=== PATIENT | male | born 1970 | race American Indian/Alaskan Native ===

== ENCOUNTER 2022-02-11 01:02 | Emergency (ER) | payer MEDICARE ==
[2022-02-11 01:46] VITALS: BP 165/89
== END 2022-02-12 14:40 | disposition left against medical advice (07) ==
LOC: ED 01:02
DX: M79.641 Pain in right hand (principal); Z53.21 Procedure and treatment not carried out due to patient leaving prior to being seen by health care provider

== ENCOUNTER 2022-05-26 23:32 | Inpatient (IN) | payer MEDICARE ==
--- NOTE | 2022-05-27 01:35 | XRay Report ---
CHEST 1 VIEW 05/26/2022 11:59 PM INDICATION / CLINICAL INFORMATION: Altered Mental Status. COMPARISON: 03/24/2022 FINDINGS: Diffuse bilateral pulmonary opacities of increased since prior examination suggesting diffuse edema/p neumonia. Left upper lung nodular density and opacity is also seen which may be slightly increased. F ollow-up with CT recommended as previously described. Signer Name: Mario Mullins MD Signed: 05/27/2022 1:30 AM Workstation Name: [id number]
--- NOTE | 2022-05-27 01:58 | Cat Scan Report ---
CT HEAD WITHOUT CONTRAST INDICATION / CLINICAL INFORMATION: Altered Mental Status. TECHNIQUE: All CT scans at this location are performed using CT dose reduction for ALARA by means of automated e xposure control. COMPARISON: 03/26/2022 FINDINGS: There is a prominent area of low attenuation within the left frontal white matter consistent with are a of prior ischemic change. Additional areas of low-attenuation scattered throughout the periventricu lar and central white matter. Additional area of low-attenuation with in the left posterior occipital and periventricular white matter surrounding the occipital horn suggests prior ischemic change. Mult iple areas of encephalomalacia are seen. Diffuse cerebral atrophy is identified. No acute hemorrhage is seen.. No midline shift or mass effect. Tiny area of punctate density is seen within the left post erior parieto-occipital lobe on axial image 21 ADDITIONAL FINDINGS: None. IMPRESSION: 1. Multiple areas of encephalomalacia with diffuse areas of prior ischemic change. Diffuse periventri cular central white matter areas of low-attenuation suggesting chronic small vessel disease. 2. Punctate area of increased density in the left prior occipital lobe best seen on axial image 21. T his could represent focal area of calcification however a small punctate images not completely exclud ed. This is not as well-seen on the prior exam. Called to Dr Almanzar [id number] Signer Name: Mario Mullins MD Signed: 05/27/2022 1:53 AM Workstation Name: [id number]
[2022-05-27 02:41] LABS: Albumin 2.6 g/dL (3.9-5); Calcium 10.5 mg/dL (8.4-10.2)
[2022-05-27 02:53] LABS: Basophils % (Auto) 0.3 % (0.0-1.8); Eosinophils % (Auto) 0.1 % (0.0-4.3); Hemoglobin 7.8 gm/dl (11.8-15.2); Lymphocytes # (Auto) 0.3 K/mm3 (1.2-5.4); Lymphocytes % (Auto) 2.1 % (13.4-35.0); Mean Corpuscular HGB Conc 32 % (32-34); Mean Corpuscular Volume 93 fl (84-94); Monocytes # (Auto) 1.1 K/mm3 (0.0-0.8); Monocytes % (Auto) 8.3 % (0.0-7.3); Platelet Count 295 K/mm3 (140-440); Red Blood Count 2.58 M/mm3 (3.65-5.03); Red Cell Distribution Width 15.5 % (13.2-15.2)
[2022-05-27 03:03] LABS: INR 1.23 (0.87-1.13)
[2022-05-27] MEDS ORDERED: DEXTROSE 50% IN WATER (25GM) 50 ML SYRINGE IV ONE (03:57)
[2022-05-27] MEDS ORDERED: INSULIN REGULAR, HUMAN 100 UNITS/1 ML IV ONE (03:57)
[2022-05-27] MEDS ORDERED: SODIUM CHLORIDE 0.9% 1000 ML 1,000 ML IV ONE (03:58)
[2022-05-27] MEDS ORDERED: ALBUTEROL 2.5 MG/3 ML NEBU IH ONE (03:58)
[2022-05-27] MEDS ORDERED: CALCIUM CHLORIDE 1,000 MG in SODIUM CHLORIDE 0.9% 100 ML IV ONE (03:58)
[2022-05-27] MEDS ORDERED: SODIUM POLYSTYRENE 15 GM/60 ML ORAL LIQD PO ONE ×2 (03:59→14:26)
--- NOTE | 2022-05-27 04:12 | Emergency Department Report ---
ED Altered Mental Status HPI - General Chief Complaint: Altered Mental Status Stated Complaint: AMS PUI?: No Time Seen by Provider: 05/27/22 00:42 Source: family, EMS Mode of arrival: Stretcher Limitations: Altered Mental Status - History of Present Illness Initial Comments: Family called to report that pt is not acting right. Oriented to name only. Does not know when last dialysis was. 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 ps is 51 years old with CRF , family noted not acting like himself , they dont know when he was last dilaisedMD Complaint: altered mental status, confusion, decreased responsiveness -: Gradual, days(s) Severity: severe Consistency of Symptoms: getting worse Context: history of similar presen Associated Symptoms: denies: denies other symptoms, chest pain - Related Data Previous Rx's Medication Instructions Recorded Last Taken Type Aspirin EC [Halfprin EC] 81 mg PO QDAY #30 tablet. 03/27/22 Unknown Rx Metoprolol [Lopressor TAB] 100 mg PO BID #60 tablet 03/27/22 Unknown Rx levETIRAcetam [Keppra TAB] 500 mg PO BID #60 tablet 03/27/22 Unknown Rx Allergies Allergy/AdvReac Type Severity Reaction Status Date / Time No Known Allergies Allergy Unverified 03/21/22 18:10 ED Review of Systems ROS: Stated complaint: AMS Other details as noted in HPI Constitutional: denies: chills, fever Eyes: denies: eye pain, eye discharge, vision change ENT: denies: ear pain, throat pain Respiratory: denies: cough, shortness of breath, wheezing Cardiovascular: denies: chest pain, palpitations Endocrine: no symptoms reported Gastrointestinal: denies: abdominal pain, nausea, diarrhea Genitourinary: denies: urgency, dysuria Musculoskeletal: denies: back pain, joint swelling, arthralgia Skin: denies: rash, lesions Neurological: denies: headache, weakness, paresthesias Psychiatric: denies: anxiety, depression Hematological/Lymphatic: denies: easy bleeding, easy bruising ED Past Medical Hx - Past Medical History Previous Medical History?: Yes Hx Hypertension: Yes Hx Diabetes: Yes Hx Renal Disease: Yes (On Dialysis) - Surgical History Past Surgical History?: No - Social History Smoking Status: Never Smoker Substance Use Type: None - Medications Home Medications: Home Medications Medication Instructions Recorded Confirmed Last Taken Type Aspirin EC [Halfprin EC] 81 mg PO QDAY #30 tablet. 03/27/22 Unknown Rx Metoprolol [Lopressor TAB] 100 mg PO BID #60 tablet 03/27/22 Unknown Rx levETIRAcetam [Keppra TAB] 500 mg PO BID #60 tablet 03/27/22 Unknown Rx ED Physical Exam - General Limitations: Altered Mental Status General appearance: lethargic, in distress - Head Head exam: Present: atraumatic, normocephalic - Eye Eye exam: Present: normal appearance - ENT ENT exam: Present: mucous membranes moist - Neck Neck exam: Present: normal inspection - Respiratory Respiratory exam: Present: normal lung sounds bilaterally. Absent: respiratory distress - Cardiovascular Cardiovascular Exam: Present: normal rhythm, tachycardia. Absent: systolic murmur, diastolic murmur, rubs, gallop - GI/Abdominal GI/Abdominal exam: Present: soft, normal bowel sounds - Rectal Rectal exam: Present: deferred - Extremities Exam Extremities exam: Present: normal inspection - Back Exam Back exam: Present: normal inspection - Skin Skin exam: Present: warm, dry, intact, normal color. Absent: rash ED Course Vital Signs 05/26/22 23:33 Temperature 98 F Pulse Rate 99 H Respiratory 18 Rate Blood Pressure 165/89 O2 Sat by Pulse 100 Oximetry - Lab Data Result diagrams: 05/27/22 01:28 05/27/22 01:28 Lab Results 05/27/22 05/27/22 05/27/22 Range/Units 01:28 01:28 01:28 WBC 13.8 H (4.5-11.0) K/mm3 RBC 2.58 L (3.65-5.03) M/mm3 Hgb 7.8 L (11.8-15.2) gm/dl Hct 24.0 L (35.5-45.6) % MCV 93 (84-94) fl MCH 30 (28-32) pg MCHC 32 (32-34) % RDW 15.5 H (13.2-15.2) % Plt Count 295 (140-440) K/mm3 Lymph % (Auto) 2.1 L (13.4-35.0) % Arroyo % (Auto) 8.3 H (0.0-7.3) % Eos % (Auto) 0.1 (0.0-4.3) % Baso % (Auto) 0.3 (0.0-1.8) % Lymph # (Auto) 0.3 L (1.2-5.4) K/mm3 Arroyo # (Auto) 1.1 H (0.0-0.8) K/mm3 Eos # (Auto) 0.0 (0.0-0.4) K/mm3 Baso # (Auto) 0.0 (0.0-0.1) K/mm3 Seg Neutrophils % 89.2 H (40.0-70.0) % Seg Neutrophils # 12.3 H (1.8-7.7) K/mm3 PT 17.0 H (12.2-14.9) Sec. INR 1.23 H (0.87-1.13) Sodium 152 H (137-145) mmol/L Potassium 6.9 H* (3.6-5.0) mmol/L Chloride 97.9 L (98-107) mmol/L Carbon Dioxide 21 L (22-30) mmol/L Anion Gap 40 mmol/L BUN 242 H (9-20) mg/dL Creatinine 32.1 H (0.8-1.3) mg/dL Estimated GFR 2 ml/min BUN/Creatinine Ratio 8 % Glucose 112 H (75-100) mg/dL Calcium 10.5 H (8.4-10.2) mg/dL Total Bilirubin 0.30 (0.1-1.2) mg/dL AST 19 (5-40) units/L ALT 15 (7-56) units/L Alkaline Phosphatase 63 (35-129) units/L Total Creatine Kinase 1147 H (55-170) units/L Troponin T 0.933 H* (0.00-0.029) ng/mL Total Protein 7.1 (6.3-8.2) g/dL Albumin 2.6 L (3.9-5) g/dL Albumin/Globulin Ratio 0.6 % Salicylates (2.8-20.0) mg/dL Acetaminophen (10.0-30.0) ug/mL Plasma/Serum Alcohol (0-0.07) % 05/27/22 05/27/22 05/27/22 Range/Units 01:28 01:28 01:28 WBC (4.5-11.0) K/mm3 RBC (3.65-5.03) M/mm3 Hgb (11.8-15.2) gm/dl Hct (35.5-45.6) % MCV (84-94) fl MCH (28-32) pg MCHC (32-34) % RDW (13.2-15.2) % Plt Count (140-440) K/mm3 Lymph % (Auto) (13.4-35.0) % Arroyo % (Auto) (0.0-7.3) % Eos % (Auto) (0.0-4.3) % Baso % (Auto) (0.0-1.8) % Lymph # (Auto) (1.2-5.4) K/mm3 Arroyo # (Auto) (0.0-0.8) K/mm3 Eos # (Auto) (0.0-0.4) K/mm3 Baso # (Auto) (0.0-0.1) K/mm3 Seg Neutrophils % (40.0-70.0) % Seg Neutrophils # (1.8-7.7) K/mm3 PT (12.2-14.9) Sec. INR (0.87-1.13) Sodium (137-145) mmol/L Potassium (3.6-5.0) mmol/L Chloride (98-107) mmol/L Carbon Dioxide (22-30) mmol/L Anion Gap mmol/L BUN (9-20) mg/dL Creatinine (0.8-1.3) mg/dL Estimated GFR ml/min BUN/Creatinine Ratio % Glucose (75-100) mg/dL Calcium (8.4-10.2) mg/dL Total Bilirubin (0.1-1.2) mg/dL AST (5-40) units/L ALT (7-56) units/L Alkaline Phosphatase (35-129) units/L Total Creatine Kinase (55-170) units/L Troponin T (0.00-0.029) ng/mL Total Protein (6.3-8.2) g/dL Albumin (3.9-5) g/dL Albumin/Globulin Ratio % Salicylates < 0.3 L (2.8-20.0) mg/dL Acetaminophen 5.0 L (10.0-30.0) ug/mL Plasma/Serum Alcohol < 0.01 (0-0.07) % - EKG Data -: EKG Interpreted by Me EKG shows normal: sinus rhythm Rate: tachycardia - Radiology Data Radiology results: report reviewed, image reviewed - Medical Decision Making work up showed hyperkalemia and uremia encephaolthy , protocol for hyperkalemia apliued, spoke with dr durbin , will get him dilaised rigth away, will admit Critical Care Time: Yes Critical care time in (mins) excluding proc time.: 65 Critical care attestation.: If time is entered above; I have spent that time in minutes in the direct care of this critically ill patient, excluding procedure time. ED Disposition Clinical Impression: Uremic encephalopathy, AMS (altered mental status), Hyperkalemia Disposition: ADMITTED INPATIENT Is pt being admited?: Yes Does the pt Need Aspirin: No Condition: Critical Referrals: ALDEN MARTINEZ MD [Primary Care Provider] - 3-5 Days
[2022-05-27] MEDS ORDERED: SODIUM CHLORIDE 0.9% 100 ML IV PRN (04:18)
[2022-05-27 04:33] LABS: Chol/HDL Ratio 2.87 %
--- NOTE | 2022-05-27 13:54 | Consultation ---
History of Present Illness - Reason for Consult Consult date: 05/27/22 end stage renal disease - History of Present Illness 51yr M admitted with AMS, oriented to name only, only nods to answer questions but won't respond to commands. Does not know when he last had dialysis & unable to say his Clinic or [facility] Past History Past Medical History: ESRD, other (No further info available at this time & no family members around) Medications and Allergies Allergies Allergy/AdvReac Type Severity Reaction Status Date / Time No Known Allergies Allergy Unverified 03/21/22 18:10 Home Medications Medication Instructions Recorded Confirmed Last Taken Type Aspirin EC [Halfprin EC] 81 mg PO QDAY #30 tablet. 03/27/22 Unknown Rx Metoprolol [Lopressor TAB] 100 mg PO BID #60 tablet 03/27/22 Unknown Rx levETIRAcetam [Keppra TAB] 500 mg PO BID #60 tablet 03/27/22 Unknown Rx Active Meds: Active Medications Sodium Chloride (Nacl 0.9%) 100 mls @ 999 mls/hr IV HILDA PRN PRN Reason: Hypotension Review of Systems ROS unobtainable: due to mental status Exam - Vital Signs Vital signs: Vital Signs Temp Pulse Resp BP Pulse Ox 98 F 99 H 18 165/89 100 05/26/22 23:33 05/26/22 23:33 05/26/22 23:33 05/26/22 23:33 05/26/22 23:33 - General Appearance General appearance: other (Awake & alert but remains mute & only nods to answer questions) EENT: PERRL, hearing intact Neck: Present: neck supple. Absent: JVD/HJR Respiratory: Other (Good air entry) Heart: regular, S1S2 Gastrointestinal: Present: other (Soft). Absent: tenderness Integumentary: no rash, warm and dry Results - Lab Results 05/27/22 01:28 05/27/22 01:28 Most recent lab results Calcium 10.5 mg/dL (8.4-10.2) H 05/27/22 01:28 Assessment and Plan ESRD - Highly elevated BUN/Cr but pt alert & no evidence of Uremic silverio Electrolyte Imbalance - HyperK, HyperNa Dehydration Altered Mental Status - Possibly related to HyperNa but r/o illicit Drug use Plan: HD today via Lt arm AVG with +Bruit & thrill. Discussed with HD Nurse for slow HD with adjusted electrolytes to avoid Dialysis dysequilibrium Low K, low Na, low Ca baths on HD. Kayexalate po Hypotonic IVF & f/u labs & clinical status in am Thanks, will f/u with you
--- NOTE | 2022-05-27 14:06 | Event Note ---
In reviewing chart, patient seen by Dr. Eastman on last visit- will change consult to him. Did speak with Dr. Eastman to confirm patient is under his care. STAT HD orders placed given severity of symptoms early this AM, is currently on HD. Further management per Dr. Eastman.
[2022-05-27 14:47] LABS: Hepatitis B Surface Antigen Non-Reactive (Negative); Hepatitis C Virus Antibody Non-Reactive (NonReactive)
[2022-05-27] MEDS ORDERED: DEXTROSE 5% IN WATER 1,000 ML IV SCH (15:00)
[2022-05-27] MEDS ORDERED: MORPHINE 2 MG/1 ML INJ IV PRN (19:48)
[2022-05-27] MEDS ORDERED: METOCLOPRAMIDE 10 MG/2 ML INJ IV PRN (19:48)
[2022-05-27] MEDS ORDERED: HYDROmorphone 0.5 MG/0.5 ML INJ IV PRN (19:48)
[2022-05-27] MEDS ORDERED: ACETAMINOPHEN 325 MG TAB PO PRN (19:48)
[2022-05-27] MEDS ORDERED: oxyCODONE /ACETAMINOPHEN 5-325MG TAB PO PRN (19:48)
[2022-05-27 21:12] LABS: Calcium 9.2 mg/dL (8.4-10.2)
[2022-05-27] MEDS: HEPARIN 5,000 UNIT/1 ML VIAL SUB-Q SCH (21:53)
--- NOTE | 2022-05-28 01:52 | History and Physical Report ---
History of Present Illness Date of examination: 05/27/22 Date of admission: 05/27/22 19:48 Chief complaint: Altered sensorium since a.m. History of present illness: 51-year-old seizure disorder hypertension type 2 diabetes and end-stage renal disease on hemodialysis presents with lethargy and confusion. Family brought him to the emergency room stating that he is confused not oriented. His last known dialysis is not known. Improvement on fluids. No fever or chills. No seizures. Noncompliant with his medications. - Past Medical History --Previous Medical History?: Yes --Hypertension: Yes --Diabetes: Yes --Renal Disease: Yes (On Dialysis) - Surgical History --AVF for HD - Social History --Smoking Status: Never Smoker --Substance Use Type: None -Family history -- Htn - Medications --Home Medications: Home Medications Medication Instructions Recorded Confirmed Last Taken Type Aspirin EC [Halfprin EC] 81 mg PO QDAY #30 tablet. 03/27/22 Unknown Rx Metoprolol [Lopressor TAB] 100 mg PO BID #60 tablet 03/27/22 Unknown Rx levETIRAcetam [Keppra TAB] 500 mg PO BID #60 tablet 03/27/22 Unknown Rx Review of Systems ROS: Stated complaint: AMS Other details as noted in HPI Constitutional: denies: chills, fever Eyes: denies: eye pain, eye discharge, vision change ENT: denies: ear pain, throat pain Respiratory: denies: cough, shortness of breath, wheezing Cardiovascular: denies: chest pain, palpitations Endocrine: no symptoms reported Gastrointestinal: denies: abdominal pain, nausea, diarrhea Genitourinary: denies: urgency, dysuria Musculoskeletal: denies: back pain, joint swelling, arthralgia Skin: denies: rash, lesions Neurological: denies: headache, weakness, paresthesias Psychiatric: denies: anxiety, depression Hematological/Lymphatic: denies: easy bleeding, easy bruising Past History Past Medical History: ESRD, other (No further info available at this time & no family members around) Medications and Allergies Allergies Allergy/AdvReac Type Severity Reaction Status Date / Time No Known Allergies Allergy Unverified 03/21/22 18:10 Home Medications Medication Instructions Recorded Confirmed Last Taken Type Aspirin EC [Halfprin EC] 81 mg PO QDAY #30 tablet. 03/27/22 Unknown Rx Metoprolol [Lopressor TAB] 100 mg PO BID #60 tablet 03/27/22 Unknown Rx levETIRAcetam [Keppra TAB] 500 mg PO BID #60 tablet 03/27/22 Unknown Rx Active Meds: Active Medications Acetaminophen (Acetaminophen 325 Mg Tab) 650 mg PO Q4H PRN PRN Reason: Pain MILD(1-3)/Fever >100.5/MUNOZ Heparin Sodium (Porcine) (Heparin 5,000 Unit/1 Ml Vial) 5,000 unit SUB-Q Q12HR [facility] Last Admin: 05/27/22 21:53 Dose: 5,000 unit Hydromorphone HCl (Hydromorphone 0.5 Mg/0.5 Ml Inj) 0.5 mg IV Q3H PRN PRN Reason: Pain , Severe (7-10) Sodium Chloride (Nacl 0.9%) 100 mls @ 999 mls/hr IV HILDA PRN PRN Reason: Hypotension Metoclopramide HCl (Metoclopramide 10 Mg/2 Ml Inj) 10 mg IV Q6H PRN PRN Reason: Nausea And Vomiting Morphine Sulfate (Morphine 2 Mg/1 Ml Inj) 2 mg IV Q4H PRN PRN Reason: Pain, Moderate (4-6) Ondansetron HCl (Ondansetron 4 Mg/2 Ml Inj) 4 mg IV Q8H PRN PRN Reason: Nausea And Vomiting Oxycodone/Acetaminophen (Oxycodone /Acetaminophen 5-325mg Tab) 1 tab PO Q6H PRN PRN Reason: Pain, Moderate (4-6) Sodium Chloride (Sodium Chloride 0.9% 10 Ml Flush Syringe) 10 ml IV BID [facility] Last Admin: 05/27/22 21:54 Dose: 10 ml Sodium Chloride (Sodium Chloride 0.9% 10 Ml Flush Syringe) 10 ml IV PRN PRN PRN Reason: LINE FLUSH Exam - Constitutional Vitals: Temp Pulse Resp BP Pulse Ox 99.8 F H 106 H 26 H 112/71 100 05/28/22 00:00 05/28/22 01:00 05/27/22 18:00 05/27/22 18:00 05/28/22 01:00 General appearance: Present: no acute distress, well-nourished - EENT Eyes: Present: PERRL ENT: hearing intact, clear oral mucosa - Neck Neck: Present: supple, normal ROM - Respiratory Respiratory effort: normal Respiratory: bilateral: CTA - Cardiovascular Heart rate: 78 Rhythm: regular Heart Sounds: Present: S1 & S2. Absent: rub, click - Extremities Extremities: pulses symmetrical, No edema Peripheral Pulses: within normal limits - Abdominal General gastrointestinal: Present: soft, non-tender, non-distended, normal bowel sounds Male genitourinary: Present: normal - Integumentary Integumentary: Present: clear, warm, dry - Musculoskeletal Musculoskeletal: generalized weakness - Psychiatric Psychiatric: other (Alert but not oriented to time place and person) - Neurologic Neurologic: CNII-XII intact, moves all extremities, other (Alert but not o riented to time place and person) - Allied Health Allied health notes reviewed: nursing, case management HEART Score - HEART Score Troponin: Troponin T 0.933 ng/mL (0.00-0.029) H* 05/27/22 01:28 Results - Labs CBC & Chem 7: 05/27/22 01:28 05/27/22 20:21 Labs: Laboratory Last Values WBC 13.8 K/mm3 (4.5-11.0) H 05/27/22 01:28 RBC 2.58 M/mm3 (3.65-5.03) L 05/27/22 01:28 Hgb 7.8 gm/dl (11.8-15.2) L 05/27/22 01:28 Hct 24.0 % (35.5-45.6) L 05/27/22 01:28 MCV 93 fl (84-94) 05/27/22 01:28 MCH 30 pg (28-32) 05/27/22 01:28 MCHC 32 % (32-34) 05/27/22 01:28 RDW 15.5 % (13.2-15.2) H 05/27/22 01:28 Plt Count 295 K/mm3 (140-440) 05/27/22 01:28 Lymph % (Auto) 2.1 % (13.4-35.0) L 05/27/22 01:28 Moore % (Auto) 8.3 % (0.0-7.3) H 05/27/22 01:28 Eos % (Auto) 0.1 % (0.0-4.3) 05/27/22 01:28 Baso % (Auto) 0.3 % (0.0-1.8) 05/27/22 01:28 Lymph # (Auto) 0.3 K/mm3 (1.2-5.4) L 05/27/22 01:28 Moore # (Auto) 1.1 K/mm3 (0.0-0.8) H 05/27/22 01:28 Eos # (Auto) 0.0 K/mm3 (0.0-0.4) 05/27/22 01:28 Baso # (Auto) 0.0 K/mm3 (0.0-0.1) 05/27/22 01: Seg Neutrophils % 89.2 % (40.0-70.0) H 05/27/22: Seg Neutrophils # 12.3 K/mm3 (1.8-7.7) H 05/27/22 01:28 PT 17.0 Sec. (12.2-14.9) H 05/27/22 01:28 INR 1.23 (0.87-1.13) H 05/27/22 01:28 Sodium 146 mmol/L (137-145) H 05/27/22 20:21 Potassium 4.9 mmol/L (3.6-5.0) D 05/27/22 20: Chloride 98.0 mmol/L (98-107) 05/27/22 20:21 Carbon Dioxide 27 mmol/L (22-30) 05/27/22 20:21 Anion Gap 26 mmol/L 05/27/22 20:21 BUN 132 mg/dL (9-20) H 05/27/22 20:21 Creatinine 18.5 mg/dL (0.8-1.3) H 05/27/22 20:21 Estimated GFR 3 ml/min 05/27/22 20:21 BUN/Creatinine Ratio 7 % 05/27/22 20: Glucose 138 mg/dL (75-100) H 05/27/22 20:21 Calcium 9.2 mg/dL (8.4-10.2) 05/27/22 20:21 Total Bilirubin 0.30 mg/dL (0.1-1.2) 05/27/22:28 AST 19 units/L (5-40) 05/27/22 01:28 ALT 15 units/L (7-56) 05/27/22 01:28 Alkaline Phosphatase 63 units/L (35-129) 05/27/22 01:28 Total Creatine Kinase 1147 units/L (55-170) H 05/27/22 01:28 Troponin T 0.933 ng/mL (0.00-0.029) H* 05/27/22 01:28 Total Protein 7.1 g/dL (6.3-8.2) 05/27/22 01:28 Albumin 2.6 g/dL (3.9-5) L 05/27/22 01:28 Albumin/Globulin Ratio 0.6 % 05/27/22 01:28 Triglycerides 178 mg/dL (2-149) H 05/27/22 01:28 Cholesterol 112 mg/dL (50-199) 05/27/22 01:28 LDL Cholesterol Direct 30 mg/dL (50-130) L 05/27/22 01:28 HDL Cholesterol 39 mg/dL (40-59) L 05/27/22 01:28 Cholesterol/HDL Ratio 2.87 % 05/27/22 01:28 Salicylates < 0.3 mg/dL (2.8-20.0) L 05/27/22 01:28 Acetaminophen 5.0 ug/mL (10.0-30.0) L 05/27/22 01:28 Plasma/Serum Alcohol < 0.01 % (0-0.07) 05/27/22 01:28 Hepatitis A IgM Ab Non-reactive (NonReactive) 05/27/22 01:28 Hep Bs Antigen Non-reactive (Negative) 05/27/22 01:28 Hep B Core IgM Ab Non-reactive (NonReactive) 05/27/22 01:28 Hepatitis C Antibody Non-reactive (NonReactive) 05/27/22 01:28 BMP 05/27/22 20:21 Sodium 146 H Potassium 4.9 D Chloride 98.0 Carbon Dioxide 27 BUN 132 H Creatinine 18.5 H Glucose 138 H Calcium 9.2 Saez/IV: Voiding Method Incontinent Assessment and Plan Assessment and plan: Critical care statement The high probability OF a clinically significant sudden or life-threatening deterioration of the cardiorespiratory system and endocrine system required my full and direct attention, intervention and postoperative management. The aggregate critical care time was 62 minutes. The time is in addition to time spent performing reported procedures but includes the followin: Data review and interpretation 2: Patient assessment and monitoring of vital signs 3: Documentation 4:: Medication orders and management Advance Directives: Yes (Full code) VTE prophylaxis?: Chemical Plan of care discussed with patient/family: Yes - Patient Problems (1) Acute metabolic encephalopathy Current Visit: Yes Status: Acute Plan to address problem: Secondary to severe uremia. His creatinine is 32.1 and BUN is 242. Family does not know how many days he has missed his hemodialysis. I tried to get information whether he lives alone. Could not reach anybody. Patient needs multiple hemodialysis treatments to bring the creatinine down to reasonable levels. Nephrology consulted. Patient to get emergent hemodialysis. Today. Patient to be counseled about compliance once he is more alert and oriented. (2) Hyperkalemia Current Visit: Yes Status: Acute Plan to address problem: Treated in the emergency room and patient going for hemodialysis Recheck potassium level (3) Metabolic acidosis Current Visit: Yes Status: Acute Plan to address problem: Secondary to severe uremia. (4) Seizure disorder Current Visit: Yes Status: Chronic Plan to address problem: Continue Keppra. 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 insulin use status Chronic kidney disease stage: on chronic dialysis Plan to address problem: Coverage for now (6) ESRD needing dialysis Current Visit: Yes Status: Acute Plan to address problem: Emergent hemodialysis Nephrology consult Patient to be counseled about compliance (7) Anemia Current Visit: No Status: Chronic Qualifiers: Anemia type: due to chronic kidney disease Plan to address problem: Secondary to chronic kidney disease Epogen as per nephrology (8) Hypertension Current Visit: Yes Status: Chronic Qualifiers: Hypertension type: primary hypertension Qualified Code(s): I10 - Essential (primary) hypertension Plan to address problem: Continue antihypertensives (9) Malnutrition Current Visit: Yes Status: Chronic Qualifiers: Malnutrition type: protein-calorie malnutrition Protein-calorie malnutrition severity: severe Qualified Code(s): E43 - Unspecified severe protein-calorie malnutrition Plan to address problem: Dietary supplements initiated Dietitian consult requested (10) DVT prophylaxis Current Visit: Yes Status: Acute Plan to address problem: On heparin and GI prophylaxis (11) Advance care planning Current Visit: Yes Status: Acute Plan to address problem: Disease education conducted, care plan discussed, diagnosis discussed and prognosis discussed. Patient acknowledged understanding with care plan. +30 minutes.
[2022-05-28 07:43] LABS: Basophils % (Auto) 0.4 % (0.0-1.8); Eosinophils # (Auto) 0.1 K/mm3 (0.0-0.4); Hemoglobin 6.8 gm/dl (11.8-15.2); Lymphocytes # (Auto) 0.3 K/mm3 (1.2-5.4); Lymphocytes % (Auto) 3.5 % (13.4-35.0); Mean Corpuscular HGB Conc 34 % (32-34); Mean Corpuscular Volume 92 fl (84-94); Monocytes # (Auto) 0.8 K/mm3 (0.0-0.8); Monocytes % (Auto) 8.7 % (0.0-7.3); Platelet Count 248 K/mm3 (140-440); Red Blood Count 2.16 M/mm3 (3.65-5.03)
[2022-05-28 08:13] LABS: Hematocrit 19.9 % (35.5-45.6)
[2022-05-28] MEDS ORDERED: SODIUM CHLORIDE 0.9% 500 ML 500 ML IV SCH (09:00)
[2022-05-28 09:37] LABS: Albumin 2.8 g/dL (3.9-5); Calcium 9.5 mg/dL (8.4-10.2)
--- NOTE | 2022-05-28 10:00 | Progress Note ---
Assessment and Plan Assessment and plan: History of present illness: 51-year-old seizure disorder hypertension type 2 diabetes and end-stage renal disease on hemodialysis presents with lethargy and confusion. Family brought him to the emergency room stating that he is confused not oriented. His last known dialysis is not known. Improvement on fluids. No fever or chills. No seizures. Noncompliant with his medications. hospital course: 05/28: AOx4 on bedside encounter. Patient stated he has now missed several dialysis sessions. He goes to [facility] by [place] per patient. will place CM consultation to ensure patient still has chair. Anticipate d/c tomorrow. Assessment and Plan: (1) Acute metabolic encephalopathy Current Visit: Yes Status: Acute Plan to address problem: Secondary to severe uremia. His creatinine is 32.1 and BUN is 242. Family does not know how many days he has missed his hemodialysis. I tried to get information whether he lives alone. Could not reach anybody. Patient needs m ultiple hemodialysis treatments to bring the creatinine down to reasonable levels. Nephrology consulted. Patient to get emergent hemodialysis. Today. Patient to be counseled about compliance once he is more alert and oriented. (2) Hyperkalemia Current Visit: Yes Status: Acute Plan to address problem: Treated in the emergency room and patient going for hemodialysis Recheck potassium level (3) Metabolic acidosis Current Visit: Yes Status: Acute Plan to address problem: Secondary to severe uremia. (4) Seizure disorder Current Visit: Yes Status: Chronic Plan to address problem: Continue Keppra. (5) T2DM (type 2 diabetes mellitus) Current Visit: Yes Status: Chronic Qualifiers: Diabetes mellitus halfway insulin use: unspecified halfway insulin use status Chronic kidney disease stage: on chronic dialysis Plan to address problem: Coverage for now (6) ESRD needing dialysis Current Visit: Yes Status: Acute Plan to address problem: Emergent hemodialysis Nephrology consult Patient to be counseled about compliance (7) Anemia Current Visit: No Status: Chronic Qualifiers: Anemia type: due to chronic kidney disease Plan to address problem: Secondary to chronic kidney disease Epogen as per nephrology (8) Hypertension Current Visit: Yes Status: Chronic Qualifiers: Hypertension type: primary hypertension Qualified Code(s): I10 - Essential (primary) hypertension Plan to address problem: Continue antihypertensives (9) Malnutrition Current Visit: Yes Status: Chronic Qualifiers: Malnutrition type: protein-calorie malnutrition Protein-calorie malnutrition severity: severe Qualified Code(s): E43 - Unspecified severe pr otein-calorie malnutrition Plan to address problem: Dietary supplements initiated Dietitian consult requested (10) DVT prophylaxis Current Visit: Yes Status: Acute Plan to address problem: On heparin and GI prophylaxis (11) Advance care planning Current Visit: Yes Status: Acute Plan to address problem: Disease education conducted, care plan discussed, diagnosis discussed and p rognosis discussed. Patient acknowledged understanding with care plan. +30 minutes. The high probability of a clinically significant, sudden or life threatening deterioration of the [multi] system(s) required my full and direct attention, intervention and personal management. The aggregate critical care time was [60] minutes. This time is in addition to time spent performing reported procedures but includes the following: [x] Data Review and interpretation [x] Patient assessment and monitoring of vital signs [x] Documentation [x] Medication orders and management History Interval history: No acute complaints on bedside encounter. Hospitalist Physical - Physical exam Narrative exam: Physical Exam: VITAL SIGNS: Reviewed. GENERAL: The patient appears normally developed, Vital signs as documented. HEAD: No signs of head trauma. EYES: Pupils are equal. Extraocular motions intact. EARS: Hearing grossly intact. MOUTH: Oropharynx is normal. NECK: No adenopathy, no JVD. CHEST: Chest with clear breath sounds bilaterally. No wheezes, rales, or rhonchi. CARDIAC: Regular rate and rhythm. S1 and S2, without murmurs, gallops, or rubs. VASCULAR: No Edema. Peripheral pulses normal and equal in all extremities. ABDOMEN: Soft, non tender and non distended. No rebound or guarding, and no masses palpated. Bowel Sounds normal. MUSCULOSKELETAL: Good range of motion of all major joints. Extremities without clubbing, cyanosis or edema. NEUROLOGIC EXAM: Alert and oriented x 4. no focal sensory or strength deficits. PSYCHIATRIC: Mood normal. SKIN: detail exam as documented in skin assessment - Constitutional Vitals: Temp Pulse Resp BP Pulse Ox 98.7 F 90 26 H 112/71 100 05/28/22 07:37 05/28/22 04:00 05/27/22 18:00 05/27/22 18:00 05/28/22 04:00 General appearance: Present: no acute distress, well-nourished HEART Score - HEART Score Troponin: Troponin T 0.933 ng/mL (0.00-0.029) H* 05/27/22 01:28 Results - Labs CBC & Chem 7: 05/28/22 07:22 05/28/22 07:22 Labs: Laboratory Last Values WBC 9.1 K/mm3 (4.5-11.0) 05/28/22 07: RBC 2.16 M/mm3 (3.65-5.03) L 05/28/22 07: Hgb 6.8 gm/dl (11.8-15.2) L 05/28/22 07: Hct 19.9 % (35.5-45.6) L* 05/28/22 07: MCV 92 fl (84-94) 05/28/22 07: MCH 31 pg (28-32) 05/28/22 07: MCHC 34 % (32-34) 05/28/22 07: RDW 15.0 % (13.2-15.2) 05/28/22: Plt Count 248 K/mm3 (140-440) 05/28/22 07: Lymph % (Auto) 3.5 % (13.4-35.0) L 05/28/22 07: [place] % (Auto) 8.7 % (0.0-7.3) H 05/28/22 07: Eos % (Auto) 1.0 % (0.0-4.3) 05/28/22 07: Baso % (Auto) 0.4 % (0.0-1.8) 05/28/22: Lymph # (Auto) 0.3 K/mm3 (1.2-5.4) L 05/28/22: [place] # (Auto) 0.8 K/mm3 (0.0-0.8) 05/28/22: Eos # (Auto) 0.1 K/mm3 (0.0-0.4) 05/28/22 07: Baso # (Auto) 0.0 K/mm3 (0.0-0.1) 05/28/22 07: Seg Neutrophils % 86.4 % (40.0-70.0) H 05/28/22 07:22 Seg Neutrophils # 7.9 K/mm3 (1.8-7.7) H 05/28/22 07:22 PT 17.0 Sec. (12.2-14.9) H 05/27/22 01:28 INR 1.23 (0.87-1.13) H 05/27/22 01:28 Sodium 147 mmol/L (137-145) H 05/28/22 07:22 Potassium 4.8 mmol/L (3.6-5.0) 05/28/22 07:22 Chloride 97.6 mmol/L (98-107) L 05/28/22 07:22 Carbon Dioxide 27 mmol/L (22-30) 05/28/22 07:22 Anion Gap 27 mmol/L 05/28/22 07:22 BUN 138 mg/dL (9-20) H 05/28/22 07:22 Creatinine 19.2 mg/dL (0.8-1.3) H 05/28/22 07:22 Estimated GFR 3 ml/min 05/28/22 07:22 BUN/Creatinine Ratio 7 % 05/28/22 07:22 Glucose 118 mg/dL (75-100) H 05/28/22 07:22 POC Glucose 109 mg/dL (70-105) H 05/28/22 07:51 Calcium 9.5 mg/dL (8.4-10.2) 05/28/22 07:22 Phosphorus 10.10 mg/dL (2.5-4.5) H 05/28/22 07:22 Magnesium 2.20 mg/dL (1.7-2.3) 05/28/22 07:22 Total Bilirubin 0.30 mg/dL (0.1-1.2) 05/28/22 07:22 AST 20 units/L (5-40) 05/28/22 07:22 ALT 17 units/L (7-56) 05/28/22 07:22 Alkaline Phosphatase 65 units/L (35-129) 05/28/22 07:22 Total Creatine Kinase 1147 units/L (55-170) H 05/27/22 01:28 Troponin T 0.933 ng/mL (0.00-0.029) H* 05/27/22 01:28 Total Protein 5.8 g/dL (6.3-8.2) L 05/28/22 07: Albumin 2.8 g/dL (3.9-5) L 05/28/22 07: Albumin/Globulin Ratio 0.9 % 05/28/22 07: Triglycerides 178 mg/dL (2-149) H 05/27/22 01:28 Cholesterol 112 mg/dL (50-199) 05/27/22 01:28 LDL Cholesterol Direct 30 mg/dL (50-130) L 05/27/22 01:28 HDL Cholesterol 39 mg/dL (40-59) L 05/27/22 01:28 Cholesterol/HDL Ratio 2.87 % 05/27/22 01:28 Salicylates < 0.3 mg/dL (2.8-20.0) L 05/27/22 01:28 Acetaminophen 5.0 ug/mL (10.0-30.0) L 05/27/22 01:28 Plasma/Serum Alcohol < 0.01 % (0-0.07) 05/27/22 01:28 Hepatitis A IgM Ab Non-reactive (NonReactive) 05/27/22 01:28 Hep Bs Antigen Non-reactive (Negative) 05/27/22 01:28 Hep B Core IgM Ab Non-reactive (NonReactive) 05/27/22 01:28 Hepatitis C Antibody Non-reactive (NonReactive) 05/27/22 01:28 Saez/IV: Voiding Method Incontinent Active Medications - Current Medications Current Medications: Generic Name Dose Route Start Last Admin Trade Name Freq PRN Reason Stop Dose Admin Acetaminophen 650 mg 05/27/22 19:48 Acetaminophen 325 Mg Tab PO Q4H PRN Pain MILD(1-3)/Fever >100.5/MUNOZ Aspirin 81 mg 05/28/22 10:00 Aspirin Ec 81 Mg Tab PO QDAY MYRIAM Heparin Sodium (Porcine) 5,000 unit 05/27/22 22:00 05/27/22 21:53 Heparin 5,000 Unit/1 Ml Vial SUB-Q 5,000 unit Q12HR MYRIAM Administration Hydromorphone HCl 0.5 mg 05/27/22 19:48 Hydromorphone 0.5 Mg/0.5 Ml Inj IV Q3H PRN Pain , Severe (7-10) Sodium Chloride 100 mls @ 999 mls/hr 05/27/22 04:18 Nacl 0.9% IV HILDA PRN Hypotension Sodium Chloride 500 mls @ 0 mls/hr 05/28/22 09:00 Nacl 0.9% 500 Ml IV 05/28/22 19:00 ONCE@0900 [facility] As Directed Insulin Human Lispro 0 unit 05/28/22 07:30 Insulin Lispro 100 Unit/Ml SUB-Q ACHS [facility] Protocol Levetiracetam 500 mg 05/28/22 10:00 Levetiracetam 500 Mg Tab PO BID [facility] Metoclopramide HCl 10 mg 05/27/22 19:48 Metoclopramide 10 Mg/2 Ml Inj IV Q6H PRN Nausea And Vomiting Metoprolol Tartrate 100 mg 05/28/22 10:00 Metoprolol Tartrate 100 Mg Tab PO BID [facility] Morphine Sulfate 2 mg 05/27/22 19:48 Morphine 2 Mg/1 Ml Inj IV Q4H PRN Pain, Moderate (4-6) Ondansetron HCl 4 mg 05/27/22 19:48 Ondansetron 4 Mg/2 Ml Inj IV Q8H PRN Nausea And Vomiting Oxycodone/Acetaminophen 1 tab 05/27/22 19:48 Oxycodone /Acetaminophen 5-325mg Tab PO Q6H PRN Pain, Moderate (4-6) Sodium Chloride 10 ml 05/27/22 22:00 05/27/22 21:54 Sodium Chloride 0.9% 10 Ml Flush Syringe IV 10 ml BID [facility] Administration Sodium Chloride 10 ml 05/27/22 19:48 Sodium Chloride 0.9% 10 Ml Flush Syringe IV PRN PRN LINE FLUSH
[2022-05-28] MEDS: levETIRAcetam 500 MG TAB PO SCH ×2 (10:12→21:17)
[2022-05-28] MEDS: METOPROLOL TARTRATE 100 MG TAB PO SCH ×2 (10:12→21:17)
[2022-05-28] MEDS: ASPIRIN EC 81 MG TAB PO SCH (10:12)
[2022-05-28] MEDS: HEPARIN 5,000 UNIT/1 ML VIAL SUB-Q SCH ×2 (10:13→21:16)
[2022-05-28] MEDS: INSULIN LISPRO 100 UNIT/ML SUB-Q SCH ×4 (10:14→21:21)
--- NOTE | 2022-05-28 11:26 | Progress Note ---
Assessment and Plan ESRD - Tolerated cautious HD yesterday, BUN/Cr improved from 242/32.1 to 138/19.2, will f/u today & plan for next HD in am Electrolyte Imbalance - Improved HyperNa from 152 to 147, resolved HyperK. En courage free water ingestion. Low Na bath on HD Metab - Add Phos binder. Low Ca bath on HD Altered Mental Status - Much improved, continue f/u Subjective Date of service: 05/28/22 Interval history: Pt more alert, lucid & verbally responsive. Knows he gets HD q mwf but has not been for a while Objective - Vital Signs Vital signs: Vital Signs - 12hr 05/28/22 05/28/22 05/28/22 00:00 01:00 04:00 Temperature 99.8 F H Pulse Rate [ 106 H 90 From Monitor] Blood Pressure O2 Sat by Pulse 100 100 Oximetry 05/28/22 05/28/22 05/28/22 04:36 07:37 10:12 Temperature 97.5 F L 98.7 F Pulse Rate [ From Monitor] Blood Pressure 141/70 O2 Sat by Pulse Oximetry - General Appearance General appearance: other (Awake & now verbally responsive) EENT: PERRL, hearing intact Neck: no JVD Respiratory: Present: Other (Good air entry) Cardiology: regular, S1S2 Gastrointestinal: normal Neurologic: alert and oriented x3 - Lab 05/28/22 07:22 05/28/22 07:22 Most recent lab results Calcium 9.5 mg/dL (8.4-10.2) 05/28/22 07: Phosphorus 10.10 mg/dL (2.5-4.5) H 05/28/22 07:22 Magnesium 2.20 mg/dL (1.7-2.3) 05/28/22 07:22 Medications & Allergies - Medications Allergies/Adverse Reactions: Allergies No Known Allergies Allergy (Unverified 03/21/22 18:10) Home Medications: Home Medications Medication Instructions Recorded Confirmed Last Taken Type Aspirin EC [Halfprin EC] 81 mg PO QDAY #30 tablet. 03/27/22 Unknown Rx Metoprolol [Lopressor TAB] 100 mg PO BID #60 tablet 03/27/22 Unknown Rx levETIRAcetam [Keppra TAB] 500 mg PO BID #60 tablet 03/27/22 Unknown Rx Active Medications: Generic Name Dose Route Start Last Admin Trade Name Freq PRN Reason Stop Dose Admin Acetaminophen 650 mg 05/27/22 19:48 Acetaminophen 325 Mg Tab PO Q4H PRN Pain MILD(1-3)/Fever >100.5/MUNOZ Aspirin 81 mg 05/28/22 10:00 05/28/22 10:12 Aspirin Ec 81 Mg Tab PO 81 mg QDAY [facility] Administration Heparin Sodium (Porcine) 5,000 unit 05/27/22 22:00 05/28/22 10:13 Heparin 5,000 Unit/1 Ml Vial SUB-Q 5,000 unit Q12HR MYRIAM Administration Hydromorphone HCl 0.5 mg 05/27/22 19:48 Hydromorphone 0.5 Mg/0.5 Ml Inj IV Q3H PRN Pain , Severe (7-10) Sodium Chloride 100 mls @ 999 mls/hr 05/27/22 04:18 Nacl 0.9% IV HILDA PRN Hypotension Sodium Chloride 500 mls @ 0 mls/hr 05/28/22 09:00 Nacl 0.9% 500 Ml IV 05/28/22 19:00 ONCE@0900 [facility] As Directed Insulin Human Lispro 0 unit 05/28/22 07:30 05/28/22 10:14 Insulin Lispro 100 Unit/Ml SUB-Q Not Given [facility] Protocol Levetiracetam 500 mg 05/28/22 10:00 05/28/22 10:12 Levetiracetam 500 Mg Tab PO 500 mg BID [facility] Administration Metoclopramide HCl 10 mg 05/27/22 19:48 Metoclopramide 10 Mg/2 Ml Inj IV Q6H PRN Nausea And Vomiting Metoprolol Tartrate 100 mg 05/28/22 10:00 05/28/22 10:12 Metoprolol Tartrate 100 Mg Tab PO 100 mg BID [facility] Administration Morphine Sulfate 2 mg 05/27/22 19:48 Morphine 2 Mg/1 Ml Inj IV Q4H PRN Pain, Moderate (4-6) Ondansetron HCl 4 mg 05/27/22 19:48 Ondansetron 4 Mg/2 Ml Inj IV Q8H PRN Nausea And Vomiting Oxycodone/Acetaminophen 1 tab 05/27/22 19:48 Oxycodone /Acetaminophen 5-325mg Tab PO Q6H PRN Pain, Moderate (4-6) Sodium Chloride 10 ml 05/27/22 22:00 05/28/22 10:13 Sodium Chloride 0.9% 10 Ml Flush Syringe IV 10 ml BID MYRIAM Administration Sodium Chloride 10 ml 05/27/22 19:48 Sodium Chloride 0.9% 10 Ml Flush Syringe IV PRN PRN LINE FLUSH
[2022-05-28] MEDS ORDERED: SODIUM CHLORIDE 0.9% 100 ML IV PRN (12:00)
[2022-05-28] MEDS: SEVELAMER CARBONATE 800 MG TAB PO SCH ×3 (13:03→18:10)
--- NOTE | 2022-05-28 14:39 | Electrocardiograph Report ---
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
[2022-05-29 04:53] LABS: Basophils % (Auto) 0.2 % (0.0-1.8); Eosinophils # (Auto) 0.1 K/mm3 (0.0-0.4); Eosinophils % (Auto) 1.2 % (0.0-4.3); Hematocrit 23.6 % (35.5-45.6); Hemoglobin 7.7 gm/dl (11.8-15.2); Lymphocytes # (Auto) 0.3 K/mm3 (1.2-5.4); Lymphocytes % (Auto) 2.8 % (13.4-35.0); Mean Corpuscular HGB Conc 33 % (32-34); Mean Corpuscular Volume 89 fl (84-94); Monocytes # (Auto) 1.2 K/mm3 (0.0-0.8); Monocytes % (Auto) 10.8 % (0.0-7.3); Platelet Count 252 K/mm3 (140-440); Red Blood Count 2.65 M/mm3 (3.65-5.03)
[2022-05-29 05:08] LABS: Albumin 2.4 g/dL (3.9-5); Calcium 9.6 mg/dL (8.4-10.2)
[2022-05-29] MEDS: INSULIN LISPRO 100 UNIT/ML SUB-Q SCH ×4 (08:16→22:25)
[2022-05-29] MEDS: SEVELAMER CARBONATE 800 MG TAB PO SCH ×3 (08:23→18:46)
--- NOTE | 2022-05-29 09:18 | Progress Note ---
Assessment and Plan Assessment and plan: History of present illness: 51-year-old seizure disorder hypertension type 2 diabetes and end-stage renal disease on hemodialysis presents with lethargy and confusion. Family brought him to the emergency room stating that he is confused not oriented. His last known dialysis is not known. Improvement on fluids. No fever or chills. No seizures. Noncompliant with his medications. hospital course: 05/28: AOx4 on bedside encounter. Transfused 1 unit due to hgb 6.8. Patient stated he has now missed several dialysis sessions. He goes to [facility] [place] per patient. will place CM consultation to ensure patient still has chair. Anticipate d/c tomorrow. 05/29: Hgb improved to 7.7. 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 Assessment and Plan: (1) Acute metabolic encephalopathy (resolved) Current Visit: Yes Status: Acute Plan to address problem: Secondary to severe uremia. His creatinine is 32.1 and BUN is 242. Family does not know how many days he has missed his hemodialysis. I tried to get information whether he lives alone. Could not reach anybody. Patient needs multiple hemodialysis treatments to bring the creatinine down to reasonable levels. Nephrology consulted. Patient to get emergent hemodialysis. Today. Patient to be counseled about compliance once he is more alert and oriented. (2) Hyperkalemia (improved) Current Visit: Yes Status: Acute Plan to address problem: Treated in the emergency room and patient going for hemodialysis Recheck potassium level Correct with HD (3) Metabolic acidosis (resolved) Current Visit: Yes Status: Acute Plan to address problem: Secondary to severe uremia. (4) Seizure disorder Current Visit: Yes Status: Chronic Plan to address problem: Continue Keppra. (5) T2DM (type 2 diabetes mellitus) Current Visit: Yes Status: Chronic Qualifiers: Diabetes mellitus halfway insulin use: unspecified qa test lead insulin use status Chronic kidney disease stage: on chronic dialysis Plan to address problem: Coverage for now (6) ESRD needing dialysis Current Visit: Yes Status: Acute Plan to address problem: Emergent hemodialysis Nephrology consult Patient to be counseled about compliance (7) Anemia Current Visit: No Status: Chronic Qualifiers: Anemia type: due to chronic kidney disease Plan to address problem: Secondary to chronic kidney disease Epogen as per nephrology 1 unit prbc given on 05/28. Hgb and VSS currently stable. (8) Hypertension Current Visit: Yes Status: Chronic Qualifiers: Hypertension type: primary hypertension Qualified Code(s): I10 - Essential (primary) hypertension Plan to address problem: Continue antihypertensives (9) Malnutrition Current Visit: Yes Status: Chronic Qualifiers: Malnutrition type: protein-calorie malnutrition Protein-calorie malnutrition severity: severe Qualified Code(s): E43 - Unspecified severe protein-calorie malnutrition Plan to address problem: Dietary supplements initiated Dietitian consult requested (10) DVT prophylaxis Current Visit: Yes Status: Acute Plan to address problem: On heparin and GI prophylaxis (11) Advance care planning Current Visit: Yes Status: Acute Plan to address problem: Disease education conducted, care plan discussed, diagnosis discussed and prognosis discussed. Patient acknowledged understanding with care plan. +30 minutes. The high probability of a clinically significant, sudden or life threatening deterioration of the [multi] system(s) required my full and direct attention, intervention and personal management. The aggregate critical care time was [60] minutes. This time is in addition to time spent performing reported procedures but includes the following: [x] Data Review and interpretation [x] Patient assessment and monitoring of vital signs [x] Documentation [x] Medication orders and management History Interval history: NO acute complaints. Receiving dialysis during bedside encounter. Hospitalist Physical - Physical exam Narrative exam: Physical Exam: VITAL SIGNS: Reviewed. GENERAL: The patient appears normally developed, Vital signs as documented. HEAD: No signs of head trauma. EYES: Pupils are equal. Extraocular motions intact. EARS: Hearing grossly intact. MOUTH: Oropharynx is normal. NECK: No adenopathy, no JVD. CHEST: Chest with clear breath sounds bilaterally. No wheezes, rales, or rhonchi. CARDIAC: Regular rate and rhythm. S1 and S2, without murmurs, gallops, or rubs. VASCULAR: No Edema. Peripheral pulses normal and equal in all extremities. ABDOMEN: Soft, non tender and non distended. No rebound or guarding, and no masses palpated. Bowel Sounds normal. MUSCULOSKELETAL: Good range of motion of all major joints. Extremities without clubbing, cyanosis or edema. NEUROLOGIC EXAM: Alert and oriented x 4. no focal sensory or strength deficits. PSYCHIATRIC: Mood normal. SKIN: detail exam as documented in skin assessment - Constitutional Vitals: Temp Pulse Resp BP Pulse Ox 97.9 F 75 16 127/65 97 05/29/22 07:31 05/29/22 08:00 05/29/22 08:00 05/29/22 08:00 05/29/22 07:16 General appearance: Present: no acute distress, well-nourished HEART Score - HEART Score Troponin: Troponin T 0.933 ng/mL (0.00-0.029) H* 05/27/22 01:28 Results - Labs CBC & Chem 7: 05/29/22 04:23 05/29/22 04:23 Labs: Laboratory Last Values WBC 11.1 K/mm3 (4.5-11.0) H 05/29/22 04:23 RBC 2.65 M/mm3 (3.65-5.03) L 05/29/22 04:23 Hgb 7.7 gm/dl (11.8-15.2) L 05/29/22 04:23 Hct 23.6 % (35.5-45.6) L 05/29/22 04:23 MCV 89 fl (84-94) 05/29/22 04:23 MCH 29 pg (28-32) 05/29/22 04:23 MCHC 33 % (32-34) 05/29/22 04:23 RDW 17.0 % (13.2-15.2) H 05/29/22 04:23 Plt Count 252 K/mm3 (140-440) 05/29/22 04:23 Lymph % (Auto) 2.8 % (13.4-35.0) L 05/29/22 04:23 [place] % (Auto) 10.8 % (0.0-7.3) H 05/29/22 04:23 Eos % (Auto) 1.2 % (0.0-4.3) 05/29/22 04:23 Baso % (Auto) 0.2 % (0.0-1.8) 05/29/22 04:23 Lymph # (Auto) 0.3 K/mm3 (1.2-5.4) L 05/29/22 04:23 [place] # (Auto) 1.2 K/mm3 (0.0-0.8) H 05/29/22 04:23 Eos # (Auto) 0.1 K/mm3 (0.0-0.4) 05/29/22 04:23 Baso # (Auto) 0.0 K/mm3 (0.0-0.1) 05/29/22 04:23 Seg Neutrophils % 85.0 % (40.0-70.0) H 05/29/22 04:23 Seg Neutrophils # 9.4 K/mm3 (1.8-7.7) H 05/29/22 04:23 PT 17.0 Sec. (12.2-14.9) H 05/27/22 01:28 INR 1.23 (0.87-1.13) H 05/27/22 01:28 Sodium 144 mmol/L (137-145) 05/29/22 04:23 Potassium 5.3 mmol/L (3.6-5.0) H 05/29/22 04:23 Chloride 95.8 mmol/L (98-107) L 05/29/22 04:23 Carbon Dioxide 24 mmol/L (22-30) 05/29/22 04:23 Anion Gap 30 mmol/L 05/29/22 04:23 BUN 153 mg/dL (9-20) H 05/29/22 04:23 Creatinine 19.5 mg/dL (0.8-1.3) H 05/29/22 04:23 Estimated GFR 3 ml/min 05/29/22 04:23 BUN/Creatinine Ratio 8 % 05/29/22 04:23 Glucose 85 mg/dL (75-100) 05/29/22 04:23 POC Glucose 93 mg/dL (70-105) 05/29/22 07:35 Calcium 9.6 mg/dL (8.4-10.2) 05/29/22 04:23 Phosphorus 10.10 mg/dL (2.5-4.5) H 05/28/22 07:22 Magnesium 2.20 mg/dL (1.7-2.3) 05/28/22 07:22 Total Bilirubin 0.30 mg/dL (0.1-1.2) 05/29/22 04:23 AST 16 units/L (5-40) 05/29/22 04:23 ALT 16 units/L (7-56) 05/29/22 04:23 Alkaline Phosphatase 60 units/L (35-129) 05/29/22 04:23 Total Creatine Kinase 1147 units/L (55-170) H 05/27/22 01:28 Troponin T 0.933 ng/mL (0.00-0.029) H* 05/27/22 01:28 Total Protein 6.3 g/dL (6.3-8.2) 05/29/22 04:23 Albumin 2.4 g/dL (3.9-5) L 05/29/22 04:23 Albumin/Globulin Ratio 0.6 % 05/29/22 04:23 Triglycerides 178 mg/dL (2-149) H 05/27/22 01:28 Cholesterol 112 mg/dL (50-199) 05/27/22 01:28 LDL Cholesterol Direct 30 mg/dL (50-130) L 05/27/22 01:28 HDL Cholesterol 39 mg/dL (40-59) L 05/27/22 01:28 Cholesterol/HDL Ratio 2.87 % 05/27/22 01:28 Salicylates < 0.3 mg/dL (2.8-20.0) L 05/27/22 01:28 Acetaminophen 5.0 ug/mL (10.0-30.0) L 05/27/22 01:28 Plasma/Serum Alcohol < 0.01 % (0-0.07) 05/27/22 01:28 Coronavirus (PCR) Negative (Negative) 05/28/22 Unknown Hepatitis A IgM Ab Non-reactive (NonReactive) 05/27/22 01:28 Hep Bs Antigen Non-reactive (Negative) 05/27/22 01:28 Hep B Core IgM Ab Non-reactive (NonReactive) 05/27/22 01:28 Hepatitis C Antibody Non-reactive (NonReactive) 05/27/22 01:28 Blood Type A POSITIVE 05/28/22 10:00 Antibody Screen Negative 05/28/22 10:00 Crossmatch See Detail 05/28/22 10:00 Saez/IV: Voiding Method Condom Catheter Active Medications - Current Medications Current Medications: Generic Name Dose Route Start Last Admin Trade Name Freq PRN Reason Stop Dose Admin Acetaminophen 650 mg 05/27/22 19:48 Acetaminophen 325 Mg Tab PO Q4H PRN Pain MILD(1-3)/Fever >100.5/MUNOZ Aspirin 81 mg 05/28/22 10:00 05/28/22 10:12 Aspirin Ec 81 Mg Tab PO 81 mg QDAY MYRIAM Administration Heparin Sodium (Porcine) 5,000 unit 05/27/22 22:00 05/28/22 21:16 Heparin 5,000 Unit/1 Ml Vial SUB-Q 5,000 unit Q12HR MYRIAM Administration Hydromorphone HCl 0.5 mg 05/27/22 19:48 Hydromorphone 0.5 Mg/0.5 Ml Inj IV Q3H PRN Pain , Severe (7-10) Sodium Chloride 100 mls @ 999 mls/hr 05/28/22 12:00 Nacl 0.9% IV HILDA PRN Hypotension Insulin Human Lispro 0 unit 05/28/22 07:30 05/28/22 21:21 Insulin Lispro 100 Unit/Ml SUB-Q 2 unit ACHS MYRIAM Administration Protocol Levetiracetam 500 mg 05/28/22 10:00 05/28/22 21:17 Levetiracetam 500 Mg Tab PO 500 mg BID MYRIAM Administration Metoclopramide HCl 10 mg 05/27/22 19:48 Metoclopramide 10 Mg/2 Ml Inj IV Q6H PRN Nausea And Vomiting Metoprolol Tartrate 100 mg 05/28/22 10:00 05/28/22 21:17 Metoprolol Tartrate 100 Mg Tab PO 100 mg BID MYRIAM Administration Morphine Sulfate 2 mg 05/27/22 19:48 Morphine 2 Mg/1 Ml Inj IV Q4H PRN Pain, Moderate (4-6) Ondansetron HCl 4 mg 05/27/22 19:48 Ondansetron 4 Mg/2 Ml Inj IV Q8H PRN Nausea And Vomiting Oxycodone/Acetaminophen 1 tab 05/27/22 19:48 Oxycodone /Acetaminophen 5-325mg Tab PO Q6H PRN Pain, Moderate (4-6) Sevelamer Carbonate 2,400 mg 05/28/22 12:30 05/29/22 08:23 Sevelamer Carbonate 800 Mg Tab PO 2,400 mg AC MYRIAM Administration Sodium Chloride 10 ml 05/27/22 22:00 05/28/22 21:17 Sodium Chloride 0.9% 10 Ml Flush Syringe IV 10 ml BID MYRIAM Administration Sodium Chloride 10 ml 05/27/22 19:48 Sodium Chloride 0.9% 10 Ml Flush Syringe IV PRN PRN LINE FLUSH
[2022-05-29] MEDS: ASPIRIN EC 81 MG TAB PO SCH (12:30)
[2022-05-29] MEDS: levETIRAcetam 500 MG TAB PO SCH ×2 (12:30→22:25)
--- NOTE | 2022-05-29 12:51 | Progress Note ---
Assessment and Plan 1. ESRD: Patient is on maintenance HD. Last outpatient HD unknown. Meds dosage based on GFR. Hemodialysis: 03/27, 03/29. 2. FEN: Hyperkalemia, on HD. Hypernatremia, improved. Monitor lytes and volume status. 3. Acute Metabolic Encephalopathy, POA: Suspected Uremic encephalopathy. Followed by Neuro. Monitor. 4. Seizure: On Keppra. 5. Normocytic anemia, POA: S/p PRBC. Epogen with HD. Monitor. 6. T2DM (type 2 diabetes mellitus): SSI. Subjective: Patient was seen and examined at the bedside. Examination: General appearance: well-developed, appears emaciated, no distress, on restrains HEENT: ATNC, pupils equal Neck: trachea midline Respiratory: Clear to Auscultation Cardiology: regular, S1S2, no murmur Gastrointestinal: soft, normoactive bowel sounds, not tender, ND Integumentary: diffuse discrete papular rash, fading Neurologic: alert, tracking thru eyes, not following command, confused Ext: no edema noted Hemodialysis access: L arm AVF/AVG Subjective Date of service: 05/29/22 Objective - Vital Signs Vital signs: Vital Signs - 12hr 05/29/22 05/29/22 05/29/22 01:00 01:10 01:20 Temperature Pulse Rate 74 74 74 Respiratory 13 14 11 L Rate Blood Pressure 118/67 118/67 118/67 O2 Sat by Pulse 98 100 100 Oximetry O2 Sat by Pulse Oximetry [ Anterior Bilateral Throughout] 05/29/22 05/29/22 05/29/22 01:30 01:40 01:50 Temperature Pulse Rate 70 75 75 Respiratory 31 H 15 18 Rate Blood Pressure 118/67 118/67 118/67 O2 Sat by Pulse 100 99 99 Oximetry O2 Sat by Pulse Oximetry [ Anterior Bilateral Throughout] 05/29/22 05/29/22 05/29/22 02:00 02:10 02:20 Temperature Pulse Rate 75 75 78 Respiratory 18 18 7 L Rate Blood Pressure 125/73 125/73 125/73 O2 Sat by Pulse 100 99 98 Oximetry O2 Sat by Pulse Oximetry [ Anterior Bilateral Throughout] 05/29/22 05/29/22 05/29/22 02:30 02:40 02:50 Temperature Pulse Rate 76 76 78 Respiratory 31 H 13 22 Rate Blood Pressure 125/73 125/73 125/73 O2 Sat by Pulse 97 100 100 Oximetry O2 Sat by Pulse Oximetry [ Anterior Bilateral Throughout] 05/29/22 05/29/22 05/29/22 03:00 03:10 03:20 Temperature Pulse Rate 75 81 78 Respiratory 21 19 26 H Rate Blood Pressure 132/74 125/73 125/73 O2 Sat by Pulse 98 99 100 Oximetry O2 Sat by Pulse Oximetry [ Anterior Bilateral Throughout] 05/29/22 05/29/22 05/29/22 03:30 03:40 03:49 Temperature 97.8 F Pulse Rate 76 76 Respiratory 30 H 29 H Rate Blood Pressure 125/73 132/74 O2 Sat by Pulse 100 99 Oximetry O2 Sat by Pulse Oximetry [ Anterior Bilateral Throughout] 05/29/22 05/29/22 05/29/22 03:50 04:00 04:10 Temperature Pulse Rate 74 74 76 Respiratory 19 25 H 28 H Rate Blood Pressure 132/74 120/65 120/65 O2 Sat by Pulse 99 100 99 Oximetry O2 Sat by Pulse Oximetry [ Anterior Bilateral Throughout] 05/29/22 05/29/22 05/29/22 04:20 04:30 04:40 Temperature Pulse Rate 73 76 76 Respiratory 22 25 H 30 H Rate Blood Pressure 120/65 120/65 120/65 O2 Sat by Pulse 99 98 95 Oximetry O2 Sat by Pulse Oximetry [ Anterior Bilateral Throughout] 05/29/22 05/29/22 05/29/22 05:00 05:16 05:30 Temperature Pulse Rate 75 73 70 Respiratory 13 23 13 Rate Blood Pressure 124/69 124/69 124/69 O2 Sat by Pulse 100 100 100 Oximetry O2 Sat by Pulse Oximetry [ Anterior Bilateral Throughout] 05/29/22 05/29/22 05/29/22 05:46 06:00 06:16 Temperature Pulse Rate 74 73 71 Respiratory 17 23 22 Rate Blood Pressure 124/69 126/67 124/69 O2 Sat by Pulse 100 100 100 Oximetry O2 Sat by Pulse Oximetry [ Anterior Bilateral Throughout] 05/29/22 05/29/22 05/29/22 06:30 06:46 07:00 Temperature Pulse Rate 72 71 73 Respiratory 17 15 20 Rate Blood Pressure 124/69 124/69 127/65 O2 Sat by Pulse 100 98 96 Oximetry O2 Sat by Pulse Oximetry [ Anterior Bilateral Throughout] 08/05/29/22 05/29/22 07:16 07:30 07:31 Temperature 97.9 F Pulse Rate 74 122 H Respiratory 18 15 Rate Blood Pressure 127/65 127/65 O2 Sat by Pulse 97 Oximetry O2 Sat by Pulse Oximetry [ Anterior Bilateral Throughout] 05/29/22 05/29/22 05/29/22 07:46 08:00 08:16 Temperature Pulse Rate 73 75 73 Respiratory 25 H 16 16 Rate Blood Pressure 127/65 127/65 127/65 O2 Sat by Pulse 100 Oximetry O2 Sat by Pulse Oximetry [ Anterior Bilateral Throughout] 05/29/22 05/29/22 05/29/22 08:30 08:46 09:00 Temperature Pulse Rate 74 75 73 Respiratory 29 H 35 H 30 H Rate Blood Pressure 127/65 127/65 131/66 O2 Sat by Pulse Oximetry O2 Sat by Pulse Oximetry [ Anterior Bilateral Throughout] 05/29/22 05/29/22 05/29/22 09:10 09:15 09:30 Temperature 97.7 F Pulse Rate 75 74 74 Respiratory 21 24 26 H Rate Blood Pressure 129/66 131/64 126/61 O2 Sat by Pulse 100 Oximetry O2 Sat by Pulse 97 Oximetry [ Anterior Bilateral Throughout] 05/29/22 05/29/22 05/29/22 09:45 10:00 10:15 Temperature Pulse Rate 79 76 75 Respiratory 19 26 H 25 H Rate Blood Pressure 120/59 126/61 117/59 O2 Sat by Pulse 98 99 96 Oximetry O2 Sat by Pulse Oximetry [ Anterior Bilateral Throughout] 05/29/22 05/29/22 05/29/22 10:30 10:45 10:46 Temperature Pulse Rate 79 91 H 89 Respiratory 26 H 21 Rate Blood Pressure 140/61 143/65 143/65 O2 Sat by Pulse 99 57 L Oximetry O2 Sat by Pulse Oximetry [ Anterior Bilateral Throughout] 05/29/22 05/29/22 05/29/22 11:00 11:15 11:16 Temperature Pulse Rate 88 90 87 Respiratory 14 16 Rate Blood Pressure 143/65 135/64 135/64 O2 Sat by Pulse 68 L Oximetry O2 Sat by Pulse Oximetry [ Anterior Bilateral Throughout] 05/29/22 05/29/22 05/29/22 11:30 11:45 11:49 Temperature 98.2 F Pulse Rate 89 83 Respiratory 17 16 Rate Blood Pressure 135/64 138/66 O2 Sat by Pulse 100 100 Oximetry O2 Sat by Pulse Oximetry [ Anterior Bilateral Throughout] 05/29/22 05/29/22 05/29/22 11:55 12:00 12:15 Temperature 97.2 F L Pulse Rate 83 86 80 Respiratory 17 27 H Rate Blood Pressure 134/62 134/62 132/58 O2 Sat by Pulse 86 97 Oximetry O2 Sat by Pulse 99 Oximetry [ Anterior Bilateral Throughout] - Lab 05/29/22 04:23 05/29/22 04:23 Most recent lab results Calcium 9.6 mg/dL (8.4-10.2) 05/29/22 04:23 Phosphorus 10.10 mg/dL (2.5-4.5) H 05/28/22 07: Magnesium 2.20 mg/dL (1.7-2.3) 05/28/22 07:22 Medications & Allergies - Medications Allergies/Adverse Reactions: Allergies No Known Allergies Allergy (Unverified 03/21/22 18:10) Home Medications: Home Medications Medication Instructions Recorded Confirmed Last Taken Type Aspirin EC [Halfprin EC] 81 mg PO QDAY #30 tablet. 03/27/22 Unknown Rx Metoprolol [Lopressor TAB] 100 mg PO BID #60 tablet 03/27/22 Unknown Rx levETIRAcetam [Keppra TAB] 500 mg PO BID #60 tablet 03/27/22 Unknown Rx Active Medications: Generic Name Dose Route Start Last Admin Trade Name Freq PRN Reason Stop Dose Admin Acetaminophen 650 mg 05/27/22 19:48 Acetaminophen 325 Mg Tab PO Q4H PRN Pain MILD(1-3)/Fever >100.5/MUNOZ Aspirin 81 mg 05/28/22 10:00 05/28/22 10:12 Aspirin Ec 81 Mg Tab PO 81 mg QDAY MYRIAM Administration Heparin Sodium (Porcine) 5,000 unit 05/27/22 22:00 05/28/22 21:16 Heparin 5,000 Unit/1 Ml Vial SUB-Q 5,000 unit Q12HR MYRIAM Administration Hydromorphone HCl 0.5 mg 05/27/22 19:48 Hydromorphone 0.5 Mg/0.5 Ml Inj IV Q3H PRN Pain , Severe (7-10) Sodium Chloride 100 mls @ 999 mls/hr 05/28/22 12:00 Nacl 0.9% IV HILDA PRN Hypotension Insulin Human Lispro 0 unit 05/28/22 07:30 05/29/22 08:16 Insulin Lispro 100 Unit/Ml SUB-Q Not Given ACHS [facility] Protocol Levetiracetam 500 mg 05/28/22 10:00 05/28/22 21:17 Levetiracetam 500 Mg Tab PO 500 mg BID MYRIAM Administration Metoclopramide HCl 10 mg 05/27/22 19:48 Metoclopramide 10 Mg/2 Ml Inj IV Q6H PRN Nausea And Vomiting Metoprolol Tartrate 100 mg 05/28/22 10:00 05/28/22 21:17 Metoprolol Tartrate 100 Mg Tab PO 100 mg BID MYRIAM Administration Morphine Sulfate 2 mg 05/27/22 19:48 Morphine 2 Mg/1 Ml Inj IV Q4H PRN Pain, Moderate (4-6) Ondansetron HCl 4 mg 05/27/22 19:48 Ondansetron 4 Mg/2 Ml Inj IV Q8H PRN Nausea And Vomiting Oxycodone/Acetaminophen 1 tab 05/27/22 19:48 Oxycodone /Acetaminophen 5-325mg Tab PO Q6H PRN Pain, Moderate (4-6) Sevelamer Carbonate 2,400 mg 05/28/22 12:30 05/29/22 08:23 Sevelamer Carbonate 800 Mg Tab PO 2,400 mg AC MYRIAM Administration Sodium Chloride 10 ml 05/27/22 22:00 05/28/22 21:17 Sodium Chloride 0.9% 10 Ml Flush Syringe IV 10 ml BID MYRIAM Administration Sodium Chloride 10 ml 05/27/22 19:48 Sodium Chloride 0.9% 10 Ml Flush Syringe IV PRN PRN LINE FLUSH
[2022-05-29] MEDS: METOPROLOL TARTRATE 100 MG TAB PO SCH ×2 (13:20→22:25)
[2022-05-29] MEDS: HEPARIN 5,000 UNIT/1 ML VIAL SUB-Q SCH ×2 (13:22→22:25)
[2022-05-30 05:30] LABS: Hematocrit 24.3 % (35.5-45.6); Hemoglobin 8.1 gm/dl (11.8-15.2)
[2022-05-30 05:32] LABS: Calcium 9.6 mg/dL (8.4-10.2)
[2022-05-30] MEDS: SEVELAMER CARBONATE 800 MG TAB PO SCH ×3 (08:21→16:21)
[2022-05-30] MEDS: INSULIN LISPRO 100 UNIT/ML SUB-Q SCH ×4 (08:21→23:15)
[2022-05-30] MEDS ORDERED: METOCLOPRAMIDE 10 MG/2 ML INJ IV PRN (09:00)
[2022-05-30] MEDS: levETIRAcetam 500 MG TAB PO SCH ×2 (09:22→23:18)
[2022-05-30] MEDS: ASPIRIN EC 81 MG TAB PO SCH (09:22)
[2022-05-30] MEDS: METOPROLOL TARTRATE 100 MG TAB PO SCH ×2 (09:22→23:19)
[2022-05-30] MEDS: HEPARIN 5,000 UNIT/1 ML VIAL SUB-Q SCH ×2 (09:22→23:18)
--- NOTE | 2022-05-30 10:16 | Progress Note ---
Assessment and Plan Assessment and plan: 51-year-old seizure disorder hypertension type 2 diabetes and end-stage renal disease on hemodialysis presents with lethargy and confusion. Family brought him to the emergency room stating that he is confused not oriented. His last known dialysis is not known. Improvement on fluids. No fever or chills. No seizures. Noncompliant with his medications. hospital course: 05/28: AOx4 on bedside encounter. Transfused 1 unit due to hgb 6.8. Patient stated he has now missed several dialysis sessions. He goes to [facility] by ashanti irwin per patient. will place CM consultation to ensure patient still has chair. Anticipate d/c tomorrow. 05/29: Hgb improved to 7.7. 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 05/30: Await case management decision regarding outpatient hemodialysis Assessment and Plan: (1) Acute metabolic encephalopathy (resolved) Current Visit: Yes Status: Acute Plan to address problem: Secondary to severe uremia. His creatinine is 32.1 and BUN is 242. Family does not know how many days he has missed his hemodialysis. Patient to be counseled about compliance once he is more alert and oriented. (2) Hyperkalemia (improved) Current Visit: Yes Status: Acute Plan to address problem: Treated in the emergency room and patient going for hemodialysis Correct with HD (3) Metabolic acidosis (resolved) Current Visit: Yes Status: Acute Plan to address problem: Secondary to severe uremia. (4) Seizure disorder Current Visit: Yes Status: Chronic Plan to address problem: Continue Keppra. (5) T2DM (type 2 diabetes mellitus) Current Visit: Yes Status: Chronic Qualifiers: Diabetes mellitus intermediate designer insulin use: unspecified senior care insulin use status Chronic kidney disease stage: on chronic dialysis Plan to address problem: Coverage for now (6) ESRD needing dialysis Current Visit: Yes Status: Acute Plan to address problem: Continue hemodialysis Nephrology following Patient to be counseled about compliance (7) Anemia Current Visit: No Status: Chronic Qualifiers: Anemia type: due to chronic kidney disease Plan to address problem: Secondary to chronic kidney disease Epogen as per nephrology 1 unit prbc given on 05/28. Hgb and VSS currently stable. (8) Hypertension Current Visit: Yes Status: Chronic Qualifiers: Hypertension type: primary hypertension Qualified Code(s): I10 - Essential (primary) hypertension Plan to address problem: Continue antihypertensives (9) Malnutrition Current Visit: Yes Status: Chronic Qualifiers: Malnutrition type: protein-calorie malnutrition Protein-calorie malnutrition severity: severe Qualified Code(s): E43 - Unspecified severe protein-calorie malnutrition Plan to address problem: Dietary supplements initiated Dietitian consult requested History Interval history: No new issues overnight Hospitalist Physical - Constitutional Vitals: Temp Pulse Resp BP Pulse Ox 97.5 F L 74 20 115/70 100 05/30/22 09:37 05/30/22 09:37 05/30/22 09:37 05/30/22 09:37 05/30/22 09:37 General appearance: Present: no acute distress, well-nourished - EENT Eyes: Present: PERRL, EOM intact ENT: hearing intact, clear oral mucosa, dentition normal - Neck Neck: Present: supple, normal ROM - Respiratory Respiratory effort: normal Respiratory: bilateral: CTA - Cardiovascular Rhythm: regular Heart Sounds: Present: S1 & S2. Absent: gallop, rub - Extremities Extremities: no ischemia, No edema, Full ROM - Abdominal General gastrointestinal: soft, non-tender, non-distended, normal bowel sounds - Integumentary Integumentary: Present: clear, warm, dry - Neurologic Neurologic: CNII-XII intact, moves all extremities HEART Score - HEART Score Troponin: Troponin T 0.933 ng/mL (0.00-0.029) H* 05/27/22 01:28 Results - Labs CBC & Chem 7: 05/30/22 04:00 05/30/22 04:00 Labs: Laboratory Last Values WBC 11.1 K/mm3 (4.5-11.0) H 05/29/22 04:23 RBC 2.65 M/mm3 (3.65-5.03) L 05/29/22 04:23 Hgb 8.1 gm/dl (11.8-15.2) L 05/30/22 04:00 Hct 24.3 % (35.5-45.6) L 05/30/22 04:00 MCV 89 fl (84-94) 05/29/22 04:23 MCH 29 pg (28-32) 05/29/22 04:23 MCHC 33 % (32-34) 05/29/22 04:23 RDW 17.0 % (13.2-15.2) H 05/29/22 04:23 Plt Count 252 K/mm3 (140-440) 05/29/22 04:23 Lymph % (Auto) 2.8 % (13.4-35.0) L 05/29/22 04:23 [place]arton % (Auto) 10.8 % (0.0-7.3) H 05/29/22 04:23 Eos % (Auto) 1.2 % (0.0-4.3) 05/29/22 04:23 Baso % (Auto) 0.2 % (0.0-1.8) 05/29/22 04:23 Lymph # (Auto) 0.3 K/mm3 (1.2-5.4) L 05/29/22 04:23 [place]arton # (Auto) 1.2 K/mm3 (0.0-0.8) H 05/29/22 04:23 Eos # (Auto) 0.1 K/mm3 (0.0-0.4) 05/29/22 04: Baso # (Auto) 0.0 K/mm3 (0.0-0.1) 05/29/22 04: Seg Neutrophils % 85.0 % (40.0-70.0) H 05/29/22 04:23 Seg Neutrophils # 9.4 K/mm3 (1.8-7.7) H 05/29/22 04:23 PT 17.0 Sec. (12.2-14.9) H 05/27/22 01:28 INR 1.23 (0.87-1.13) H 05/27/22 01:28 Sodium 135 mmol/L (137-145) L D 05/30/22 04:00 Potassium 4.6 mmol/L (3.6-5.0) 05/30/22 04:00 Chloride 91.3 mmol/L (98-107) L 05/30/22 04:00 Carbon Dioxide 28 mmol/L (22-30) 05/30/22 04:00 Anion Gap 20 mmol/L 05/30/22 04:00 BUN 88 mg/dL (9-20) H 05/30/22 04:00 Creatinine 12.3 mg/dL (0.8-1.3) H 05/30/22 04:00 Estimated GFR 5 ml/min 05/30/22 04:00 BUN/Creatinine Ratio 7 % 05/30/22 04:00 Glucose 113 mg/dL (75-100) H 05/30/22 04:00 POC Glucose 109 mg/dL (70-105) H 05/30/22 07:49 Calcium 9.6 mg/dL (8.4-10.2) 05/30/22 04:00 Phosphorus 10.10 mg/dL (2.5-4.5) H 05/28/22 07:22 Magnesium 2.20 mg/dL (1.7-2.3) 05/28/22 07:22 Total Bilirubin 0.30 mg/dL (0.1-1.2) 05/29/22 04:23 AST 16 units/L (5-40) 05/29/22 04:23 ALT 16 units/L (7-56) 05/29/22 04:23 Alkaline Phosphatase 60 units/L (35-129) 05/29/22 04:23 Total Creatine Kinase 1147 units/L (55-170) H 05/27/22 01:28 Troponin T 0.933 ng/mL (0.00-0.029) H* 05/27/22 01:28 Total Protein 6.3 g/dL (6.3-8.2) 05/29/22 04:23 Albumin 2.4 g/dL (3.9-5) L 05/29/22 04:23 Albumin/Globulin Ratio 0.6 % 05/29/22 04:23 Triglycerides 178 mg/dL (2-149) H 05/27/22 01:28 Cholesterol 112 mg/dL (50-199) 05/27/22 01:28 LDL Cholesterol Direct 30 mg/dL (50-130) L 05/27/22 01:28 HDL Cholesterol 39 mg/dL (40-59) L 05/27/22 01:28 Cholesterol/HDL Ratio 2.87 % 05/27/22 01:28 Salicylates < 0.3 mg/dL (2.8-20.0) L 05/27/22 01:28 Acetaminophen 5.0 ug/mL (10.0-30.0) L 05/27/22 01:28 Plasma/Serum Alcohol < 0.01 % (0-0.07) 05/27/22 01:28 Coronavirus (PCR) Negative (Negative) 05/28/22 Unknown SARS-CoV-2 (PCR) Negative (Negative) 05/29/22 11:05 Hepatitis A IgM Ab Non-reactive (NonReactive) 05/27/22 01:28 Hep Bs Antigen Non-reactive (Negative) 05/27/22 01:28 Hep B Core IgM Ab Non-reactive (NonReactive) 05/27/22 01:28 Hepatitis C Antibody Non-reactive (NonReactive) 05/27/22 01:28 Blood Type A POSITIVE 05/28/22 10:00 Antibody Screen Negative 05/28/22 10:00 Crossmatch See Detail 05/28/22 10:00 Saez/IV: Voiding Method Condom Catheter Active Medications - Current Medications Current Medications: Generic Name Dose Route Start Last Admin Trade Name Freq PRN Reason Stop Dose Admin Acetaminophen 650 mg 05/27/22 19:48 Acetaminophen 325 Mg Tab PO Q4H PRN Pain MILD(1-3)/Fever >100.5/MUNOZ Aspirin 81 mg 05/28/22 10:00 05/29/22 12:30 Aspirin Ec 81 Mg Tab PO 81 mg QDAY MYRIAM Administration Heparin Sodium (Porcine) 5,000 unit 05/27/22 22:00 05/30/22 09:22 Heparin 5,000 Unit/1 Ml Vial SUB-Q 5,000 unit Q12HR MYRIAM Administration Hydromorphone HCl 0.5 mg 05/27/22 19:48 Hydromorphone 0.5 Mg/0.5 Ml Inj IV Q3H PRN Pain , Severe (7-10) Sodium Chloride 100 mls @ 999 mls/hr 05/28/22 12:00 Nacl 0.9% IV HILDA PRN Hypotension Insulin Human Lispro 0 unit 05/28/22 07:30 05/30/22 08:21 Insulin Lispro 100 Unit/Ml SUB-Q Not Given ACHS [facility] Protocol Levetiracetam 500 mg 05/28/22 10:00 05/30/22 09:22 Levetiracetam 500 Mg Tab PO 500 mg BID MYRIAM Administration Metoclopramide HCl 5 mg 05/30/22 09:00 Metoclopramide 10 Mg/2 Ml Inj IV Q8H PRN Nausea And Vomiting Metoprolol Tartrate 100 mg 05/28/22 10:00 05/30/22 09:22 Metoprolol Tartrate 100 Mg Tab PO 100 mg BID MYRIAM Administration Morphine Sulfate 2 mg 05/27/22 19:48 Morphine 2 Mg/1 Ml Inj IV Q4H PRN Pain, Moderate (4-6) Ondansetron HCl 4 mg 05/27/22 19:48 Ondansetron 4 Mg/2 Ml Inj IV Q8H PRN Nausea And Vomiting Oxycodone/Acetaminophen 1 tab 05/27/22 19:48 Oxycodone /Acetaminophen 5-325mg Tab PO Q6H PRN Pain, Moderate (4-6) Sevelamer Carbonate 2,400 mg 05/28/22 12:30 05/30/22 08:21 Sevelamer Carbonate 800 Mg Tab PO 2,400 mg AC MYRIAM Administration Sodium Chloride 10 ml 05/27/22 22:00 05/30/22 09:23 Sodium Chloride 0.9% 10 Ml Flush Syringe IV 10 ml BID MYRIAM Administration Sodium Chloride 10 ml 05/27/22 19:48 Sodium Chloride 0.9% 10 Ml Flush Syringe IV PRN PRN LINE FLUSH
--- NOTE | 2022-05-30 13:45 | Progress Note ---
Assessment and Plan 1. ESRD: Patient is on maintenance HD. Last outpatient HD unknown. Meds dosage based on GFR. Hemodialysis: 03/27, 03/29. 2. FEN: Hyperkalemia, on HD. Hypernatremia, improved. Monitor lytes and volume status. 3. Acute Metabolic Encephalopathy, POA: Suspected Uremic encephalopathy. Monitor. 4. Seizure: On Keppra. 5. Normocytic anemia, POA: S/p PRBC. Epogen with HD. Monitor. 6. T2DM (type 2 diabetes mellitus): SSI. Subjective: Patient was seen and examined at the bedside. Examination: General appearance: well-developed, appears emaciated, no distress, on restrains HEENT: ATNC, pupils equal Neck: trachea midline Respiratory: Clear to Auscultation Cardiology: regular, S1S2, no murmur Gastrointestinal: soft, normoactive bowel sounds, not tender, ND Integumentary: diffuse discrete papular rash, fading Neurologic: alert, tracking thru eyes, not following command Ext: no edema noted Hemodialysis access: L arm AVF/AVG Subjective Date of service: 05/30/22 Objective - Vital Signs Vital signs: Vital Signs - 12hr 05/30/22 05/30/22 04:42 09:37 Temperature 97.9 F 97.5 F L Pulse Rate 76 74 Respiratory 18 20 Rate Blood Pressure 128/64 Blood Pressure 115/70 [Right] O2 Sat by Pulse 100 100 Oximetry - Lab 05/30/22 04:00 05/30/22 04:00 Most recent lab results Calcium 9.6 mg/dL (8.4-10.2) 05/30/22 04:00 Phosphorus 10.10 mg/dL (2.5-4.5) H 05/28/22 07:22 Magnesium 2.20 mg/dL (1.7-2.3) 05/28/22 07:22 Medications & Allergies - Medications Allergies/Adverse Reactions: Allergies No Known Allergies Allergy (Unverified 03/21/22 18:10) Home Medications: Home Medications Medication Instructions Recorded Confirmed Last Taken Type Aspirin EC [Halfprin EC] 81 mg PO QDAY #30 tablet. 03/27/22 Unknown Rx Metoprolol [Lopressor TAB] 100 mg PO BID #60 tablet 03/27/22 Unknown Rx levETIRAcetam [Keppra TAB] 500 mg PO BID #60 tablet 03/27/22 Unknown Rx Active Medications: Generic Name Dose Route Start Last Admin Trade Name Freq PRN Reason Stop Dose Admin Acetaminophen 650 mg 05/27/22 19:48 Acetaminophen 325 Mg Tab PO Q4H PRN Pain MILD(1-3)/Fever >100.5/MUNOZ Aspirin 81 mg 05/28/22 10:00 05/30/22 09:22 Aspirin Ec 81 Mg Tab PO 81 mg QDAY MYRIAM Administration Heparin Sodium (Porcine) 5,000 unit 05/27/22 22:00 05/30/22 09:22 Heparin 5,000 Unit/1 Ml Vial SUB-Q 5,000 unit Q12HR MYRIAM Administration Hydromorphone HCl 0.5 mg 05/27/22 19:48 Hydromorphone 0.5 Mg/0.5 Ml Inj IV Q3H PRN Pain , Severe (7-10) Sodium Chloride 100 mls @ 999 mls/hr 05/28/22 12:00 Nacl 0.9% IV HILDA PRN Hypotension Insulin Human Lispro 0 unit 05/28/22 07:30 05/30/22 11:40 Insulin Lispro 100 Unit/Ml SUB-Q Not Given ACHS [facility] Protocol Levetiracetam 500 mg 05/28/22 10:00 05/30/22 09:22 Levetiracetam 500 Mg Tab PO 500 mg BID MYRIAM Administration Metoclopramide HCl 5 mg 05/30/22 09:00 Metoclopramide 10 Mg/2 Ml Inj IV Q8H PRN Nausea And Vomiting Metoprolol Tartrate 100 mg 05/28/22 10:00 05/30/22 09:22 Metoprolol Tartrate 100 Mg Tab PO 100 mg BID MYRIAM Administration Morphine Sulfate 2 mg 05/27/22 19:48 Morphine 2 Mg/1 Ml Inj IV Q4H PRN Pain, Moderate (4-6) Ondansetron HCl 4 mg 05/27/22 19:48 Ondansetron 4 Mg/2 Ml Inj IV Q8H PRN Nausea And Vomiting Oxycodone/Acetaminophen 1 tab 05/27/22 19:48 Oxycodone /Acetaminophen 5-325mg Tab PO Q6H PRN Pain, Moderate (4-6) Sevelamer Carbonate 2,400 mg 05/28/22 12:30 05/30/22 11:35 Sevelamer Carbonate 800 Mg Tab PO 2,400 mg AC MYRIAM Administration Sodium Chloride 10 ml 05/27/22 22:00 05/30/22 09:23 Sodium Chloride 0.9% 10 Ml Flush Syringe IV 10 ml BID MYRIAM Administration Sodium Chloride 10 ml 05/27/22 19:48 Sodium Chloride 0.9% 10 Ml Flush Syringe IV PRN PRN LINE FLUSH
[2022-05-31 05:35] LABS: Basophils % (Auto) 0.3 % (0.0-1.8); Eosinophils # (Auto) 0.3 K/mm3 (0.0-0.4); Hemoglobin 8.3 gm/dl (11.8-15.2); Lymphocytes # (Auto) 0.5 K/mm3 (1.2-5.4); Lymphocytes % (Auto) 6.2 % (13.4-35.0); Mean Corpuscular HGB Conc 33 % (32-34); Mean Corpuscular Volume 88 fl (84-94); Monocytes # (Auto) 0.8 K/mm3 (0.0-0.8); Monocytes % (Auto) 10.1 % (0.0-7.3); Platelet Count 258 K/mm3 (140-440); Red Blood Count 2.82 M/mm3 (3.65-5.03); Red Cell Distribution Width 16.3 % (13.2-15.2)
[2022-05-31] MEDS: SEVELAMER CARBONATE 800 MG TAB PO SCH ×3 (08:07→16:34)
[2022-05-31] MEDS: INSULIN LISPRO 100 UNIT/ML SUB-Q SCH ×4 (08:57→22:24)
[2022-05-31] MEDS: METOPROLOL TARTRATE 100 MG TAB PO SCH ×2 (09:10→23:40)
[2022-05-31] MEDS: levETIRAcetam 500 MG TAB PO SCH ×2 (09:10→21:29)
[2022-05-31] MEDS: HEPARIN 5,000 UNIT/1 ML VIAL SUB-Q SCH ×2 (09:10→22:25)
[2022-05-31] MEDS: ASPIRIN EC 81 MG TAB PO SCH (09:10)
--- NOTE | 2022-05-31 09:52 | Progress Note ---
Assessment and Plan Assessment and plan: 51-year-old seizure disorder hypertension type 2 diabetes and end-stage renal disease on hemodialysis presents with lethargy and confusion. Family brought him to the emergency room stating that he is confused not oriented. His last known dialysis is not known. Improvement on fluids. No fever or chills. No seizures. Noncompliant with his medications. hospital course: 05/28: AOx4 on bedside encounter. Transfused 1 unit due to hgb 6.8. Patient stated he has now missed several dialysis sessions. He goes to [facility] by ashanti parkman per patient. will place CM consultation to ensure patient still has chair. Anticipate d/c tomorrow. 05/29: Hgb improved to 7.7. 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 05/30: Await case management decision regarding outpatient hemodialysis 05/31: Physical therapy recommends SNF placement. We will discuss with case management disposition. Continue hemodialysis per nephrology recommendations. Assessment and Plan: (1) Acute metabolic encephalopathy (resolved) Current Visit: Yes Status: Acute Plan to address problem: Secondary to severe uremia. His creatinine is 32.1 and BUN is 242. Family does not know how many days he has missed his hemodialysis. Patient to be counseled about compliance once he is more alert and oriented. (2) Hyperkalemia (improved) Current Visit: Yes Status: Acute Plan to address problem: Treated in the emergency room and patient going for hemodialysis Correct with HD (3) Metabolic acidosis (resolved) Current Visit: Yes Status: Acute Plan to address problem: Secondary to severe uremia. (4) Seizure disorder Current Visit: Yes Status: Chronic Plan to address problem: Continue Keppra. 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 Hgb and VSS currently stable. (8) Hypertension Current Visit: Yes Status: Chronic Qualifiers: Hypertension type: primary hypertension Qualified Code(s): I10 - Essential (primary) hypertension Plan to address problem: Continue antihypertensives (9) Malnutrition Current Visit: Yes Status: Chronic Qualifiers: Malnutrition type: protein-calorie malnutrition Protein-calorie malnutrition severity: severe Qualified Code(s): E43 - Unspecified severe protein-calorie malnutrition Plan to address problem: Dietary supplements initiated Dietitian consult requested History Interval history: No new issues overnight Hospitalist Physical - Constitutional Vitals: Temp Pulse Resp BP Pulse Ox 97.9 F 70 20 113/71 100 05/31/22 05:25 05/31/22 05:25 05/31/22 09:48 05/31/22 05:25 05/31/22 09:48 General appearance: Present: no acute distress, well-nourished - EENT Eyes: Present: PERRL, EOM intact ENT: hearing intact, clear oral mucosa, dentition normal - Neck Neck: Present: supple, normal ROM - Respiratory Respiratory effort: normal Respiratory: bilateral: CTA - Cardiovascular Rhythm: regular Heart Sounds: Present: S1 & S2. Absent: gallop, rub - Extremities Extremities: no ischemia, No edema, Full ROM - Abdominal General gastrointestinal: soft, non-tender, non-distended, normal bowel sounds - Integumentary Integumentary: Present: clear, warm, dry - Neurologic Neurologic: CNII-XII intact, moves all extremities HEART Score - HEART Score Troponin: Troponin T 0.933 ng/mL (0.00-0.029) H* 05/27/22 01:28 Results - Labs CBC & Chem 7: 05/31/22 05:05 05/31/22 05:05 Labs: Laboratory Last Values WBC 8.4 K/mm3 (4.5-11.0) 05/31/22 05:05 RBC 2.82 M/mm3 (3.65-5.03) L 05/31/22 05:05 Hgb 8.3 gm/dl (11.8-15.2) L 05/31/22 05:05 Hct 25.0 % (35.5-45.6) L 05/31/22 05:05 MCV 88 fl (84-94) 05/31/22 05:05 MCH 30 pg (28-32) 05/31/22 05:05 MCHC 33 % (32-34) 05/31/22 05:05 RDW 16.3 % (13.2-15.2) H 05/31/22 05:05 Plt Count 258 K/mm3 (140-440) 05/31/22 05:05 Lymph % (Auto) 6.2 % (13.4-35.0) L 05/31/22 05:05 Coles % (Auto) 10.1 % (0.0-7.3) H 05/31/22 05:05 Eos % (Auto) 3.0 % (0.0-4.3) 05/31/22 05:05 Baso % (Auto) 0.3 % (0.0-1.8) 05/31/22 05:05 Lymph # (Auto) 0.5 K/mm3 (1.2-5.4) L 05/31/22 05:05 Coles # (Auto) 0.8 K/mm3 (0.0-0.8) 05/31/22 05:05 Eos # (Auto) 0.3 K/mm3 (0.0-0.4) 05/31/22 05:05 Baso # (Auto) 0.0 K/mm3 (0.0-0.1) 05/31/22 05:05 Seg Neutrophils % 80.4 % (40.0-70.0) H 05/31/22 05:05 Seg Neutrophils # 6.8 K/mm3 (1.8-7.7) 05/31/22 05:05 PT 17.0 Sec. (12.2-14.9) H 05/27/22 01:28 INR 1.23 (0.87-1.13) H 05/27/22 01:28 Sodium 137 mmol/L (137-145) 05/31/22 05:05 Potassium 4.6 mmol/L (3.6-5.0) 05/31/22 05:05 Chloride 92.2 mmol/L (98-107) L 05/31/22 05:05 Carbon Dioxide 27 mmol/L (22-30) 05/31/22 05:05 Anion Gap 22 mmol/L 05/31/22 05:05 BUN 107 mg/dL (9-20) H 05/31/22 05:05 Creatinine 13.7 mg/dL (0.8-1.3) H 05/31/22 05:05 Estimated GFR 5 ml/min 05/31/22 05:05 BUN/Creatinine Ratio 8 % 05/31/22 05:05 Glucose 181 mg/dL (75-100) H 05/31/22 05:05 POC Glucose 105 mg/dL (70-105) 05/30/22 23:09 Calcium 9.0 mg/dL (8.4-10.2) 05/31/22 05:05 Phosphorus 10.10 mg/dL (2.5-4.5) H 05/28/22 07:22 Magnesium 2.20 mg/dL (1.7-2.3) 05/28/22 07:22 Total Bilirubin 0.30 mg/dL (0.1-1.2) 05/29/22 04:23 AST 16 units/L (5-40) 05/29/22 04:23 ALT 16 units/L (7-56) 05/29/22 04:23 Alkaline Phosphatase 60 units/L (35-129) 05/29/22 04:23 Total Creatine Kinase 1147 units/L (55-170) H 05/27/22 01:28 Troponin T 0.933 ng/mL (0.00-0.029) H* 05/27/22 01:28 Total Protein 6.3 g/dL (6.3-8.2) 05/29/22 04:23 Albumin 2.4 g/dL (3.9-5) L 05/29/22 04:23 Albumin/Globulin Ratio 0.6 % 05/29/22 04:23 Triglycerides 178 mg/dL (2-149) H 05/27/22 01:28 Cholesterol 112 mg/dL (50-199) 05/27/22 01:28 LDL Cholesterol Direct 30 mg/dL (50-130) L 05/27/22 01:28 HDL Cholesterol 39 mg/dL (40-59) L 05/27/22 01:28 Cholesterol/HDL Ratio 2.87 % 05/27/22 01:28 Salicylates < 0.3 mg/dL (2.8-20.0) L 05/27/22 01:28 Acetaminophen 5.0 ug/mL (10.0-30.0) L 05/27/22 01:28 Plasma/Serum Alcohol < 0.01 % (0-0.07) 05/27/22 01:28 Coronavirus (PCR) Negative (Negative) 05/28/22 Unknown SARS-CoV-2 (PCR) Negative (Negative) 05/29/22 11:05 Hepatitis A IgM Ab Non-reactive (NonReactive) 05/27/22 01:28 Hep Bs Antigen Non-reactive (Negative) 05/27/22 01:28 Hep B Core IgM Ab Non-reactive (NonReactive) 05/27/22 01:28 Hepatitis C Antibody Non-reactive (NonReactive) 05/27/22 01:28 Blood Type A POSITIVE 05/28/22 10:00 Antibody Screen Negative 05/28/22 10:00 Crossmatch See Detail 05/28/22 10:00 Saez/IV: Voiding Method Condom Catheter Active Medications - Current Medications Current Medications: Generic Name Dose Route Start Last Admin Trade Name Freq PRN Reason Stop Dose Admin Acetaminophen 650 mg 05/27/22 19:48 Acetaminophen 325 Mg Tab PO Q4H PRN Pain MILD(1-3)/Fever >100.5/MUNOZ Aspirin 81 mg 05/28/22 10:00 05/31/22 09:10 Aspirin Ec 81 Mg Tab PO 81 mg QDAY MYRIAM Administration Epoetin Chris-epbx 20,000 unit 05/30/22 21:57 Epoetin Chris-Epbx 10,000 Unit/1 Ml Vial SUB-Q HILDA PRN hemodialysis Heparin Sodium (Porcine) 5,000 unit 05/27/22 22:00 05/31/22 09:10 Heparin 5,000 Unit/1 Ml Vial SUB-Q 5,000 unit Q12HR MYRIAM Administration Hydromorphone HCl 0.5 mg 05/27/22 19:48 Hydromorphone 0.5 Mg/0.5 Ml Inj IV Q3H PRN Pain , Severe (7-10) Sodium Chloride 100 mls @ 999 mls/hr 05/28/22 12:00 Nacl 0.9% IV HILDA PRN Hypotension Insulin Human Lispro 0 unit 05/28/22 07:30 05/31/22 08:57 Insulin Lispro 100 Unit/Ml SUB-Q Not Given ACHS [facility] Protocol Levetiracetam 500 mg 05/28/22 10:00 05/31/22 09:10 Levetiracetam 500 Mg Tab PO 500 mg BID MYRIAM Administration Metoclopramide HCl 5 mg 05/30/22 09:00 Metoclopramide 10 Mg/2 Ml Inj IV Q8H PRN Nausea And Vomiting Metoprolol Tartrate 100 mg 05/28/22 10:00 05/31/22 09:10 Metoprolol Tartrate 100 Mg Tab PO 100 mg BID MYRIAM Administration Morphine Sulfate 2 mg 05/27/22 19:48 Morphine 2 Mg/1 Ml Inj IV Q4H PRN Pain, Moderate (4-6) Ondansetron HCl 4 mg 05/27/22 19:48 Ondansetron 4 Mg/2 Ml Inj IV Q8H PRN Nausea And Vomiting Oxycodone/Acetaminophen 1 tab 05/27/22 19:48 Oxycodone /Acetaminophen 5-325mg Tab PO Q6H PRN Pain, Moderate (4-6) Sevelamer Carbonate 2,400 mg 05/28/22 12:30 05/31/22 08:07 Sevelamer Carbonate 800 Mg Tab PO 2,400 mg AC MYRIAM Administration Sodium Chloride 10 ml 05/27/22 22:00 05/31/22 09:10 Sodium Chloride 0.9% 10 Ml Flush Syringe IV 10 ml BID MYRIAM Administration Sodium Chloride 10 ml 05/27/22 19:48 Sodium Chloride 0.9% 10 Ml Flush Syringe IV PRN PRN LINE FLUSH Nutrition/Malnutrition Assess - Dietary Evaluation Nutrition/Malnutrition Findings: Nutrition Notes Start: 05/30/22 15:24 Freq: Status: Active Protocol: Document 05/30/22 15:24 [place] (Rec: 05/30/22 15:47 [place] [id number]) Nutrition Notes Need for Assessment generated from: Low BMI Initial or Follow up Assessment Current Diagnosis CKD (stage V CKD),Diabetes, Hypertension,Malnutrition Other Pertinent Diagnosis ESRD+HD, Seizure Disorder, Anemia, s/p Metabolic Encephalopathy. Current Diet Renal Diet (since D 05/27), D Suppl (from D 05/30). Labs/Tests 05/30: Na 135, Cl 91.3, BUN 88 , Crea 12.3, Glu 113. Pertinent Medications 05/30: Renvela, others nutritionally unremarkable. Height 5 ft 9 in Weight 54.43 kg [place] Body Weight (kg) 72.72 BMI 17.7 Weight change and time frame None provided at admission. Weight Status Underweight Subjective/Other Information RD consult for Low BMI assessment. Pt's PO intake of meals has been Fair (>50%) and fairly tolerated, according to ADL notes. I will keep the dietary supplemnets prescription to compensate for poor or insufficient PO intake of meals during LOS. Pt is on Room Air, O2 saturation @ 100%, according to Physical Assessment History notes. Pt has missing teeth, according to Physical Assessment History notes. Pt remains with diarrhea and incontinent, according to Physical Assessment History notes. Pt presents unspecified dryness and flaking as signs of concern for skin risk at the time, according to Physical Assessment History notes. Pt's Low BMI seems to correspond to a natural body composition, and not related to a sudden loss of body weight nor chronic malnutrition, since no signs of concern were mentioned in the Physical Assessment History or the Progress notes. Percent of energy/protein needs met: Prescribed Renal Diet provides for energy/protein needs (2, 072 Kcal/77 g) during LOS; additionally, Dietary Supplements will compensate for possible poor or insufficient PO intake of meals with 1,275 Kcal and 57 g of protein. Burn Absent Trauma Absent GI Symptoms Diarrhea,Other Food Allergy No Skin Integrity/Comment Unspecified dryness and flaking. 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 As Evidenced by Signs and Symptoms Pt's PO intake of meals has been Fair (>50%) and fairly tolerated, according to ADL notes. Is patient on ventilator? No Is Patient Ambulatory and/or Out of Bed No REE-([facility]-confined to bed) 1677.756 Kcal/Kg value to use for calculation 36 Approximate Energy Requirements Using 1959 kcal/Kg Calculation Used for Recommendations Kcal/kg Additional Notes Protein: >1.2 g/Kg ABW; >65 g/ day. Fluids: 1 ml/Kcal, or as per MD. Nutrition Intervention Change Diet Order: Continue Renal Diet as tolerated. Add Supplement/Snack (indicate name/kcal Start Nepro w/CARBSTEADY; TID. /protein ) Provides kCal: 1,275 Provides Protein (gm) 57 Goal #1 Compensate, through dietary supplementation, for possible poor or insufficient PO intake of meals during LOS. Goal #2 Adjust the dietary intervention to better serve Pt's needs and clinical conditions during LOS. Follow-Up By: 06/06/22 Additional Comments Continue monitoring food tolerance, %PO intake of meals , dietary supplements, and BM.
--- NOTE | 2022-05-31 11:01 | Progress Note ---
Assessment and Plan 1. ESRD: Patient is on maintenance HD. Last outpatient HD unknown. Meds dosage based on GFR. Hemodialysis: 03/27, 03/29. HD today. 2. FEN: Hyperkalemia, on HD. Hypernatremia, improved. Monitor lytes and volume status. 3. Acute Metabolic Encephalopathy, POA: Suspected Uremic encephalopathy. Monitor. 4. Seizure: On Keppra. 5. Normocytic anemia, POA: S/p PRBC. Epogen with HD. Monitor. 6. T2DM (type 2 diabetes mellitus): SSI. Subjective: Patient was seen and examined at the bedside. Examination: General appearance: well-developed, appears emaciated, no distress HEENT: ATNC, pupils equal Neck: trachea midline Respiratory: Clear to Auscultation Cardiology: regular, S1S2, no murmur Gastrointestinal: soft, normoactive bowel sounds, not tender, ND Integumentary: diffuse discrete papular rash, fading Neurologic: alert, tracking thru eyes, not following command Ext: no edema noted Hemodialysis access: L arm AVF/AVG Subjective Date of service: 05/31/22 Objective - Vital Signs Vital signs: Vital Signs - 12hr 05/30/22 05/30/22 05/31/22 23:10 23:19 05:25 Temperature 98.3 F 97.9 F Pulse Rate 71 71 70 Respiratory 18 18 Rate Blood Pressure 116/65 116/65 113/71 O2 Sat by Pulse 98 99 Oximetry O2 Sat by Pulse Oximetry [ Anterior Bilateral Throughout] 05/31/22 05/31/22 05/31/22 09:48 09:50 10:00 Temperature 97.6 F Pulse Rate 73 71 Respiratory 20 20 Rate Blood Pressure 117/63 116/63 O2 Sat by Pulse 100 Oximetry O2 Sat by Pulse 99 Oximetry [ Anterior Bilateral Throughout] 05/31/22 05/31/22 10:15 10:30 Temperature Pulse Rate 69 72 Respiratory Rate Blood Pressure 116/60 117/63 O2 Sat by Pulse Oximetry O2 Sat by Pulse Oximetry [ Anterior Bilateral Throughout] - Lab 05/31/22 05:05 05/31/22 05:05 Most recent lab results Calcium 9.0 mg/dL (8.4-10.2) 05/31/22 05:05 Phosphorus 10.10 mg/dL (2.5-4.5) H 05/28/22 07:22 Magnesium 2.20 mg/dL (1.7-2.3) 05/28/22 07:22 Medications & Allergies - Medications Allergies/Adverse Reactions: Allergies No Known Allergies Allergy (Unverified 03/21/22 18:10) Home Medications: Home Medications Medication Instructions Recorded Confirmed Last Taken Type Aspirin EC [Halfprin EC] 81 mg PO QDAY #30 tablet. 03/27/22 Unknown Rx Metoprolol [Lopressor TAB] 100 mg PO BID #60 tablet 03/27/22 Unknown Rx levETIRAcetam [Keppra TAB] 500 mg PO BID #60 tablet 03/27/22 Unknown Rx Active Medications: Generic Name Dose Route Start Last Admin Trade Name Freq PRN Reason Stop Dose Admin Acetaminophen 650 mg 05/27/22 19:48 Acetaminophen 325 Mg Tab PO Q4H PRN Pain MILD(1-3)/Fever >100.5/MUNOZ Aspirin 81 mg 05/28/22 10:00 05/31/22 09:10 Aspirin Ec 81 Mg Tab PO 81 mg QDAY MYRIAM Administration Epoetin Chris-epbx 20,000 unit 05/30/22 21:57 Epoetin Chris-Epbx 10,000 Unit/1 Ml Vial SUB-Q HILDA PRN hemodialysis Heparin Sodium (Porcine) 5,000 unit 05/27/22 22:00 05/31/22 09:10 Heparin 5,000 Unit/1 Ml Vial SUB-Q 5,000 unit Q12HR MYRIAM Administration Hydromorphone HCl 0.5 mg 05/27/22 19:48 Hydromorphone 0.5 Mg/0.5 Ml Inj IV Q3H PRN Pain , Severe (7-10) Sodium Chloride 100 mls @ 999 mls/hr 05/28/22 12:00 Nacl 0.9% IV HILDA PRN Hypotension Insulin Human Lispro 0 unit 05/28/22 07:30 05/31/22 08:57 Insulin Lispro 100 Unit/Ml SUB-Q Not Given ACHS [facility] Protocol Levetiracetam 500 mg 05/28/22 10:00 05/31/22 09:10 Levetiracetam 500 Mg Tab PO 500 mg BID MYRIAM Administration Metoclopramide HCl 5 mg 05/30/22 09:00 Metoclopramide 10 Mg/2 Ml Inj IV Q8H PRN Nausea And Vomiting Metoprolol Tartrate 100 mg 05/28/22 10:00 05/31/22 09:10 Metoprolol Tartrate 100 Mg Tab PO 100 mg BID MYRIAM Administration Morphine Sulfate 2 mg 05/27/22 19:48 Morphine 2 Mg/1 Ml Inj IV Q4H PRN Pain, Moderate (4-6) Ondansetron HCl 4 mg 05/27/22 19:48 Ondansetron 4 Mg/2 Ml Inj IV Q8H PRN Nausea And Vomiting Oxycodone/Acetaminophen 1 tab 05/27/22 19:48 Oxycodone /Acetaminophen 5-325mg Tab PO Q6H PRN Pain, Moderate (4-6) Sevelamer Carbonate 2,400 mg 05/28/22 12:30 05/31/22 08:07 Sevelamer Carbonate 800 Mg Tab PO 2,400 mg AC MYRIAM Administration Sodium Chloride 10 ml 05/27/22 22:00 05/31/22 09:10 Sodium Chloride 0.9% 10 Ml Flush Syringe IV 10 ml BID MYRIAM Administration Sodium Chloride 10 ml 05/27/22 19:48 Sodium Chloride 0.9% 10 Ml Flush Syringe IV PRN PRN LINE FLUSH
[2022-06-01] MEDS: guaiFENesin 100 MG/5 ML ORAL LIQD PO PRN ×3 (02:18→17:26)
[2022-06-01] MEDS: ZOLPIDEM 5 MG TAB PO PRN (02:18)
[2022-06-01] MEDS: SEVELAMER CARBONATE 800 MG TAB PO SCH ×3 (07:30→16:30)
[2022-06-01] MEDS: INSULIN LISPRO 100 UNIT/ML SUB-Q SCH ×3 (07:30→16:36)
--- NOTE | 2022-06-01 08:09 | Progress Note ---
Assessment and Plan 1. ESRD: Patient is on maintenance HD. Last outpatient HD unknown. Meds dosage based on GFR. Hemodialysis: 03/27, 03/29, 03/31. 2. FEN: Hyperkalemia, improved, on HD. Hypernatremia, improved. Binders. Monitor lytes and volume status. 3. Acute Metabolic Encephalopathy, POA: Suspected Uremic encephalopathy. Monitor. 4. Seizure: On Keppra. 5. Normocytic anemia, POA: S/p PRBC. Epogen with HD. Monitor. 6. T2DM (type 2 diabetes mellitus): SSI. Subjective: Patient was seen and examined at the bedside. Nurse at the bedside. Examination: General appearance: well-developed, emaciated, no distress HEENT: ATNC, pupils equal Neck: trachea midline Respiratory: Clear to Auscultation Cardiology: regular, S1S2, no murmur Gastrointestinal: soft, normoactive bowel sounds, not tender, ND Integumentary: diffuse discrete papular rash, fading Neurologic: alert, tracking thru eyes, not following command Ext: no edema noted Hemodialysis access: L arm AVF/AVG Subjective Date of service: 06/01/22 Objective - Vital Signs Vital signs: Vital Signs - 12hr 05/31/22 05/31/22 05/31/22 22:00 23:22 23:40 Temperature 98.2 F Pulse Rate 78 78 Respiratory 19 Rate Blood Pressure 113/64 113/64 O2 Sat by Pulse 100 100 Oximetry - Lab 05/31/22 05:05 05/31/22 05:05 Most recent lab results Calcium 9.0 mg/dL (8.4-10.2) 05/31/22 05:05 Phosphorus 10.10 mg/dL (2.5-4.5) H 05/28/22 07:22 Magnesium 2.20 mg/dL (1.7-2.3) 05/28/22 07:22 Medications & Allergies - Medications Allergies/Adverse Reactions: Allergies No Known Allergies Allergy (Unverified 03/21/22 18:10) Home Medications: Home Medications Medication Instructions Recorded Confirmed Last Taken Type Aspirin EC [Halfprin EC] 81 mg PO QDAY #30 tablet. 03/27/22 06/01/22 Unknown Rx Metoprolol [Lopressor TAB] 100 mg PO BID #60 tablet 03/27/22 06/01/22 Unknown Rx levETIRAcetam [Keppra TAB] 500 mg PO BID #60 tablet 03/27/22 06/01/22 Unknown Rx Active Medications: Generic Name Dose Route Start Last Admin Trade Name Freq PRN Reason Stop Dose Admin Acetaminophen 650 mg 05/27/22 19:48 Acetaminophen 325 Mg Tab PO Q4H PRN Pain MILD(1-3)/Fever >100.5/MUNOZ Aspirin 81 mg 05/28/22 10:00 05/31/22 09:10 Aspirin Ec 81 Mg Tab PO 81 mg QDAY MYRIAM Administration Epoetin Chris-epbx 20,000 unit 05/30/22 21:57 Epoetin Chris-Epbx 10,000 Unit/1 Ml Vial SUB-Q HILDA PRN hemodialysis Guaifenesin 200 mg 06/01/22 01:57 06/01/22 02:18 Guaifenesin 100 Mg/5 Ml Oral Liqd PO 200 mg Q4H PRN Administration Cough Heparin Sodium (Porcine) 5,000 unit 05/27/22 22:00 05/31/22 22:25 Heparin 5,000 Unit/1 Ml Vial SUB-Q 5,000 unit Q12HR MYRIAM Administration Hydromorphone HCl 0.5 mg 05/27/22 19:48 Hydromorphone 0.5 Mg/0.5 Ml Inj IV Q3H PRN Pain , Severe (7-10) Sodium Chloride 100 mls @ 999 mls/hr 05/28/22 12:00 Nacl 0.9% IV HILDA PRN Hypotension Insulin Human Lispro 0 unit 05/28/22 07:30 05/31/22 22:24 Insulin Lispro 100 Unit/Ml SUB-Q Not Given ACHS [facility] Protocol Levetiracetam 500 mg 05/28/22 10:00 05/31/22 21:29 Levetiracetam 500 Mg Tab PO 500 mg BID MYRIAM Administration Metoclopramide HCl 5 mg 05/30/22 09:00 Metoclopramide 10 Mg/2 Ml Inj IV Q8H PRN Nausea And Vomiting Metoprolol Tartrate 100 mg 05/28/22 10:00 05/31/22 23:40 Metoprolol Tartrate 100 Mg Tab PO 100 mg BID YMRIAM Administration Morphine Sulfate 2 mg 05/27/22 19:48 Morphine 2 Mg/1 Ml Inj IV Q4H PRN Pain, Moderate (4-6) Ondansetron HCl 4 mg 05/27/22 19:48 Ondansetron 4 Mg/2 Ml Inj IV Q8H PRN Nausea And Vomiting Oxycodone/Acetaminophen 1 tab 05/27/22 19:48 Oxycodone /Acetaminophen 5-325mg Tab PO Q6H PRN Pain, Moderate (4-6) Sevelamer Carbonate 2,400 mg 05/28/22 12:30 05/31/22 16:34 Sevelamer Carbonate 800 Mg Tab PO 2,400 mg AC MYRIAM Administration Sodium Chloride 10 ml 05/27/22 22:00 05/31/22 21:30 Sodium Chloride 0.9% 10 Ml Flush Syringe IV 10 ml BID MYRIAM Administration Sodium Chloride 10 ml 05/27/22 19:48 Sodium Chloride 0.9% 10 Ml Flush Syringe IV PRN PRN LINE FLUSH Zolpidem Tartrate 5 mg 06/01/22 01:56 06/01/22 02:18 Zolpidem 5 Mg Tab PO 5 mg QHS PRN Administration Sleep
[2022-06-01] MEDS: levETIRAcetam 500 MG TAB PO SCH ×2 (10:20→21:39)
[2022-06-01] MEDS: METOPROLOL TARTRATE 100 MG TAB PO SCH ×2 (10:20→21:40)
[2022-06-01] MEDS: ASPIRIN EC 81 MG TAB PO SCH (10:20)
[2022-06-01] MEDS: HEPARIN 5,000 UNIT/1 ML VIAL SUB-Q SCH ×2 (10:22→21:39)
--- NOTE | 2022-06-01 13:15 | Progress Note ---
Assessment and Plan Assessment and plan: 51-year-old seizure disorder hypertension type 2 diabetes and end-stage renal disease on hemodialysis presents with lethargy and confusion. Family brought him to the emergency room stating that he is confused not oriented. His last known dialysis is not known. Improvement on fluids. No fever or chills. No seizures. Noncompliant with his medications. hospital course: 05/28: AOx4 on bedside encounter. Transfused 1 unit due to hgb 6.8. Patient stated he has now missed several dialysis sessions. He goes to [facility] by ashanti irwin per patient. will place CM consultation to ensure patient still has chair. Anticipate d/c tomorrow. 05/29: Hgb improved to 7.7. 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 05/30: Await case management decision regarding outpatient hemodialysis 05/31: Physical therapy recommends SNF placement. We will discuss with case management disposition. Continue hemodialysis per nephrology recommendations. 06/01: Awaiting for arrangements for hemodialysis associated with intermediate facility or outpatient hemodialysis chair. I discussed the case with case management Assessment and Plan: (1) Acute metabolic encephalopathy (resolved) Current Visit: Yes Status: Acute Plan to address problem: Secondary to severe uremia. His creatinine is 32.1 and BUN is 242. Family does not know how many days he has missed his hemodialysis. Patient to be counseled about compliance once he is more alert and oriented. (2) Hyperkalemia (improved) Current Visit: Yes Status: Acute Plan to address problem: Treated in the emergency room and patient going for hemodialysis Correct with HD (3) Metabolic acidosis (resolved) Current Visit: Yes Status: Acute Plan to address problem: Secondary to severe uremia. (4) Seizure disorder Current Visit: Yes Status: Chronic Plan to address problem: Continue Keppra. 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 Hgb and VSS currently stable. (8) Hypertension Current Visit: Yes Status: Chronic Qualifiers: Hypertension type: primary hypertension Qualified Code(s): I10 - Essential (primary) hypertension Plan to address problem: Continue antihypertensives (9) Malnutrition Current Visit: Yes Status: Chronic Qualifiers: Malnutrition type: protein-calorie malnutrition Protein-calorie malnutrition severity: severe Qualified Code(s): E43 - Unspecified severe protein-calorie malnutrition Plan to address problem: Dietary supplements initiated Dietitian consult requested History Interval history: No new issues overnight Hospitalist Physical - Constitutional Vitals: Temp Pulse Resp BP Pulse Ox 98.2 F 78 19 113/64 100 05/31/22 23:22 05/31/22 23:40 05/31/22 23:22 05/31/22 23:40 05/31/22 23:22 General appearance: Present: no acute distress, well-nourished - EENT Eyes: Present: PERRL, EOM intact ENT: hearing intact, clear oral mucosa, dentition normal - Neck Neck: Present: supple, normal ROM - Respiratory Respiratory effort: normal Respiratory: bilateral: CTA - Cardiovascular Rhythm: regular Heart Sounds: Present: S1 & S2. Absent: gallop, rub - Extremities Extremities: no ischemia, No edema, Full ROM - Abdominal General gastrointestinal: soft, non-tender, non-distended, normal bowel sounds - Integumentary Integumentary: Present: clear, warm, dry - Neurologic Neurologic: CNII-XII intact, moves all extremities HEART Score - HEART Score Troponin: Troponin T 0.933 ng/mL (0.00-0.029) H* 05/27/22 01:28 Results - Labs CBC & Chem 7: 05/31/22 05:05 05/31/22 05:05 Labs: Laboratory Last Values WBC 8.4 K/mm3 (4.5-11.0) 05/31/22 05:05 RBC 2.82 M/mm3 (3.65-5.03) L 05/31/22 05:05 Hgb 8.3 gm/dl (11.8-15.2) L 05/31/22 05:05 Hct 25.0 % (35.5-45.6) L 05/31/22 05:05 MCV 88 fl (84-94) 05/31/22 05:05 MCH 30 pg (28-32) 05/31/22 05:05 MCHC 33 % (32-34) 05/31/22 05:05 RDW 16.3 % (13.2-15.2) H 05/31/22 05:05 Plt Count 258 K/mm3 (140-440) 05/31/22 05:05 Lymph % (Auto) 6.2 % (13.4-35.0) L 05/31/22 05:05 [place] % (Auto) 10.1 % (0.0-7.3) H 05/31/22 05:05 Eos % (Auto) 3.0 % (0.0-4.3) 05/31/22 05:05 Baso % (Auto) 0.3 % (0.0-1.8) 05/31/22 05:05 Lymph # (Auto) 0.5 K/mm3 (1.2-5.4) L 05/31/22 05:05 [place] # (Auto) 0.8 K/mm3 (0.0-0.8) 05/31/22 05:05 Eos # (Auto) 0.3 K/mm3 (0.0-0.4) 05/31/22 05:05 Baso # (Auto) 0.0 K/mm3 (0.0-0.1) 05/31/22 05:05 Seg Neutrophils % 80.4 % (40.0-70.0) H 05/31/22 05:05 Seg Neutrophils # 6.8 K/mm3 (1.8-7.7) 05/31/22 05:05 PT 17.0 Sec. (12.2-14.9) H 05/27/22 01:28 INR 1.23 (0.87-1.13) H 05/27/22 01:28 Sodium 137 mmol/L (137-145) 05/31/22 05:05 Potassium 4.6 mmol/L (3.6-5.0) 05/31/22 05:05 Chloride 92.2 mmol/L (98-107) L 05/31/22 05:05 Carbon Dioxide 27 mmol/L (22-30) 05/31/22 05:05 Anion Gap 22 mmol/L 05/31/22 05:05 BUN 107 mg/dL (9-20) H 05/31/22 05:05 Creatinine 13.7 mg/dL (0.8-1.3) H 05/31/22 05:05 Estimated GFR 5 ml/min 05/31/22 05:05 BUN/Creatinine Ratio 8 % 05/31/22 05:05 Glucose 181 mg/dL (75-100) H 05/31/22 05:05 POC Glucose 130 mg/dL (70-105) H 06/01/22 11:09 Calcium 9.0 mg/dL (8.4-10.2) 05/31/22 05:05 Phosphorus 10.10 mg/dL (2.5-4.5) H 05/28/22 07:22 Magnesium 2.20 mg/dL (1.7-2.3) 05/28/22 07:22 Total Bilirubin 0.30 mg/dL (0.1-1.2) 05/29/22 04:23 AST 16 units/L (5-40) 05/29/22 04:23 ALT 16 units/L (7-56) 05/29/22 04:23 Alkaline Phosphatase 60 units/L (35-129) 05/29/22 04:23 Total Creatine Kinase 1147 units/L (55-170) H 05/27/22 01:28 Troponin T 0.933 ng/mL (0.00-0.029) H* 05/27/22 01:28 Total Protein 6.3 g/dL (6.3-8.2) 05/29/22 04:23 Albumin 2.4 g/dL (3.9-5) L 05/29/22 04:23 Albumin/Globulin Ratio 0.6 % 05/29/22 04:23 Triglycerides 178 mg/dL (2-149) H 05/27/22 01:28 Cholesterol 112 mg/dL (50-199) 05/27/22 01:28 LDL Cholesterol Direct 30 mg/dL (50-130) L 05/27/22 01:28 HDL Cholesterol 39 mg/dL (40-59) L 05/27/22 01:28 Cholesterol/HDL Ratio 2.87 % 05/27/22 01:28 Salicylates < 0.3 mg/dL (2.8-20.0) L 05/27/22 01:28 Acetaminophen 5.0 ug/mL (10.0-30.0) L 05/27/22 01:28 Plasma/Serum Alcohol < 0.01 % (0-0.07) 05/27/22 01:28 Coronavirus (PCR) Negative (Negative) 05/28/22 Unknown SARS-CoV-2 (PCR) Negative (Negative) 05/29/22 11:05 Hepatitis A IgM Ab Non-reactive (NonReactive) 05/27/22 01:28 Hep Bs Antigen Non-reactive (Negative) 05/27/22 01:28 Hep B Core IgM Ab Non-reactive (NonReactive) 05/27/22 01:28 Hepatitis C Antibody Non-reactive (NonReactive) 05/27/22 01:28 Blood Type A POSITIVE 05/28/22 10:00 Antibody Screen Negative 05/28/22 10:00 Crossmatch See Detail 05/28/22 10:00 Saez/IV: Voiding Method Condom Catheter Active Medications - Current Medications Current Medications: Generic Name Dose Route Start Last Admin Trade Name Freq PRN Reason Stop Dose Admin Acetaminophen 650 mg 05/27/22 19:48 Acetaminophen 325 Mg Tab PO Q4H PRN Pain MILD(1-3)/Fever >100.5/MUNOZ Aspirin 81 mg 05/28/22 10:00 06/01/22 10:20 Aspirin Ec 81 Mg Tab PO 81 mg QDAY MYRIAM Administration Epoetin Chris-epbx 20,000 unit 05/30/22 21:57 Epoetin Chris-Epbx 10,000 Unit/1 Ml Vial SUB-Q HILDA PRN hemodialysis Guaifenesin 200 mg 06/01/22 01:57 06/01/22 10:19 Guaifenesin 100 Mg/5 Ml Oral Liqd PO 200 mg Q4H PRN Administration Cough Heparin Sodium (Porcine) 5,000 unit 05/27/22 22:00 06/01/22 10:22 Heparin 5,000 Unit/1 Ml Vial SUB-Q 5,000 unit Q12HR MYRIAM Administration Hydromorphone HCl 0.5 mg 05/27/22 19:48 Hydromorphone 0.5 Mg/0.5 Ml Inj IV Q3H PRN Pain , Severe (7-10) Sodium Chloride 100 mls @ 999 mls/hr 05/28/22 12:00 Nacl 0.9% IV HILDA PRN Hypotension Insulin Human Lispro 0 unit 05/28/22 07:30 06/01/22 11:30 Insulin Lispro 100 Unit/Ml SUB-Q Not Given ACHS [facility] Protocol Levetiracetam 500 mg 05/28/22 10:00 06/01/22 10:20 Levetiracetam 500 Mg Tab PO 500 mg BID MYRIAM Administration Metoclopramide HCl 5 mg 05/30/22 09:00 Metoclopramide 10 Mg/2 Ml Inj IV Q8H PRN Nausea And Vomiting Metoprolol Tartrate 100 mg 05/28/22 10:00 06/01/22 10:20 Metoprolol Tartrate 100 Mg Tab PO 100 mg BID MYRIAM Administration Morphine Sulfate 2 mg 05/27/22 19:48 Morphine 2 Mg/1 Ml Inj IV Q4H PRN Pain, Moderate (4-6) Ondansetron HCl 4 mg 05/27/22 19:48 Ondansetron 4 Mg/2 Ml Inj IV Q8H PRN Nausea And Vomiting Oxycodone/Acetaminophen 1 tab 05/27/22 19:48 Oxycodone /Acetaminophen 5-325mg Tab PO Q6H PRN Pain, Moderate (4-6) Sevelamer Carbonate 2,400 mg 05/28/22 12:30 06/01/22 07:30 Sevelamer Carbonate 800 Mg Tab PO 2,400 mg AC MYRIAM Administration Sodium Chloride 10 ml 05/27/22 22:00 06/01/22 10:20 Sodium Chloride 0.9% 10 Ml Flush Syringe IV 10 ml BID MYRIAM Administration Sodium Chloride 10 ml 05/27/22 19:48 Sodium Chloride 0.9% 10 Ml Flush Syringe IV PRN PRN LINE FLUSH Zolpidem Tartrate 5 mg 06/01/22 01:56 06/01/22 02:18 Zolpidem 5 Mg Tab PO 5 mg QHS PRN Administration Sleep Nutrition/Malnutrition Assess - Dietary Evaluation Nutrition/Malnutrition Findings: Nutrition Notes Start: 05/30/22 15 :24 Freq: Status: Active Protocol: Document 05/30/22 15:24 [place] (Rec: 05/30/22 15:47 [email or web address] [id number]) Nutrition Notes Need for Assessment generated from: Low BMI Initial or Follow up Assessment Current Diagnosis CKD (stage V CKD),Diabetes, Hypertension,Malnutrition Other Pertinent Diagnosis ESRD+HD, Seizure Disorder, Anemia, s/p Metabolic Encephalopathy. Current Diet Renal Diet (since D 05/27), D Suppl (from D 05/30). Labs/Tests 05/30: Na 135, Cl 91.3, BUN 88 , Crea 12.3, Glu 113. Pertinent Medications 05/30: Renvela, others nutritionally unremarkable. Height 5 ft 9 in Weight 54.43 kg [place] Body Weight (kg) 72.72 BMI 17.7 Weight change and time frame None provided at admission. Weight Status Underweight Subjective/Other Information RD consult for Low BMI assessment. Pt's PO intake of meals has been Fair (>50%) and fairly tolerated, according to ADL notes. I will keep the dietary supplemnets prescription to compensate for poor or insufficient PO intake of meals during LOS. Pt is on Room Air, O2 saturation @ 100%, according to Physical Assessment History notes. Pt has missing teeth, according to Physical Assessment History notes. Pt remains with diarrhea and incontinent, according to Physical Assessment History notes. Pt presents unspecified dryness and flaking as signs of concern for skin risk at the time, according to Physical Assessment History notes. Pt's Low BMI seems to correspond to a natural body composition, and not related to a sudden loss of body weight nor chronic malnutrition, since no signs of concern were mentioned in the Physical Assessment History or the Progress notes. Percent of energy/protein needs met: Prescribed Renal Diet provides for energy/protein needs (2, 072 Kcal/77 g) during LOS; additionally, Dietary Supplements will compensate for possible poor or insufficient PO intake of meals with 1,275 Kcal and 57 g of protein. Burn Absent Trauma Absent GI Symptoms Diarrhea,Other Food Allergy No Skin Integrity/Comment Unspecified dryness and flaking. 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 As Evidenced by Signs and Symptoms Pt's PO intake of meals has been Fair (>50%) and fairly tolerated, according to ADL notes. Is patient on ventilator? No Is Patient Ambulatory and/or Out of Bed No REE-([facility]-confined to bed) 1677.756 Kcal/Kg value to use for calculation 36 Approximate Energy Requirements Using 1959 kcal/Kg Calculation Used for Recommendations Kcal/kg Additional Notes Protein: >1.2 g/Kg ABW; >65 g/ day. Fluids: 1 ml/Kcal, or as per MD. Nutrition Intervention Change Diet Order: Continue Renal Diet as tolerated. Add Supplement/Snack (indicate name/kcal Start Nepro w/CARBSTEADY; TID. /protein ) Provides kCal: 1,275 Provides Protein (gm) 57 Goal #1 Compensate, through dietary supplementation, for possible poor or insufficient PO intake of meals during LOS. Goal #2 Adjust the dietary intervention to better serve Pt's needs and clinical conditions during LOS. Follow-Up By: 06/06/22 Additional Comments Continue monitoring food tolerance, %PO intake of meals , dietary supplements, and BM.
[2022-06-01] MEDS: ONDANSETRON 4 MG/2 ML INJ IV PRN (21:39)
[2022-06-02] MEDS: INSULIN LISPRO 100 UNIT/ML SUB-Q SCH ×5 (05:37→22:00)
[2022-06-02] MEDS: SEVELAMER CARBONATE 800 MG TAB PO SCH ×3 (07:30→16:30)
[2022-06-02] MEDS ORDERED: SODIUM CHLORIDE 0.9% 100 ML IV PRN (08:23)
[2022-06-02 09:03] LABS: Calcium 8.3 mg/dL (8.4-10.2)
--- NOTE | 2022-06-02 09:20 | Progress Note ---
Assessment and Plan 1. ESRD: Patient is on maintenance HD. Last outpatient HD unknown. Meds dosage based on GFR. Hemodialysis: 03/27, 03/29, 03/31, 04/02. 2. FEN: Hyperkalemia, improved, on HD. Hypernatremia, improved. Binders. Monitor lytes and volume status. 3. Acute Metabolic Encephalopathy, POA: Suspected Uremic encephalopathy. Baseline cognitive decline. Improving, monitor. 4. Seizure: On Keppra. 5. Normocytic anemia, POA: S/p PRBC. Epogen with HD. Monitor. 6. T2DM (type 2 diabetes mellitus): SSI. Subjective: Patient was seen and examined at the bedside. HD Nurse at the bedside. Examination: General appearance: well-developed, emaciated, no distress HEENT: ATNC, pupils equal Neck: trachea midline Respiratory: Clear to Auscultation Cardiology: regular, S1S2, no murmur Gastrointestinal: soft, normoactive bowel sounds, not tender, ND Integumentary: diffuse discrete papular rash, fading Neurologic: alert, oriented to self, able to move extremities Ext: no edema noted Hemodialysis access: L arm AVF/AVG Subjective Date of service: 06/02/22 Objective - Vital Signs Vital signs: Vital Signs - 12hr 06/01/22 06/01/22 06/02/22 21:40 22:00 04:29 Temperature 97.7 F Pulse Rate 77 71 Respiratory 18 Rate Respiratory 17 Rate [Penis] Blood Pressure 125/67 122/64 O2 Sat by Pulse 97 99 Oximetry - Lab 05/31/22 05:05 06/02/22 07:45 Most recent lab results Calcium 8.3 mg/dL (8.4-10.2) L 06/02/22 07:45 Phosphorus 8.30 mg/dL (2.5-4.5) H 06/02/22 07:45 Magnesium 2.20 mg/dL (1.7-2.3) 05/28/22 07:22 Medications & Allergies - Medications Allergies/Adverse Reactions: Allergies No Known Allergies Allergy (Unverified 03/21/22 18:10) Home Medications: Home Medications Medication Instructions Recorded Confirmed Last Taken Type Aspirin EC [Halfprin EC] 81 mg PO QDAY #30 tablet. 03/27/22 06/01/22 Unknown Rx Metoprolol [Lopressor TAB] 100 mg PO BID #60 tablet 03/27/22 06/01/22 Unknown Rx levETIRAcetam [Keppra TAB] 500 mg PO BID #60 tablet 03/27/22 06/01/22 Unknown Rx Active Medications: Generic Name Dose Route Start Last Admin Trade Name Freq PRN Reason Stop Dose Admin Acetaminophen 650 mg 05/27/22 19:48 Acetaminophen 325 Mg Tab PO Q4H PRN Pain MILD(1-3)/Fever >100.5/MUNOZ Aspirin 81 mg 05/28/22 10:00 06/01/22 10:20 Aspirin Ec 81 Mg Tab PO 81 mg QDAY MYRIAM Administration Epoetin Chris-epbx 20,000 unit 05/30/22 21:57 Epoetin Chris-Epbx 10,000 Unit/1 Ml Vial SUB-Q HILDA PRN hemodialysis Guaifenesin 200 mg 06/01/22 01:57 06/01/22 17:26 Guaifenesin 100 Mg/5 Ml Oral Liqd PO 200 mg Q4H PRN Administration Cough Heparin Sodium (Porcine) 5,000 unit 05/27/22 22:00 06/01/22 21:39 Heparin 5,000 Unit/1 Ml Vial SUB-Q 5,000 unit Q12HR MYRIAM Administration Hydromorphone HCl 0.5 mg 05/27/22 19:48 Hydromorphone 0.5 Mg/0.5 Ml Inj IV Q3H PRN Pain , Severe (7-10) Sodium Chloride 100 mls @ 999 mls/hr 06/02/22 08:23 Nacl 0.9% IV HILDA PRN Hypotension Insulin Human Lispro 0 unit 05/28/22 07:30 06/02/22 05:37 Insulin Lispro 100 Unit/Ml SUB-Q Not Given ACHS [facility] Protocol Levetiracetam 500 mg 05/28/22 10:00 06/01/22 21:39 Levetiracetam 500 Mg Tab PO 500 mg BID MYRIAM Administration Metoclopramide HCl 5 mg 05/30/22 09:00 Metoclopramide 10 Mg/2 Ml Inj IV Q8H PRN Nausea And Vomiting Metoprolol Tartrate 100 mg 05/28/22 10:00 06/01/22 21:40 Metoprolol Tartrate 100 Mg Tab PO 100 mg BID MYRIAM Administration Morphine Sulfate 2 mg 05/27/22 19:48 Morphine 2 Mg/1 Ml Inj IV Q4H PRN Pain, Moderate (4-6) Ondansetron HCl 4 mg 05/27/22 19:48 06/01/22 21:39 Ondansetron 4 Mg/2 Ml Inj IV 4 mg Q8H PRN Administration Nausea And Vomiting Oxycodone/Acetaminophen 1 tab 05/27/22 19:48 Oxycodone /Acetaminophen 5-325mg Tab PO Q6H PRN Pain, Moderate (4-6) Sevelamer Carbonate 2,400 mg 05/28/22 12:30 06/01/22 16:30 Sevelamer Carbonate 800 Mg Tab PO 2,400 mg AC MYRIAM Administration Sodium Chloride 10 ml 05/27/22 22:00 06/01/22 21:40 Sodium Chloride 0.9% 10 Ml Flush Syringe IV 10 ml BID MYRIAM Administration Sodium Chloride 10 ml 05/27/22 19:48 Sodium Chloride 0.9% 10 Ml Flush Syringe IV PRN PRN LINE FLUSH Zolpidem Tartrate 5 mg 06/01/22 01:56 06/01/22 02:18 Zolpidem 5 Mg Tab PO 5 mg QHS PRN Administration Sleep
--- NOTE | 2022-06-02 09:58 | Progress Note ---
Assessment and Plan Assessment and plan: 51-year-old seizure disorder hypertension type 2 diabetes and end-stage renal disease on hemodialysis presents with lethargy and confusion. Family brought him to the emergency room stating that he is confused not oriented. His last known dialysis is not known. Improvement on fluids. No fever or chills. No seizures. Noncompliant with his medications. Assessment and Plan: (1) Acute metabolic encephalopathy (resolved) Current Visit: Yes Status: Acute Plan to address problem: Secondary to severe uremia. His creatinine is 32.1 and BUN is 242. Family does not know how many days he has missed his hemodialysis. Patient to be counseled about compliance once he is more alert and oriented. (2) Hyperkalemia (improved) Current Visit: Yes Status: Acute Plan to address problem: Treated in the emergency room and patient going for hemodialysis Correct with HD (3) Metabolic acidosis (resolved) Current Visit: Yes Status: Acute Plan to address problem: Secondary to severe uremia. (4) Seizure disorder Current Visit: Yes Status: Chronic Plan to address problem: Continue Keppra. (5) T2DM (type 2 diabetes mellitus) Current Visit: Yes Status: Chronic Qualifiers: Diabetes mellitus penitentiary insulin use: unspecified penitentiary insulin use status Chronic kidney disease stage: on chronic dialysis Plan to address problem: Coverage for now (6) ESRD needing dialysis Current Visit: Yes Status: Acute Plan to address problem: Continue hemodialysis Nephrology following Patient to be counseled about compliance (7) Anemia Current Visit: No Status: Chronic Qualifiers: Anemia type: due to chronic kidney disease Plan to address problem: Secondary to chronic kidney disease Epogen as per nephrology 1 unit prbc given on 05/28. Hgb and VSS currently stable. (8) Hypertension Current Visit: Yes Status: Chronic Qualifiers: Hypertension type: primary hypertension Qualified Code(s): I10 - Essential (primary) hypertension Plan to address problem: Continue antihypertensives (9) Malnutrition Current Visit: Yes Status: Chronic Qualifiers: Malnutrition type: protein-calorie malnutrition Protein-calorie malnutrition severity: severe Qualified Code(s): E43 - Unspecified severe protein-calorie malnutrition Plan to address problem: Dietary supplements initiated Dietitian consult requested hospital course: 05/28: AOx4 on bedside encounter. Transfused 1 unit due to hgb 6.8. Patient st ated he has now missed several dialysis sessions. He goes to [facility] [place] per patient. will place CM consultation to ensure patient still has chair. Anticipate d/c tomorrow. 05/29: Hgb improved to 7.7. 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 05/30: Await case management decision regarding outpatient hemodialysis 05/31: Physical therapy recommends SNF placement. We will discuss with case management disposition. Continue hemodialysis per nephrology recommendations. 06/01: Awaiting for arrangements for hemodialysis associated with [facility] or outpatient hemodialysis chair. I discussed the case with case management 06/02: Awaiting for arrangements for hemodialysis associated with [facility] or outpatient hemodialysis chair. Patient is less confused and appears to be back to baseline. History Interval history: No new issues overnight Hospitalist Physical - Constitutional Vitals: Temp Pulse Resp BP Pulse Ox 97.7 F 71 18 122/64 99 06/02/22 04:29 06/02/22 04:29 06/02/22 04:29 06/02/22 04:29 06/02/22 04:29 General appearance: Present: no acute distress, well-nourished - EENT Eyes: Present: PERRL, EOM intact ENT: hearing intact, clear oral mucosa, dentition normal - Neck Neck: Present: supple, normal ROM - Respiratory Respiratory effort: normal Respiratory: bilateral: CTA - Cardiovascular Rhythm: regular Heart Sounds: Present: S1 & S2. Absent: gallop, rub - Extremities Extremities: no ischemia, No edema, Full ROM - Abdominal General gastrointestinal: soft, non-tender, non-distended, normal bowel sounds - Integumentary Integumentary: Present: clear, warm, dry - Neurologic Neurologic: CNII-XII intact, moves all extremities HEART Score - HEART Score Troponin: Troponin T 0.933 ng/mL (0.00-0.029) H* 05/27/22 01:28 Results - Labs CBC & Chem 7: 05/31/22 05:05 06/02/22 07:45 Labs: Laboratory Last Values WBC 8.4 K/mm3 (4.5-11.0) 05/31/22 05:05 RBC 2.82 M/mm3 (3.65-5.03) L 05/31/22 05:05 Hgb 8.3 gm/dl (11.8-15.2) L 05/31/22 05:05 Hct 25.0 % (35.5-45.6) L 05/31/22 05:05 MCV 88 fl (84-94) 05/31/22 05:05 MCH 30 pg (28-32) 05/31/22 05:05 MCHC 33 % (32-34) 05/31/22 05:05 RDW 16.3 % (13.2-15.2) H 05/31/22 05:05 Plt Count 258 K/mm3 (140-440) 05/31/22 05:05 Lymph % (Auto) 6.2 % (13.4-35.0) L 05/31/22 05:05 [place] % (Auto) 10.1 % (0.0-7.3) H 05/31/22 05:05 Eos % (Auto) 3.0 % (0.0-4.3) 05/31/22 05:05 Baso % (Auto) 0.3 % (0.0-1.8) 05/31/22 05:05 Lymph # (Auto) 0.5 K/mm3 (1.2-5.4) L 05/31/22 05:05 [place] # (Auto) 0.8 K/mm3 (0.0-0.8) 05/31/22 05:05 Eos # (Auto) 0.3 K/mm3 (0.0-0.4) 05/31/22 05:05 Baso # (Auto) 0.0 K/mm3 (0.0-0.1) 05/31/22 05:05 Seg Neutrophils % 80.4 % (40.0-70.0) H 05/31/22 05:05 Seg Neutrophils # 6.8 K/mm3 (1.8-7.7) 05/31/22 05:05 PT 17.0 Sec. (12.2-14.9) H 05/27/22 01:28 INR 1.23 (0.87-1.13) H 05/27/22 01:28 Sodium 139 mmol/L (137-145) 06/02/22 07:45 Potassium 4.2 mmol/L (3.6-5.0) 06/02/22 07:45 Chloride 91.0 mmol/L (98-107) L 06/02/22 07:45 Carbon Dioxide 28 mmol/L (22-30) 06/02/22 07:45 Anion Gap 24 mmol/L 06/02/22 07:45 BUN 71 mg/dL (9-20) H 06/02/22 07:45 Creatinine 9.9 mg/dL (0.8-1.3) H 06/02/22 07:45 Estimated GFR 7 ml/min 06/02/22 07:45 BUN/Creatinine Ratio 7 % 06/02/22 07:45 Glucose 87 mg/dL (75-100) 06/02/22 07:45 POC Glucose 141 mg/dL (70-105) H 06/01/22 21:46 Calcium 8.3 mg/dL (8.4-10.2) L 06/02/22 07:45 Phosphorus 8.30 mg/dL (2.5-4.5) H 06/02/22 07:45 Magnesium 2.20 mg/dL (1.7-2.3) 05/28/22 07:22 Total Bilirubin 0.30 mg/dL (0.1-1.2) 05/29/22 04:23 AST 16 units/L (5-40) 05/29/22 04:23 ALT 16 units/L (7-56) 05/29/22 04:23 Alkaline Phosphatase 60 units/L (35-129) 05/29/22 04:23 Total Creatine Kinase 1147 units/L (55-170) H 05/27/22 01:28 Troponin T 0.933 ng/mL (0.00-0.029) H* 05/27/22 01:28 Total Protein 6.3 g/dL (6.3-8.2) 05/29/22 04:23 Albumin 2.4 g/dL (3.9-5) L 05/29/22 04:23 Albumin/Globulin Ratio 0.6 % 05/29/22 04:23 Triglycerides 178 mg/dL (2-149) H 05/27/22 01:28 Cholesterol 112 mg/dL (50-199) 05/27/22 01:28 LDL Cholesterol Direct 30 mg/dL (50-130) L 05/27/22 01:28 HDL Cholesterol 39 mg/dL (40-59) L 05/27/22 01:28 Cholesterol/HDL Ratio 2.87 % 05/27/22 01:28 Salicylates < 0.3 mg/dL (2.8-20.0) L 05/27/22 01:28 Acetaminophen 5.0 ug/mL (10.0-30.0) L 05/27/22 01:28 Plasma/Serum Alcohol < 0.01 % (0-0.07) 05/27/22 01:28 Coronavirus (PCR) Negative (Negative) 05/28/22 Unknown SARS-CoV-2 (PCR) Negative (Negative) 05/29/22 11:05 Hepatitis A IgM Ab Non-reactive (NonReactive) 05/27/22 01:28 Hep Bs Antigen Non-reactive (Negative) 05/27/22 01:28 Hep B Core IgM Ab Non-reactive (NonReactive) 05/27/22 01:28 Hepatitis C Antibody Non-reactive (NonReactive) 05/27/22 01:28 Blood Type A POSITIVE 05/28/22 10:00 Antibody Screen Negative 05/28/22 10:00 Crossmatch See Detail 05/28/22 10:00 Saez/IV: Voiding Method Condom Catheter Active Medications - Current Medications Current Medications: Generic Name Dose Route Start Last Admin Trade Name Freq PRN Reason Stop Dose Admin Acetaminophen 650 mg 05/27/22 19:48 Acetaminophen 325 Mg Tab PO Q4H PRN Pain MILD(1-3)/Fever >100.5/MUNOZ Aspirin 81 mg 05/28/22 10:00 06/01/22 10:20 Aspirin Ec 81 Mg Tab PO 81 mg QDAY MYRIAM Administration Epoetin Chris-epbx 20,000 unit 05/30/22 21:57 Epoetin Chris-Epbx 10,000 Unit/1 Ml Vial SUB-Q HILDA PRN hemodialysis Guaifenesin 200 mg 06/01/22 01:57 06/01/22 17:26 Guaifenesin 100 Mg/5 Ml Oral Liqd PO 200 mg Q4H PRN Administration Cough Heparin Sodium (Porcine) 5,000 unit 05/27/22 22:00 06/01/22 21:39 Heparin 5,000 Unit/1 Ml Vial SUB-Q 5,000 unit Q12HR MYRIAM Administration Hydromorphone HCl 0.5 mg 05/27/22 19:48 Hydromorphone 0.5 Mg/0.5 Ml Inj IV Q3H PRN Pain , Severe (7-10) Sodium Chloride 100 mls @ 999 mls/hr 06/02/22 08:23 Nacl 0.9% IV HILDA PRN Hypotension Insulin Human Lispro 0 unit 05/28/22 07:30 06/02/22 05:37 Insulin Lispro 100 Unit/Ml SUB-Q Not Given ACHS [facility] Protocol Levetiracetam 500 mg 05/28/22 10:00 06/01/22 21:39 Levetiracetam 500 Mg Tab PO 500 mg BID MYRIAM Administration Metoclopramide HCl 5 mg 05/30/22 09:00 Metoclopramide 10 Mg/2 Ml Inj IV Q8H PRN Nausea And Vomiting Metoprolol Tartrate 100 mg 05/28/22 10:00 06/01/22 21:40 Metoprolol Tartrate 100 Mg Tab PO 100 mg BID MYRIAM Administration Morphine Sulfate 2 mg 05/27/22 19:48 Morphine 2 Mg/1 Ml Inj IV Q4H PRN Pain, Moderate (4-6) Ondansetron HCl 4 mg 05/27/22 19:48 06/01/22 21:39 Ondansetron 4 Mg/2 Ml Inj IV 4 mg Q8H PRN Administration Nausea And Vomiting Oxycodone/Acetaminophen 1 tab 05/27/22 19:48 Oxycodone /Acetaminophen 5-325mg Tab PO Q6H PRN Pain, Moderate (4-6) Sevelamer Carbonate 2,400 mg 05/28/22 12:30 06/01/22 16:30 Sevelamer Carbonate 800 Mg Tab PO 2,400 mg AC MYRIAM Administration Sodium Chloride 10 ml 05/27/22 22:00 06/01/22 21:40 Sodium Chloride 0.9% 10 Ml Flush Syringe IV 10 ml BID MYRIAM Administration Sodium Chloride 10 ml 05/27/22 19:48 Sodium Chloride 0.9% 10 Ml Flush Syringe IV PRN PRN LINE FLUSH Zolpidem Tartrate 5 mg 06/01/22 01:56 06/01/22 02:18 Zolpidem 5 Mg Tab PO 5 mg QHS PRN Administration Sleep Nutrition/Malnutrition Assess - Dietary Evaluation Nutrition/Malnutrition Findings: Nutrition Notes Start: 05/30/22 15:24 Freq: Status: Active Protocol: Document 05/30/22 15:24 [place] (Rec: 05/30/22 15:47 [place] [id number]) Nutrition Notes Need for Assessment generated from: Low BMI Initial or Follow up Assessment Current Diagnosis CKD (stage V CKD),Diabetes, Hypertension,Malnutrition Other Pertinent Diagnosis ESRD+HD, Seizure Disorder, Anemia, s/p Metabolic Encephalopathy. Current Diet Renal Diet (since D 05/27), D Suppl (from D 05/30). Labs/Tests 05/30: Na 135, Cl 91.3, BUN 88 , Crea 12.3, Glu 113. Pertinent Medications 05/30: Renvela, others nutritionally unremarkable. Height 5 ft 9 in Weight 54.43 kg [place] Body Weight (kg) 72.72 BMI 17.7 Weight change and time frame None provided at admission. Weight Status Underweight Subjective/Other Information RD consult for Low BMI assessment. Pt's PO intake of meals has been Fair (>50%) and fairly tolerated, according to ADL notes. I will keep the dietary supplemnets prescription to compensate for poor or insufficient PO intake of meals during LOS. Pt is on Room Air, O2 saturation @ 100%, according to Physical Assessment History notes. Pt has missing teeth, according to Physical Assessment History notes. Pt remains with diarrhea and incontinent, according to Physical Assessment History notes. Pt presents unspecified dryness and flaking as signs of concern for skin risk at the time, according to Physical Assessment History notes. Pt's Low BMI seems to correspond to a natural body composition, and not related to a sudden loss of body weight nor chronic malnutrition, since no signs of concern were mentioned in the Physical Assessment History or the Progress notes. Percent of energy/protein needs met: Prescribed Renal Diet provides for energy/protein needs (2, 072 Kcal/77 g) during LOS; additionally, Dietary Supplements will compensate for possible poor or insufficient PO intake of meals with 1,275 Kcal and 57 g of protein. Burn Absent Trauma Absent GI Symptoms Diarrhea,Other Food Allergy No Skin Integrity/Comment Unspecified dryness and flaking. 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 As Evidenced by Signs and Symptoms Pt's PO intake of meals has been Fair (>50%) and fairly tolerated, according to ADL notes. Is patient on ventilator? No Is Patient Ambulatory and/or Out of Bed No REE-([place]-St. Jeor-confined to bed) 1677.756 Kcal/Kg value to use for calculation 36 Approximate Energy Requirements Using 1959 kcal/Kg Calculation Used for Recommendations Kcal/kg Additional Notes Protein: >1.2 g/Kg ABW; >65 g/ day. Fluids: 1 ml/Kcal, or as per MD. Nutrition Intervention Change Diet Order: Continue Renal Diet as tolerated. Add Supplement/Snack (indicate name/kcal Start Nepro w/CARBSTEADY; TID. /protein ) Provides kCal: 1,275 Provides Protein (gm) 57 Goal #1 Compensate, through dietary supplementation, for possible poor or insufficient PO intake of meals during LOS. Goal #2 Adjust the dietary intervention to better serve Pt's needs and clinical conditions during LOS. Follow-Up By: 06/06/22 Additional Comments Continue monitoring food tolerance, %PO intake of meals , dietary supplements, and BM.
[2022-06-02] MEDS: ASPIRIN EC 81 MG TAB PO SCH (10:00)
[2022-06-02] MEDS: METOPROLOL TARTRATE 100 MG TAB PO SCH ×2 (10:00→21:56)
[2022-06-02] MEDS: levETIRAcetam 500 MG TAB PO SCH ×2 (10:00→21:56)
[2022-06-02] MEDS: HEPARIN 5,000 UNIT/1 ML VIAL SUB-Q SCH ×2 (10:00→21:56)
[2022-06-02] MEDS: ONDANSETRON 4 MG/2 ML INJ IV PRN (21:56)
[2022-06-03] MEDS: SEVELAMER CARBONATE 800 MG TAB PO SCH ×3 (07:59→15:41)
[2022-06-03] MEDS: INSULIN LISPRO 100 UNIT/ML SUB-Q SCH ×4 (08:00→22:19)
--- NOTE | 2022-06-03 09:53 | Progress Note ---
Assessment and Plan Assessment and plan: 51-year-old seizure disorder hypertension type 2 diabetes and end-stage renal disease on hemodialysis presents with lethargy and confusion. Family brought him to the emergency room stating that he is confused not oriented. His last known dialysis is not known. Improvement on fluids. No fever or chills. No seizures. Noncompliant with his medications. Assessment and Plan: (1) Acute metabolic encephalopathy (resolved) Current Visit: Yes Status: Acute Plan to address problem: Secondary to severe uremia. His creatinine is 32.1 and BUN is 242. Family does not know how many days he has missed his hemodialysis. Patient to be counseled about compliance once he is more alert and oriented. (2) Hyperkalemia (improved) Current Visit: Yes Status: Acute Plan to address problem: Treated in the emergency room and patient going for hemodialysis Correct with HD (3) Metabolic acidosis (resolved) Current Visit: Yes Status: Acute Plan to address problem: Secondary to severe uremia. (4) Seizure disorder Current Visit: Yes Status: Chronic Plan to address problem: Continue Keppra. (5) T2DM (type 2 diabetes mellitus) Current Visit: Yes Status: Chronic Qualifiers: Diabetes mellitus shelter insulin use: unspecified shelter insulin use status Chronic kidney disease stage: on chronic dialysis Plan to address problem: Coverage for now (6) ESRD needing dialysis Current Visit: Yes Status: Acute Plan to address problem: Continue hemodialysis Nephrology following Patient to be counseled about compliance (7) Anemia Current Visit: No Status: Chronic Qualifiers: Anemia type: due to chronic kidney disease Plan to address problem: Secondary to chronic kidney disease Epogen as per nephrology 1 unit prbc given on 05/28. Hgb and VSS currently stable. (8) Hypertension Current Visit: Yes Status: Chronic Qualifiers: Hypertension type: primary hypertension Qualified Code(s): I10 - Essential (primary) hypertension Plan to address problem: Continue antihypertensives (9) Malnutrition Current Visit: Yes Status: Chronic Qualifiers: Malnutrition type: protein-calorie malnutrition Protein-calorie malnutrition severity: severe Qualified Code(s): E43 - Unspecified severe protein-calorie malnutrition Plan to address problem: Dietary supplements initiated Dietitian consult requested hospital course: 05/28: AOx4 on bedside encounter. Transfused 1 unit due to hgb 6.8. Patient st ated he has now missed several dialysis sessions. He goes to [facility] [place] per patient. will place CM consultation to ensure patient still has chair. Anticipate d/c tomorrow. 05/29: Hgb improved to 7.7. Will work with CM regarding dialysis chair as patient prior chair due to noncompliance [employer]. 05/30: Await case management decision regarding outpatient hemodialysis 05/31: Physical therapy recommends SNF placement. We will discuss with case management disposition. Continue hemodialysis per nephrology recommendations. 06/01: Awaiting for arrangements for hemodialysis associated with halfway facility or outpatient hemodialysis chair. I discussed the case with case management 06/02: Awaiting for arrangements for hemodialysis associated with halfway facility or outpatient hemodialysis chair. Patient is less confused and appears to be back to baseline. 06/03: Awaiting for arrangements for hemodialysis associated with halfway facility or outpatient hemodialysis chair. Patient appears to be confused this morning. Continue restraints for safety History Interval history: No new issues overnight Hospitalist Physical - Constitutional Vitals: Temp Pulse Resp BP Pulse Ox 97.8 F 75 17 129/71 96 06/03/22 05:19 06/03/22 05:19 06/03/22 05:19 06/03/22 05:19 06/03/22 05:19 General appearance: Present: no acute distress, well-nourished - EENT Eyes: Present: PERRL, EOM intact ENT: hearing intact, clear oral mucosa, dentition normal - Neck Neck: Present: supple, normal ROM - Respiratory Respiratory effort: normal Respiratory: bilateral: CTA - Cardiovascular Rhythm: regular Heart Sounds: Present: S1 & S2. Absent: gallop, rub - Extremities Extremities: no ischemia, No edema, Full ROM - Abdominal General gastrointestinal: soft, non-tender, non-distended, normal bowel sounds - Integumentary Integumentary: Present: clear, warm, dry - Neurologic Neurologic: CNII-XII intact, moves all extremities HEART Score - HEART Score Troponin: Troponin T 0.933 ng/mL (0.00-0.029) H* 05/27/22 01:28 Results - Labs CBC & Chem 7: 05/31/22 05:05 06/02/22 07:45 Labs: Laboratory Last Values WBC 8.4 K/mm3 (4.5-11.0) 05/31/22 05:05 RBC 2.82 M/mm3 (3.65-5.03) L 05/31/22 05:05 Hgb 8.3 gm/dl (11.8-15.2) L 05/31/22 05:05 Hct 25.0 % (35.5-45.6) L 05/31/22 05:05 MCV 88 fl (84-94) 05/31/22 05:05 MCH 30 pg (28-32) 05/31/22 05:05 MCHC 33 % (32-34) 05/31/22 05:05 RDW 16.3 % (13.2-15.2) H 05/31/22 05:05 Plt Count 258 K/mm3 (140-440) 05/31/22 05:05 Lymph % (Auto) 6.2 % (13.4-35.0) L 05/31/22 05:05 [place] % (Auto) 10.1 % (0.0-7.3) H 05/31/22 05:05 Eos % (Auto) 3.0 % (0.0-4.3) 05/31/22 05:05 Baso % (Auto) 0.3 % (0.0-1.8) 05/31/22 05:05 Lymph # (Auto) 0.5 K/mm3 (1.2-5.4) L 05/31/22 05:05 [place] # (Auto) 0.8 K/mm3 (0.0-0.8) 05/31/22 05:05 Eos # (Auto) 0.3 K/mm3 (0.0-0.4) 05/31/22 05:05 Baso # (Auto) 0.0 K/mm3 (0.0-0.1) 05/31/22 05:05 Seg Neutrophils % 80.4 % (40.0-70.0) H 05/31/22 05:05 Seg Neutrophils # 6.8 K/mm3 (1.8-7.7) 05/31/22 05:05 PT 17.0 Sec. (12.2-14.9) H 05/27/22 01:28 INR 1.23 (0.87-1.13) H 05/27/22 01:28 Sodium 139 mmol/L (137-145) 06/02/22 07:45 Potassium 4.2 mmol/L (3.6-5.0) 06/02/22 07:45 Chloride 91.0 mmol/L (98-107) L 06/02/22 07:45 Carbon Dioxide 28 mmol/L (22-30) 06/02/22 07:45 Anion Gap 24 mmol/L 06/02/22 07:45 BUN 71 mg/dL (9-20) H 06/02/22 07:45 Creatinine 9.9 mg/dL (0.8-1.3) H 06/02/22 07:45 Estimated GFR 7 ml/min 06/02/22 07:45 BUN/Creatinine Ratio 7 % 06/02/22 07:45 Glucose 87 mg/dL (75-100) 06/02/22 07:45 POC Glucose 82 mg/dL (70-105) 06/03/22 07:39 Calcium 8.3 mg/dL (8.4-10.2) L 06/02/22 07:45 Phosphorus 8.30 mg/dL (2.5-4.5) H 06/02/22 07:45 Magnesium 2.20 mg/dL (1.7-2.3) 05/28/22 07:22 Total Bilirubin 0.30 mg/dL (0.1-1.2) 05/29/22 04:23 AST 16 units/L (5-40) 05/29/22 04:23 ALT 16 units/L (7-56) 05/29/22 04:23 Alkaline Phosphatase 60 units/L (35-129) 05/29/22 04:23 Total Creatine Kinase 1147 units/L (55-170) H 05/27/22 01:28 Troponin T 0.933 ng/mL (0.00-0.029) H* 05/27/22 01:28 Total Protein 6.3 g/dL (6.3-8.2) 05/29/22 04:23 Albumin 2.4 g/dL (3.9-5) L 05/29/22 04:23 Albumin/Globulin Ratio 0.6 % 05/29/22 04:23 Triglycerides 178 mg/dL (2-149) H 05/27/22 01:28 Cholesterol 112 mg/dL (50-199) 05/27/22 01:28 LDL Cholesterol Direct 30 mg/dL (50-130) L 05/27/22 01:28 HDL Cholesterol 39 mg/dL (40-59) L 05/27/22 01:28 Cholesterol/HDL Ratio 2.87 % 05/27/22 01:28 Salicylates < 0.3 mg/dL (2.8-20.0) L 05/27/22 01:28 Acetaminophen 5.0 ug/mL (10.0-30.0) L 05/27/22 01:28 Plasma/Serum Alcohol < 0.01 % (0-0.07) 05/27/22 01:28 Coronavirus (PCR) Negative (Negative) 05/28/22 Unknown SARS-CoV-2 (PCR) Negative (Negative) 05/29/22 11:05 Hepatitis A IgM Ab Non-reactive (NonReactive) 05/27/22 01:28 Hep Bs Antigen Non-reactive (Negative) 05/27/22 01:28 Hep B Core IgM Ab Non-reactive (NonReactive) 05/27/22 01:28 Hepatitis C Antibody Non-reactive (NonReactive) 05/27/22 01:28 Blood Type A POSITIVE 05/28/22 10:00 Antibody Screen Negative 05/28/22 10:00 Crossmatch See Detail 05/28/22 10:00 Saez/IV: Voiding Method Condom Catheter Active Medications - Current Medications Current Medications: Generic Name Dose Route Start Last Admin Trade Name Freq PRN Reason Stop Dose Admin Acetaminophen 650 mg 05/27/22 19:48 Acetaminophen 325 Mg Tab PO Q4H PRN Pain MILD(1-3)/Fever >100.5/MUNOZ Aspirin 81 mg 05/28/22 10:00 06/02/22 10:00 Aspirin Ec 81 Mg Tab PO Not Given QDAY MYRIAM Epoetin Chris-epbx 20,000 unit 05/30/22 21:57 Epoetin Chris-Epbx 10,000 Unit/1 Ml Vial SUB-Q HILDA PRN hemodialysis Guaifenesin 200 mg 06/01/22 01:57 06/01/22 17:26 Guaifenesin 100 Mg/5 Ml Oral Liqd PO 200 mg Q4H PRN Administration Cough Heparin Sodium (Porcine) 5,000 unit 05/27/22 22:00 06/02/22 21:56 Heparin 5,000 Unit/1 Ml Vial SUB-Q 5,000 unit Q12HR MYRIAM Administration Hydromorphone HCl 0.5 mg 05/27/22 19:48 Hydromorphone 0.5 Mg/0.5 Ml Inj IV Q3H PRN Pain , Severe (7-10) Sodium Chloride 100 mls @ 999 mls/hr 06/02/22 08:23 Nacl 0.9% IV HILDA PRN Hypotension Insulin Human Lispro 0 unit 05/28/22 07:30 06/03/22 08:00 Insulin Lispro 100 Unit/Ml SUB-Q Not Given ACHS [facility] Protocol Levetiracetam 500 mg 05/28/22 10:00 06/02/22 21:56 Levetiracetam 500 Mg Tab PO 500 mg BID MYRIAM Administration Metoclopramide HCl 5 mg 05/30/22 09:00 Metoclopramide 10 Mg/2 Ml Inj IV Q8H PRN Nausea And Vomiting Metoprolol Tartrate 100 mg 05/28/22 10:00 06/02/22 21:56 Metoprolol Tartrate 100 Mg Tab PO 100 mg BID MYRIAM Administration Morphine Sulfate 2 mg 05/27/22 19:48 Morphine 2 Mg/1 Ml Inj IV Q4H PRN Pain, Moderate (4-6) Ondansetron HCl 4 mg 05/27/22 19:48 06/02/22 21:56 Ondansetron 4 Mg/2 Ml Inj IV 4 mg Q8H PRN Administration Nausea And Vomiting Oxycodone/Acetaminophen 1 tab 05/27/22 19:48 Oxycodone /Acetaminophen 5-325mg Tab PO Q6H PRN Pain, Moderate (4-6) Sevelamer Carbonate 2,400 mg 05/28/22 12:30 06/03/22 07:59 Sevelamer Carbonate 800 Mg Tab PO 2,400 mg AC MYRIAM Administration Sodium Chloride 10 ml 05/27/22 22:00 06/02/22 22:00 Sodium Chloride 0.9% 10 Ml Flush Syringe IV 10 ml BID MYRIAM Administration Sodium Chloride 10 ml 05/27/22 19:48 Sodium Chloride 0.9% 10 Ml Flush Syringe IV PRN PRN LINE FLUSH Zolpidem Tartrate 5 mg 06/01/22 01:56 06/01/22 02:18 Zolpidem 5 Mg Tab PO 5 mg QHS PRN Administration Sleep Nutrition/Malnutrition Assess - Dietary Evaluation Nutrition/Malnutrition Findings: Nutrition Notes Start: 05/30/22 15:24 Freq: Status: Active Protocol: Document 05/30/22 15:24 [place] (Rec: 05/30/22 15:47 [place] [id number]) Nutrition Notes Need for Assessment generated from: Low BMI Initial or Follow up Assessment Current Diagnosis CKD (stage V CKD),Diabetes, Hypertension,Malnutrition Other Pertinent Diagnosis ESRD+HD, Seizure Disorder, Anemia, s/p Metabolic Encephalopathy. Current Diet Renal Diet (since 05/27), D Suppl (from D 05/30). Labs/Tests 05/30: Na 135, Cl 91.3, BUN 88 , Crea 12.3, Glu 113. Pertinent Medications 05/30: Renvela, others nutritionally unremarkable. Height 5 ft 9 in Weight 54.43 kg [place] Body Weight (kg) 72.72 BMI 17.7 Weight change and time frame None provided at admission. Weight Status Underweight Subjective/Other Information RD consult for Low BMI assessment. Pt's PO intake of meals has been Fair (>50%) and fairly tolerated, according to ADL notes. I will keep the dietary supplemnets prescription to compensate for poor or insufficient PO intake of meals during LOS. Pt is on Room Air, O2 saturation @ 100%, according to Physical Assessment History notes. Pt has missing teeth, according to Physical Assessment History notes. Pt remains with diarrhea and incontinent, according to Physical Assessment History notes. Pt presents unspecified dryness and flaking as signs of concern for skin risk at the time, according to Physical Assessment History notes. Pt's Low BMI seems to correspond to a natural body composition, and not related to a sudden loss of body weight nor chronic malnutrition, since no signs of concern were mentioned in the Physical Assessment History or the Progress notes. Percent of energy/protein needs met: Prescribed Renal Diet provides for energy/protein needs (2, 072 Kcal/77 g) during LOS; additionally, Dietary Supplements will compensate for possible poor or insufficient PO intake of meals with 1,275 Kcal and 57 g of protein. Burn Absent Trauma Absent GI Symptoms Diarrhea,Other Food Allergy No Skin Integrity/Comment Unspecified dryness and flaking. 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 As Evidenced by Signs and Symptoms Pt's PO intake of meals has been Fair (>50%) and fairly tolerated, according to ADL notes. Is patient on ventilator? No Is Patient Ambulatory and/or Out of Bed No REE-(Ferry-St Will-confined to bed) 1677.756 Kcal/Kg value to use for calculation 36 Approximate Energy Requirements Using 1959 kcal/Kg Calculation Used for Recommendations Kcal/kg Additional Notes Protein: >1.2 g/Kg ABW; >65 g/ day. Fluids: 1 ml/Kcal, or as per MD. Nutrition Intervention Change Diet Order: Continue Renal Diet as tolerated. Add Supplement/Snack (indicate name/kcal Start Nepro w/CARBSTEADY; TID. /protein ) Provides kCal: 1,275 Provides Protein (gm) 57 Goal #1 Compensate, through dietary supplementation, for possible poor or insufficient PO intake of meals during LOS. Goal #2 Adjust the dietary intervention to better serve Pt's needs and clinical conditions during LOS. Follow-Up By: 06/06/22 Additional Comments Continue monitoring food tolerance, %PO intake of meals , dietary supplements, and BM.
[2022-06-03] MEDS: HEPARIN 5,000 UNIT/1 ML VIAL SUB-Q SCH ×2 (09:58→22:17)
[2022-06-03] MEDS: METOPROLOL TARTRATE 100 MG TAB PO SCH ×2 (09:59→22:17)
[2022-06-03] MEDS: ASPIRIN EC 81 MG TAB PO SCH (09:59)
[2022-06-03] MEDS: levETIRAcetam 500 MG TAB PO SCH ×2 (09:59→22:17)
--- NOTE | 2022-06-03 12:52 | Progress Note ---
Assessment and Plan 1. ESRD: Patient is on maintenance HD. Last outpatient HD unknown. Meds dosage based on GFR. Hemodialysis: 03/27, 03/29, 03/31, 04/02. 2. FEN: Hyperkalemia, improved, on HD. Hypernatremia, improved. Pn Phos binders. Monitor lytes and volume status. 3. Acute Metabolic Encephalopathy, POA: Suspected Uremic encephalopathy. Baseline cognitive decline. Improving, monitor. 4. Seizure: On Keppra. 5. Normocytic anemia, POA: S/p PRBC. Epogen with HD. Monitor. 6. T2DM (type 2 diabetes mellitus): SSI. Subjective: Patient was seen and examined at the bedside. Examination: General appearance: well-developed, emaciated, no distress HEENT: ATNC, pupils equal Neck: trachea midline Respiratory: Clear to Auscultation Cardiology: regular, S1S2, no murmur Gastrointestinal: soft, normoactive bowel sounds, not tender, ND Integumentary: diffuse discrete papular rash, fading Neurologic: alert, oriented to self, able to move extremities Ext: no edema noted Hemodialysis access: L arm AVF/AVG Subjective Date of service: 06/03/22 Objective - Vital Signs Vital signs: Vital Signs - 12hr 06/03/22 06/03/22 06/03/22 05:19 10:00 10:08 Temperature 97.8 F Pulse Rate 75 Respiratory 17 20 Rate Blood Pressure 121/60 Blood Pressure 129/71 [Right] O2 Sat by Pulse 96 96 Oximetry - Lab 05/31/22 05:05 06/02/22 07:45 Most recent lab results Calcium 8.3 mg/dL (8.4-10.2) L 06/02/22 07:45 Phosphorus 8.30 mg/dL (2.5-4.5) H 06/02/22 07:45 Magnesium 2.20 mg/dL (1.7-2.3) 05/28/22 07:22 Medications & Allergies - Medications Allergies/Adverse Reactions: Allergies No Known Allergies Allergy (Unverified 03/21/22 18:10) Home Medications: Home Medications Medication Instructions Recorded Confirmed Last Taken Type Aspirin EC [Halfprin EC] 81 mg PO QDAY #30 tablet. 03/27/22 06/01/22 Unknown Rx Metoprolol [Lopressor TAB] 100 mg PO BID #60 tablet 03/27/22 06/01/22 Unknown Rx levETIRAcetam [Keppra TAB] 500 mg PO BID #60 tablet 03/27/22 06/01/22 Unknown Rx Active Medications: Generic Name Dose Route Start Last Admin Trade Name Freq PRN Reason Stop Dose Admin Acetaminophen 650 mg 05/27/22 19:48 Acetaminophen 325 Mg Tab PO Q4H PRN Pain MILD(1-3)/Fever >100.5/MUNOZ Aspirin 81 mg 05/28/22 10:00 06/03/22 09:59 Aspirin Ec 81 Mg Tab PO 81 mg QDAY MYRIAM Administration Epoetin Chris-epbx 20,000 unit 05/30/22 21:57 Epoetin Chris-Epbx 10,000 Unit/1 Ml Vial SUB-Q HILDA PRN hemodialysis Guaifenesin 200 mg 06/01/22 01:57 06/01/22 17:26 Guaifenesin 100 Mg/5 Ml Oral Liqd PO 200 mg Q4H PRN Administration Cough Heparin Sodium (Porcine) 5,000 unit 05/27/22 22:00 06/03/22 09:58 Heparin 5,000 Unit/1 Ml Vial SUB-Q 5,000 unit Q12HR MYRIAM Administration Hydromorphone HCl 0.5 mg 05/27/22 19:48 Hydromorphone 0.5 Mg/0.5 Ml Inj IV Q3H PRN Pain , Severe (7-10) Sodium Chloride 100 mls @ 999 mls/hr 06/02/22 08:23 Nacl 0.9% IV HILDA PRN Hypotension Insulin Human Lispro 0 unit 05/28/22 07:30 06/03/22 08:00 Insulin Lispro 100 Unit/Ml SUB-Q Not Given ACHS [facility] Protocol Levetiracetam 500 mg 05/28/22 10:00 06/03/22 09:59 Levetiracetam 500 Mg Tab PO 500 mg BID MYRIAM Administration Metoclopramide HCl 5 mg 05/30/22 09:00 Metoclopramide 10 Mg/2 Ml Inj IV Q8H PRN Nausea And Vomiting Metoprolol Tartrate 100 mg 05/28/22 10:00 06/03/22 09:59 Metoprolol Tartrate 100 Mg Tab PO 100 mg BID MYRIAM Administration Morphine Sulfate 2 mg 05/27/22 19:48 Morphine 2 Mg/1 Ml Inj IV Q4H PRN Pain, Moderate (4-6) Ondansetron HCl 4 mg 05/27/22 19:48 06/02/22 21:56 Ondansetron 4 Mg/2 Ml Inj IV 4 mg Q8H PRN Administration Nausea And Vomiting Oxycodone/Acetaminophen 1 tab 05/27/22 19:48 Oxycodone /Acetaminophen 5-325mg Tab PO Q6H PRN Pain, Moderate (4-6) Sevelamer Carbonate 2,400 mg 05/28/22 12:30 06/03/22 07:59 Sevelamer Carbonate 800 Mg Tab PO 2,400 mg AC MYRIAM Administration Sodium Chloride 10 ml 05/27/22 22:00 06/03/22 09:59 Sodium Chloride 0.9% 10 Ml Flush Syringe IV 10 ml BID MYRIAM Administration Sodium Chloride 10 ml 05/27/22 19:48 Sodium Chloride 0.9% 10 Ml Flush Syringe IV PRN PRN LINE FLUSH Zolpidem Tartrate 5 mg 06/01/22 01:56 06/01/22 02:18 Zolpidem 5 Mg Tab PO 5 mg QHS PRN Administration Sleep
[2022-06-03] MEDS ORDERED: DEXTROSE 50% IN WATER (25GM) 50 ML SYRINGE IV PRN (22:03)
--- NOTE | 2022-06-04 08:16 | Progress Note ---
Assessment and Plan Assessment and plan: 51-year-old seizure disorder hypertension type 2 diabetes and end-stage renal disease on hemodialysis presents with lethargy and confusion. Family brought him to the emergency room stating that he is confused not oriented. His last known dialysis is not known. Improvement on fluids. No fever or chills. No seizures. Noncompliant with his medications. Assessment and Plan: (1) Acute metabolic encephalopathy (resolved) Current Visit: Yes Status: Acute Plan to address problem: Secondary to severe uremia. His creatinine is 32.1 and BUN is 242. Family does not know how many days he has missed his hemodialysis. Patient to be counseled about compliance once he is more alert and oriented. (2) Hyperkalemia (improved) Current Visit: Yes Status: Acute Plan to address problem: Treated in the emergency room and patient going for hemodialysis Correct with HD (3) Metabolic acidosis (resolved) Current Visit: Yes Status: Acute Plan to address problem: Secondary to severe uremia. (4) Seizure disorder Current Visit: Yes Status: Chronic Plan to address problem: Continue Keppra. (5) T2DM (type 2 diabetes mellitus) Current Visit: Yes Status: Chronic Qualifiers: Diabetes mellitus mcc insulin use: unspecified mcc insulin use status Chronic kidney disease stage: on chronic dialysis Plan to address problem: Coverage for now (6) ESRD needing dialysis Current Visit: Yes Status: Acute Plan to address problem: Continue hemodialysis Nephrology following Patient to be counseled about compliance (7) Anemia Current Visit: No Status: Chronic Qualifiers: Anemia type: due to chronic kidney disease Plan to address problem: Secondary to chronic kidney disease Epogen as per nephrology 1 unit prbc given on 05/28. Hgb and VSS currently stable. (8) Hypertension Current Visit: Yes Status: Chronic Qualifiers: Hypertension type: primary hypertension Qualified Code(s): I10 - Essential (primary) hypertension Plan to address problem: Continue antihypertensives (9) Malnutrition Current Visit: Yes Status: Chronic Qualifiers: Malnutrition type: protein-calorie malnutrition Protein-calorie malnutrition severity: severe Qualified Code(s): E43 - Unspecified severe protein-calorie malnutrition Plan to address problem: Dietary supplements initiated Dietitian consult requested hospital course: 05/28: AOx4 on bedside encounter. Transfused 1 unit due to hgb 6.8. Patient st ated he has now missed several dialysis sessions. He goes to [facility] [place] per patient. will place CM consultation to ensure patient still has chair. Anticipate d/c tomorrow. 05/29: Hgb improved to 7.7. Will work with CM regarding dialysis chair as patient prior chair due to noncompliance [employer]. 05/30: Await case management decision regarding outpatient hemodialysis 05/31: Physical therapy recommends SNF placement. We will discuss with case management disposition. Continue hemodialysis per nephrology recommendations. 06/01: Awaiting for arrangements for hemodialysis associated with shelter facility or outpatient hemodialysis chair. I discussed the case with case management 06/02: Awaiting for arrangements for hemodialysis associated with shelter facility or outpatient hemodialysis chair. Patient is less confused and appears to be back to baseline. 06/03: Awaiting for arrangements for hemodialysis associated with shelter facility or outpatient hemodialysis chair. Patient appears to be confused this morning. Continue restraints for safety 06/04: Awaiting for arrangements for hemodialysis associated with shelter facility or outpatient hemodialysis chair. Patient still with metabolic/uremic encephalopathy. Patient has had baseline cognitive decline. Continue restraints for safety History Interval history: No new issues overnight Hospitalist Physical - Constitutional Vitals: Temp Pulse Resp BP Pulse Ox 98.4 F 78 17 118/67 96 06/04/22 06:37 06/04/22 06:37 06/04/22 06:37 06/04/22 06:37 06/04/22 06:37 General appearance: Present: no acute distress, well-nourished - EENT Eyes: Present: PERRL, EOM intact ENT: hearing intact, clear oral mucosa, dentition normal - Neck Neck: Present: supple, normal ROM - Respiratory Respiratory effort: normal Respiratory: bilateral: CTA - Cardiovascular Rhythm: regular Heart Sounds: Present: S1 & S2. Absent: gallop, rub - Extremities Extremities: no ischemia, No edema, Full ROM - Abdominal General gastrointestinal: soft, non-tender, non-distended, normal bowel sounds - Integumentary Integumentary: Present: clear, warm, dry - Neurologic Neurologic: CNII-XII intact, moves all extremities HEART Score - HEART Score Troponin: Troponin T 0.933 ng/mL (0.00-0.029) H* 05/27/22 01:28 Results - Labs CBC & Chem 7: 05/31/22 05:05 06/02/22 07:45 Labs: Laboratory Last Values WBC 8.4 K/mm3 (4.5-11.0) 05/31/22 05:05 RBC 2.82 M/mm3 (3.65-5.03) L 05/31/22 05:05 Hgb 8.3 gm/dl (11.8-15.2) L 05/31/22 05:05 Hct 25.0 % (35.5-45.6) L 05/31/22 05:05 MCV 88 fl (84-94) 05/31/22 05:05 MCH 30 pg (28-32) 05/31/22 05:05 MCHC 33 % (32-34) 05/31/22 05:05 RDW 16.3 % (13.2-15.2) H 05/31/22 05:05 Plt Count 258 K/mm3 (140-440) 05/31/22 05:05 Lymph % (Auto) 6.2 % (13.4-35.0) L 05/31/22 05:05 [place] % (Auto) 10.1 % (0.0-7.3) H 05/31/22 05:05 Eos % (Auto) 3.0 % (0.0-4.3) 05/31/22 05:05 Baso % (Auto) 0.3 % (0.0-1.8) 05/31/22 05:05 Lymph # (Auto) 0.5 K/mm3 (1.2-5.4) L 05/31/22 05:05 [place] # (Auto) 0.8 K/mm3 (0.0-0.8) 05/31/22 05:05 Eos # (Auto) 0.3 K/mm3 (0.0-0.4) 05/31/22 05:05 Baso # (Auto) 0.0 K/mm3 (0.0-0.1) 05/31/22 05:05 Seg Neutrophils % 80.4 % (40.0-70.0) H 05/31/22 05:05 Seg Neutrophils # 6.8 K/mm3 (1.8-7.7) 05/31/22 05:05 PT 17.0 Sec. (12.2-14.9) H 05/27/22 01:28 INR 1.23 (0.87-1.13) H 05/27/22 01:28 Sodium 139 mmol/L (137-145) 06/02/22 07:45 Potassium 4.2 mmol/L (3.6-5.0) 06/02/22 07:45 Chloride 91.0 mmol/L (98-107) L 06/02/22 07:45 Carbon Dioxide 28 mmol/L (22-30) 06/02/22 07:45 Anion Gap 24 mmol/L 06/02/22 07:45 BUN 71 mg/dL (9-20) H 06/02/22 07:45 Creatinine 9.9 mg/dL (0.8-1.3) H 06/02/22 07:45 Estimated GFR 7 ml/min 06/02/22 07:45 BUN/Creatinine Ratio 7 % 06/02/22 07:45 Glucose 87 mg/dL (75-100) 06/02/22 07:45 POC Glucose 89 mg/dL (70-105) 06/04/22 00:29 Calcium 8.3 mg/dL (8.4-10.2) L 06/02/22 07:45 Phosphorus 8.30 mg/dL (2.5-4.5) H 06/02/22 07:45 Magnesium 2.20 mg/dL (1.7-2.3) 05/28/22 07:22 Total Bilirubin 0.30 mg/dL (0.1-1.2) 05/29/22 04:23 AST 16 units/L (5-40) 05/29/22 04:23 ALT 16 units/L (7-56) 05/29/22 04:23 Alkaline Phosphatase 60 units/L (35-129) 05/29/22 04:23 Total Creatine Kinase 1147 units/L (55-170) H 05/27/22 01:28 Troponin T 0.933 ng/mL (0.00-0.029) H* 05/27/22 01:28 Total Protein 6.3 g/dL (6.3-8.2) 05/29/22 04:23 Albumin 2.4 g/dL (3.9-5) L 05/29/22 04:23 Albumin/Globulin Ratio 0.6 % 05/29/22 04:23 Triglycerides 178 mg/dL (2-149) H 05/27/22 01:28 Cholesterol 112 mg/dL (50-199) 05/27/22 01:28 LDL Cholesterol Direct 30 mg/dL (50-130) L 05/27/22 01:28 HDL Cholesterol 39 mg/dL (40-59) L 05/27/22 01:28 Cholesterol/HDL Ratio 2.87 % 05/27/22 01:28 Salicylates < 0.3 mg/dL (2.8-20.0) L 05/27/22 01:28 Acetaminophen 5.0 ug/mL (10.0-30.0) L 05/27/22 01:28 Plasma/Serum Alcohol < 0.01 % (0-0.07) 05/27/22 01:28 Coronavirus (PCR) Negative (Negative) 05/28/22 Unknown SARS-CoV-2 (PCR) Negative (Negative) 05/29/22 11:05 Hepatitis A IgM Ab Non-reactive (NonReactive) 05/27/22 01:28 Hep Bs Antigen Non-reactive (Negative) 05/27/22 01:28 Hep B Core IgM Ab Non-reactive (NonReactive) 05/27/22 01:28 Hepatitis C Antibody Non-reactive (NonReactive) 05/27/22 01:28 Blood Type A POSITIVE 05/28/22 10:00 Antibody Screen Negative 05/28/22 10:00 Crossmatch See Detail 05/28/22 10:00 Saez/IV: Voiding Method Condom Catheter Active Medications - Current Medications Current Medications: Generic Name Dose Route Start Last Admin Trade Name Freq PRN Reason Stop Dose Admin Acetaminophen 650 mg 05/27/22 19:48 Acetaminophen 325 Mg Tab PO Q4H PRN Pain MILD(1-3)/Fever >100.5/MUNOZ Aspirin 81 mg 05/28/22 10:00 06/03/22 09:59 Aspirin Ec 81 Mg Tab PO 81 mg QDAY MYRIAM Administration Dextrose 25 ml 06/03/22 22:03 06/03/22 23:21 Dextrose 50% In Water (25gm) 50 Ml Syringe IV 25 ml Q30MIN PRN Administration Hypoglycemia Protocol Epoetin Chris-epbx 20,000 unit 05/30/22 21:57 Epoetin Chris-Epbx 10,000 Unit/1 Ml Vial SUB-Q HILDA PRN hemodialysis Guaifenesin 200 mg 06/01/22 01:57 06/01/22 17:26 Guaifenesin 100 Mg/5 Ml Oral Liqd PO 200 mg Q4H PRN Administration Cough Heparin Sodium (Porcine) 5,000 unit 05/27/22 22:00 06/03/22 22:17 Heparin 5,000 Unit/1 Ml Vial SUB-Q 5,000 unit Q12HR MYRIAM Administration Hydromorphone HCl 0.5 mg 05/27/22 19:48 Hydromorphone 0.5 Mg/0.5 Ml Inj IV Q3H PRN Pain , Severe (7-10) Sodium Chloride 100 mls @ 999 mls/hr 06/02/22 08:23 Nacl 0.9% IV HILDA PRN Hypotension Insulin Human Lispro 0 unit 05/28/22 07:30 06/03/22 22:19 Insulin Lispro 100 Unit/Ml SUB-Q Not Given ACHS [facility] Protocol Levetiracetam 500 mg 05/28/22 10:00 06/03/22 22:17 Levetiracetam 500 Mg Tab PO 500 mg BID MYRIAM Administration Metoclopramide HCl 5 mg 05/30/22 09:00 Metoclopramide 10 Mg/2 Ml Inj IV Q8H PRN Nausea And Vomiting Metoprolol Tartrate 100 mg 05/28/22 10:00 06/03/22 22:17 Metoprolol Tartrate 100 Mg Tab PO 100 mg BID YMRIAM Administration Morphine Sulfate 2 mg 05/27/22 19:48 Morphine 2 Mg/1 Ml Inj IV Q4H PRN Pain, Moderate (4-6) Ondansetron HCl 4 mg 05/27/22 19:48 06/02/22 21:56 Ondansetron 4 Mg/2 Ml Inj IV 4 mg Q8H PRN Administration Nausea And Vomiting Oxycodone/Acetaminophen 1 tab 05/27/22 19:48 Oxycodone /Acetaminophen 5-325mg Tab PO Q6H PRN Pain, Moderate (4-6) Sevelamer Carbonate 2,400 mg 05/28/22 12:30 06/03/22 15:41 Sevelamer Carbonate 800 Mg Tab PO 2,400 mg AC MYRIAM Administration Sodium Chloride 10 ml 05/27/22 22:00 06/03/22 22:17 Sodium Chloride 0.9% 10 Ml Flush Syringe IV 10 ml BID MYRIAM Administration Sodium Chloride 10 ml 05/27/22 19:48 Sodium Chloride 0.9% 10 Ml Flush Syringe IV PRN PRN LINE FLUSH Zolpidem Tartrate 5 mg 06/01/22 01:56 06/01/22 02:18 Zolpidem 5 Mg Tab PO 5 mg QHS PRN Administration Sleep Nutrition/Malnutrition Assess - Dietary Evaluation Nutrition/Malnutrition Findings: Nutrition Notes Start: 05/30/22 15:24 Freq: Status: Active Protocol: Document 05/30/22 15:24 [place] (Rec: 05/30/22 15:47 [place] [id number]) Nutrition Notes Need for Assessment generated from: Low BMI Initial or Follow up Assessment Current Diagnosis CKD (stage V CKD),Diabetes, Hypertension,Malnutrition Other Pertinent Diagnosis ESRD+HD, Seizure Disorder, Anemia, s/p Metabolic Encephalopathy. Current Diet Renal Diet (since D 05/27), D Suppl (from D 05/30). Labs/Tests 05/30: Na 135, Cl 91.3, BUN 88 , Crea 12.3, Glu 113. Pertinent Medications 05/30: Renvela, others nutritionally unremarkable. Height 5 ft 9 in Weight 54.43 kg [place] Body Weight (kg) 72.72 BMI 17.7 Weight change and time frame None provided at admission. Weight Status Underweight Subjective/Other Information RD consult for Low BMI assessment. Pt's PO intake of meals has been Fair (>50%) and fairly tolerated, according to ADL notes. I will keep the dietary supplemnets prescription to compensate for poor or insufficient PO intake of meals during LOS. Pt is on Room Air, O2 saturation @ 100%, according to Physical Assessment History notes. Pt has missing teeth, according to Physical Assessment History notes. Pt remains with diarrhea and incontinent, according to Physical Assessment History notes. Pt presents unspecified dryness and flaking as signs of concern for skin risk at the time, according to Physical Assessment History notes. Pt's Low BMI seems to correspond to a natural body composition, and not related to a sudden loss of body weight nor chronic malnutrition, since no signs of concern were mentioned in the Physical Assessment History or the Progress notes. Percent of energy/protein needs met: Prescribed Renal Diet provides for energy/protein needs (2, 072 Kcal/77 g) during LOS; additionally, Dietary Supplements will compensate for possible poor or insufficient PO intake of meals with 1,275 Kcal and 57 g of protein. Burn Absent Trauma Absent GI Symptoms Diarrhea,Other Food Allergy No Skin Integrity/Comment Unspecified dryness and flaking. Current % PO Fair (50-74%) Minimum of two criteria No Fluid Accumulation N/A Reduced Bottle Sorter Strength N/A (non-severe) Protein-Calorie Malnutrition N\A #1 Nutrition Diagnosis Inadequate protein-energy intake Etiology Possibly associated with Metabolic Encephalopathy. As Evidenced by Signs and Symptoms Pt's PO intake of meals has been Fair (>50%) and fairly tolerated, according to ADL notes. Is patient on ventilator? No Is Patient Ambulatory and/or Out of Bed No REE-([facility]-confined to bed) 1677.756 Kcal/Kg value to use for calculation 36 Approximate Energy Requirements Using 1959 kcal/Kg Calculation Used for Recommendations Kcal/kg Additional Notes Protein: >1.2 g/Kg ABW; >65 g/ day. Fluids: 1 ml/Kcal, or as per MD. Nutrition Intervention Change Diet Order: Continue Renal Diet as tolerated. Add Supplement/Snack (indicate name/kcal Start Nepro w/CARBSTEADY; TID. /protein ) Provides kCal: 1,275 Provides Protein (gm) 57 Goal #1 Compensate, through dietary supplementation, for possible poor or insufficient PO intake of meals during LOS. Goal #2 Adjust the dietary intervention to better serve Pt's needs and clinical conditions during LOS. Follow-Up By: 06/06/22 Additional Comments Continue monitoring food tolerance, %PO intake of meals , dietary supplements, and BM.
[2022-06-04] MEDS: SEVELAMER CARBONATE 800 MG TAB PO SCH ×3 (08:38→17:07)
[2022-06-04] MEDS: INSULIN LISPRO 100 UNIT/ML SUB-Q SCH ×4 (08:39→23:00)
[2022-06-04] MEDS: ASPIRIN EC 81 MG TAB PO SCH (09:10)
[2022-06-04] MEDS: HEPARIN 5,000 UNIT/1 ML VIAL SUB-Q SCH ×2 (09:10→22:04)
[2022-06-04] MEDS: METOPROLOL TARTRATE 100 MG TAB PO SCH ×2 (09:10→22:05)
[2022-06-04] MEDS: levETIRAcetam 500 MG TAB PO SCH ×2 (09:10→22:04)
[2022-06-04] MEDS: guaiFENesin 100 MG/5 ML ORAL LIQD PO PRN (09:10)
--- NOTE | 2022-06-04 09:36 | Progress Note ---
Assessment and Plan 1. ESRD: Patient is on maintenance HD. Last outpatient HD unknown. Meds dosage based on GFR. Hemodialysis: 03/27, 03/29, 03/31, 04/02. 2. FEN: Hyperkalemia, improved, on HD. Hypernatremia, improved. On Phos binders. Monitor lytes and volume status. 3. Acute Metabolic Encephalopathy, POA: Suspected Uremic encephalopathy. Baseline cognitive decline. Improving, monitor. 4. Seizure: On Keppra. 5. Normocytic anemia, POA: S/p PRBC. Epogen with HD. Monitor. 6. T2DM (type 2 diabetes mellitus): SSI. Subjective: Patient was seen and examined at the bedside. Examination: General appearance: well-developed, emaciated, no distress HEENT: ATNC, pupils equal Neck: trachea midline Respiratory: Clear to Auscultation Cardiology: regular, S1S2, no murmur Gastrointestinal: soft, normoactive bowel sounds, not tender, ND Integumentary: diffuse discrete dark papular rash Neurologic: alert, oriented to self, able to move extremities Ext: no edema noted Hemodialysis access: L arm AVF/AVG Subjective Date of service: 06/04/22 Objective - Vital Signs Vital signs: Vital Signs - 12hr 06/03/22 06/03/22 06/04/22 22:11 22:17 06:37 Temperature 97.9 F 98.4 F Pulse Rate 78 79 78 Respiratory 17 17 Rate Blood Pressure 129/72 Blood Pressure 129/72 118/67 [Right] O2 Sat by Pulse 96 Oximetry 06/04/22 09:27 Temperature Pulse Rate Respiratory 20 Rate Blood Pressure Blood Pressure [Right] O2 Sat by Pulse 96 Oximetry - Lab 06/05/22 05:26 06/05/22 05:26 Most recent lab results Calcium 8.3 mg/dL (8.4-10.2) L 06/02/22 07:45 Phosphorus 8.30 mg/dL (2.5-4.5) H 06/02/22 07:45 Magnesium 2.20 mg/dL (1.7-2.3) 05/28/22 07:22 Medications & Allergies - Medications Allergies/Adverse Reactions: Allergies No Known Allergies Allergy (Unverified 03/21/22 18:10) Home Medications: Home Medications Medication Instructions Recorded Confirmed Last Taken Type Aspirin EC [Halfprin EC] 81 mg PO QDAY #30 tablet. 03/27/22 06/01/22 Unknown Rx Metoprolol [Lopressor TAB] 100 mg PO BID #60 tablet 03/27/22 06/01/22 Unknown Rx levETIRAcetam [Keppra TAB] 500 mg PO BID #60 tablet 03/27/22 06/01/22 Unknown Rx Active Medications: Generic Name Dose Route Start Last Admin Trade Name Freq PRN Reason Stop Dose Admin Acetaminophen 650 mg 05/27/22 19:48 Acetaminophen 325 Mg Tab PO Q4H PRN Pain MILD(1-3)/Fever >100.5/MUNOZ Aspirin 81 mg 05/28/22 10:00 06/04/22 09:10 Aspirin Ec 81 Mg Tab PO 81 mg QDAY MYRIAM Administration Dextrose 25 ml 06/03/22 22:03 06/03/22 23:21 Dextrose 50% In Water (25gm) 50 Ml Syringe IV 25 ml Q30MIN PRN Administration Hypoglycemia Protocol Epoetin Chris-epbx 20,000 unit 05/30/22 21:57 Epoetin Chris-Epbx 10,000 Unit/1 Ml Vial SUB-Q HILDA PRN hemodialysis Guaifenesin 200 mg 06/01/22 01:57 06/04/22 09:10 Guaifenesin 100 Mg/5 Ml Oral Liqd PO 200 mg Q4H PRN Administration Cough Heparin Sodium (Porcine) 5,000 unit 05/27/22 22:00 06/04/22 09:10 Heparin 5,000 Unit/1 Ml Vial SUB-Q 5,000 unit Q12HR MYRIAM Administration Hydromorphone HCl 0.5 mg 05/27/22 19:48 Hydromorphone 0.5 Mg/0.5 Ml Inj IV Q3H PRN Pain , Severe (7-10) Sodium Chloride 100 mls @ 999 mls/hr 06/02/22 08:23 Nacl 0.9% IV HILDA PRN Hypotension Insulin Human Lispro 0 unit 05/28/22 07:30 06/04/22 08:39 Insulin Lispro 100 Unit/Ml SUB-Q Not Given ACHS MYRIAM Protocol Levetiracetam 500 mg 05/28/22 10:00 06/04/22 09:10 Levetiracetam 500 Mg Tab PO 500 mg BID MYRIAM Administration Metoclopramide HCl 5 mg 08/16/22 09:00 Metoclopramide 10 Mg/2 Ml Inj IV Q8H PRN Nausea And Vomiting Metoprolol Tartrate 100 mg 05/28/22 10:00 06/04/22 09:10 Metoprolol Tartrate 100 Mg Tab PO 100 mg BID MYRIAM Administration Morphine Sulfate 2 mg 05/27/22 19:48 Morphine 2 Mg/1 Ml Inj IV Q4H PRN Pain, Moderate (4-6) Ondansetron HCl 4 mg 05/27/22 19:48 06/02/22 21:56 Ondansetron 4 Mg/2 Ml Inj IV 4 mg Q8H PRN Administration Nausea And Vomiting Oxycodone/Acetaminophen 1 tab 05/27/22 19:48 Oxycodone /Acetaminophen 5-325mg Tab PO Q6H PRN Pain, Moderate (4-6) Sevelamer Carbonate 2,400 mg 05/28/22 12:30 06/04/22 08:38 Sevelamer Carbonate 800 Mg Tab PO 2,400 mg AC MYRIAM Administration Sodium Chloride 10 ml 05/27/22 22:00 06/04/22 09:10 Sodium Chloride 0.9% 10 Ml Flush Syringe IV 10 ml BID MYRIAM Administration Sodium Chloride 10 ml 05/27/22 19:48 Sodium Chloride 0.9% 10 Ml Flush Syringe IV PRN PRN LINE FLUSH Zolpidem Tartrate 5 mg 06/01/22 01:56 06/01/22 02:18 Zolpidem 5 Mg Tab PO 5 mg QHS PRN Administration Sleep
[2022-06-05] MEDS: ZOLPIDEM 5 MG TAB PO PRN (01:00)
[2022-06-05] MEDS: guaiFENesin 100 MG/5 ML ORAL LIQD PO PRN ×2 (05:58→21:42)
[2022-06-05 06:04] LABS: Basophils % (Auto) 0.5 % (0.0-1.8); Eosinophils # (Auto) 0.1 K/mm3 (0.0-0.4); Eosinophils % (Auto) 0.6 % (0.0-4.3); Hemoglobin 8.9 gm/dl (11.8-15.2); Lymphocytes # (Auto) 0.9 K/mm3 (1.2-5.4); Lymphocytes % (Auto) 9.7 % (13.4-35.0); Mean Corpuscular HGB Conc 33 % (32-34); Mean Corpuscular Volume 89 fl (84-94); Monocytes # (Auto) 1.2 K/mm3 (0.0-0.8); Monocytes % (Auto) 12.3 % (0.0-7.3); Platelet Count 289 K/mm3 (140-440); Red Blood Count 3.03 M/mm3 (3.65-5.03); Red Cell Distribution Width 15.3 % (13.2-15.2)
[2022-06-05 06:12] LABS: Calcium 8.1 mg/dL (8.4-10.2)
[2022-06-05] MEDS: INSULIN LISPRO 100 UNIT/ML SUB-Q SCH ×4 (07:30→21:56)
[2022-06-05] MEDS: SEVELAMER CARBONATE 800 MG TAB PO SCH ×3 (07:30→16:30)
--- NOTE | 2022-06-05 09:00 | Progress Note ---
Assessment and Plan Assessment and plan: 51-year-old seizure disorder hypertension type 2 diabetes and end-stage renal disease on hemodialysis presents with lethargy and confusion. Family brought him to the emergency room stating that he is confused not oriented. His last known dialysis is not known. Improvement on fluids. No fever or chills. No seizures. Noncompliant with his medications. Assessment and Plan: (1) Acute metabolic encephalopathy (resolved) Current Visit: Yes Status: Acute Plan to address problem: Secondary to severe uremia. His creatinine is 32.1 and BUN is 242. Family does not know how many days he has missed his hemodialysis. Patient to be counseled about compliance once he is more alert and oriented. (2) Hyperkalemia (improved) Current Visit: Yes Status: Acute Plan to address problem: Treated in the emergency room and patient going for hemodialysis Correct with HD (3) Metabolic acidosis (resolved) Current Visit: Yes Status: Acute Plan to address problem: Secondary to severe uremia. (4) Seizure disorder Current Visit: Yes Status: Chronic Plan to address problem: Continue Keppra. (5) T2DM (type 2 diabetes mellitus) Current Visit: Yes Status: Chronic Qualifiers: Diabetes mellitus retirement insulin use: unspecified retirement insulin use status Chronic kidney disease stage: on chronic dialysis Plan to address problem: Coverage for now (6) ESRD needing dialysis Current Visit: Yes Status: Acute Plan to address problem: Continue hemodialysis Nephrology following Patient to be counseled about compliance (7) Anemia Current Visit: No Status: Chronic Qualifiers: Anemia type: due to chronic kidney disease Plan to address problem: Secondary to chronic kidney disease Epogen as per nephrology 1 unit prbc given on 05/28. Hgb and VSS currently stable. (8) Hypertension Current Visit: Yes Status: Chronic Qualifiers: Hypertension type: primary hypertension Qualified Code(s): I10 - Essential (primary) hypertension Plan to address problem: Continue antihypertensives (9) Malnutrition Current Visit: Yes Status: Chronic Qualifiers: Malnutrition type: protein-calorie malnutrition Protein-calorie malnutrition severity: severe Qualified Code(s): E43 - Unspecified severe protein-calorie malnutrition Plan to address problem: Dietary supplements initiated Dietitian consult requested hospital course: 05/28: AOx4 on bedside encounter. Transfused 1 unit due to hgb 6.8. Patient st ated he has now missed several dialysis sessions. He goes to [facility] [place] per patient. will place CM consultation to ensure patient still has chair. Anticipate d/c tomorrow. 05/29: Hgb improved to 7.7. Will work with CM regarding dialysis chair as patient prior chair due to noncompliance [employer]. 05/30: Await case management decision regarding outpatient hemodialysis 05/31: Physical therapy recommends SNF placement. We will discuss with case management disposition. Continue hemodialysis per nephrology recommendations. 06/01: Awaiting for arrangements for hemodialysis associated with shelter facility or outpatient hemodialysis chair. I discussed the case with case management 06/02: Awaiting for arrangements for hemodialysis associated with shelter facility or outpatient hemodialysis chair. Patient is less confused and appears to be back to baseline. 06/03: Awaiting for arrangements for hemodialysis associated with shelter facility or outpatient hemodialysis chair. Patient appears to be confused this morning. Continue restraints for safety 06/04: Awaiting for arrangements for hemodialysis associated with shelter facility or outpatient hemodialysis chair. Patient still with metabolic/uremic encephalopathy. Patient has had baseline cognitive decline. Continue restraints for safety 06/05: Patient remains confused and likely has had baseline cognitive decline. Awaiting for arrangements for hemodialysis associated with shelter facility or outpatient hemodialysis chair. Continue restraints for safety. History Interval history: No new issues overnight Hospitalist Physical - Constitutional Vitals: Temp Pulse Resp BP Pulse Ox 98.1 F 76 17 125/66 95 06/05/22 05:54 06/05/22 05:54 06/05/22 05:54 06/05/22 05:54 06/05/22 05:54 General appearance: Present: no acute distress, well-nourished - EENT Eyes: Present: PERRL, EOM intact ENT: hearing intact, clear oral mucosa, dentition normal - Neck Neck: Present: supple, normal ROM - Respiratory Respiratory effort: normal Respiratory: bilateral: CTA - Cardiovascular Rhythm: regular Heart Sounds: Present: S1 & S2. Absent: gallop, rub - Extremities Extremities: no ischemia, No edema, Full ROM - Abdominal General gastrointestinal: soft, non-tender, non-distended, normal bowel sounds - Integumentary Integumentary: Present: clear, warm, dry - Neurologic Neurologic: CNII-XII intact, moves all extremities HEART Score - HEART Score Troponin: Troponin T 0.933 ng/mL (0.00-0.029) H* 05/27/22 01:28 Results - Labs CBC & Chem 7: 06/05/22 05:26 06/05/22 05:26 Labs: Laboratory Last Values WBC 9.3 K/mm3 (4.5-11.0) 06/05/22 05:26 RBC 3.03 M/mm3 (3.65-5.03) L 06/05/22 05:26 Hgb 8.9 gm/dl (11.8-15.2) L 06/05/22 05:26 Hct 27.0 % (35.5-45.6) L 06/05/22 05:26 MCV 89 fl (84-94) 06/05/22 05:26 MCH 29 pg (28-32) 06/05/22 05:26 MCHC 33 % (32-34) 06/05/22 05:26 RDW 15.3 % (13.2-15.2) H 06/05/22 05:26 Plt Count 289 K/mm3 (140-440) 06/05/22 05:26 Lymph % (Auto) 9.7 % (13.4-35.0) L 06/05/22 05:26 [place] % (Auto) 12.3 % (0.0-7.3) H 06/05/22 05:26 Eos % (Auto) 0.6 % (0.0-4.3) 06/05/22 05:26 Baso % (Auto) 0.5 % (0.0-1.8) 06/05/22 05:26 Lymph # (Auto) 0.9 K/mm3 (1.2-5.4) L 06/05/22 05:26 [place] # (Auto) 1.2 K/mm3 (0.0-0.8) H 06/05/22 05:26 Eos # (Auto) 0.1 K/mm3 (0.0-0.4) 06/05/22 05:26 Baso # (Auto) 0.0 K/mm3 (0.0-0.1) 06/05/22 05:26 Seg Neutrophils % 76.9 % (40.0-70.0) H 06/05/22 05:26 Seg Neutrophils # 7.2 K/mm3 (1.8-7.7) 06/05/22 05:26 PT 17.0 Sec. (12.2-14.9) H 05/27/22 01:28 INR 1.23 (0.87-1.13) H 05/27/22 01:28 Sodium 139 mmol/L (137-145) 06/05/22 05:26 Potassium 3.8 mmol/L (3.6-5.0) 06/05/22 05:26 Chloride 90.9 mmol/L (98-107) L 06/05/22 05:26 Carbon Dioxide 36 mmol/L (22-30) H D 06/05/22 05:26 Anion Gap 16 mmol/L 06/05/22 05:26 BUN 63 mg/dL (9-20) H 06/05/22 05:26 Creatinine 8.5 mg/dL (0.8-1.3) H 06/05/22 05:26 Estimated GFR 8 ml/min 06/05/22 05:26 BUN/Creatinine Ratio 7 % 06/05/22 05:26 Glucose 86 mg/dL (75-100) 06/05/22 05:26 POC Glucose 80 mg/dL (70-105) 06/05/22 07:38 Calcium 8.1 mg/dL (8.4-10.2) L 06/05/22 05:26 Phosphorus 8.30 mg/dL (2.5-4.5) H 06/02/22 07:45 Magnesium 2.20 mg/dL (1.7-2.3) 05/28/22 07:22 Total Bilirubin 0.30 mg/dL (0.1-1.2) 05/29/22 04:23 AST 16 units/L (5-40) 05/29/22 04:23 ALT 16 units/L (7-56) 05/29/22 04:23 Alkaline Phosphatase 60 units/L (35-129) 05/29/22 04:23 Ammonia 39.0 umol/L (25-60) 06/05/22 05:26 Total Creatine Kinase 1147 units/L (55-170) H 05/27/22 01:28 Troponin T 0.933 ng/mL (0.00-0.029) H* 05/27/22 01:28 Total Protein 6.3 g/dL (6.3-8.2) 05/29/22 04:23 Albumin 2.4 g/dL (3.9-5) L 05/29/22 04:23 Albumin/Globulin Ratio 0.6 % 05/29/22 04:23 Triglycerides 178 mg/dL (2-149) H 05/27/22 01:28 Cholesterol 112 mg/dL (50-199) 05/27/22 01:28 LDL Cholesterol Direct 30 mg/dL (50-130) L 05/27/22 01:28 HDL Cholesterol 39 mg/dL (40-59) L 05/27/22 01:28 Cholesterol/HDL Ratio 2.87 % 05/27/22 01:28 Salicylates < 0.3 mg/dL (2.8-20.0) L 05/27/22 01:28 Acetaminophen 5.0 ug/mL (10.0-30.0) L 05/27/22 01:28 Plasma/Serum Alcohol < 0.01 % (0-0.07) 05/27/22 01:28 Coronavirus (PCR) Negative (Negative) 05/28/22 Unknown SARS-CoV-2 (PCR) Negative (Negative) 05/29/22 11:05 Hepatitis A IgM Ab Non-reactive (NonReactive) 05/27/22 01:28 Hep Bs Antigen Non-reactive (Negative) 05/27/22 01:28 Hep B Core IgM Ab Non-reactive (NonReactive) 05/27/22 01:28 Hepatitis C Antibody Non-reactive (NonReactive) 05/27/22 01:28 Blood Type A POSITIVE 05/28/22 10:00 Antibody Screen Negative 05/28/22 10:00 Crossmatch See Detail 05/28/22 10:00 Saez/IV: Voiding Method Condom Catheter Active Medications - Current Medications Current Medications: Generic Name Dose Route Start Last Admin Trade Name Freq PRN Reason Stop Dose Admin Acetaminophen 650 mg 05/27/22 19:48 Acetaminophen 325 Mg Tab PO Q4H PRN Pain MILD(1-3)/Fever >100.5/MUNOZ Aspirin 81 mg 05/28/22 10:00 06/04/22 09:10 Aspirin Ec 81 Mg Tab PO 81 mg QDAY MYRIAM Administration Dextrose 25 ml 06/03/22 22:03 06/03/22 23:21 Dextrose 50% In Water (25gm) 50 Ml Syringe IV 25 ml Q30MIN PRN Administration Hypoglycemia Protocol Epoetin Chris-epbx 20,000 unit 05/30/22 21:57 Epoetin Chris-Epbx 10,000 Unit/1 Ml Vial SUB-Q HILDA PRN hemodialysis Guaifenesin 200 mg 06/01/22 01:57 06/05/22 05:58 Guaifenesin 100 Mg/5 Ml Oral Liqd PO 200 mg Q4H PRN Administration Cough Heparin Sodium (Porcine) 5,000 unit 05/27/22 22:00 06/04/22 22:04 Heparin 5,000 Unit/1 Ml Vial SUB-Q 5,000 unit Q12HR MYRIAM Administration Hydromorphone HCl 0.5 mg 05/27/22 19:48 Hydromorphone 0.5 Mg/0.5 Ml Inj IV Q3H PRN Pain , Severe (7-10) Sodium Chloride 100 mls @ 999 mls/hr 06/02/22 08:23 Nacl 0.9% IV HILDA PRN Hypotension Insulin Human Lispro 0 unit 05/28/22 07:30 06/04/22 23:00 Insulin Lispro 100 Unit/Ml SUB-Q 1 unit ACHS MYRIAM Administration Protocol Levetiracetam 500 mg 05/28/22 10:00 06/04/22 22:04 Levetiracetam 500 Mg Tab PO 500 mg BID MYRIAM Administration Metoclopramide HCl 5 mg 05/30/22 09:00 06/05/22 01:51 Metoclopramide 10 Mg/2 Ml Inj IV 5 mg Q8H PRN Administration Nausea And Vomiting Metoprolol Tartrate 100 mg 05/28/22 10:00 06/04/22 22:05 Metoprolol Tartrate 100 Mg Tab PO 100 mg BID MYRIAM Administration Morphine Sulfate 2 mg 05/27/22 19:48 Morphine 2 Mg/1 Ml Inj IV Q4H PRN Pain, Moderate (4-6) Ondansetron HCl 4 mg 05/27/22 19:48 06/02/22 21:56 Ondansetron 4 Mg/2 Ml Inj IV 4 mg Q8H PRN Administration Nausea And Vomiting Oxycodone/Acetaminophen 1 tab 05/27/22 19:48 Oxycodone /Acetaminophen 5-325mg Tab PO Q6H PRN Pain, Moderate (4-6) Sevelamer Carbonate 2,400 mg 05/28/22 12:30 06/04/22 17:07 Sevelamer Carbonate 800 Mg Tab PO 2,400 mg AC MYRIAM Administration Sodium Chloride 10 ml 05/27/22 22:00 06/04/22 22:05 Sodium Chloride 0.9% 10 Ml Flush Syringe IV 10 ml BID MYRIAM Administration Sodium Chloride 10 ml 05/27/22 19:48 Sodium Chloride 0.9% 10 Ml Flush Syringe IV PRN PRN LINE FLUSH Zolpidem Tartrate 5 mg 06/01/22 01:56 06/05/22 01:00 Zolpidem 5 Mg Tab PO 5 mg QHS PRN Administration Sleep Nutrition/Malnutrition Assess - Dietary Evaluation Nutrition/Malnutrition Findings: Nutrition Notes Start: 05/30/22 15:24 Freq: Status: Active Protocol: Document 05/30/22 15:24 [place] (Rec: 05/30/22 15:47 [place] [id number]) Nutrition Notes Need for Assessment generated from: Low BMI Initial or Follow up Assessment Current Diagnosis CKD (stage V CKD),Diabetes, Hypertension,Malnutrition Other Pertinent Diagnosis ESRD+HD, Seizure Disorder, Anemia, s/p Metabolic Encephalopathy. Current Diet Renal Diet (since D 05/27), D Suppl (from D 05/30). Labs/Tests 05/30: Na 135, Cl 91.3, BUN 88 , Crea 12.3, Glu 113. Pertinent Medications 05/30: Renvela, others nutritionally unremarkable. Height 5 ft 9 in Weight 54.43 kg Trion Body Weight (kg) 72.72 BMI 17.7 Weight change and time frame None provided at admission. Weight Status Underweight Subjective/Other Information RD consult for Low BMI assessment. Pt's PO intake of meals has been Fair (>50%) and fairly tolerated, according to ADL notes. I will keep the dietary supplemnets prescription to compensate for poor or insufficient PO intake of meals during LOS. Pt is on Room Air, O2 saturation @ 100%, according to Physical Assessment History notes. Pt has missing teeth, according to Physical Assessment History notes. Pt remains with diarrhea and incontinent, according to Physical Assessment History notes. Pt presents unspecified dryness and flaking as signs of concern for skin risk at the time, according to Physical Assessment History notes. Pt's Low BMI seems to correspond to a natural body composition, and not related to a sudden loss of body weight nor chronic malnutrition, since no signs of concern were mentioned in the Physical Assessment History or the Progress notes. Percent of energy/protein needs met: Prescribed Renal Diet provides for energy/protein needs (2, 072 Kcal/77 g) during LOS; additionally, Dietary Supplements will compensate for possible poor or insufficient PO intake of meals with 1,275 Kcal and 57 g of protein. Burn Absent Trauma Absent GI Symptoms Diarrhea,Other Food Allergy No Skin Integrity/Comment Unspecified dryness and flaking. 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 As Evidenced by Signs and Symptoms Pt's PO intake of meals has been Fair (>50%) and fairly tolerated, according to ADL notes. Is patient on ventilator? No Is Patient Ambulatory and/or Out of Bed No REE-([facility]-confined to bed) 1677.756 Kcal/Kg value to use for calculation 36 Approximate Energy Requirements Using 1959 kcal/Kg Calculation Used for Recommendations Kcal/kg Additional Notes Protein: >1.2 g/Kg ABW; >65 g/ day. Fluids: 1 ml/Kcal, or as per MD. Nutrition Intervention Change Diet Order: Continue Renal Diet as tolerated. Add Supplement/Snack (indicate name/kcal Start Nepro w/CARBSTEADY; TID. /protein ) Provides kCal: 1,275 Provides Protein (gm) 57 Goal #1 Compensate, through dietary supplementation, for possible poor or insufficient PO intake of meals during LOS. Goal #2 Adjust the dietary intervention to better serve Pt's needs and clinical conditions during LOS. Follow-Up By: 06/06/22 Additional Comments Continue monitoring food tolerance, %PO intake of meals , dietary supplements, and BM.
[2022-06-05] MEDS: HEPARIN 5,000 UNIT/1 ML VIAL SUB-Q SCH ×2 (09:28→21:41)
[2022-06-05] MEDS: levETIRAcetam 500 MG TAB PO SCH ×2 (09:29→21:41)
[2022-06-05] MEDS: METOPROLOL TARTRATE 100 MG TAB PO SCH ×2 (09:29→21:41)
[2022-06-05] MEDS: ASPIRIN EC 81 MG TAB PO SCH (09:29)
[2022-06-05] MEDS: EPOETIN ALFA-EPBX 10,000 UNIT/1 ML VIAL SUB-Q PRN (12:28)
--- NOTE | 2022-06-05 15:31 | Progress Note ---
Assessment and Plan 1. ESRD: Patient is on maintenance HD. Last outpatient HD unknown. Meds dosage based on GFR. Hemodialysis: 05/27, 05/29, 05/31, 06/02, 06/05. 2. FEN: Hyperkalemia, improved, on HD. Hypernatremia, improved. Pn Phos binders. Monitor lytes and volume status. 3. Acute Metabolic Encephalopathy, POA: Suspected Uremic encephalopathy. Baseline cognitive decline. Improving, monitor. 4. Seizure: On Keppra. 5. Normocytic anemia, POA: S/p PRBC. Epogen with HD. Monitor. 6. T2DM (type 2 diabetes mellitus): SSI. Subjective: Patient was seen and examined at the bedside. Examination: General appearance: well-developed, emaciated, no distress HEENT: ATNC, pupils equal Neck: trachea midline Respiratory: Clear to Auscultation Cardiology: regular, S1S2, no murmur Gastrointestinal: soft, normoactive bowel sounds, not tender, ND Integumentary: diffuse discrete papular rash, fading Neurologic: alert, oriented to self, able to move extremities Ext: no edema noted Hemodialysis access: L arm AVF/AVG Subjective Date of service: 06/05/22 Objective - Vital Signs Vital signs: Vital Signs - 12hr 06/05/22 06/05/22 06/05/22 05:54 10:00 11:00 Temperature 98.1 F 97.6 F Pulse Rate 76 75 Respiratory 17 18 Rate Blood Pressure 131/67 Blood Pressure 125/66 [Right] O2 Sat by Pulse 95 99 Oximetry O2 Sat by Pulse 100 Oximetry [ Anterior Bilateral Throughout] 06/05/22 06/05/22 06/05/22 11:15 11:30 11:45 Temperature Pulse Rate 74 65 76 Respiratory Rate Blood Pressure 116/62 125/67 117/58 Blood Pressure [Right] O2 Sat by Pulse Oximetry O2 Sat by Pulse Oximetry [ Anterior Bilateral Throughout] 06/05/22 06/05/22 06/05/22 12:00 12:15 12:30 Temperature Pulse Rate 80 79 81 Respiratory Rate Blood Pressure 122/61 122/65 116/59 Blood Pressure [Right] O2 Sat by Pulse Oximetry O2 Sat by Pulse Oximetry [ Anterior Bilateral Throughout] 06/05/22 06/05/22 06/05/22 12:45 13:00 13:15 Temperature Pulse Rate 79 79 81 Respiratory Rate Blood Pressure 114/58 111/57 115/61 Blood Pressure [Right] O2 Sat by Pulse Oximetry O2 Sat by Pulse Oximetry [ Anterior Bilateral Throughout] 06/05/22 06/05/22 06/05/22 13:30 13:45 14:00 Temperature Pulse Rate 78 80 83 Respiratory Rate Blood Pressure 120/60 113/52 119/60 Blood Pressure [Right] O2 Sat by Pulse Oximetry O2 Sat by Pulse Oximetry [ Anterior Bilateral Throughout] 06/05/22 06/05/22 14:15 14:40 Temperature 98.7 F Pulse Rate 81 78 Respiratory 18 Rate Blood Pressure 127/65 124/63 Blood Pressure [Right] O2 Sat by Pulse Oximetry O2 Sat by Pulse 100 Oximetry [ Anterior Bilateral Throughout] - Lab 06/05/22 05:26 06/05/22 05:26 Most recent lab results Calcium 8.1 mg/dL (8.4-10.2) L 06/05/22 05:26 Phosphorus 8.30 mg/dL (2.5-4.5) H 06/02/22 07:45 Magnesium 2.20 mg/dL (1.7-2.3) 05/28/22 07:22 Medications & Allergies - Medications Allergies/Adverse Reactions: Allergies No Known Allergies Allergy (Unverified 03/21/22 18:10) Home Medications: Home Medications Medication Instructions Recorded Confirmed Last Taken Type Aspirin EC [Halfprin EC] 81 mg PO QDAY #30 tablet. 03/27/22 06/01/22 Unknown Rx Metoprolol [Lopressor TAB] 100 mg PO BID #60 tablet 03/27/22 06/01/22 Unknown Rx levETIRAcetam [Keppra TAB] 500 mg PO BID #60 tablet 03/27/22 06/01/22 Unknown Rx Active Medications: Generic Name Dose Route Start Last Admin Trade Name Freq PRN Reason Stop Dose Admin Acetaminophen 650 mg 05/27/22 19:48 Acetaminophen 325 Mg Tab PO Q4H PRN Pain MILD(1-3)/Fever >100.5/MUNOZ Aspirin 81 mg 05/28/22 10:00 06/05/22 09:29 Aspirin Ec 81 Mg Tab PO 81 mg QDAY MYRIAM Administration Dextrose 25 ml 06/03/22 22:03 06/03/22 23:21 Dextrose 50% In Water (25gm) 50 Ml Syringe IV 25 ml Q30MIN PRN Administration Hypoglycemia Protocol Epoetin Chris-epbx 20,000 unit 05/30/22 21:57 06/05/22 12:28 Epoetin Chris-Epbx 10,000 Unit/1 Ml Vial SUB-Q 20,000 unit HILDA PRN Administration hemodialysis Guaifenesin 200 mg 06/01/22 01:57 06/05/22 05:58 Guaifenesin 100 Mg/5 Ml Oral Liqd PO 200 mg Q4H PRN Administration Cough Heparin Sodium (Porcine) 5,000 unit 05/27/22 22:00 06/05/22 09:28 Heparin 5,000 Unit/1 Ml Vial SUB-Q 5,000 unit Q12HR MYRIAM Administration Hydromorphone HCl 0.5 mg 05/27/22 19:48 Hydromorphone 0.5 Mg/0.5 Ml Inj IV Q3H PRN Pain , Severe (7-10) Sodium Chloride 100 mls @ 999 mls/hr 06/02/22 08:23 Nacl 0.9% IV HILDA PRN Hypotension Insulin Human Lispro 0 unit 05/28/22 07:30 06/05/22 11:24 Insulin Lispro 100 Unit/Ml SUB-Q Not Given ACHS [facility] Protocol Levetiracetam 500 mg 05/28/22 10:00 06/05/22 09:29 Levetiracetam 500 Mg Tab PO 500 mg BID MYRIAM Administration Metoclopramide HCl 5 mg 05/30/22 09:00 06/05/22 01:51 Metoclopramide 10 Mg/2 Ml Inj IV 5 mg Q8H PRN Administration Nausea And Vomiting Metoprolol Tartrate 100 mg 05/28/22 10:00 06/05/22 09:29 Metoprolol Tartrate 100 Mg Tab PO 100 mg BID MYRIAM Administration Morphine Sulfate 2 mg 05/27/22 19:48 Morphine 2 Mg/1 Ml Inj IV Q4H PRN Pain, Moderate (4-6) Ondansetron HCl 4 mg 05/27/22 19:48 06/02/22 21:56 Ondansetron 4 Mg/2 Ml Inj IV 4 mg Q8H PRN Administration Nausea And Vomiting Oxycodone/Acetaminophen 1 tab 05/27/22 19:48 Oxycodone /Acetaminophen 5-325mg Tab PO Q6H PRN Pain, Moderate (4-6) Sevelamer Carbonate 2,400 mg 05/28/22 12:30 06/05/22 11:25 Sevelamer Carbonate 800 Mg Tab PO Not Given AC MYRIAM Sodium Chloride 10 ml 05/27/22 22:00 06/05/22 09:28 Sodium Chloride 0.9% 10 Ml Flush Syringe IV 10 ml BID MYRIAM Administration Sodium Chloride 10 ml 05/27/22 19:48 Sodium Chloride 0.9% 10 Ml Flush Syringe IV PRN PRN LINE FLUSH Zolpidem Tartrate 5 mg 06/01/22 01:56 06/05/22 01:00 Zolpidem 5 Mg Tab PO 5 mg QHS PRN Administration Sleep
[2022-06-06 06:19] LABS: Basophils # (Auto) 0.1 K/mm3 (0.0-0.1); Basophils % (Auto) 0.7 % (0.0-1.8); Eosinophils % (Auto) 0.4 % (0.0-4.3); Hematocrit 21.8 % (35.5-45.6); Hemoglobin 7.5 gm/dl (11.8-15.2); Lymphocytes % (Auto) 11.1 % (13.4-35.0); Mean Corpuscular HGB Conc 35 % (32-34); Mean Corpuscular Volume 89 fl (84-94); Monocytes # (Auto) 1.4 K/mm3 (0.0-0.8); Monocytes % (Auto) 15.5 % (0.0-7.3); Platelet Count 228 K/mm3 (140-440); Red Blood Count 2.44 M/mm3 (3.65-5.03)
[2022-06-06 06:45] LABS: Calcium 8.2 mg/dL (8.4-10.2)
--- NOTE | 2022-06-06 07:29 | Progress Note ---
Assessment and Plan Assessment and plan: 51-year-old seizure disorder hypertension type 2 diabetes and end-stage renal disease on hemodialysis presents with lethargy and confusion. Family brought him to the emergency room stating that he is confused not oriented. His last known dialysis is not known. Improvement on fluids. No fever or chills. No seizures. Noncompliant with his medications. Assessment and Plan: (1) Acute metabolic encephalopathy (resolved) Secondary to severe uremia. His creatinine is 32.1 and BUN is 242. Family does not know how many days he has missed his hemodialysis. Patient to be counseled about compliance once he is more alert and oriented. (2) Hyperkalemia (improved) Treated in the emergency room and patient going for hemodialysis Correct with HD, (3) Metabolic acidosis (resolved) Secondary to severe uremia. ESRD Improved after dialysis (4) Seizure disorder Continue Keppra., Seizure precautions Supportive care (5) T2DM (type 2 diabetes mellitus) Coverage for now, Accu-Cheks sliding scale coverage ADA diet (6) ESRD needing dialysis Continue hemodialysis Nephrology following Patient to be counseled about compliance (7) Anemia of chronic kidney disease Secondary to chronic kidney disease Epogen as per nephrology 1 unit prbc given on 05/28. Hgb and VSS currently stable. Closely monitor H&H transfuse additional PRBC as needed (8) Hypertension Continue antihypertensives (9) severe protein calorie malnutrition Dietary supplements initiated Dietitian consult requested hospital course: 05/28: AOx4 on bedside encounter. Transfused 1 unit due to hgb 6.8. Patient stated he has now missed several dialysis sessions. He goes to [facility] [place] per patient. will place CM consultation to ensure patient still has chair. Anticipate d/c tomorrow. 05/29: Hgb improved to 7.7. Will work with CM regarding dialysis chair as patient prior chair due to noncompliance [employer]. 16: Await case management decision regarding outpatient hemodialysis 05/31: Physical therapy recommends SNF placement. We will discuss with case management disposition. Continue hemodialysis per nephrology recommendations. 06/01: Awaiting for arrangements for hemodialysis associated with long-term facility or outpatient hemodialysis chair. I discussed the case with case management 06/02: Awaiting for arrangements for hemodialysis associated with long-term facility or outpatient hemodialysis chair. Patient is less confused and appears to be back to baseline. 06/03: Awaiting for arrangements for hemodialysis associated with long-term facility or outpatient hemodialysis chair. Patient appears to be confused this morning. Continue restraints for safety 06/04: Awaiting for arrangements for hemodialysis associated with long-term facility or outpatient hemodialysis chair. Patient still with metabolic/uremic encephalopathy. Patient has had baseline cognitive decline. Continue restraints for safety 06/05: Patient remains confused and likely has had baseline cognitive decline. Awaiting for arrangements for hemodialysis associated with long-term facility or outpatient hemodialysis chair. Continue restraints for safety. 06/06; awaiting SNF/HD facility placement, DC planning per case management History Interval history: I have seen and examined the patient at the bedside Patient's chart and medications reviewed Vital signs noted patient is confused, agitated Restraint for safety Patient is chronically ill cachectic emaciated Mild distress ,vital signs noted Hospitalist Physical - Constitutional Vitals: Temp Pulse Resp BP Pulse Ox 98.0 F 53 L 16 121/58 95 06/05/22 21:10 06/05/22 21:41 06/05/22 21:10 06/05/22 21:41 06/05/22 22:00 General appearance: Present: no acute distress, well-nourished - EENT Eyes: Present: PERRL, EOM intact - Neck Neck: Present: supple, normal ROM - Respiratory Respiratory effort: normal Respiratory: bilateral: diminished, negative: rales, rhonchi, wheezing - Cardiovascular Rhythm: regular Heart Sounds: Present: S1 & S2 - Extremities Extremities: no ischemia, No edema - Abdominal General gastrointestinal: soft, non-tender, non-distended, normal bowel sounds - Integumentary Integumentary: Present: clear, warm - Psychiatric Psychiatric: appropriate mood/affect, cooperative - Neurologic Neurologic: moves all extremities HEART Score - HEART Score Troponin: Troponin T 0.933 ng/mL (0.00-0.029) H* 05/27/22 01:28 Results - Labs CBC & Chem 7: 06/06/22 05:42 06/06/22 05:42 Labs: Laboratory Last Values WBC 9.1 K/mm3 (4.5-11.0) 06/06/22 05:42 RBC 2.44 M/mm3 (3.65-5.03) L 06/06/22 05:42 Hgb 7.5 gm/dl (11.8-15.2) L 06/06/22 05:42 Hct 21.8 % (35.5-45.6) L 06/06/22 05:42 MCV 89 fl (84-94) 06/06/22 05:42 MCH 31 pg (28-32) 06/06/22 05:42 MCHC 35 % (32-34) H 06/06/22 05:42 RDW 16.0 % (13.2-15.2) H 06/06/22 05:42 Plt Count 228 K/mm3 (140-440) 06/06/22 05:42 Lymph % (Auto) 11.1 % (13.4-35.0) L 06/06/22 05:42 [place] % (Auto) 15.5 % (0.0-7.3) H 06/06/22 05:42 Eos % (Auto) 0.4 % (0.0-4.3) 06/06/22 05:42 Baso % (Auto) 0.7 % (0.0-1.8) 06/06/22 05:42 Lymph # (Auto) 1.0 K/mm3 (1.2-5.4) L 06/06/22 05:42 [place] # (Auto) 1.4 K/mm3 (0.0-0.8) H 06/06/22 05:42 Eos # (Auto) 0.0 K/mm3 (0.0-0.4) 06/06/22 05:42 Baso # (Auto) 0.1 K/mm3 (0.0-0.1) 06/06/22 05:42 Seg Neutrophils % 72.3 % (40.0-70.0) H 06/06/22 05:42 Seg Neutrophils # 6.6 K/mm3 (1.8-7.7) 06/06/22 05:42 PT 17.0 Sec. (12.2-14.9) H 05/27/22 01:28 INR 1.23 (0.87-1.13) H 05/27/22 01:28 Sodium 140 mmol/L (137-145) 06/06/22 05:42 Potassium 4.1 mmol/L (3.6-5.0) 06/06/22 05:42 Chloride 97.0 mmol/L (98-107) L 06/06/22 05:42 Carbon Dioxide 31 mmol/L (22-30) H 06/06/22 05:42 Anion Gap 16 mmol/L 06/06/22 05:42 BUN 39 mg/dL (9-20) H 06/06/22 05:42 Creatinine 5.9 mg/dL (0.8-1.3) H 06/06/22 05:42 Estimated GFR 12 ml/min 06/06/22 05:42 BUN/Creatinine Ratio 7 % 06/06/22 05:42 Glucose 80 mg/dL (75-100) 06/06/22 05:42 POC Glucose 180 mg/dL (70-105) H 06/05/22 21:51 Calcium 8.2 mg/dL (8.4-10.2) L 06/06/22 05:42 Phosphorus 8.30 mg/dL (2.5-4.5) H 06/02/22 07:45 Magnesium 2.20 mg/dL (1.7-2.3) 05/28/22 07:22 Total Bilirubin 0.30 mg/dL (0.1-1.2) 05/29/22 04:23 AST 16 units/L (5-40) 05/29/22 04:23 ALT 16 units/L (7-56) 05/29/22 04:23 Alkaline Phosphatase 60 units/L (35-129) 05/29/22 04:23 Ammonia 39.0 umol/L (25-60) 06/05/22 05:26 Total Creatine Kinase 1147 units/L (55-170) H 05/27/22 01:28 Troponin T 0.933 ng/mL (0.00-0.029) H* 05/27/22 01:28 Total Protein 6.3 g/dL (6.3-8.2) 05/29/22 04:23 Albumin 2.4 g/dL (3.9-5) L 05/29/22 04:23 Albumin/Globulin Ratio 0.6 % 05/29/22 04:23 Triglycerides 178 mg/dL (2-149) H 05/27/22 01:28 Cholesterol 112 mg/dL (50-199) 05/27/22 01:28 LDL Cholesterol Direct 30 mg/dL (50-130) L 05/27/22 01:28 HDL Cholesterol 39 mg/dL (40-59) L 05/27/22 01:28 Cholesterol/HDL Ratio 2.87 % 05/27/22 01:28 Salicylates < 0.3 mg/dL (2.8-20.0) L 05/27/22 01:28 Acetaminophen 5.0 ug/mL (10.0-30.0) L 05/27/22 01:28 Plasma/Serum Alcohol < 0.01 % (0-0.07) 05/27/22 01:28 Coronavirus (PCR) Negative (Negative) 05/28/22 Unknown SARS-CoV-2 (PCR) Negative (Negative) 05/29/22 11:05 Hepatitis A IgM Ab Non-reactive (NonReactive) 05/27/22 01:28 Hep Bs Antigen Non-reactive (Negative) 05/27/22 01:28 Hep B Core IgM Ab Non-reactive (NonReactive) 05/27/22 01:28 Hepatitis C Antibody Non-reactive (NonReactive) 05/27/22 01:28 Blood Type A POSITIVE 05/28/22 10:00 Antibody Screen Negative 05/28/22 10:00 Crossmatch See Detail 05/28/22 10:00 Saez/IV: Voiding Method Condom Catheter Active Medications - Current Medications Current Medications: Generic Name Dose Route Start Last Admin Trade Name Freq PRN Reason Stop Dose Admin Acetaminophen 650 mg 05/27/22 19:48 Acetaminophen 325 Mg Tab PO Q4H PRN Pain MILD(1-3)/Fever >100.5/MUNOZ Aspirin 81 mg 05/28/22 10:00 06/05/22 09:29 Aspirin Ec 81 Mg Tab PO 81 mg QDAY MYRIAM Administration Dextrose 25 ml 06/03/22 22:03 06/03/22 23:21 Dextrose 50% In Water (25gm) 50 Ml Syringe IV 25 ml Q30MIN PRN Administration Hypoglycemia Protocol Epoetin Chris-epbx 20,000 unit 05/30/22 21:57 06/05/22 12:28 Epoetin Chris-Epbx 10,000 Unit/1 Ml Vial SUB-Q 20,000 unit HILDA PRN Administration hemodialysis Guaifenesin 200 mg 06/01/22 01:57 06/05/22 21:42 Guaifenesin 100 Mg/5 Ml Oral Liqd PO 200 mg Q4H PRN Administration Cough Heparin Sodium (Porcine) 5,000 unit 05/27/22 22:00 06/05/22 21:41 Heparin 5,000 Unit/1 Ml Vial SUB-Q 5,000 unit Q12HR MYRIAM Administration Hydromorphone HCl 0.5 mg 05/27/22 19:48 Hydromorphone 0.5 Mg/0.5 Ml Inj IV Q3H PRN Pain , Severe (7-10) Sodium Chloride 100 mls @ 999 mls/hr 06/02/22 08:23 Nacl 0.9% IV HILDA PRN Hypotension Insulin Human Lispro 0 unit 05/28/22 07:30 06/05/22 21:56 Insulin Lispro 100 Unit/Ml SUB-Q 2 unit ACHS MYRIAM Administration Protocol Levetiracetam 500 mg 05/28/22 10:00 06/05/22 21:41 Levetiracetam 500 Mg Tab PO 500 mg BID MYRIAM Administration Metoclopramide HCl 5 mg 05/30/22 09:00 06/05/22 01:51 Metoclopramide 10 Mg/2 Ml Inj IV 5 mg Q8H PRN Administration Nausea And Vomiting Metoprolol Tartrate 100 mg 05/28/22 10:00 06/05/22 21:41 Metoprolol Tartrate 100 Mg Tab PO 100 mg BID MYRIAM Administration Morphine Sulfate 2 mg 05/27/22 19:48 Morphine 2 Mg/1 Ml Inj IV Q4H PRN Pain, Moderate (4-6) Ondansetron HCl 4 mg 05/27/22 19:48 06/02/22 21:56 Ondansetron 4 Mg/2 Ml Inj IV 4 mg Q8H PRN Administration Nausea And Vomiting Oxycodone/Acetaminophen 1 tab 05/27/22 19:48 Oxycodone /Acetaminophen 5-325mg Tab PO Q6H PRN Pain, Moderate (4-6) Sevelamer Carbonate 2,400 mg 05/28/22 12:30 06/05/22 16:30 Sevelamer Carbonate 800 Mg Tab PO 2,400 mg AC MYRIAM Administration Sodium Chloride 10 ml 05/27/22 22:00 06/05/22 21:42 Sodium Chloride 0.9% 10 Ml Flush Syringe IV 10 ml BID MYRIAM Administration Sodium Chloride 10 ml 05/27/22 19:48 Sodium Chloride 0.9% 10 Ml Flush Syringe IV PRN PRN LINE FLUSH Zolpidem Tartrate 5 mg 06/01/22 01:56 06/05/22 01:00 Zolpidem 5 Mg Tab PO 5 mg QHS PRN Administration Sleep Nutrition/Malnutrition Assess - Dietary Evaluation Nutrition/Malnutrition Findings: Nutrition Notes Start: 05/30/22 15:24 Freq: Status: Active Protocol: Document 05/30/22 15:24 [place] (Rec: 05/30/22 15:47 [email or web address] [id number]) Nutrition Notes Need for Assessment generated from: Low BMI Initial or Follow up Assessment Current Diagnosis CKD (stage V CKD),Diabetes, Hypertension,Malnutrition Other Pertinent Diagnosis ESRD+HD, Seizure Disorder, Anemia, s/p Metabolic Encephalopathy. Current Diet Renal Diet (since D 05/27), D Suppl (from D 05/30). Labs/Tests 05/30: Na 135, Cl 91.3, BUN 88 , Crea 12.3, Glu 113. Pertinent Medications 05/30: Renvela, others nutritionally unremarkable. Height 5 ft 9 in Weight 54.43 kg [place] Body Weight (kg) 72.72 BMI 17.7 Weight change and time frame None provided at admission. Weight Status Underweight Subjective/Other Information RD consult for Low BMI assessment. Pt's PO intake of meals has been Fair (>50%) and fairly tolerated, according to ADL notes. I will keep the dietary supplemnets prescription to compensate for poor or insufficient PO intake of meals during LOS. Pt is on Room Air, O2 saturation @ 100%, according to Physical Assessment History notes. Pt has missing teeth, according to Physical Assessment History notes. Pt remains with diarrhea and incontinent, according to Physical Assessment History notes. Pt presents unspecified dryness and flaking as signs of concern for skin risk at the time, according to Physical Assessment History notes. Pt's Low BMI seems to correspond to a natural body composition, and not related to a sudden loss of body weight nor chronic malnutrition, since no signs of concern were mentioned in the Physical Assessment History or the Progress notes. Percent of energy/protein needs met: Prescribed Renal Diet provides for energy/protein needs (2, 072 Kcal/77 g) during LOS; additionally, Dietary Supplements will compensate for possible poor or insufficient PO intake of meals with 1,275 Kcal and 57 g of protein. Burn Absent Trauma Absent GI Symptoms Diarrhea,Other Food Allergy No Skin Integrity/Comment Unspecified dryness and flaking. 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 As Evidenced by Signs and Symptoms Pt's PO intake of meals has been Fair (>50%) and fairly tolerated, according to ADL notes. Is patient on ventilator? No Is Patient Ambulatory and/or Out of Bed No REE-([facility]-confined to bed) 1677.756 Kcal/Kg value to use for calculation 36 Approximate Energy Requirements Using 1959 kcal/Kg Calculation Used for Recommendations Kcal/kg Additional Notes Protein: >1.2 g/Kg ABW; >65 g/ day. Fluids: 1 ml/Kcal, or as per MD. Nutrition Intervention Change Diet Order: Continue Renal Diet as tolerated. Add Supplement/Snack (indicate name/kcal Start Nepro w/CARBSTEADY; TID. /protein ) Provides kCal: 1,275 Provides Protein (gm) 57 Goal #1 Compensate, through dietary supplementation, for possible poor or insufficient PO intake of meals during LOS. Goal #2 Adjust the dietary intervention to better serve Pt's needs and clinical conditions during LOS. Follow-Up By: 06/06/22 Additional Comments Continue monitoring food tolerance, %PO intake of meals , dietary supplements, and BM.
[2022-06-06] MEDS: INSULIN LISPRO 100 UNIT/ML SUB-Q SCH ×4 (07:30→22:24)
[2022-06-06] MEDS: SEVELAMER CARBONATE 800 MG TAB PO SCH ×3 (07:30→16:30)
[2022-06-06] MEDS: HEPARIN 5,000 UNIT/1 ML VIAL SUB-Q SCH ×2 (09:38→21:28)
[2022-06-06] MEDS: levETIRAcetam 500 MG TAB PO SCH ×2 (09:39→21:26)
[2022-06-06] MEDS: METOPROLOL TARTRATE 100 MG TAB PO SCH ×2 (09:39→21:26)
[2022-06-06] MEDS: ASPIRIN EC 81 MG TAB PO SCH (09:40)
--- NOTE | 2022-06-06 10:10 | Progress Note ---
Assessment and Plan 1. ESRD: Patient is on maintenance HD. Last outpatient HD unknown. Meds dosage based on GFR. Hemodialysis: 05/27, 05/29, 05/31, 06/02, 06/05. 2. FEN: Hyperkalemia, improved, on HD. Hypernatremia, improved. On Phos binders. Monitor lytes and volume status. 3. Acute Metabolic Encephalopathy, POA: Suspected Uremic encephalopathy. Baseline cognitive decline. Improving, monitor. 4. Seizure: On Keppra. 5. Normocytic anemia, POA: S/p PRBC. Epogen with HD. Monitor. 6. T2DM (type 2 diabetes mellitus): SSI. Subjective: Patient was seen and examined at the bedside. Examination: General appearance: well-developed, emaciated, no distress, in restrains HEENT: ATNC, pupils equal Neck: trachea midline Respiratory: Clear to Auscultation Cardiology: regular, S1S2, no murmur Gastrointestinal: soft, normoactive bowel sounds, not tender, ND Integumentary: diffuse discrete papular rash, fading Neurologic: alert, oriented to self, able to move extremities Ext: no edema noted Hemodialysis access: L arm AVF/AVG Subjective Date of service: 06/06/22 Objective - Lab 06/06/22 05:42 06/06/22 05:42 Most recent lab results Calcium 8.2 mg/dL (8.4-10.2) L 06/06/22 05:42 Phosphorus 8.30 mg/dL (2.5-4.5) H 06/02/22 07:45 Magnesium 2.20 mg/dL (1.7-2.3) 05/28/22 07:22 Medications & Allergies - Medications Allergies/Adverse Reactions: Allergies No Known Allergies Allergy (Unverified 03/21/22 18:10) Home Medications: Home Medications Medication Instructions Recorded Confirmed Last Taken Type Aspirin EC [Halfprin EC] 81 mg PO QDAY #30 tablet. 03/27/22 06/01/22 Unknown Rx Metoprolol [Lopressor TAB] 100 mg PO BID #60 tablet 03/27/22 06/01/22 Unknown Rx levETIRAcetam [Keppra TAB] 500 mg PO BID #60 tablet 03/27/22 06/01/22 Unknown Rx Active Medications: Generic Name Dose Route Start Last Admin Trade Name Freq PRN Reason Stop Dose Admin Acetaminophen 650 mg 05/27/22 19:48 Acetaminophen 325 Mg Tab PO Q4H PRN Pain MILD(1-3)/Fever >100.5/MUNOZ Aspirin 81 mg 05/28/22 10:00 06/06/22 09:40 Aspirin Ec 81 Mg Tab PO 81 mg QDAY MYRIAM Administration Dextrose 25 ml 06/03/22 22:03 06/03/22 23:21 Dextrose 50% In Water (25gm) 50 Ml Syringe IV 25 ml Q30MIN PRN Administration Hypoglycemia Protocol Epoetin Chris-epbx 20,000 unit 05/30/22 21:57 06/05/22 12:28 Epoetin Chris-Epbx 10,000 Unit/1 Ml Vial SUB-Q 20,000 unit HILDA PRN Administration hemodialysis Guaifenesin 200 mg 06/01/22 01:57 06/05/22 21:42 Guaifenesin 100 Mg/5 Ml Oral Liqd PO 200 mg Q4H PRN Administration Cough Heparin Sodium (Porcine) 5,000 unit 05/27/22 22:00 06/06/22 09:38 Heparin 5,000 Unit/1 Ml Vial SUB-Q 5,000 unit Q12HR MYRIAM Administration Hydromorphone HCl 0.5 mg 05/27/22 19:48 Hydromorphone 0.5 Mg/0.5 Ml Inj IV Q3H PRN Pain , Severe (7-10) Sodium Chloride 100 mls @ 999 mls/hr 06/02/22 08:23 Nacl 0.9% IV HILDA PRN Hypotension Insulin Human Lispro 0 unit 05/28/22 07:30 06/06/22 07:30 Insulin Lispro 100 Unit/Ml SUB-Q Not Given ACHS [facility] Protocol Levetiracetam 500 mg 05/28/22 10:00 06/06/22 09:39 Levetiracetam 500 Mg Tab PO 500 mg BID MYRIAM Administration Metoclopramide HCl 5 mg 05/30/22 09:00 06/05/22 01:51 Metoclopramide 10 Mg/2 Ml Inj IV 5 mg Q8H PRN Administration Nausea And Vomiting Metoprolol Tartrate 100 mg 05/28/22 10:00 06/06/22 09:39 Metoprolol Tartrate 100 Mg Tab PO 100 mg BID MYRIAM Administration Morphine Sulfate 2 mg 05/27/22 19:48 Morphine 2 Mg/1 Ml Inj IV Q4H PRN Pain, Moderate (4-6) Ondansetron HCl 4 mg 05/27/22 19:48 06/02/22 21:56 Ondansetron 4 Mg/2 Ml Inj IV 4 mg Q8H PRN Administration Nausea And Vomiting Oxycodone/Acetaminophen 1 tab 05/27/22 19:48 Oxycodone /Acetaminophen 5-325mg Tab PO Q6H PRN Pain, Moderate (4-6) Sevelamer Carbonate 2,400 mg 05/28/22 12:30 06/06/22 07:30 Sevelamer Carbonate 800 Mg Tab PO 2,400 mg AC MYRIAM Administration Sodium Chloride 10 ml 05/27/22 22:00 06/06/22 09:40 Sodium Chloride 0.9% 10 Ml Flush Syringe IV 10 ml BID MYRIAM Administration Sodium Chloride 10 ml 05/27/22 19:48 Sodium Chloride 0.9% 10 Ml Flush Syringe IV PRN PRN LINE FLUSH Zolpidem Tartrate 5 mg 06/01/22 01:56 06/05/22 01:00 Zolpidem 5 Mg Tab PO 5 mg QHS PRN Administration Sleep
[2022-06-07] MEDS: SEVELAMER CARBONATE 800 MG TAB PO SCH ×3 (07:30→16:44)
[2022-06-07] MEDS: INSULIN LISPRO 100 UNIT/ML SUB-Q SCH ×4 (08:31→22:36)
[2022-06-07] MEDS: HEPARIN 5,000 UNIT/1 ML VIAL SUB-Q SCH ×3 (08:42→22:23)
[2022-06-07] MEDS: ASPIRIN EC 81 MG TAB PO SCH ×2 (08:43→10:40)
[2022-06-07] MEDS: METOPROLOL TARTRATE 100 MG TAB PO SCH ×3 (08:43→22:37)
[2022-06-07] MEDS: levETIRAcetam 500 MG TAB PO SCH ×3 (08:43→22:23)
--- NOTE | 2022-06-07 11:11 | Progress Note ---
Assessment and Plan 1. ESRD: Patient is on maintenance HD. Last outpatient HD unknown. Meds dosage based on GFR. Hemodialysis: 05/27, 05/29, 05/31, 06/02, 06/05. Patient refused HD today. 2. FEN: Hyperkalemia, improved, on HD. Hypernatremia, improved. On Phos binders. Monitor lytes and volume status. 3. Acute Metabolic Encephalopathy, POA: Suspected Uremic encephalopathy. Baseline cognitive decline. Improving, monitor. 4. Seizure: On Keppra. 5. Normocytic anemia, POA: S/p PRBC. Epogen with HD. Monitor. 6. T2DM (type 2 diabetes mellitus): SSI. Subjective: Patient was seen and examined at the bedside. Examination: General appearance: well-developed, emaciated, no distress, on restrains HEENT: ATNC, pupils equal Neck: trachea midline Respiratory: Clear to Auscultation Cardiology: regular, S1S2, no murmur Gastrointestinal: soft, normoactive bowel sounds, not tender, ND Integumentary: diffuse discrete papular rash, fading Neurologic: alert, oriented to self, able to move extremities Ext: no edema noted Hemodialysis access: L arm AVF/AVG Subjective Date of service: 06/07/22 Objective - Vital Signs Vital signs: Vital Signs - 12hr 06/07/22 06/07/22 04:05 08:43 Temperature 98.0 F Pulse Rate 90 95 H Respiratory 16 Rate Blood Pressure 113/68 113/68 O2 Sat by Pulse 98 Oximetry - Lab 06/06/22 05:42 06/06/22 05:42 Most recent lab results Calcium 8.2 mg/dL (8.4-10.2) L 06/06/22 05:42 Phosphorus 8.30 mg/dL (2.5-4.5) H 06/02/22 07:45 Magnesium 2.20 mg/dL (1.7-2.3) 05/28/22 07:22 Medications & Allergies - Medications Allergies/Adverse Reactions: Allergies No Known Allergies Allergy (Unverified 03/21/22 18:10) Home Medications: Home Medications Medication Instructions Recorded Confirmed Last Taken Type Aspirin EC [Halfprin EC] 81 mg PO QDAY #30 tablet. 03/27/22 06/01/22 Unknown Rx Metoprolol [Lopressor TAB] 100 mg PO BID #60 tablet 03/27/22 06/01/22 Unknown Rx levETIRAcetam [Keppra TAB] 500 mg PO BID #60 tablet 03/27/22 06/01/22 Unknown Rx Active Medications: Generic Name Dose Route Start Last Admin Trade Name Freq PRN Reason Stop Dose Admin Acetaminophen 650 mg 05/27/22 19:48 Acetaminophen 325 Mg Tab PO Q4H PRN Pain MILD(1-3)/Fever >100.5/MUNOZ Aspirin 81 mg 05/28/22 10:00 06/07/22 08:43 Aspirin Ec 81 Mg Tab PO 81 mg QDAY MYRIAM Administration Dextrose 25 ml 06/03/22 22:03 06/03/22 23:21 Dextrose 50% In Water (25gm) 50 Ml Syringe IV 25 ml Q30MIN PRN Administration Hypoglycemia Protocol Epoetin Chris-epbx 20,000 unit 05/30/22 21:57 06/05/22 12:28 Epoetin Chris-Epbx 10,000 Unit/1 Ml Vial SUB-Q 20,000 unit HILDA PRN Administration hemodialysis Guaifenesin 200 mg 06/01/22 01:57 06/05/22 21:42 Guaifenesin 100 Mg/5 Ml Oral Liqd PO 200 mg Q4H PRN Administration Cough Heparin Sodium (Porcine) 5,000 unit 05/27/22 22:00 06/07/22 08:42 Heparin 5,000 Unit/1 Ml Vial SUB-Q 5,000 unit Q12HR MYRIAM Administration Hydromorphone HCl 0.5 mg 05/27/22 19:48 Hydromorphone 0.5 Mg/0.5 Ml Inj IV Q3H PRN Pain , Severe (7-10) Sodium Chloride 100 mls @ 999 mls/hr 06/02/22 08:23 Nacl 0.9% IV HILDA PRN Hypotension Insulin Human Lispro 0 unit 05/28/22 07:30 06/07/22 08:31 Insulin Lispro 100 Unit/Ml SUB-Q Not Given ACHS [facility] Protocol Levetiracetam 500 mg 05/28/22 10:00 06/07/22 08:43 Levetiracetam 500 Mg Tab PO 500 mg BID MYRIAM Administration Metoclopramide HCl 5 mg 05/30/22 09:00 06/05/22 01:51 Metoclopramide 10 Mg/2 Ml Inj IV 5 mg Q8H PRN Administration Nausea And Vomiting Metoprolol Tartrate 100 mg 05/28/22 10:00 06/07/22 08:43 Metoprolol Tartrate 100 Mg Tab PO 100 mg BID MYRIAM Administration Morphine Sulfate 2 mg 05/27/22 19:48 Morphine 2 Mg/1 Ml Inj IV Q4H PRN Pain, Moderate (4-6) Ondansetron HCl 4 mg 05/27/22 19:48 06/02/22 21:56 Ondansetron 4 Mg/2 Ml Inj IV 4 mg Q8H PRN Administration Nausea And Vomiting Oxycodone/Acetaminophen 1 tab 05/27/22 19:48 Oxycodone /Acetaminophen 5-325mg Tab PO Q6H PRN Pain, Moderate (4-6) Sevelamer Carbonate 2,400 mg 05/28/22 12:30 06/07/22 07:30 Sevelamer Carbonate 800 Mg Tab PO Not Given AC MYRIAM Sodium Chloride 10 ml 05/27/22 22:00 06/06/22 21:27 Sodium Chloride 0.9% 10 Ml Flush Syringe IV 10 ml BID MYRIAM Administration Sodium Chloride 10 ml 05/27/22 19:48 Sodium Chloride 0.9% 10 Ml Flush Syringe IV PRN PRN LINE FLUSH Zolpidem Tartrate 5 mg 06/01/22 01:56 06/05/22 01:00 Zolpidem 5 Mg Tab PO 5 mg QHS PRN Administration Sleep
--- NOTE | 2022-06-07 21:21 | Progress Note ---
Assessment and Plan Assessment and plan: 51-year-old seizure disorder hypertension type 2 diabetes and end-stage renal disease on hemodialysis presents with lethargy and confusion. Family brought him to the emergency room stating that he is confused not oriented. His last known dialysis is not known. Improvement on fluids. No fever or chills. No seizures. Noncompliant with his medications. Assessment and Plan: (1) Acute metabolic encephalopathy (resolved) Secondary to severe uremia. His creatinine is 32.1 and BUN is 242. Family does not know how many days he has missed his hemodialysis. Patient to be counseled about compliance once he is more alert and oriented. (2) Hyperkalemia (improved) Treated in the emergency room and patient going for hemodialysis Correct with HD, (3) Metabolic acidosis (resolved) Secondary to severe uremia. ESRD Improved after dialysis (4) Seizure disorder Continue Keppra., Seizure precautions Supportive care (5) T2DM (type 2 diabetes mellitus) Coverage for now, Accu-Cheks sliding scale coverage ADA diet (6) ESRD needing dialysis Continue hemodialysis Nephrology following Patient to be counseled about compliance (7) Anemia of chronic kidney disease Secondary to chronic kidney disease Epogen as per nephrology 1 unit prbc given on 05/28. Hgb and VSS currently stable. Closely monitor H&H transfuse additional PRBC as needed (8) Hypertension Continue antihypertensives (9) severe protein calorie malnutrition Dietary supplements initiated Dietitian consult requested hospital course: 05/28: AOx4 on bedside encounter. Transfused 1 unit due to hgb 6.8. Patient stated he has now missed several dialysis sessions. He goes to [facility] [place] per patient. will place CM consultation to ensure patient still has chair. Anticipate d/c tomorrow. 05/29: Hgb improved to 7.7. Will work with CM regarding dialysis chair as patient prior chair due to noncompliance [employer]. 16: Await case management decision regarding outpatient hemodialysis 05/31: Physical therapy recommends SNF placement. We will discuss with case management disposition. Continue hemodialysis per nephrology recommendations. 06/01: Awaiting for arrangements for hemodialysis associated with fdc facility or outpatient hemodialysis chair. I discussed the case with case management 06/02: Awaiting for arrangements for hemodialysis associated with fdc facility or outpatient hemodialysis chair. Patient is less confused and appears to be back to baseline. 06/03: Awaiting for arrangements for hemodialysis associated with fdc facility or outpatient hemodialysis chair. Patient appears to be confused this morning. Continue restraints for safety 06/04: Awaiting for arrangements for hemodialysis associated with fdc facility or outpatient hemodialysis chair. Patient still with metabolic/uremic encephalopathy. Patient has had baseline cognitive decline. Continue restraints for safety 06/05: Patient remains confused and likely has had baseline cognitive decline. Awaiting for arrangements for hemodialysis associated with fdc facility or outpatient hemodialysis chair. Continue restraints for safety. 06/06; awaiting SNF/HD facility placement, DC planning per case management 06/07/2022; pending placement Spoke with patient's daughter Ms. Dorado extensively when she visited her father, patient's condition, tests and reports, consultants recommendations Need for hemodialysis, she had numerous questions I answered all of them, she wanted to talk to chainstitch sewing machine operator, directed her to the nurse to connect her to the chainstitch sewing machine operator. She verbalized understanding and was appreciative History Interval history: I have seen and examined the patient at the bedside Patient's chart and medications reviewed No new events reported by the nursing Patient is confused at times requiring restraints Vital signs noted Hospitalist Physical - Constitutional Vitals: Temp Pulse Resp BP Pulse Ox 97.8 F 88 14 128/67 100 06/07/22 17:16 06/07/22 17:16 06/07/22 17:16 06/07/22 17:16 06/07/22 17:16 General appearance: Present: no acute distress, well-nourished, other (Confused) - EENT Eyes: Present: PERRL, EOM intact - Neck Neck: Present: supple, normal ROM - Respiratory Respiratory effort: normal Respiratory: bilateral: diminished, negative: rales, rhonchi, wheezing - Cardiovascular Rhythm: regular Heart Sounds: Present: S1 & S2 - Extremities Extremities: no ischemia, No edema - Abdominal General gastrointestinal: soft, non-tender, non-distended - Integumentary Integumentary: Present: clear, warm - Psychiatric Psychiatric: agitated, other (Confused) - Neurologic Neurologic: moves all extremities (Confused) HEART Score - HEART Score Troponin: Troponin T 0.933 ng/mL (0.00-0.029) H* 05/27/22 01:28 Results - Labs CBC & Chem 7: 06/06/22 05:42 06/06/22 05:42 Labs: Laboratory Last Values WBC 9.1 K/mm3 (4.5-11.0) 06/06/22 05:42 RBC 2.44 M/mm3 (3.65-5.03) L 06/06/22 05:42 Hgb 7.5 gm/dl (11.8-15.2) L 06/06/22 05:42 Hct 21.8 % (35.5-45.6) L 06/06/22 05:42 MCV 89 fl (84-94) 06/06/22 05:42 MCH 31 pg (28-32) 06/06/22 05:42 MCHC 35 % (32-34) H 06/06/22 05:42 RDW 16.0 % (13.2-15.2) H 06/06/22 05:42 Plt Count 228 K/mm3 (140-440) 06/06/22 05:42 Lymph % (Auto) 11.1 % (13.4-35.0) L 06/06/22 05:42 [place] % (Auto) 15.5 % (0.0-7.3) H 06/06/22 05:42 Eos % (Auto) 0.4 % (0.0-4.3) 06/06/22 05:42 Baso % (Auto) 0.7 % (0.0-1.8) 06/06/22 05:42 Lymph # (Auto) 1.0 K/mm3 (1.2-5.4) L 06/06/22 05:42 [place] # (Auto) 1.4 K/mm3 (0.0-0.8) H 06/06/22 05:42 Eos # (Auto) 0.0 K/mm3 (0.0-0.4) 06/06/22 05:42 Baso # (Auto) 0.1 K/mm3 (0.0-0.1) 06/06/22 05:42 Seg Neutrophils % 72.3 % (40.0-70.0) H 06/06/22 05:42 Seg Neutrophils # 6.6 K/mm3 (1.8-7.7) 06/06/22 05:42 PT 17.0 Sec. (12.2-14.9) H 05/27/22 01:28 INR 1.23 (0.87-1.13) H 05/27/22 01:28 Sodium 140 mmol/L (137-145) 06/06/22 05:42 Potassium 4.1 mmol/L (3.6-5.0) 06/06/22 05:42 Chloride 97.0 mmol/L (98-107) L 06/06/22 05:42 Carbon Dioxide 31 mmol/L (22-30) H 06/06/22 05:42 Anion Gap 16 mmol/L 06/06/22 05:42 BUN 39 mg/dL (9-20) H 06/06/22 05:42 Creatinine 5.9 mg/dL (0.8-1.3) H 06/06/22 05:42 Estimated GFR 12 ml/min 06/06/22 05:42 BUN/Creatinine Ratio 7 % 06/06/22 05:42 Glucose 80 mg/dL (75-100) 06/06/22 05:42 POC Glucose 106 mg/dL (70-105) H 06/07/22 12:21 Calcium 8.2 mg/dL (8.4-10.2) L 06/06/22 05:42 Phosphorus 8.30 mg/dL (2.5-4.5) H 06/02/22 07:45 Magnesium 2.20 mg/dL (1.7-2.3) 05/28/22 07:22 Total Bilirubin 0.30 mg/dL (0.1-1.2) 05/29/22 04:23 AST 16 units/L (5-40) 05/29/22 04:23 ALT 16 units/L (7-56) 05/29/22 04:23 Alkaline Phosphatase 60 units/L (35-129) 05/29/22 04:23 Ammonia 39.0 umol/L (25-60) 06/05/22 05:26 Total Creatine Kinase 1147 units/L (55-170) H 05/27/22 01:28 Troponin T 0.933 ng/mL (0.00-0.029) H* 05/27/22 01:28 Total Protein 6.3 g/dL (6.3-8.2) 05/29/22 04:23 Albumin 2.4 g/dL (3.9-5) L 05/29/22 04:23 Albumin/Globulin Ratio 0.6 % 05/29/22 04:23 Triglycerides 178 mg/dL (2-149) H 05/27/22 01:28 Cholesterol 112 mg/dL (50-199) 05/27/22 01:28 LDL Cholesterol Direct 30 mg/dL (50-130) L 05/27/22 01:28 HDL Cholesterol 39 mg/dL (40-59) L 05/27/22 01:28 Cholesterol/HDL Ratio 2.87 % 05/27/22 01:28 Salicylates < 0.3 mg/dL (2.8-20.0) L 05/27/22 01:28 Acetaminophen 5.0 ug/mL (10.0-30.0) L 05/27/22 01:28 Plasma/Serum Alcohol < 0.01 % (0-0.07) 05/27/22 01:28 Coronavirus (PCR) Negative (Negative) 05/28/22 Unknown SARS-CoV-2 (PCR) Negative (Negative) 05/29/22 11:05 Hepatitis A IgM Ab Non-reactive (NonReactive) 05/27/22 01:28 Hep Bs Antigen Non-reactive (Negative) 05/27/22 01:28 Hep B Core IgM Ab Non-reactive (NonReactive) 05/27/22 01:28 Hepatitis C Antibody Non-reactive (NonReactive) 05/27/22 01:28 Blood Type A POSITIVE 05/28/22 10:00 Antibody Screen Negative 05/28/22 10:00 Crossmatch See Detail 05/28/22 10:00 Saez/IV: Voiding Method Condom Catheter Active Medications - Current Medications Current Medications: Generic Name Dose Route Start Last Admin Trade Name Freq PRN Reason Stop Dose Admin Acetaminophen 650 mg 05/27/22 19:48 Acetaminophen 325 Mg Tab PO Q4H PRN Pain MILD(1-3)/Fever >100.5/MUNOZ Aspirin 81 mg 05/28/22 10:00 06/07/22 10:40 Aspirin Ec 81 Mg Tab PO Not Given QDAY MYRIAM Dextrose 25 ml 06/03/22 22:03 06/03/22 23:21 Dextrose 50% In Water (25gm) 50 Ml Syringe IV 25 ml Q30MIN PRN Administration Hypoglycemia Protocol Epoetin Chris-epbx 20,000 unit 05/30/22 21:57 06/05/22 12:28 Epoetin Chris-Epbx 10,000 Unit/1 Ml Vial SUB-Q 20,000 unit HILDA PRN Administration hemodialysis Guaifenesin 200 mg 06/01/22 01:57 06/05/22 21:42 Guaifenesin 100 Mg/5 Ml Oral Liqd PO 200 mg Q4H PRN Administration Cough Heparin Sodium (Porcine) 5,000 unit 05/27/22 22:00 06/07/22 10:41 Heparin 5,000 Unit/1 Ml Vial SUB-Q Not Given Q12HR MYRIAM Hydromorphone HCl 0.5 mg 05/27/22 19:48 Hydromorphone 0.5 Mg/0.5 Ml Inj IV Q3H PRN Pain , Severe (7-10) Sodium Chloride 100 mls @ 999 mls/hr 06/02/22 08:23 Nacl 0.9% IV HILDA PRN Hypotension Insulin Human Lispro 0 unit 05/28/22 07:30 06/07/22 18:29 Insulin Lispro 100 Unit/Ml SUB-Q 2 unit ACHS [facility] Administration Protocol Levetiracetam 500 mg 05/28/22 10:00 06/07/22 10:42 Levetiracetam 500 Mg Tab PO Not Given BID [facility] Metoclopramide HCl 5 mg 05/30/22 09:00 06/05/22 01:51 Metoclopramide 10 Mg/2 Ml Inj IV 5 mg Q8H PRN Administration Nausea And Vomiting Metoprolol Tartrate 100 mg 05/28/22 10:00 06/07/22 10:42 Metoprolol Tartrate 100 Mg Tab PO Not Given BID [facility] Morphine Sulfate 2 mg 05/27/22 19:48 Morphine 2 Mg/1 Ml Inj IV Q4H PRN Pain, Moderate (4-6) Ondansetron HCl 4 mg 05/27/22 19:48 06/02/22 21:56 Ondansetron 4 Mg/2 Ml Inj IV 4 mg Q8H PRN Administration Nausea And Vomiting Oxycodone/Acetaminophen 1 tab 05/27/22 19:48 Oxycodone /Acetaminophen 5-325mg Tab PO Q6H PRN Pain, Moderate (4-6) Sevelamer Carbonate 2,400 mg 05/28/22 12:30 06/07/22 16:44 Sevelamer Carbonate 800 Mg Tab PO Not Given AC MYRIAM Sodium Chloride 10 ml 05/27/22 22:00 06/07/22 10:30 Sodium Chloride 0.9% 10 Ml Flush Syringe IV 10 ml BID MYRIAM Administration Sodium Chloride 10 ml 05/27/22 19:48 Sodium Chloride 0.9% 10 Ml Flush Syringe IV PRN PRN LINE FLUSH Zolpidem Tartrate 5 mg 06/01/22 01:56 06/05/22 01:00 Zolpidem 5 Mg Tab PO 5 mg QHS PRN Administration Sleep Nutrition/Malnutrition Assess - Dietary Evaluation Nutrition/Malnutrition Findings: Nutrition Notes Start: 05/30/22 15:24 Freq: Status: Active Protocol: Document 06/06/22 12:00 [place] (Rec: 06/06/22 12:18 [place] [id number]) Nutrition Notes Initial or Follow up Reassessment Current Diagnosis CKD (stage V CKD),Diabetes, Hypertension,Malnutrition Other Pertinent Diagnosis ESRD+HD, Seizure Disorder, Anemia, s/p Metabolic Encephalopathy. Current Diet Renal Diet (since D 05/27), D Suppl (from D 05/30). Labs/Tests 06/06: Cl 97.0, CO2 31, BUN 39 , Crea 5.9, Ca 8.2. Pertinent Medications 06/06: Renvela, others nutritionally unremarkable. Height 5 ft 9 in Weight 54.43 kg [place] Body Weight (kg) 72.72 BMI 17.7 Weight change and time frame No body weight change reported in 1 week. Weight Status Underweight Subjective/Other Information RD consult for routine F/U on Dietary Advancement. Diet continues as prescribed, Pt's PO intake of meals has been Good (100%) and well tolerated, according to ADL notes. Pt is on Room Air, O2 saturation @ 98%, according to Physical Assessment History notes. Pt presents incontinence, according to Physical Assessment History notes. Pt is awaiting SNF placement and HD chair; Pt is on restrains for safety, according to Progress notes. Percent of energy/protein needs met: Prescribed Renal Diet provides for energy/protein needs (2, 072 Kcal/77 g) during LOS; additionally, Dietary Supplements will compensate for possible poor or insufficient PO intake of meals with 1,275 Kcal and 57 g of protein. Burn Absent Trauma Absent GI Symptoms Other Food Allergy No Skin Integrity/Comment Assessment WNL. Current % PO Good (75-100%) Minimum of two criteria No Fluid Accumulation N/A Reduced [employer] Strength N/A (non-severe) Protein-Calorie Malnutrition N\A #1 Nutrition Diagnosis Inadequate protein-energy intake Comments: Diet continues as prescribed, Pt's PO intake of meals has been Good (100%) and well tolerated, according to ADL notes. No body weight change reported in 1 week. Diagnosis Progress(for reassessment Improved documentation) Is patient on ventilator? No Is Patient Ambulatory and/or Out of Bed No REE-([facility]-confined to bed) 1677.756 Kcal/Kg value to use for calculation 36 Approximate Energy Requirements Using 1959 kcal/Kg Calculation Used for Recommendations Kcal/kg Additional Notes Protein: >1.2 g/Kg ABW; >65 g/ day. Fluids: 1 ml/Kcal, or as per MD. Nutrition Intervention Change Diet Order: Continue Renal Diet as tolerated. Add Supplement/Snack (indicate name/kcal Continue Nepro w/CARBSTEADY; /protein ) TID. Provides kCal: 1,275 Provides Protein (gm) 57 Goal #1 Compensate, through dietary supplementation, for possible poor or insufficient PO intake of meals during LOS. Goal #2 Adjust the dietary intervention to better serve Pt's needs and clinical conditions during LOS. Follow-Up By: 06/13/22 Additional Comments Continue monitoring food tolerance, %PO intake of meals , dietary supplements, and BM.
[2022-06-07] MEDS: ONDANSETRON 4 MG/2 ML INJ IV PRN (22:15)
[2022-06-07] MEDS: guaiFENesin 100 MG/5 ML ORAL LIQD PO PRN (22:19)
--- NOTE | 2022-06-08 09:20 | Event Note ---
Date: 06/08/22 I discussed with patient's daughter Ms. Dorado in detail [when she visited her father] the patient's condition, tests and reports, consultants recommendations Need for hemodialysis, she had numerous questions I answered all of them, she wanted to talk to dialysis registered nurse, directed her to the nurse to connect her to the dialysis registered nurse. She verbalized understanding and was appreciative.
--- NOTE | 2022-06-08 09:25 | Progress Note ---
Assessment and Plan Assessment and plan: 51-year-old seizure disorder hypertension type 2 diabetes and end-stage renal disease on hemodialysis presents with lethargy and confusion. Family brought him to the emergency room stating that he is confused not oriented. His last known dialysis is not known. Improvement on fluids. No fever or chills. No seizures. Noncompliant with his medications. Assessment and Plan: (1) Acute metabolic encephalopathy (resolved) Secondary to severe uremia. His creatinine is 32.1 and BUN is 242. Family does not know how many days he has missed his hemodialysis. Patient to be counseled about compliance once he is more alert and oriented. (2) Hyperkalemia (improved) Treated in the emergency room and patient going for hemodialysis Correct with HD, (3) Metabolic acidosis (resolved) Secondary to severe uremia. ESRD Improved after dialysis (4) Seizure disorder Continue Keppra., Seizure precautions Supportive care (5) T2DM (type 2 diabetes mellitus) Coverage for now, Accu-Cheks sliding scale coverage ADA diet (6) ESRD needing dialysis Continue hemodialysis Nephrology following Patient to be counseled about compliance (7) Anemia of chronic kidney disease Secondary to chronic kidney disease Epogen as per nephrology 1 unit prbc given on 05/28. Hgb and VSS currently stable. Closely monitor H&H transfuse additional PRBC as needed (8) Hypertension Continue antihypertensives (9) severe protein calorie malnutrition Dietary supplements initiated Dietitian consult requested hospital course: 05/28: AOx4 on bedside encounter. Transfused 1 unit due to hgb 6.8. Patient stated he has now missed several dialysis sessions. He goes to [facility] [place] per patient. will place CM consultation to ensure patient still has chair. Anticipate d/c tomorrow. 05/29: Hgb improved to 7.7. 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 16: Await case management decision regarding outpatient hemodialysis 05/31: Physical therapy recommends SNF placement. We will discuss with case management disposition. Continue hemodialysis per nephrology recommendations. 06/01: Awaiting for arrangements for hemodialysis associated with half-way facility or outpatient hemodialysis chair. I discussed the case with case management 06/02: Awaiting for arrangements for hemodialysis associated with half-way facility or outpatient hemodialysis chair. Patient is less confused and appears to be back to baseline. 06/03: Awaiting for arrangements for hemodialysis associated with half-way facility or outpatient hemodialysis chair. Patient appears to be confused this morning. Continue restraints for safety 06/04: Awaiting for arrangements for hemodialysis associated with half-way facility or outpatient hemodialysis chair. Patient still with metabolic/uremic encephalopathy. Patient has had baseline cognitive decline. Continue restraints for safety 06/05: Patient remains confused and likely has had baseline cognitive decline. Awaiting for arrangements for hemodialysis associated with half-way facility or outpatient hemodialysis chair. Continue restraints for safety. 06/06; awaiting SNF/HD facility placement, DC planning per case management 06/07/2022; pending placement Spoke with patient's daughter Ms. Dorado extensively when she visited her father, patient's condition, tests and reports, consultants recommendations Need for hemodialysis, she had numerous questions I answered all of them, she wanted to talk to paper hanger, directed her to the nurse to connect her to the paper hanger. She verbalized understanding and was appreciative History Interval history: Have seen and examined the patient at the bedside, patient's chart and medications reviewed Patient is refusing dialysis, patient's family is aware No new events reported per nursing staff Vital signs noted Hospitalist Physical - Constitutional Vitals: Temp Pulse Resp BP Pulse Ox 97.3 F L 79 18 124/63 96 06/08/22 06:40 06/08/22 06:40 06/08/22 06:40 06/08/22 06:40 06/08/22 08:38 General appearance: Present: no acute distress, well-nourished, other (Confused) - EENT Eyes: Present: PERRL, EOM intact - Neck Neck: Present: supple, normal ROM - Respiratory Respiratory effort: normal Respiratory: bilateral: diminished, negative: rales, rhonchi, wheezing - Cardiovascular Rhythm: regular Heart Sounds: Present: S1 & S2 - Extremities Extremities: no ischemia, No edema - Abdominal General gastrointestinal: soft, non-tender, non-distended, normal bowel sounds - Integumentary Integumentary: Present: clear, warm - Psychiatric Psychiatric: appropriate mood/affect, cooperative - Neurologic Neurologic: moves all extremities HEART Score - HEART Score Troponin: Troponin T 0.933 ng/mL (0.00-0.029) H* 05/27/22 01:28 Results - Labs CBC & Chem 7: 06/06/22 05:42 06/09/22 04:00 Labs: Laboratory Last Values WBC 9.1 K/mm3 (4.5-11.0) 06/06/22 05:42 RBC 2.44 M/mm3 (3.65-5.03) L 06/06/22 05:42 Hgb 7.5 gm/dl (11.8-15.2) L 06/06/22 05:42 Hct 21.8 % (35.5-45.6) L 06/06/22 05:42 MCV 89 fl (84-94) 06/06/22 05:42 MCH 31 pg (28-32) 06/06/22 05:42 MCHC 35 % (32-34) H 06/06/22 05:42 RDW 16.0 % (13.2-15.2) H 06/06/22 05:42 Plt Count 228 K/mm3 (140-440) 06/06/22 05:42 Lymph % (Auto) 11.1 % (13.4-35.0) L 06/06/22 05:42 [place] % (Auto) 15.5 % (0.0-7.3) H 06/06/22 05:42 Eos % (Auto) 0.4 % (0.0-4.3) 06/06/22 05:42 Baso % (Auto) 0.7 % (0.0-1.8) 06/06/22 05:42 Lymph # (Auto) 1.0 K/mm3 (1.2-5.4) L 06/06/22 05:42 [place] # (Auto) 1.4 K/mm3 (0.0-0.8) H 06/06/22 05:42 Eos # (Auto) 0.0 K/mm3 (0.0-0.4) 06/06/22 05:42 Baso # (Auto) 0.1 K/mm3 (0.0-0.1) 06/06/22 05:42 Seg Neutrophils % 72.3 % (40.0-70.0) H 06/06/22 05:42 Seg Neutrophils # 6.6 K/mm3 (1.8-7.7) 06/06/22 05:42 PT 17.0 Sec. (12.2-14.9) H 05/27/22 01:28 INR 1.23 (0.87-1.13) H 05/27/22 01:28 Sodium 140 mmol/L (137-145) 06/06/22 05:42 Potassium 4.1 mmol/L (3.6-5.0) 06/06/22 05:42 Chloride 97.0 mmol/L (98-107) L 06/06/22 05:42 Carbon Dioxide 31 mmol/L (22-30) H 06/06/22 05:42 Anion Gap 16 mmol/L 06/06/22 05:42 BUN 39 mg/dL (9-20) H 06/06/22 05:42 Creatinine 5.9 mg/dL (0.8-1.3) H 06/06/22 05:42 Estimated GFR 12 ml/min 06/06/22 05:42 BUN/Creatinine Ratio 7 % 06/06/22 05:42 Glucose 80 mg/dL (75-100) 06/06/22 05:42 POC Glucose 63 mg/dL (70-105) L 06/07/22 22:18 Calcium 8.2 mg/dL (8.4-10.2) L 06/06/22 05:42 Phosphorus 8.30 mg/dL (2.5-4.5) H 06/02/22 07:45 Magnesium 2.20 mg/dL (1.7-2.3) 05/28/22 07:22 Total Bilirubin 0.30 mg/dL (0.1-1.2) 05/29/22 04:23 AST 16 units/L (5-40) 05/29/22 04:23 ALT 16 units/L (7-56) 05/29/22 04:23 Alkaline Phosphatase 60 units/L (35-129) 05/29/22 04:23 Ammonia 39.0 umol/L (25-60) 06/05/22 05:26 Total Creatine Kinase 1147 units/L (55-170) H 05/27/22 01:28 Troponin T 0.933 ng/mL (0.00-0.029) H* 05/27/22 01:28 Total Protein 6.3 g/dL (6.3-8.2) 05/29/22 04:23 Albumin 2.4 g/dL (3.9-5) L 05/29/22 04:23 Albumin/Globulin Ratio 0.6 % 05/29/22 04:23 Triglycerides 178 mg/dL (2-149) H 05/27/22 01:28 Cholesterol 112 mg/dL (50-199) 05/27/22 01:28 LDL Cholesterol Direct 30 mg/dL (50-130) L 05/27/22 01:28 HDL Cholesterol 39 mg/dL (40-59) L 05/27/22 01:28 Cholesterol/HDL Ratio 2.87 % 05/27/22 01:28 Salicylates < 0.3 mg/dL (2.8-20.0) L 05/27/22 01:28 Acetaminophen 5.0 ug/mL (10.0-30.0) L 05/27/22 01:28 Plasma/Serum Alcohol < 0.01 % (0-0.07) 05/27/22 01:28 Coronavirus (PCR) Negative (Negative) 05/28/22 Unknown SARS-CoV-2 (PCR) Negative (Negative) 05/29/22 11:05 Hepatitis A IgM Ab Non-reactive (NonReactive) 05/27/22 01:28 Hep Bs Antigen Non-reactive (Negative) 05/27/22 01:28 Hep B Core IgM Ab Non-reactive (NonReactive) 05/27/22 01:28 Hepatitis C Antibody Non-reactive (NonReactive) 05/27/22 01:28 Blood Type A POSITIVE 05/28/22 10:00 Antibody Screen Negative 05/28/22 10:00 Crossmatch See Detail 05/28/22 10:00 Saez/IV: Voiding Method Condom Catheter Active Medications - Current Medications Current Medications: Generic Name Dose Route Start Last Admin Trade Name Freq PRN Reason Stop Dose Admin Acetaminophen 650 mg 05/27/22 19:48 Acetaminophen 325 Mg Tab PO Q4H PRN Pain MILD(1-3)/Fever >100.5/MUNOZ Aspirin 81 mg 05/28/22 10:00 06/07/22 10:40 Aspirin Ec 81 Mg Tab PO Not Given QDAY MYRIAM Dextrose 25 ml 06/03/22 22:03 06/03/22 23:21 Dextrose 50% In Water (25gm) 50 Ml Syringe IV 25 ml Q30MIN PRN Administration Hypoglycemia Protocol Epoetin Chris-epbx 20,000 unit 05/30/22 21:57 06/05/22 12:28 Epoetin Chris-Epbx 10,000 Unit/1 Ml Vial SUB-Q 20,000 unit HILDA PRN Administration hemodialysis Guaifenesin 200 mg 06/01/22 01:57 06/07/22 22:19 Guaifenesin 100 Mg/5 Ml Oral Liqd PO 200 mg Q4H PRN Administration Cough Heparin Sodium (Porcine) 5,000 unit 05/27/22 22:00 06/07/22 22:23 Heparin 5,000 Unit/1 Ml Vial SUB-Q 5,000 unit Q12HR MYRIAM Administration Hydromorphone HCl 0.5 mg 05/27/22 19:48 Hydromorphone 0.5 Mg/0.5 Ml Inj IV Q3H PRN Pain , Severe (7-10) Sodium Chloride 100 mls @ 999 mls/hr 06/02/22 08:23 Nacl 0.9% IV HILDA PRN Hypotension Insulin Human Lispro 0 unit 05/28/22 07:30 06/07/22 22:36 Insulin Lispro 100 Unit/Ml SUB-Q Not Given ACHS [facility] Protocol Levetiracetam 500 mg 05/28/22 10:00 06/07/22 22:23 Levetiracetam 500 Mg Tab PO 500 mg BID MYRIAM Administration Metoclopramide HCl 5 mg 05/30/22 09:00 06/05/22 01:51 Metoclopramide 10 Mg/2 Ml Inj IV 5 mg Q8H PRN Administration Nausea And Vomiting Metoprolol Tartrate 100 mg 05/28/22 10:00 06/07/22 22:37 Metoprolol Tartrate 100 Mg Tab PO 100 mg BID MYRIAM Administration Morphine Sulfate 2 mg 05/27/22 19:48 Morphine 2 Mg/1 Ml Inj IV Q4H PRN Pain, Moderate (4-6) Ondansetron HCl 4 mg 05/27/22 19:48 06/07/22 22:15 Ondansetron 4 Mg/2 Ml Inj IV 4 mg Q8H PRN Administration Nausea And Vomiting Oxycodone/Acetaminophen 1 tab 05/27/22 19:48 Oxycodone /Acetaminophen 5-325mg Tab PO Q6H PRN Pain, Moderate (4-6) Sevelamer Carbonate 2,400 mg 05/28/22 12:30 06/07/22 16:44 Sevelamer Carbonate 800 Mg Tab PO Not Given AC MYRIAM Sodium Chloride 10 ml 05/27/22 22:00 06/07/22 22:22 Sodium Chloride 0.9% 10 Ml Flush Syringe IV 10 ml BID MYRIAM Administration Sodium Chloride 10 ml 05/27/22 19:48 Sodium Chloride 0.9% 10 Ml Flush Syringe IV PRN PRN LINE FLUSH Zolpidem Tartrate 5 mg 06/01/22 01:56 06/05/22 01:00 Zolpidem 5 Mg Tab PO 5 mg QHS PRN Administration Sleep Nutrition/Malnutrition Assess - Dietary Evaluation Nutrition/Malnutrition Findings: Nutrition Notes Start: 05/30/22 15:24 Freq: Status: Active Protocol: Document 06/06/22 12:00 [place] (Rec: 06/06/22 12:18 [place] [id number]) Nutrition Notes Initial or Follow up Reassessment Current Diagnosis CKD (stage V CKD),Diabetes, Hypertension,Malnutrition Other Pertinent Diagnosis ESRD+HD, Seizure Disorder, Anemia, s/p Metabolic Encephalopathy. Current Diet Renal Diet (since D 05/27), D Suppl (from D 05/30). Labs/Tests 06/06: Cl 97.0, CO2 31, BUN 39 , Crea 5.9, Ca 8.2. Pertinent Medications 06/06: Renvela, others nutritionally unremarkable. Height 5 ft 9 in Weight 54.43 kg [place] Body Weight (kg) 72.72 BMI 17.7 Weight change and time frame No body weight change reported in 1 week. Weight Status Underweight Subjective/Other Information RD consult for routine F/U on Dietary Advancement. Diet continues as prescribed, Pt's PO intake of meals has been Good (100%) and well tolerated, according to ADL notes. Pt is on Room Air, O2 saturation @ 98%, according to Physical Assessment History notes. Pt presents incontinence, according to Physical Assessment History notes. Pt is awaiting SNF placement and HD chair; Pt is on restrains for safety, according to Progress notes. Percent of energy/protein needs met: Prescribed Renal Diet provides for energy/protein needs (2, 072 Kcal/77 g) during LOS; additionally, Dietary Supplements will compensate for possible poor or insufficient PO intake of meals with 1,275 Kcal and 57 g of protein. Burn Absent Trauma Absent GI Symptoms Other Food Allergy No Skin Integrity/Comment Assessment WNL. Current % PO Good (75-100%) Minimum of two criteria No Fluid Accumulation N/A Reduced Hostess Strength N/A (non-severe) Protein-Calorie Malnutrition N\A #1 Nutrition Diagnosis Inadequate protein-energy intake Comments: Diet continues as prescribed, Pt's PO intake of meals has been Good (100%) and well tolerated, according to ADL notes. No body weight change reported in 1 week. Diagnosis Progress(for reassessment Improved documentation) Is patient on ventilator? No Is Patient Ambulatory and/or Out of Bed No REE-([facility]-confined to bed) 1677.756 Kcal/Kg value to use for calculation 36 Approximate Energy Requirements Using 1959 kcal/Kg Calculation Used for Recommendations Kcal/kg Additional Notes Protein: >1.2 g/Kg ABW; >65 g/ day. Fluids: 1 ml/Kcal, or as per MD. Nutrition Intervention Change Diet Order: Continue Renal Diet as tolerated. Add Supplement/Snack (indicate name/kcal Continue Nepro w/CARBSTEADY; /protein ) TID. Provides kCal: 1,275 Provides Protein (gm) 57 Goal #1 Compensate, through dietary supplementation, for possible poor or insufficient PO intake of meals during LOS. Goal #2 Adjust the dietary intervention to better serve Pt's needs and clinical conditions during LOS. Follow-Up By: 06/13/22 Additional Comments Continue monitoring food tolerance, %PO intake of meals , dietary supplements, and BM.
[2022-06-08] MEDS: ASPIRIN EC 81 MG TAB PO SCH (09:43)
[2022-06-08] MEDS: levETIRAcetam 500 MG TAB PO SCH ×2 (09:43→22:09)
[2022-06-08] MEDS: SEVELAMER CARBONATE 800 MG TAB PO SCH ×3 (09:43→18:13)
[2022-06-08] MEDS: HEPARIN 5,000 UNIT/1 ML VIAL SUB-Q SCH ×2 (09:43→22:10)
[2022-06-08] MEDS: METOPROLOL TARTRATE 100 MG TAB PO SCH ×2 (09:53→22:09)
[2022-06-08] MEDS: INSULIN LISPRO 100 UNIT/ML SUB-Q SCH ×4 (09:53→22:23)
[2022-06-08] MEDS ORDERED: HEPARIN 10,000 UNITS/10 ML VIAL IV PRN (10:39)
--- NOTE | 2022-06-08 12:43 | Progress Note ---
Assessment and Plan 1. ESRD: Patient is on maintenance HD. Last outpatient HD unknown. Meds dosage based on GFR. Hemodialysis: 05/27, 05/29, 05/31, 06/02, 06/05. Again patient refused HD today. 2. FEN: Hyperkalemia, improved, on HD. Hypernatremia, improved. On Phos binders. Monitor lytes and volume status. 3. Acute Metabolic Encephalopathy, POA: Suspected Uremic encephalopathy. Baseline cognitive decline. Monitor. 4. Seizure: On Keppra. 5. Normocytic anemia, POA: S/p PRBC. Epogen with HD. Monitor. 6. T2DM (type 2 diabetes mellitus): SSI. 7. Medical non-compliance: Counseled. Subjective: Patient was seen and examined at the bedside. Examination: General appearance: well-developed, emaciated, no distress HEENT: ATNC, pupils equal Neck: trachea midline Respiratory: Clear to Auscultation Cardiology: regular, S1S2, no murmur Gastrointestinal: soft, normoactive bowel sounds, not tender, ND Integumentary: diffuse discrete papular rash, fading Neurologic: alert, oriented to self, able to move extremities Ext: no edema noted Hemodialysis access: L arm AVF/AVG Subjective Date of service: 06/08/22 Objective - Vital Signs Vital signs: Vital Signs - 12hr 06/08/22 06/08/22 06/08/22 06:40 08:38 09:44 Temperature 97.3 F L Pulse Rate 79 Respiratory 18 Rate Blood Pressure 124/63 109/54 O2 Sat by Pulse 99 96 Oximetry 06/08/22 06/08/22 09:52 09:53 Temperature Pulse Rate 78 78 Respiratory Rate Blood Pressure 109/54 O2 Sat by Pulse Oximetry - Lab 06/06/22 05:42 06/06/22 05:42 Most recent lab results Calcium 8.2 mg/dL (8.4-10.2) L 06/06/22 05:42 Phosphorus 8.30 mg/dL (2.5-4.5) H 06/02/22 07:45 Magnesium 2.20 mg/dL (1.7-2.3) 05/28/22 07:22 Medications & Allergies - Medications Allergies/Adverse Reactions: Allergies No Known Allergies Allergy (Unverified 03/21/22 18:10) Home Medications: Home Medications Medication Instructions Recorded Confirmed Last Taken Type Aspirin EC [Halfprin EC] 81 mg PO QDAY #30 tablet. 06/08/22 Unknown Rx Metoprolol [Lopressor TAB] 100 mg PO BID #60 tablet 06/08/22 Unknown Rx Sevelamer Carbonate [Renvela] 2,400 mg PO AC #60 tablet 06/08/22 Unknown Rx Zolpidem [Ambien] 5 mg PO QHS PRN #7 tablet 06/08/22 Unknown Rx levETIRAcetam [Keppra TAB] 500 mg PO BID #60 tablet 06/08/22 Unknown Rx Active Medications: Generic Name Dose Route Start Last Admin Trade Name Freq PRN Reason Stop Dose Admin Acetaminophen 650 mg 05/27/22 19:48 Acetaminophen 325 Mg Tab PO Q4H PRN Pain MILD(1-3)/Fever >100.5/MUNOZ Aspirin 81 mg 05/28/22 10:00 06/08/22 09:43 Aspirin Ec 81 Mg Tab PO 81 mg QDAY MYRIAM Administration Dextrose 25 ml 06/03/22 22:03 06/03/22 23:21 Dextrose 50% In Water (25gm) 50 Ml Syringe IV 25 ml Q30MIN PRN Administration Hypoglycemia Protocol Epoetin Chris-epbx 20,000 unit 05/30/22 21:57 06/05/22 12:28 Epoetin Chris-Epbx 10,000 Unit/1 Ml Vial SUB-Q 20,000 unit HILDA PRN Administration hemodialysis Guaifenesin 200 mg 06/01/22 01:57 06/07/22 22:19 Guaifenesin 100 Mg/5 Ml Oral Liqd PO 200 mg Q4H PRN Administration Cough Heparin Sodium (Porcine) 5,000 unit 05/27/22 22:00 06/08/22 09:43 Heparin 5,000 Unit/1 Ml Vial SUB-Q 5,000 unit Q12HR MYRIAM Administration Heparin Sodium (Porcine) 3,000 unit 06/08/22 10:39 Heparin 10,000 Units/10 Ml Vial IV HILDA PRN hemodialysis Hydromorphone HCl 0.5 mg 05/27/22 19:48 Hydromorphone 0.5 Mg/0.5 Ml Inj IV Q3H PRN Pain , Severe (7-10) Sodium Chloride 100 mls @ 999 mls/hr 06/02/22 08:23 Nacl 0.9% IV HILDA PRN Hypotension Insulin Human Lispro 0 unit 05/28/22 07:30 06/08/22 12:01 Insulin Lispro 100 Unit/Ml SUB-Q Not Given ACHS [facility] Protocol Levetiracetam 500 mg 05/28/22 10:00 06/08/22 09:43 Levetiracetam 500 Mg Tab PO 500 mg BID MYRIAM Administration Metoclopramide HCl 5 mg 05/30/22 09:00 06/05/22 01:51 Metoclopramide 10 Mg/2 Ml Inj IV 5 mg Q8H PRN Administration Nausea And Vomiting Metoprolol Tartrate 100 mg 05/28/22 10:00 06/08/22 09:53 Metoprolol Tartrate 100 Mg Tab PO Not Given BID [facility] Morphine Sulfate 2 mg 05/27/22 19:48 Morphine 2 Mg/1 Ml Inj IV Q4H PRN Pain, Moderate (4-6) Ondansetron HCl 4 mg 05/27/22 19:48 06/07/22 22:15 Ondansetron 4 Mg/2 Ml Inj IV 4 mg Q8H PRN Administration Nausea And Vomiting Oxycodone/Acetaminophen 1 tab 05/27/22 19:48 Oxycodone /Acetaminophen 5-325mg Tab PO Q6H PRN Pain, Moderate (4-6) Sevelamer Carbonate 2,400 mg 05/28/22 12:30 06/08/22 09:43 Sevelamer Carbonate 800 Mg Tab PO 2,400 mg AC MYRIAM Administration Sodium Chloride 10 ml 05/27/22 22:00 06/08/22 09:43 Sodium Chloride 0.9% 10 Ml Flush Syringe IV Not Given BID MYRIAM Sodium Chloride 10 ml 05/27/22 19:48 Sodium Chloride 0.9% 10 Ml Flush Syringe IV PRN PRN LINE FLUSH Zolpidem Tartrate 5 mg 06/01/22 01:56 06/05/22 01:00 Zolpidem 5 Mg Tab PO 5 mg QHS PRN Administration Sleep
--- NOTE | 2022-06-08 13:19 | Discharge Summary ---
Providers - Providers Date of Admission: 05/27/22 19:48 Date of discharge: 06/08/22 Attending physician: ZAC CALVO 05/27/22 04:12 Consult to Physician [CONS] Stat Comment: Consulting Provider: JENNIFER DAVEY Physician Instructions: Reason For Exam: uremia 05/27/22 13:38 Consult to Physician [CONS] Stat Comment: Consulting Provider: SARIKA MARQUEZ Physician Instructions: Reason For Exam: uremia 05/28/22 13:17 Consult to Case Management [CONS] Routine Services Needed at Discharge: Other Notified:: CM Comment:: verify patient still has OP dialysis chair. 05/29/22 15:59 Occupational Therapy Evaluate and Treat [CONS] Routine Comment: Reason For Exam: Debility Physical Therapy Evaluation and Treat [CONS] Routine Comment: Reason For Exam: Debility Primary care physician: ALDEN MARTINEZ Hospitalization Condition: Critical Hospital course: 51-year-old seizure disorder hypertension type 2 diabetes and end-stage renal disease on hemodialysis presents with lethargy and confusion. Family brought him to the emergency room stating that he is confused not oriented. His last known dialysis is not known. Improvement on fluids. No fever or chills. No seizures. Noncompliant with his medications. Assessment and Plan: (1) Acute metabolic encephalopathy (resolved) Secondary to severe uremia. His creatinine is 32.1 and BUN is 242. Family does not know how many days he has missed his hemodialysis. Patient to be counseled about compliance once he is more alert and oriented. (2) Hyperkalemia (improved) Treated in the emergency room and patient going for hemodialysis Correct with HD, (3) Metabolic acidosis (resolved) Secondary to severe uremia. ESRD Improved after dialysis (4) Seizure disorder Continue Keppra., Seizure precautions Supportive care (5) T2DM (type 2 diabetes mellitus) Coverage for now, Accu-Cheks sliding scale coverage ADA diet (6) ESRD needing dialysis Continue hemodialysis Nephrology following Patient to be counseled about compliance (7) Anemia of chronic kidney disease Secondary to chronic kidney disease Epogen as per nephrology 1 unit prbc given on 05/28. Hgb and VSS currently stable. Closely monitor H&H transfuse additional PRBC as needed (8) Hypertension Continue antihypertensives (9) severe protein calorie malnutrition Dietary supplements initiated Dietitian consult requested hospital course: 05/28: AOx4 on bedside encounter. Transfused 1 unit due to hgb 6.8. Patient stated he has now missed several dialysis sessions. He goes to [facility] [place] per patient. will place CM consultation to ensure patient still has chair. Anticipate d/c tomorrow. 05/29: Hgb improved to 7.7. 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 05/30: Await case management decision regarding outpatient hemodialysis 05/31: Physical therapy recommends SNF placement. We will discuss with case management disposition. Continue hemodialysis per nephrology recommendations. 06/01: Awaiting for arrangements for hemodialysis associated with long-term facility or outpatient hemodialysis chair. I discussed the case with case management 06/02: Awaiting for arrangements for hemodialysis associated with long-term facility or outpatient hemodialysis chair. Patient is less confused and appears to be back to baseline. 06/03: Awaiting for arrangements for hemodialysis associated with long-term facility or outpatient hemodialysis chair. Patient appears to be confused this morning. Continue restraints for safety 06/04: Awaiting for arrangements for hemodialysis associated with long-term facility or outpatient hemodialysis chair. Patient still with metabolic/uremic encephalopathy. Patient has had baseline cognitive decline. Continue restraints for safety 06/05: Patient remains confused and likely has had baseline cognitive decline. Awaiting for arrangements for hemodialysis associated with long-term facility or outpatient hemodialysis chair. Continue restraints for safety. 06/06; awaiting SNF/HD facility placement, DC planning per case management 06/07/2022; pending placement Spoke with patient's daughter Ms. Dorado extensively when she visited her father, patient's condition, tests and reports, consultants recommendations Need for hemodialysis, she had numerous questions I answered all of them, she wanted to talk to city dispatcher, directed her to the nurse to connect her to the city dispatcher. She verbalized understanding and was appreciative Disposition: HOME HEALTH CARE SERVICE Final Discharge Diagnosis (Prints w/discharge instructions): Acute metabolic encephalopathy slightly improved. Hyperkalemia improved. Metabolic acidosis improved. Seizure disorder. Type 2 diabetes mellitus. End-stage renal disease on dialysis. Anemia of chronic disease. Hypertension. Severe protein calorie malnutrition. Medical noncompliance Exam - Constitutional Vitals: Temp Pulse Resp BP Pulse Ox 97.3 F L 78 18 109/54 96 06/08/22 06:40 06/08/22 09:53 06/08/22 06:40 06/08/22 09:53 06/08/22 08:38 Plan Additional Instructions: Advised to follow renal, hemodialysis per schedule. Strongly advised to comply with medications, diet, follow-up visits and dialysis. If you have worsening symptoms contact MD or go to the nearest emergency room as needed Follow up with: ALDEN MARTINEZ MD [Primary Care Provider] - 3-5 Days SARIKA MARQUEZ MD [Staff Physician] - 7 Days Prescriptions: Zolpidem [Ambien] 5 mg PO QHS PRN #7 tablet PRN Reason: Sleep Aspirin EC [Halfprin EC] 81 mg PO QDAY #30 tablet. levETIRAcetam [Keppra TAB] 500 mg PO BID #60 tablet Metoprolol [Lopressor TAB] 100 mg PO BID #60 tablet Sevelamer Carbonate [Renvela] 2,400 mg PO AC #60 tablet
[2022-06-09 06:51] LABS: Calcium 8.3 mg/dL (8.4-10.2)
[2022-06-09] MEDS: INSULIN LISPRO 100 UNIT/ML SUB-Q SCH ×4 (07:29→22:52)
--- NOTE | 2022-06-09 08:25 | Progress Note ---
Assessment and Plan 1. ESRD: Patient is on maintenance HD. Last outpatient HD unknown. Meds dosage based on GFR. Hemodialysis: 05/27, 05/29, 05/31, 06/02, 06/05. Patient refused HD today. 2. FEN: Hyperkalemia, improved, on HD. Hypernatremia, improved. On Phos binders. Monitor lytes and volume status. 3. Acute Metabolic Encephalopathy, POA: Suspected Uremic encephalopathy. Baseline cognitive decline. Monitor. 4. Seizure: On Keppra. 5. Normocytic anemia, POA: S/p PRBC. Epogen with HD. Monitor. 6. T2DM (type 2 diabetes mellitus): SSI. 7. Medical non-compliance: Counseled. Subjective: Patient was seen and examined at the bedside. Examination: General appearance: well-developed, emaciated, no distress HEENT: ATNC, pupils equal Neck: trachea midline Respiratory: Clear to Auscultation Cardiology: regular, S1S2, no murmur Gastrointestinal: soft, normoactive bowel sounds, not tender, ND Integumentary: diffuse discrete papular rash, fading Neurologic: alert, oriented to self, able to move extremities Ext: no edema noted Hemodialysis access: L arm AVF/AVG Subjective Date of service: 06/09/22 Objective - Vital Signs Vital signs: Vital Signs - 12hr 06/08/22 06/08/22 06/08/22 22:00 22:05 22:09 Temperature 98.4 F Pulse Rate 86 86 Respiratory 18 Rate Blood Pressure 131/74 131/74 O2 Sat by Pulse 94 94 Oximetry 06/09/22 02:30 Temperature 98.0 F Pulse Rate 78 Respiratory 18 Rate Blood Pressure 109/61 O2 Sat by Pulse 99 Oximetry - Lab 06/06/22 05:42 06/09/22 04:00 Most recent lab results Calcium 8.3 mg/dL (8.4-10.2) L 06/09/22 04:00 Phosphorus 8.30 mg/dL (2.5-4.5) H 06/02/22 07:45 Magnesium 2.20 mg/dL (1.7-2.3) 05/28/22 07:22 Medications & Allergies - Medications Allergies/Adverse Reactions: Allergies No Known Allergies Allergy (Unverified 03/21/22 18:10) Home Medications: Home Medications Medication Instructions Recorded Confirmed Last Taken Type Aspirin EC [Halfprin EC] 81 mg PO QDAY #30 tablet. 06/08/22 Unknown Rx Metoprolol [Lopressor TAB] 100 mg PO BID #60 tablet 06/08/22 Unknown Rx Sevelamer Carbonate [Renvela] 2,400 mg PO AC #60 tablet 06/08/22 Unknown Rx Zolpidem [Ambien] 5 mg PO QHS PRN #7 tablet 06/08/22 Unknown Rx levETIRAcetam [Keppra TAB] 500 mg PO BID #60 tablet 06/08/22 Unknown Rx Active Medications: Generic Name Dose Route Start Last Admin Trade Name Freq PRN Reason Stop Dose Admin Acetaminophen 650 mg 05/27/22 19:48 Acetaminophen 325 Mg Tab PO Q4H PRN Pain MILD(1-3)/Fever >100.5/MUNOZ Aspirin 81 mg 05/28/22 10:00 06/08/22 09:43 Aspirin Ec 81 Mg Tab PO 81 mg QDAY MYRIAM Administration Dextrose 25 ml 06/03/22 22:03 06/03/22 23:21 Dextrose 50% In Water (25gm) 50 Ml Syringe IV 25 ml Q30MIN PRN Administration Hypoglycemia Protocol Epoetin Chris-epbx 20,000 unit 05/30/22 21:57 06/05/22 12:28 Epoetin Chris-Epbx 10,000 Unit/1 Ml Vial SUB-Q 20,000 unit HILDA PRN Administration hemodialysis Guaifenesin 200 mg 06/01/22 01:57 06/07/22 22:19 Guaifenesin 100 Mg/5 Ml Oral Liqd PO 200 mg Q4H PRN Administration Cough Heparin Sodium (Porcine) 5,000 unit 05/27/22 22:00 06/08/22 22:10 Heparin 5,000 Unit/1 Ml Vial SUB-Q 5,000 unit Q12HR MYRIAM Administration Heparin Sodium (Porcine) 3,000 unit 06/08/22 10:39 Heparin 10,000 Units/10 Ml Vial IV HILDA PRN hemodialysis Hydromorphone HCl 0.5 mg 05/27/22 19:48 Hydromorphone 0.5 Mg/0.5 Ml Inj IV Q3H PRN Pain , Severe (7-10) Sodium Chloride 100 mls @ 999 mls/hr 06/02/22 08:23 Nacl 0.9% IV HILDA PRN Hypotension Insulin Human Lispro 0 unit 05/28/22 07:30 06/08/22 22:23 Insulin Lispro 100 Unit/Ml SUB-Q Not Given A[facility]S [facility] Protocol Levetiracetam 500 mg 05/28/22 10:00 06/08/22 22:09 Levetiracetam 500 Mg Tab PO 500 mg BID MYRIAM Administration Metoclopramide HCl 5 mg 05/30/22 09:00 06/05/22 01:51 Metoclopramide 10 Mg/2 Ml Inj IV 5 mg Q8H PRN Administration Nausea And Vomiting Metoprolol Tartrate 100 mg 05/28/22 10:00 06/08/22 22:09 Metoprolol Tartrate 100 Mg Tab PO 100 mg BID MYRIAM Administration Morphine Sulfate 2 mg 05/27/22 19:48 Morphine 2 Mg/1 Ml Inj IV Q4H PRN Pain, Moderate (4-6) Ondansetron HCl 4 mg 05/27/22 19:48 06/07/22 22:15 Ondansetron 4 Mg/2 Ml Inj IV 4 mg Q8H PRN Administration Nausea And Vomiting Oxycodone/Acetaminophen 1 tab 05/27/22 19:48 Oxycodone /Acetaminophen 5-325mg Tab PO Q6H PRN Pain, Moderate (4-6) Sevelamer Carbonate 2,400 mg 05/28/22 12:30 06/08/22 18:13 Sevelamer Carbonate 800 Mg Tab PO Not Given AC MYRIAM Sodium Chloride 10 ml 05/27/22 22:00 06/08/22 22:11 Sodium Chloride 0.9% 10 Ml Flush Syringe IV 10 ml BID MYRIAM Administration Sodium Chloride 10 ml 05/27/22 19:48 Sodium Chloride 0.9% 10 Ml Flush Syringe IV PRN PRN LINE FLUSH Zolpidem Tartrate 5 mg 06/01/22 01:56 06/05/22 01:00 Zolpidem 5 Mg Tab PO 5 mg QHS PRN Administration Sleep
[2022-06-09] MEDS: SEVELAMER CARBONATE 800 MG TAB PO SCH ×3 (08:32→18:32)
[2022-06-09] MEDS: HEPARIN 5,000 UNIT/1 ML VIAL SUB-Q SCH ×2 (10:48→22:52)
[2022-06-09] MEDS: ASPIRIN EC 81 MG TAB PO SCH (10:48)
[2022-06-09] MEDS: levETIRAcetam 500 MG TAB PO SCH ×2 (10:49→22:52)
[2022-06-09] MEDS: METOPROLOL TARTRATE 100 MG TAB PO SCH ×2 (10:50→22:52)
[2022-06-09] MEDS: EPOETIN ALFA-EPBX 10,000 UNIT/1 ML VIAL SUB-Q PRN (11:25)
[2022-06-09 17:14] VITALS: BP 119/67
--- NOTE | 2022-06-09 19:06 | Progress Note ---
Assessment and Plan Assessment and plan: 51-year-old seizure disorder hypertension type 2 diabetes and end-stage renal disease on hemodialysis presents with lethargy and confusion. Family brought him to the emergency room stating that he is confused not oriented. His last known dialysis is not known. Improvement on fluids. No fever or chills. No seizures. Noncompliant with his medications. Patient has been refusing dialysis for few days, however today he agreed for dialysis and received HD today Assessment and Plan: (1) Acute metabolic encephalopathy (resolved) Secondary to severe uremia. His creatinine is 32.1 and BUN is 242. Family does not know how many days he has missed his hemodialysis. Patient to be counseled about compliance once he is more alert and oriented. (2) Hyperkalemia (improved) Treated in the emergency room and patient going for hemodialysis Correct with HD, (3) Metabolic acidosis (resolved) Secondary to severe uremia. ESRD Improved after dialysis (4) Seizure disorder Continue Keppra., Seizure precautions Supportive care (5) T2DM (type 2 diabetes mellitus) Coverage for now, Accu-Cheks sliding scale coverage ADA diet (6) ESRD needing dialysis Continue hemodialysis Nephrology following Patient to be counseled about compliance (7) Anemia of chronic kidney disease Secondary to chronic kidney disease Epogen as per nephrology 1 unit prbc given on 05/28. Hgb and VSS currently stable. Closely monitor H&H transfuse additional PRBC as needed (8) Hypertension Continue antihypertensives (9) severe protein calorie malnutrition Dietary supplements initiated Dietitian consult requested Advance care planning; +30 minutes Patient's condition, tests and reports discussed with the patient and the daughter, consultants recommendations discussed with the patient and the daughter Need for hemodialysis, outpatient HD chair placement discussed with the daughter and the patient Noncompliance with hemodialysis and its risks and consequences explained to the patient and the daughter. Agreed with the treatment plan hospital course: 05/28: AOx4 on bedside encounter. Transfused 1 unit due to hgb 6.8. Patient stated he has now missed several dialysis sessions. He goes to [facility] by ashanti irwin per patient. will place CM consultation to ensure patient still has chair. Anticipate d/c tomorrow. 05/29: Hgb improved to 7.7. 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 05/30: Await case management decision regarding outpatient hemodialysis 05/31: Physical therapy recommends SNF placement. We will discuss with case management disposition. Continue hemodialysis per nephrology recommendations. 06/01: Awaiting for arrangements for hemodialysis associated with [facility] facility or outpatient hemodialysis chair. I discussed the case with case manag spencer 06/02: Awaiting for arrangements for hemodialysis associated with [facility] facility or outpatient hemodialysis chair. Patient is less confused and appears to be back to baseline. 06/03: Awaiting for arrangements for hemodialysis associated with [facility] facility or outpatient hemodialysis chair. Patient appears to be confused this morning. Continue restraints for safety 06/04: Awaiting for arrangements for hemodialysis associated with [facility] facility or outpatient hemodialysis chair. Patient still with metabolic/uremic encephalopathy. Patient has had baseline cognitive decline. Continue restraints for safety 06/05: Patient remains confused and likely has had baseline cognitive decline. Awaiting for arrangements for hemodialysis associated with [facility] facility or outpatient hemodialysis chair. Continue restraints for safety. 06/06; awaiting SNF/HD facility placement, DC planning per case management 06/07/2022; pending placement Spoke with patient's daughter Ms. Dorado extensively when she visited her father, patient's condition, tests and reports, consultants recommendations Need for hemodialysis, she had numerous questions I answered all of them, she wanted to talk to screen door maker, directed her to the nurse to connect her to the screen door maker. She verbalized understanding and was appreciative 06/09/22; after refusing few treatments of hemodialysis, the patient agreed for dialysis and received 1 DC planning per case management, home with home health versus placement Patient is medically stable for discharge History Interval history: After refusing few treatments of hemodialysis ,patient agreed and received hemodialysis today 06/09/2022 No new complaints, vital signs reviewed Awaiting placement Hospitalist Physical - Constitutional Vitals: Temp Pulse Resp BP Pulse Ox 97.5 F L 81 18 119/67 95 06/09/22 16:45 06/09/22 16:45 06/09/22 16:45 06/09/22 16:45 06/09/22 16:45 General appearance: Present: no acute distress, well-nourished, other (Confused) - EENT Eyes: Present: PERRL, EOM intact - Neck Neck: Present: supple, normal ROM - Respiratory Respiratory effort: normal Respiratory: bilateral: diminished, negative: rales, rhonchi, wheezing - Cardiovascular Rhythm: regular Heart Sounds: Present: S1 & S2 - Extremities Extremities: no ischemia, No edema - Abdominal General gastrointestinal: soft, non-tender, non-distended, normal bowel sounds - Integumentary Integumentary: Present: clear - Psychiatric Psychiatric: appropriate mood/affect, cooperative - Neurologic Neurologic: moves all extremities HEART Score - HEART Score Troponin: Troponin T 0.933 ng/mL (0.00-0.029) H* 05/27/22 01:28 Results - Labs CBC & Chem 7: 06/06/22 05:42 06/09/22 04:00 Labs: Laboratory Last Values WBC 9.1 K/mm3 (4.5-11.0) 06/06/22 05:42 RBC 2.44 M/mm3 (3.65-5.03) L 06/06/22 05:42 Hgb 7.5 gm/dl (11.8-15.2) L 06/06/22 05:42 Hct 21.8 % (35.5-45.6) L 06/06/22 05:42 MCV 89 fl (84-94) 06/06/22 05:42 MCH 31 pg (28-32) 06/06/22 05:42 MCHC 35 % (32-34) H 06/06/22 05:42 RDW 16.0 % (13.2-15.2) H 06/06/22 05:42 Plt Count 228 K/mm3 (140-440) 06/06/22 05:42 Lymph % (Auto) 11.1 % (13.4-35.0) L 06/06/22 05:42 Morgan % (Auto) 15.5 % (0.0-7.3) H 06/06/22 05:42 Eos % (Auto) 0.4 % (0.0-4.3) 06/06/22 05:42 Baso % (Auto) 0.7 % (0.0-1.8) 06/06/22 05:42 Lymph # (Auto) 1.0 K/mm3 (1.2-5.4) L 06/06/22 05:42 Morgan # (Auto) 1.4 K/mm3 (0.0-0.8) H 06/06/22 05:42 Eos # (Auto) 0.0 K/mm3 (0.0-0.4) 06/06/22 05:42 Baso # (Auto) 0.1 K/mm3 (0.0-0.1) 06/06/22 05:42 Seg Neutrophils % 72.3 % (40.0-70.0) H 06/06/22 05:42 Seg Neutrophils # 6.6 K/mm3 (1.8-7.7) 06/06/22 05:42 PT 17.0 Sec. (12.2-14.9) H 05/27/22 01:28 INR 1.23 (0.87-1.13) H 05/27/22 01:28 Sodium 148 mmol/L (137-145) H D 06/09/22 04:00 Potassium 4.3 mmol/L (3.6-5.0) 06/09/22 04:00 Chloride 94.2 mmol/L (98-107) L 06/09/22 04:00 Carbon Dioxide 38 mmol/L (22-30) H D 06/09/22 04:00 Anion Gap 20 mmol/L 06/09/22 04:00 BUN 78 mg/dL (9-20) H 06/09/22 04:00 Creatinine 10.8 mg/dL (0.8-1.3) H D 06/09/22 04:00 Estimated GFR 6 ml/min 06/09/22 04:00 BUN/Creatinine Ratio 7 % 06/09/22 04:00 Glucose 80 mg/dL (75-100) 06/09/22 04:00 POC Glucose 82 mg/dL (70-105) 06/08/22 22:03 Calcium 8.3 mg/dL (8.4-10.2) L 06/09/22 04:00 Phosphorus 8.30 mg/dL (2.5-4.5) H 06/02/22 07:45 Magnesium 2.20 mg/dL (1.7-2.3) 05/28/22 07:22 Total Bilirubin 0.30 mg/dL (0.1-1.2) 05/29/22 04:23 AST 16 units/L (5-40) 05/29/22 04:23 ALT 16 units/L (7-56) 05/29/22 04:23 Alkaline Phosphatase 60 units/L (35-129) 05/29/22 04:23 Ammonia 39.0 umol/L (25-60) 06/05/22 05:26 Total Creatine Kinase 1147 units/L (55-170) H 05/27/22 01:28 Troponin T 0.933 ng/mL (0.00-0.029) H* 05/27/22 01:28 Total Protein 6.3 g/dL (6.3-8.2) 05/29/22 04:23 Albumin 2.4 g/dL (3.9-5) L 05/29/22 04:23 Albumin/Globulin Ratio 0.6 % 05/29/22 04:23 Triglycerides 178 mg/dL (2-149) H 05/27/22 01:28 Cholesterol 112 mg/dL (50-199) 05/27/22 01:28 LDL Cholesterol Direct 30 mg/dL (50-130) L 05/27/22 01:28 HDL Cholesterol 39 mg/dL (40-59) L 05/27/22 01:28 Cholesterol/HDL Ratio 2.87 % 05/27/22 01:28 Salicylates < 0.3 mg/dL (2.8-20.0) L 05/27/22 01:28 Acetaminophen 5.0 ug/mL (10.0-30.0) L 05/27/22 01:28 Plasma/Serum Alcohol < 0.01 % (0-0.07) 05/27/22 01:28 Coronavirus (PCR) Negative (Negative) 05/28/22 Unknown SARS-CoV-2 (PCR) Negative (Negative) 05/29/22 11:05 Hepatitis A IgM Ab Non-reactive (NonReactive) 05/27/22 01:28 Hep Bs Antigen Non-reactive (Negative) 05/27/22 01:28 Hep B Core IgM Ab Non-reactive (NonReactive) 05/27/22 01:28 Hepatitis C Antibody Non-reactive (NonReactive) 05/27/22 01:28 Blood Type A POSITIVE 05/28/22 10:00 Antibody Screen Negative 05/28/22 10:00 Crossmatch See Detail 05/28/22 10:00 Saez/IV: Voiding Method Condom Catheter Active Medications - Current Medications Current Medications: Generic Name Dose Route Start Last Admin Trade Name Freq PRN Reason Stop Dose Admin Acetaminophen 650 mg 05/27/22 19:48 Acetaminophen 325 Mg Tab PO Q4H PRN Pain MILD(1-3)/Fever >100.5/MUNOZ Aspirin 81 mg 05/28/22 10:00 06/08/22 09:43 Aspirin Ec 81 Mg Tab PO 81 mg QDAY MYRIAM Administration Dextrose 25 ml 06/03/22 22:03 06/03/22 23:21 Dextrose 50% In Water (25gm) 50 Ml Syringe IV 25 ml Q30MIN PRN Administration Hypoglycemia Protocol Epoetin Chris-epbx 20,000 unit 05/30/22 21:57 06/09/22 11:25 Epoetin Chris-Epbx 10,000 Unit/1 Ml Vial SUB-Q 20,000 unit HILDA PRN Administration hemodialysis Guaifenesin 200 mg 06/01/22 01:57 06/07/22 22:19 Guaifenesin 100 Mg/5 Ml Oral Liqd PO 200 mg Q4H PRN Administration Cough Heparin Sodium (Porcine) 5,000 unit 05/27/22 22:00 06/08/22 22:10 Heparin 5,000 Unit/1 Ml Vial SUB-Q 5,000 unit Q12HR MYRIAM Administration Heparin Sodium (Porcine) 3,000 unit 06/08/22 10:39 Heparin 10,000 Units/10 Ml Vial IV HILDA PRN hemodialysis Hydromorphone HCl 0.5 mg 05/27/22 19:48 Hydromorphone 0.5 Mg/0.5 Ml Inj IV Q3H PRN Pain , Severe (7-10) Sodium Chloride 100 mls @ 999 mls/hr 06/02/22 08:23 Nacl 0.9% IV HILDA PRN Hypotension Insulin Human Lispro 0 unit 05/28/22 07:30 06/08/22 22:23 Insulin Lispro 100 Unit/Ml SUB-Q Not Given ACHS MYRIAM Protocol Levetiracetam 500 mg 05/28/22 10:00 06/08/22 22:09 Levetiracetam 500 Mg Tab PO 500 mg BID MYRIAM Administration Metoclopramide HCl 5 mg 05/30/22 09:00 06/05/22 01:51 Metoclopramide 10 Mg/2 Ml Inj IV 5 mg Q8H PRN Administration Nausea And Vomiting Metoprolol Tartrate 100 mg 05/28/22 10:00 06/08/22 22:09 Metoprolol Tartrate 100 Mg Tab PO 100 mg BID MYRIAM Administration Morphine Sulfate 2 mg 05/27/22 19:48 Morphine 2 Mg/1 Ml Inj IV Q4H PRN Pain, Moderate (4-6) Ondansetron HCl 4 mg 05/27/22 19:48 06/07/22 22:15 Ondansetron 4 Mg/2 Ml Inj IV 4 mg Q8H PRN Administration Nausea And Vomiting Oxycodone/Acetaminophen 1 tab 05/27/22 19:48 Oxycodone /Acetaminophen 5-325mg Tab PO Q6H PRN Pain, Moderate (4-6) Sevelamer Carbonate 2,400 mg 05/28/22 12:30 06/08/22 18:13 Sevelamer Carbonate 800 Mg Tab PO Not Given AC MYRIAM Sodium Chloride 10 ml 05/27/22 22:00 06/08/22 22:11 Sodium Chloride 0.9% 10 Ml Flush Syringe IV 10 ml BID MYRIAM Administration Sodium Chloride 10 ml 05/27/22 19:48 Sodium Chloride 0.9% 10 Ml Flush Syringe IV PRN PRN LINE FLUSH Zolpidem Tartrate 5 mg 06/01/22 01:56 06/05/22 01:00 Zolpidem 5 Mg Tab PO 5 mg QHS PRN Administration Sleep Nutrition/Malnutrition Assess - Dietary Evaluation Nutrition/Malnutrition Findings: Nutrition Notes Start: 05/30/22 15 :24 Freq: Status: Active Protocol: Document 06/06/22 12:00 [place] (Rec: 06/06/22 12:18 [place] [id number]) Nutrition Notes Initial or Follow up Reassessment Current Diagnosis CKD (stage V CKD),Diabetes, Hypertension,Malnutrition Other Pertinent Diagnosis ESRD+HD, Seizure Disorder, Anemia, s/p Metabolic Encephalopathy. Current Diet Renal Diet (since D 05/27), D Suppl (from D 05/30). Labs/Tests 06/06: Cl 97.0, CO2 31, BUN 39 , Crea 5.9, Ca 8.2. Pertinent Medications 06/06: Renvela, others nutritionally unremarkable. Height 5 ft 9 in Weight 54.43 kg [place] Body Weight (kg) 72.72 BMI 17.7 Weight change and time frame No body weight change reported in 1 week. Weight Status Underweight Subjective/Other Information RD consult for routine F/U on Dietary Advancement. Diet continues as prescribed, Pt's PO intake of meals has been Good (100%) and well tolerated, according to ADL notes. Pt is on Room Air, O2 saturation @ 98%, according to Physical Assessment History notes. Pt presents incontinence, according to Physical Assessment History notes. Pt is awaiting SNF placement and HD chair; Pt is on restrains for safety, according to Progress notes. Percent of energy/protein needs met: Prescribed Renal Diet provides for energy/protein needs (2, 072 Kcal/77 g) during LOS; additionally, Dietary Supplements will compensate for possible poor or insufficient PO intake of meals with 1,275 Kcal and 57 g of protein. Burn Absent Trauma Absent GI Symptoms Other Food Allergy No Skin Integrity/Comment Assessment WNL. 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 No body weight change reported in 1 week. Diagnosis Progress(for reassessment Improved documentation) Is patient on ventilator? No Is Patient Ambulatory and/or Out of Bed No REE-([facility]-confined to bed) 1677.756 Kcal/Kg value to use for calculation 36 Approximate Energy Requirements Using 1959 kcal/Kg Calculation Used for Recommendations Kcal/kg Additional Notes Protein: >1.2 g/Kg ABW; >65 g/ day. Fluids: 1 ml/Kcal, or as per MD. Nutrition Intervention Change Diet Order: Continue Renal Diet as tolerated. Add Supplement/Snack (indicate name/kcal Continue Nepro w/CARBSTEADY; /protein ) TID. Provides kCal: 1,275 Provides Protein (gm) 57 Goal #1 Compensate, through dietary supplementation, for possible poor or insufficient PO intake of meals during LOS. Goal #2 Adjust the dietary intervention to better serve Pt's needs and clinical conditions during LOS. Follow-Up By: 06/13/22 Additional Comments Continue monitoring food tolerance, %PO intake of meals , dietary supplements, and BM.
== END 2022-06-09 23:15 | disposition home health service (06) | DRG 70 ==
LOC: ED 23:32 → UNDOADMIN 05-27 10:03 → CC1 05-27 10:03 → IMCU 05-27 17:43 → 3A 05-29 18:35
PROVIDERS: ADMIT Hospitalist; ATTEND Internal Medicine
PROC: 5A1D70Z Performance of Urinary Filtration, Intermittent, Less than 6 Hours Per Day (ICD-10-PCS; 2022-05-27)
PROC: 30243N1 Transfusion of Nonautologous Red Blood Cells into Central Vein, Percutaneous Approach (ICD-10-PCS; principal; 2022-05-28)
PROC: 5A1D70Z Performance of Urinary Filtration, Intermittent, Less than 6 Hours Per Day (ICD-10-PCS; 2022-05-29)
PROC: 5A1D70Z Performance of Urinary Filtration, Intermittent, Less than 6 Hours Per Day (ICD-10-PCS; 2022-05-31)
PROC: 5A1D70Z Performance of Urinary Filtration, Intermittent, Less than 6 Hours Per Day (ICD-10-PCS; 2022-06-02)
PROC: 5A1D70Z Performance of Urinary Filtration, Intermittent, Less than 6 Hours Per Day (ICD-10-PCS; 2022-06-05)
PROC: 5A1D70Z Performance of Urinary Filtration, Intermittent, Less than 6 Hours Per Day (ICD-10-PCS; 2022-06-09)
DX: G93.41 Metabolic encephalopathy (principal); E43 Unspecified severe protein-calorie malnutrition; N18.6 End stage renal disease; E87.2 Acidosis; Z68.1 Body mass index [BMI] 19.9 or less, adult; I12.0 Hypertensive chronic kidney disease with stage 5 chronic kidney disease or end stage renal disease; E87.0 Hyperosmolality and hypernatremia; Z20.822 Contact with and (suspected) exposure to COVID-19; E87.5 Hyperkalemia; G40.909 Epilepsy, unspecified, not intractable, without status epilepticus; E11.22 Type 2 diabetes mellitus with diabetic chronic kidney disease; D63.1 Anemia in chronic kidney disease; E86.0 Dehydration; Z91.19 Patient's noncompliance with other medical treatment and regimen; Z99.2 Dependence on renal dialysis; Z79.82 Long term (current) use of aspirin; Z82.49 Family history of ischemic heart disease and other diseases of the circulatory system
CPT/HCPCS: 36415; 70450; 71045; 80048; 80053; 80061; 80074; 80320; 82140; 82550; 82962; 83735; 84100; 84484; 85014; 85018; 85025; 85610; 86850; 86900; 86901; 86920; 93005; G0378; J3490; Q9967; G0480; J0885; J1644; J1815; J2405; J2765; J7030; P9016; U0003

== ENCOUNTER 2022-06-27 13:24 | Inpatient (IN) | payer MEDICARE ==
[2022-06-27 23:10] LABS: Basophils # (Auto) 0.1 K/mm3 (0.0-0.1); Eosinophils # (Auto) 0.2 K/mm3 (0.0-0.4); Eosinophils % (Auto) 2.9 % (0.0-4.3); Hematocrit 25.5 % (35.5-45.6); Hemoglobin 8.4 gm/dl (11.8-15.2); Lymphocytes # (Auto) 1.2 K/mm3 (1.2-5.4); Lymphocytes % (Auto) 17.2 % (13.4-35.0); Mean Corpuscular HGB Conc 33 % (32-34); Mean Corpuscular Volume 94 fl (84-94); Monocytes # (Auto) 0.7 K/mm3 (0.0-0.8); Monocytes % (Auto) 9.5 % (0.0-7.3); Platelet Count 237 K/mm3 (140-440); Red Blood Count 2.71 M/mm3 (3.65-5.03); Red Cell Distribution Width 16.1 % (13.2-15.2)
[2022-06-27 23:29] LABS: Albumin 3.8 g/dL (3.9-5); Calcium 8.6 mg/dL (8.4-10.2)
[2022-06-28] MEDS ORDERED: SODIUM BICARB 8.4% 50 MEQ/50 ML SYRINGE IV ONE (01:49)
[2022-06-28] MEDS ORDERED: DEXTROSE 50% IN WATER (25GM) 50 ML SYRINGE IV ONE ×2 (01:49→04:30)
[2022-06-28] MEDS ORDERED: SODIUM POLYSTYRENE 15 GM/60 ML ORAL LIQD PO ONE (01:49)
[2022-06-28] MEDS ORDERED: DEXTROSE 50% IN WATER (25GM) 50 ML SYRINGE IV PRN ×2 (01:49→02:56)
[2022-06-28] MEDS ORDERED: ALBUTEROL 2.5 MG/3 ML NEBU IH ONE (01:49)
[2022-06-28] MEDS ORDERED: INSULIN REGULAR, HUMAN 100 UNITS/1 ML IV ONE (01:49)
[2022-06-28] MEDS ORDERED: ONDANSETRON 4 MG/2 ML INJ IV ONE (01:50)
--- NOTE | 2022-06-28 01:50 | Emergency Department Report ---
ED General Adult HPI - General Chief complaint: Medical Clearance Stated complaint: My wanted me to come here Time Seen by Provider: 06/28/22 01:44 Source: patient, family, RN notes reviewed, old records reviewed Mode of arrival: Wheelchair Limitations: Physical Limitation - History of Present Illness Initial comments: The patient was evaluated in the emergency department for symptoms described in the history of present illness. He/she was evaluated in the context of the global COVID-19 pandemic, which necessitated consideration that the patient might be at risk for infection with the virus that causes COVID-19. Institutional protocols and algorithms that pertain to the evaluation of patients at risk for COVID-19 are in a state of rapid change based on information released by regulatory bodies including the CDC and federal and state organizations. These policies and algorithms were followed during the patient's care in the emergency department. Please note that these policies, procedures and recommendations changed on a rapid basis. This patient is a 51-year-old gentleman, with a history of end-stage renal disease on hemodialysis. He is not known to be noncompliant with outpatient hemodialysis. He does not know the name of his convolute tube winder. He was last dialyzed on May 27. He reports nausea and weakness. He denies physical pain. He reports he came here today because a family member wanted him to get dialysis Severity scale (0 -10): 0 - Related Data Previous Rx's Medication Instructions Recorded Last Taken Type Aspirin EC [Halfprin EC] 81 mg PO QDAY #30 tablet. 06/08/22 Unknown Rx Metoprolol [Lopressor TAB] 100 mg PO BID #60 tablet 06/08/22 Unknown Rx Sevelamer Carbonate [Renvela] 2,400 mg PO AC #60 tablet 06/08/22 Unknown Rx Zolpidem [Ambien] 5 mg PO QHS PRN #7 tablet 06/08/22 Unknown Rx levETIRAcetam [Keppra TAB] 500 mg PO BID #60 tablet 06/08/22 Unknown Rx Allergies Allergy/AdvReac Type Severity Reaction Status Date / Time No Known Allergies Allergy Verified 06/28/22 02:00 ED Review of Systems ROS: Stated complaint: SOB/VOMITING Other details as noted in HPI Gastrointestinal: nausea ED Past Medical Hx - Past Medical History Hx Hypertension: Yes Hx Diabetes: Yes Hx Renal Disease: Yes (On Dialysis) - Surgical History Past Surgical History?: Yes Additional Surgical History: DIALYSIS ACCESS - Social History Smoking Status: Never Smoker - Medications Home Medications: Home Medications Medication Instructions Recorded Confirmed Last Taken Type Aspirin EC [Halfprin EC] 81 mg PO QDAY #30 tablet. 06/08/22 Unknown Rx Metoprolol [Lopressor TAB] 100 mg PO BID #60 tablet 06/08/22 Unknown Rx Sevelamer Carbonate [Renvela] 2,400 mg PO AC #60 tablet 06/08/22 Unknown Rx Zolpidem [Ambien] 5 mg PO QHS PRN #7 tablet 06/08/22 Unknown Rx levETIRAcetam [Keppra TAB] 500 mg PO BID #60 tablet 06/08/22 Unknown Rx ED Physical Exam - General General appearance: alert, anxious - Head Head exam: Present: atraumatic, normocephalic - Eye Eye exam: Present: normal appearance, EOMI. Absent: nystagmus - ENT ENT exam: Present: normal exam, normal orophraynx, mucous membranes moist, normal external ear exam - Neck Neck exam: Present: normal inspection, full ROM. Absent: tenderness, meningismus - Respiratory Respiratory exam: Present: normal lung sounds bilaterally. Absent: respiratory distress, wheezes, rales, rhonchi, stridor - Cardiovascular Cardiovascular Exam: Present: regular rate, normal rhythm, normal heart sounds. Absent: bradycardia, tachycardia, irregular rhythm, systolic murmur, diastolic murmur, rubs, gallop - GI/Abdominal GI/Abdominal exam: Present: soft. Absent: distended, tenderness, guarding, rebound, rigid, pulsatile mass - Rectal Rectal exam: Present: deferred - Extremities Exam Extremities exam: Present: normal inspection (There is a left upper extremity fistula appreciated, with an appropriate thrill.), full ROM, other (2+ pulses noted in the bilateral upper and lower extremities. There is no palpable cord. negative Homans sign. Muscular compartments are soft. The pelvis is stable.). Absent: calf tenderness - Back Exam Back exam: Present: normal inspection, full ROM. Absent: tenderness, CVA tenderness (R), CVA tenderness (L), paraspinal tenderness, vertebral tenderness - Neurological Exam Neurological exam: Present: alert, normal gait, other (There is no facial droop. The tongue is midline. EOMI. 5 and 5 strength in 4 extremities.) - Psychiatric Psychiatric exam: Present: anxious - Skin Skin exam: Present: warm, dry, intact, normal color. Absent: rash ED Course Vital Signs 06/27/22 06/27/22 14:01 22:47 Temperature 98.1 F 97.4 F L Pulse Rate 90 80 Respiratory 16 18 Rate Blood Pressure 154/62 Blood Pressure 159/86 [Right] O2 Sat by Pulse 100 100 Oximetry ED Medical Decision Making - Lab Data Result diagrams: 06/27/22 22:48 06/27/22 22:48 Vital Signs 06/27/22 06/27/22 14:01 22:47 Temperature 98.1 F 97.4 F L Pulse Rate 90 80 Respiratory 16 18 Rate Blood Pressure 154/62 Blood Pressure 159/86 [Right] O2 Sat by Pulse 100 100 Oximetry Lab Results 06/27/22 06/27/22 06/27/22 Range/Units 14:14 22:48 22:48 WBC 7.1 (4.5-11.0) K/mm3 RBC 2.71 L (3.65-5.03) M/mm3 Hgb 8.4 L (11.8-15.2) gm/dl Hct 25.5 L (35.5-45.6) % MCV 94 (84-94) fl MCH 31 (28-32) pg MCHC 33 (32-34) % RDW 16.1 H (13.2-15.2) % Plt Count 237 (140-440) K/mm3 Lymph % (Auto) 17.2 (13.4-35.0) % [place] % (Auto) 9.5 H (0.0-7.3) % Eos % (Auto) 2.9 (0.0-4.3) % Baso % (Auto) 1.0 (0.0-1.8) % Lymph # (Auto) 1.2 (1.2-5.4) K/mm3 [place] # (Auto) 0.7 (0.0-0.8) K/mm3 Eos # (Auto) 0.2 (0.0-0.4) K/mm3 Baso # (Auto) 0.1 (0.0-0.1) K/mm3 Seg Neutrophils % 69.4 (40.0-70.0) % Seg Neutrophils # 4.9 (1.8-7.7) K/mm3 Sodium 146 H (137-145) mmol/L Potassium 6.8 H* (3.6-5.0) mmol/L Chloride 94.7 L (98-107) mmol/L Carbon Dioxide 28 (22-30) mmol/L Anion Gap 30 mmol/L BUN 142 H (9-20) mg/dL Creatinine 20.2 H (0.8-1.3) mg/dL Estimated GFR 3 ml/min BUN/Creatinine Ratio 7 % Glucose 187 H (75-100) mg/dL POC Glucose 93 (70-105) mg/dL Calcium 8.6 (8.4-10.2) mg/dL Total Bilirubin 0.30 (0.1-1.2) mg/dL AST 12 (5-40) units/L ALT 26 (7-56) units/L Alkaline Phosphatase 122 (35-129) units/L Total Protein 6.9 (6.3-8.2) g/dL Albumin 3.8 L (3.9-5) g/dL Albumin/Globulin Ratio 1.2 % - EKG Data -: EKG Interpreted by Ma EKG shows normal: sinus rhythm Rate: normal - EKG Data 06/28/22 02:30 The EKG is interpreted at 1: 15 Sinus rhythm, with a rate of 87 bpm. Normal axis, normal P wave axis, UT interval 1 7 5 ms. QTc 5 2 8 ms. Left ventricular hypertrophy. Abnormal EKG. Not a STEMI. - Medical Decision Making Differential diagnosis, including but not limited to: Hyperkalemia, azotemia, uremia, metabolic acidosis, noncompliance Assessment and plan: 51-year-old gentleman, presenting today with a request for hemodialysis. He does not recall the name of his convolute tube winder. He is awake and alert to name, protecting airway, and moving 4 extremities. He is hyperkalemic, azotemic, uremic, with a metabolic acidosis. He meets criteria for admission hospitalization secondary to the aforementioned. Patient does not recall the name of his primary convolute tube winder. Contacted nephrology on-call, Dr. Marciano Castillo discussed the patient's history, physical, and pertinent laboratory studies, especially the potassium of 6.8. Patient will receive the hyperkalemia cocktail. Nephrology will arrange for dialysis expediently, first thing in the morning. Patient is agreeable to admission hospitalization. Hospital physician , Dr. Osiris Carlos to admit to [facility] Critical care attestation.: If time is entered above; I have spent that time in minutes in the direct care of this critically ill patient, excluding procedure time. ED Disposition Clinical Impression: ESRD needing dialysis, Hyperkalemia, Metabolic acidosis, Uremia, Noncompliance Disposition: 09 ADMITTED INPATIENT Is pt being admited?: Yes Does the pt Need Aspirin: No Condition: Good
[2022-06-28] MEDS ORDERED: CALC GLUCONATE 1GM/NS 100 ML 1 GM/100 ML BAG IV ONE (02:00)
[2022-06-28] MEDS ORDERED: ONDANSETRON 4 MG/2 ML INJ IV PRN (02:56)
[2022-06-28] MEDS ORDERED: ACETAMINOPHEN 325 MG TAB PO PRN (02:56)
[2022-06-28] MEDS ORDERED: MORPHINE 4 MG/1 ML INJ IV PRN (02:56)
[2022-06-28] MEDS ORDERED: MORPHINE 2 MG/1 ML INJ IV PRN (02:56)
[2022-06-28] MEDS ORDERED: MAGNESIUM HYDROXIDE (MOM) ORAL LIQD UDC PO PRN (02:56)
--- NOTE | 2022-06-28 03:15 | History and Physical Report ---
History of Present Illness Date of examination: 06/28/22 Date of admission: 06/28/2022 Chief complaint: ESRD- on dialysis History of present illness: 51-year-old male with known history of end-stage renal disease on dialysis who was has not been quite compliant with his dialysis presents to the emergency room today with complaints of nausea and generalized weakness. Last dialysis was on May 27, 2022. He was encouraged by family members to report to the emergency room today for evaluation of possible dialysis. Patient denies any fever or chills, no chest pain or shortness of breath, no headache or dizziness and no diaphoresis. Work-up in the emergency room today, labs significant for potassium level of 6.8, BUN of 1.2 and creatinine of 20.2. EKG was unremarkable. Patient has received insulin, glucose, Kayexalate, Toradol nebulizing treatments and calcium gluconate in the emergency room. Consult has been placed to the dryer and washer mechanic for evaluation. Past History Past Medical History: diabetes, hypertension Past Surgical History: Other (Dialysis access) Social history: no significant social history Family history: no significant family history Medications and Allergies Allergies Allergy/AdvReac Type Severity Reaction Status Date / Time No Known Allergies Allergy Verified 06/28/22 02:00 Home Medications Medication Instructions Recorded Confirmed Last Taken Type Aspirin EC [Halfprin EC] 81 mg PO QDAY #30 tablet. 06/08/22 Unknown Rx Metoprolol [Lopressor TAB] 100 mg PO BID #60 tablet 06/08/22 Unknown Rx Sevelamer Carbonate [Renvela] 2,400 mg PO AC #60 tablet 06/08/22 Unknown Rx Zolpidem [Ambien] 5 mg PO QHS PRN #7 tablet 06/08/22 Unknown Rx levETIRAcetam [Keppra TAB] 500 mg PO BID #60 tablet 06/08/22 Unknown Rx Active Meds: Active Medications Acetaminophen (Acetaminophen 325 Mg Tab) 650 mg PO Q4H PRN PRN Reason: Pain MILD(1-3)/Fever >100.5/MUNOZ Dextrose (Dextrose 50% In Water (25gm) 50 Ml Syringe) 50 ml IV Q30MIN PRN; Protocol PRN Reason: Hypoglycemia Dextrose (Dextrose 50% In Water (25gm) 50 Ml Syringe) 50 ml IV Q30MIN PRN; Protocol PRN Reason: Hypoglycemia Insulin Human Lispro (Insulin Lispro 100 Unit/Ml) 0 unit SUB-Q ACHS MYRIAM; Protocol Magnesium Hydroxide (Magnesium Hydroxide (Mom) Oral Liqd Udc) 30 ml PO Q4H PRN PRN Reason: Constipation Morphine Sulfate (Morphine 2 Mg/1 Ml Inj) 2 mg IV Q4H PRN PRN Reason: Pain, Moderate (4-6) Morphine Sulfate (Morphine 4 Mg/1 Ml Inj) 4 mg IV Q4H PRN PRN Reason: Pain , Severe (7-10) Ondansetron HCl (Ondansetron 4 Mg/2 Ml Inj) 4 mg IV Q8H PRN PRN Reason: Nausea And Vomiting Sodium Chloride (Sodium Chloride 0.9% 10 Ml Flush Syringe) 10 ml IV BID MYRIAM Sodium Chloride (Sodium Chloride 0.9% 10 Ml Flush Syringe) 10 ml IV PRN PRN PRN Reason: LINE FLUSH Review of Systems All systems: negative (As stated in HPI) Exam - Constitutional Vitals: Temp Pulse Resp BP Pulse Ox 97.4 F L 80 18 154/62 100 06/27/22 22:47 06/27/22 22:47 06/27/22 22:47 06/27/22 22:47 06/27/22 22:47 General appearance: Present: no acute distress, mild distress, well-nourished - EENT Eyes: Present: PERRL, EOM intact. Absent: scleral icterus ENT: hearing intact, clear oral mucosa, dentition normal - Neck Neck: Present: supple, normal ROM - Respiratory Respiratory effort: normal Respiratory: bilateral: CTA - Cardiovascular Rhythm: regular Heart Sounds: Present: S1 & S2. Absent: gallop, systolic murmur, diastolic murmur, rub, click - Extremities Extremities: no ischemia, pulses intact, pulses symmetrical, No edema, normal temperature, normal color, Full ROM Peripheral Pulses: within normal limits - Abdominal General gastrointestinal: Present: soft, non-tender, non-distended, normal bowel sounds. Absent: mass - Integumentary Integumentary: Present: clear, warm, dry, normal turgor. Absent: rash - Musculoskeletal Musculoskeletal: strength equal bilaterally - Psychiatric Psychiatric: appropriate mood/affect, intact judgment & insight, memory intact, cooperative - Neurologic Neurologic: CNII-XII intact, no focal deficits, moves all extremities Results - Labs CBC & Chem 7: 06/27/22 22:48 06/27/22 22:48 Labs: Abnormal lab results 06/27/22 06/27/22 Range/Units 22:48 22:48 RBC 2.71 L (3.65-5.03) M/mm3 Hgb 8.4 L (11.8-15.2) gm/dl Hct 25.5 L (35.5-45.6) % RDW 16.1 H (13.2-15.2) % [place] % (Auto) 9.5 H (0.0-7.3) % Sodium 146 H (137-145) mmol/L Potassium 6.8 H* (3.6-5.0) mmol/L Chloride 94.7 L (98-107) mmol/L BUN 142 H (9-20) mg/dL Creatinine 20.2 H (0.8-1.3) mg/dL Glucose 187 H (75-100) mg/dL Albumin 3.8 L (3.9-5) g/dL Assessment and Plan Assessment: 1. End-stage renal disease on dialysis 2. Noncompliance with dialysis 3. Hyperkalemia 4. Hypertension Plan: 1. Patient admitted and placed on telemetry. 2. We will monitor chemistry 3. Consult placed to nephrology for evaluation. 4. We will resume routine medications. DVT Prophylaxis: Subcutaneous heparin CODE Status: Full code
[2022-06-28] MEDS ORDERED: SODIUM CHLORIDE 0.9% 100 ML IV PRN (08:00)
[2022-06-28 09:19] LABS: Hepatitis B Surface Antigen Non-Reactive (Negative); Hepatitis C Virus Antibody Non-Reactive (NonReactive)
[2022-06-28] MEDS: SEVELAMER CARBONATE 800 MG TAB PO SCH ×3 (09:19→17:10)
[2022-06-28] MEDS: INSULIN LISPRO 100 UNIT/ML SUB-Q SCH ×4 (09:19→23:56)
--- NOTE | 2022-06-28 10:48 | Event Note ---
Date: 06/28/[address] Pappas. Patient is uremic/altered and refusing HD. Patient may need to be restrained and then dialyzed, pending discussion with family.
[2022-06-28] MEDS ORDERED: SODIUM POLYSTYRENE 15 GM/60 ML ORAL LIQD PO SCH (11:00)
[2022-06-28] MEDS: ASPIRIN EC 81 MG TAB PO SCH (11:22)
[2022-06-28] MEDS: METOPROLOL TARTRATE 100 MG TAB PO SCH ×2 (11:23→21:46)
[2022-06-28] MEDS: levETIRAcetam 500 MG TAB PO SCH ×2 (11:23→21:46)
--- NOTE | 2022-06-28 14:42 | Event Note ---
Date: 06/28/22 Patient seen and examined at the bedside with RN He remains confused and continued to refuse hemodialysis Try to reach out his daughter but mailbox is full I tried to call his son but that number is not excepting any phone calls Discussed with overnight associate Dr. Dee and will plan to do hemodialysis with mild sedation with IV morphine and restrain as patient seems confused and does not have medical decision-making capacity at this point due to confusion. Blood sugar dropped at 30 by fingerstick, ordered for D50 Continue to follow clinically --It took me about 28 minutes to reevaluate and reasses this patient, discussed with RN/CM, review medical documents, lab results, imaging, medication list and placing order.
[2022-06-28 16:35] LABS: Calcium 8.8 mg/dL (8.4-10.2)
--- NOTE | 2022-06-28 17:15 | Consultation ---
History of Present Illness - Reason for Consult Consult date: 06/28/22 end stage renal disease - History of Present Illness This is a 51-year-old man with end-stage renal disease on hemodialysis with history of noncompliance who presented to the emergency department with generalized weakness and nausea. Nephrology was consulted for ESRD management. Patient is confused and is not able to provide history which has been obtained from chart. Past History Past Medical History: diabetes, hypertension Past Surgical History: Other (Dialysis access) Social history: no significant social history Family history: no significant family history Medications and Allergies Allergies Allergy/AdvReac Type Severity Reaction Status Date / Time No Known Allergies Allergy Verified 06/28/22 02:00 Home Medications Medication Instructions Recorded Confirmed Last Taken Type Aspirin EC [Halfprin EC] 81 mg PO QDAY #30 tablet. 06/08/22 Unknown Rx Metoprolol [Lopressor TAB] 100 mg PO BID #60 tablet 06/08/22 Unknown Rx Sevelamer Carbonate [Renvela] 2,400 mg PO AC #60 tablet 06/08/22 Unknown Rx Zolpidem [Ambien] 5 mg PO QHS PRN #7 tablet 06/08/22 Unknown Rx levETIRAcetam [Keppra TAB] 500 mg PO BID #60 tablet 06/08/22 Unknown Rx Active Meds: Active Medications Acetaminophen (Acetaminophen 325 Mg Tab) 650 mg PO Q4H PRN PRN Reason: Pain MILD(1-3)/Fever >100.5/MUNOZ Aspirin (Aspirin Ec 81 Mg Tab) 81 mg PO QDAY [facility] Last Admin: 06/28/22 11:22 Dose: 81 mg Dextrose (Dextrose 50% In Water (25gm) 50 Ml Syringe) 50 ml IV Q30MIN PRN; Protocol PRN Reason: Hypoglycemia Last Admin: 06/28/22 11:34 Dose: 50 ml Sodium Chloride (Nacl 0.9%) 100 mls @ 999 mls/hr IV HILDA PRN PRN Reason: Hypotension Insulin Human Lispro (Insulin Lispro 100 Unit/Ml) 0 unit SUB-Q ACHS [facility]; Protocol Last Admin: 06/28/22 17:10 Dose: Not Given Levetiracetam (Levetiracetam 500 Mg Tab) 500 mg PO BID [facility] Last Admin: 06/28/22 11:23 Dose: 500 mg Magnesium Hydroxide (Magnesium Hydroxide (Mom) Oral Liqd Udc) 30 ml PO Q4H PRN PRN Reason: Constipation Metoclopramide HCl (Metoclopramide 10 Mg/2 Ml Inj) 10 mg IV Q6H PRN PRN Reason: Nausea And Vomiting Metoprolol Tartrate (Metoprolol Tartrate 100 Mg Tab) 100 mg PO BID [facility] Last Admin: 06/28/22 11:23 Dose: 100 mg Morphine Sulfate (Morphine 2 Mg/1 Ml Inj) 2 mg IV Q4H PRN PRN Reason: Pain, Moderate (4-6) Last Admin: 06/28/22 15:13 Dose: 2 mg Morphine Sulfate (Morphine 4 Mg/1 Ml Inj) 4 mg IV Q4H PRN PRN Reason: Pain , Severe (7-10) Ondansetron HCl (Ondansetron 4 Mg/2 Ml Inj) 4 mg IV Q8H PRN PRN Reason: Nausea And Vomiting Sevelamer Carbonate (Sevelamer Carbonate 800 Mg Tab) 2,400 mg PO [facility] Last Admin: 06/28/22 17:10 Dose: Not Given Sodium Chloride (Sodium Chloride 0.9% 10 Ml Flush Syringe) 10 ml IV BID [facility] Last Admin: 06/28/22 11:23 Dose: 10 ml Sodium Chloride (Sodium Chloride 0.9% 10 Ml Flush Syringe) 10 ml IV PRN PRN PRN Reason: LINE FLUSH Zolpidem Tartrate (Zolpidem 5 Mg Tab) 5 mg PO QHS PRN PRN Reason: Sleep Review of Systems ROS unobtainable: due to mental status Exam - Vital Signs Vital signs: Vital Signs Temp Pulse Resp BP Pulse Ox 98.1 F 90 16 159/86 100 06/27/22 14:01 06/27/22 14:01 06/27/22 14:01 06/27/22 14:01 06/27/22 14:01 - Physical Exam Narrative exam: Constitutional: no acute distress Head: NC/AT Neck: supple Lungs: clear to auscultation CV: RRR Abdomen: soft, non-tender, bowel sounds present Back: nontender Extremities: no edema, pulses WNL Skin: intact Neuro: oriented only to self Results - Lab Results 06/27/22 22:48 06/28/22 14:42 Most recent lab results Calcium 8.8 mg/dL (8.4-10.2) 06/28/22 14:42 Assessment and Plan End-stage renal disease on hemodialysis Uremia Hyperkalemia Anemia of ESRD Hyperphosphatemia Hyperparathyroidism Patient has history of dialysis noncompliance. He now presents with uremia and severe hyperkalemia. Patient is refusing dialysis at this time however he currently does not have capacity for medical decision making as he is uremic/ altered. Multiple team members have tried to contact family, unfortunately have not been able to get in touch. Given that this is an emergency situation due to the hyperkalemia, plan to go ahead with dialysis after restraints and mild sedation. Dialysis nurse Christianne advised to proceed with dialysis with close monitoring. Goal of care discussion with family once able to get in touch with them. Status post medical management of hyperkalemia in the interim Continue binders Renally dose medications ESRD diet with 1.2-1. 4 g/kg/d protein intake
[2022-06-28] MEDS ORDERED: METOCLOPRAMIDE 10 MG/2 ML INJ IV PRN (18:00)
[2022-06-28] MEDS ORDERED: ZOLPIDEM 5 MG TAB PO PRN (22:00)
--- NOTE | 2022-06-28 23:25 | XRay Report ---
CHEST 1 VIEW 06/28/2022 10:22 PM INDICATION / CLINICAL INFORMATION: ESRD. COMPARISON: 05/27/2022 FINDINGS: SUPPORT DEVICES: None. HEART / MEDIASTINUM: No significant abnormality. LUNGS / PLEURA: Redemonstration of a nodular density measuring 2.7 x 2.0 cm within the left upper lob e. There are mild streaky consolidations within the left mid and upper lung. No pneumothorax. ADDITIONAL FINDINGS: No significant additional findings. IMPRESSION: 1. Redemonstration of a nodular density within the left upper lobe measuring up to 2.7 cm. Further ev aluation with chest CT is recommended to evaluate for malignancy. Signer Name: Jamarcus Garg MD Signed: 06/28/2022 11:21 PM Workstation Name: [id number]
[2022-06-29 05:43] LABS: Basophils % (Auto) 0.5 % (0.0-1.8); Eosinophils # (Auto) 0.1 K/mm3 (0.0-0.4); Eosinophils % (Auto) 1.8 % (0.0-4.3); Hematocrit 26.5 % (35.5-45.6); Hemoglobin 8.6 gm/dl (11.8-15.2); Lymphocytes # (Auto) 1.2 K/mm3 (1.2-5.4); Lymphocytes % (Auto) 14.8 % (13.4-35.0); Mean Corpuscular HGB Conc 32 % (32-34); Mean Corpuscular Volume 95 fl (84-94); Monocytes # (Auto) 0.7 K/mm3 (0.0-0.8); Monocytes % (Auto) 8.4 % (0.0-7.3); Platelet Count 239 K/mm3 (140-440); Red Blood Count 2.79 M/mm3 (3.65-5.03)
[2022-06-29 05:58] LABS: Calcium 8.9 mg/dL (8.4-10.2)
[2022-06-29] MEDS: INSULIN LISPRO 100 UNIT/ML SUB-Q SCH ×4 (08:32→21:53)
[2022-06-29] MEDS: SEVELAMER CARBONATE 800 MG TAB PO SCH ×4 (08:33→17:54)
[2022-06-29] MEDS: METOPROLOL TARTRATE 100 MG TAB PO SCH ×2 (10:25→21:44)
[2022-06-29] MEDS: levETIRAcetam 500 MG TAB PO SCH ×2 (10:25→21:44)
[2022-06-29] MEDS: ASPIRIN EC 81 MG TAB PO SCH (10:25)
--- NOTE | 2022-06-29 17:29 | Electrocardiograph Report ---
[facility] Test Date: 2022-06-28 Test Time: 01:50:38 Pat Name: KELLI LOFTON Department: Room: A470 Gender: M Front Office Help: HITESH : 1970 Requested By: MONSE WEBB Order Number: [id number] Reading MD: Merritt Lancaster Measurements Intervals [place] Rate: 87 P: 79 [place]: 175 QRS: 66 QRSD: 79 T: 96 QT: 438 QTc: 528 Interpretive Statements Sinus rhythm Nonspecific T abnormalities, lateral leads Prolonged QT interval Compared to ECG 05/27/2022 01:01:06 No significant change Electronically Signed On 06-29-2022 17:29:09 EDT by Merritt Lancaster
--- NOTE | 2022-06-29 21:22 | Progress Note ---
Assessment and Plan End-stage renal disease on hemodialysis Uremia, resolved with HD Hyperkalemia, controlled with HD Anemia of ESRD Hyperphosphatemia Hyperparathyroidism Patient's mental status has improved following dialysis yesterday. Case was discussed in detail with him regarding continuation of dialysis. He said that he would like to continue chronic treatment with dialysis going forward. Plan for next session tomorrow. Continue binders Renally dose medications ESRD diet with 1.2-1. 4 g/kg/d protein intake Subjective Date of service: 06/29/22 Principal diagnosis: Encephalopathy Interval history: Resting in bed. Alert today, mentation has improved. Objective - Exam Narrative Exam: Constitutional: no acute distress Head: NC/AT Neck: supple Lungs: clear to auscultation CV: RRR Abdomen: soft, non-tender, bowel sounds present Back: nontender Extremities: no edema, pulses WNL Skin: intact Neuro: oriented only to self - Lab 06/29/22 04:42 06/29/22 04:42 Most recent lab results Calcium 8.9 mg/dL (8.4-10.2) 06/29/22 04:42 Medications & Allergies - Medications Allergies/Adverse Reactions: Allergies No Known Allergies Allergy (Verified 06/29/22 09:46) Home Medications: Home Medications Medication Instructions Recorded Confirmed Last Taken Type Aspirin EC [Halfprin EC] 81 mg PO QDAY #30 tablet. 06/08/22 06/29/22 Unknown Rx Sevelamer Carbonate [Renvela] 2,400 mg PO AC #60 tablet 06/08/22 06/29/22 Unknown Rx Zolpidem [Ambien] 5 mg PO QHS PRN #7 tablet 06/08/22 06/29/22 Unknown Rx Metoprolol Tartrate [Lopressor] 100 mg PO BID 06/29/22 06/29/22 Unknown History levETIRAcetam [Keppra TAB] 500 mg PO BID 06/29/22 06/29/22 Unknown History Active Medications: Generic Name Dose Route Start Last Admin Trade Name Freq PRN Reason Stop Dose Admin Acetaminophen 650 mg 06/28/22 02:56 Acetaminophen 325 Mg Tab PO Q4H PRN Pain MILD(1-3)/Fever >100.5/MUNOZ Aspirin 81 mg 06/28/22 10:00 06/29/22 10:25 Aspirin Ec 81 Mg Tab PO 81 mg QDAY MYRIAM Administration Dextrose 50 ml 06/28/22 02:56 06/28/22 11:34 Dextrose 50% In Water (25gm) 50 Ml Syringe IV 50 ml Q30MIN PRN Administration Hypoglycemia Protocol Sodium Chloride 100 mls @ 999 mls/hr 06/28/22 08:00 Nacl 0.9% IV HILDA PRN Hypotension Insulin Human Lispro 0 unit 06/28/22 07:30 06/29/22 16:14 Insulin Lispro 100 Unit/Ml SUB-Q Not Given ACHS MYRIAM Protocol Levetiracetam 500 mg 06/28/22 10:00 06/29/22 10:25 Levetiracetam 500 Mg Tab PO 500 mg BID MYRIAM Administration Magnesium Hydroxide 30 ml 06/28/22 02:56 Magnesium Hydroxide (Mom) Oral Liqd Udc PO Q4H PRN Constipation Metoclopramide HCl 10 mg 06/28/22 18:00 Metoclopramide 10 Mg/2 Ml Inj IV Q6H PRN Nausea And Vomiting Metoprolol Tartrate 100 mg 06/28/22 10:00 06/29/22 10:25 Metoprolol Tartrate 100 Mg Tab PO 100 mg BID MYRIAM Administration Morphine Sulfate 2 mg 06/28/22 02:56 06/28/22 15:13 Morphine 2 Mg/1 Ml Inj IV 2 mg Q4H PRN Administration Pain, Moderate (4-6) Morphine Sulfate 4 mg 06/28/22 02:56 Morphine 4 Mg/1 Ml Inj IV Q4H PRN Pain , Severe (7-10) Ondansetron HCl 4 mg 06/28/22 02:56 Ondansetron 4 Mg/2 Ml Inj IV Q8H PRN Nausea And Vomiting Sevelamer Carbonate 2,400 mg 06/28/22 07:30 06/29/22 17:54 Sevelamer Carbonate 800 Mg Tab PO Not Given AC MYRIAM Sodium Chloride 10 ml 06/28/22 10:00 06/29/22 10:25 Sodium Chloride 0.9% 10 Ml Flush Syringe IV 10 ml BID MYRIAM Administration Sodium Chloride 10 ml 06/28/22 02:56 Sodium Chloride 0.9% 10 Ml Flush Syringe IV PRN PRN LINE FLUSH Zolpidem Tartrate 5 mg 06/28/22 22:00 Zolpidem 5 Mg Tab PO QHS PRN Sleep
--- NOTE | 2022-06-29 23:52 | Progress Note ---
Assessment and Plan 1. End-stage renal disease on dialysis 2. Noncompliance with dialysis 3. Hyperkalemia 4. Hypertension 5. Possible underlying dementia Plan: 1. Patient admitted and placed on telemetry. 2. We will monitor chemistry 3. Consult placed to nephrology for evaluation. 4. We will resume routine medications. DVT Prophylaxis: Subcutaneous heparin CODE Status: requested DNR and SNF placement with hospice Subjective Date of service: 06/29/22 Principal diagnosis: Encephalopathy Objective - Constitutional Vitals: Vital Signs - 12hr 06/29/22 06/29/22 14:41 19:48 Temperature 98.3 F 97.9 F Pulse Rate 83 85 Respiratory 18 16 Rate Blood Pressure 135/71 123/41 O2 Sat by Pulse 98 82 L Oximetry - Labs CBC & Chem 7: 06/29/22 04:42 06/29/22 04:42 Labs: Abnormal lab results 06/28/22 06/29/22 06/29/22 Range/Units 21:56 04:42 04:42 RBC 2.79 L (3.65-5.03) M/mm3 Hgb 8.6 L (11.8-15.2) gm/dl Hct 26.5 L (35.5-45.6) % MCV 95 H (84-94) fl RDW 16.0 H (13.2-15.2) % [place] % (Auto) 8.4 H (0.0-7.3) % Seg Neutrophils % 74.5 H (40.0-70.0) % Potassium 5.2 H (3.6-5.0) mmol/L Chloride 96.3 L (98-107) mmol/L Carbon Dioxide 33 H (22-30) mmol/L BUN 63 H (9-20) mg/dL Creatinine 10.9 H (0.8-1.3) mg/dL POC Glucose 133 H (70-105) mg/dL 06/29/22 06/29/22 06/29/22 Range/Units 07:32 11:05 14:41 RBC (3.65-5.03) M/mm3 Hgb (11.8-15.2) gm/dl Hct (35.5-45.6) % MCV (84-94) fl RDW (13.2-15.2) % [place] % (Auto) (0.0-7.3) % Seg Neutrophils % (40.0-70.0) % Potassium (3.6-5.0) mmol/L Chloride (98-107) mmol/L Carbon Dioxide (22-30) mmol/L BUN (9-20) mg/dL Creatinine (0.8-1.3) mg/dL POC Glucose 160 H 124 H 109 H (70-105) mg/dL 06/29/22 Range/Units 20:37 RBC (3.65-5.03) M/mm3 Hgb (11.8-15.2) gm/dl Hct (35.5-45.6) % MCV (84-94) fl RDW (13.2-15.2) % [place] % (Auto) (0.0-7.3) % Seg Neutrophils % (40.0-70.0) % Potassium (3.6-5.0) mmol/L Chloride (98-107) mmol/L Carbon Dioxide (22-30) mmol/L BUN (9-20) mg/dL Creatinine (0.8-1.3) mg/dL POC Glucose 116 H (70-105) mg/dL
[2022-06-30] MEDS: INSULIN LISPRO 100 UNIT/ML SUB-Q SCH ×4 (07:30→22:12)
[2022-06-30] MEDS: SEVELAMER CARBONATE 800 MG TAB PO SCH ×3 (10:38→18:05)
[2022-06-30] MEDS: ASPIRIN EC 81 MG TAB PO SCH (10:38)
[2022-06-30] MEDS: levETIRAcetam 500 MG TAB PO SCH ×2 (10:38→22:11)
[2022-06-30] MEDS: METOPROLOL TARTRATE 100 MG TAB PO SCH ×2 (10:42→22:03)
--- NOTE | 2022-06-30 12:24 | Progress Note ---
Assessment and Plan 1. End-stage renal disease on dialysis 2. Noncompliance with dialysis 3. Hyperkalemia 4. Hypertension 5. Possible underlying dementia Plan: 1. Patient admitted and placed on telemetry. 2. We will monitor chemistry 3. Consult placed to nephrology for evaluation. 4. We will resume routine medications. DVT Prophylaxis: Subcutaneous heparin CODE Status: requested DNR and SNF placement with hospice Subjective Date of service: 06/30/22 Principal diagnosis: Encephalopathy Interval history: Patient seen and examined. Medical records and medication list reviewed. No acute event overnight noted by the RN. Patient denies any chest pain or difficulty breathing. Patient is tolerating diet. Discussed plan of care at bedside with patient. Objective - Exam Narrative Exam: GENERAL: AAM lying on bed appeared to be in no discomfort. HEENT: Normocephalic. Atraumatic. No conjunctival congestion or icterus. Patient has moist mucous membranes. NECK: Supple. Trachea midline. CHEST/LUNGS: Clear to auscultated bilaterally, breathing nonlabored. No wheezes crackles or rhonchi. HEART/CARDIOVASCULAR: Regular in rate and rhythm. S1 and S2 positive. ABDOMEN: Abdomen is soft, nontender. Patient has normal bowel sounds. SKIN: There is no rash. Warm and dry. NEURO: No focal motor deficit. Follows command. MUSCULOSKELETAL: No joint effusion or tenderness. EXTRIMITY: No edema, no cyanosis or clubbing. PSYCH: Cooperative. - Constitutional Vitals: Vital Signs - 12hr 06/30/22 06/30/22 06/30/22 04:37 06:00 07:51 Temperature 97.4 F L 97.9 F Pulse Rate 55 L 73 Respiratory 16 18 Rate Blood Pressure 134/57 143/72 O2 Sat by Pulse 39 L 90 100 Oximetry 06/30/22 10:00 Temperature Pulse Rate 73 Respiratory Rate Blood Pressure O2 Sat by Pulse Oximetry - Labs CBC & Chem 7: 07/14/22 05:16 07/14/22 05:16 Labs: Abnormal lab results 06/29/22 06/29/22 06/30/22 Range/Units 14:41 20:37 07:51 POC Glucose 109 H 116 H 69 L (70-105) mg/dL
--- NOTE | 2022-06-30 18:19 | Progress Note ---
Assessment and Plan End-stage renal disease on hemodialysis Uremia, resolved with HD Hyperkalemia, controlled with HD Anemia of ESRD Hyperphosphatemia Hyperparathyroidism Patient's mental statusimproved following dialysis. Case was discussed in detail with him regarding continuation of dialysis. He said that he would like to continue chronic treatment with dialysis going forward. Plan for next session today. Continue HD MWF Continue binders Renally dose medications ESRD diet with 1.2-1. 4 g/kg/d protein intake Subjective Date of service: 06/30/22 Principal diagnosis: Encephalopathy Interval history: Resting in bed. States he would like to proceed with dialysis today. Objective - Exam Narrative Exam: Constitutional: no acute distress Head: NC/AT Neck: supple Lungs: clear to auscultation CV: RRR Abdomen: soft, non-tender, bowel sounds present Back: nontender Extremities: no edema, pulses WNL Skin: intact Neuro: Awake and alert - Vital Signs Vital signs: Vital Signs - 12hr 06/30/22 06/30/22 06/30/22 07:51 10:00 11:30 Temperature 97.9 F 97.8 F Pulse Rate 73 73 80 Respiratory 18 18 Rate Blood Pressure 143/72 147/71 O2 Sat by Pulse 100 96 92 Oximetry - Lab 06/29/22 04:42 06/29/22 04:42 Most recent lab results Calcium 8.9 mg/dL (8.4-10.2) 06/29/22 04:42 Medications & Allergies - Medications Allergies/Adverse Reactions: Allergies No Known Allergies Allergy (Verified 06/29/22 09:46) Home Medications: Home Medications Medication Instructions Recorded Confirmed Last Taken Type Aspirin EC [Halfprin EC] 81 mg PO QDAY #30 tablet. 06/08/22 06/29/22 Unknown Rx Sevelamer Carbonate [Renvela] 2,400 mg PO AC #60 tablet 06/08/22 06/29/22 Unkno wn Rx Zolpidem [Ambien] 5 mg PO QHS PRN #7 tablet 06/08/22 06/29/22 Unknown Rx Metoprolol Tartrate [Lopressor] 100 mg PO BID 06/29/22 06/29/22 Unknown History levETIRAcetam [Keppra TAB] 500 mg PO BID 06/29/22 06/29/22 Unknown History Active Medications: Generic Name Dose Route Start Last Admin Trade Name Freq PRN Reason Stop Dose Admin Acetaminophen 650 mg 06/28/22 02:56 Acetaminophen 325 Mg Tab PO Q4H PRN Pain MILD(1-3)/Fever >100.5/MUNOZ Aspirin 81 mg 06/28/22 10:00 06/30/22 10:38 Aspirin Ec 81 Mg Tab PO 81 mg QDAY MYRIAM Administration Dextrose 50 ml 06/28/22 02:56 06/28/22 11:34 Dextrose 50% In Water (25gm) 50 Ml Syringe IV 50 ml Q30MIN PRN Administration Hypoglycemia Protocol Sodium Chloride 100 mls @ 999 mls/hr 06/28/22 08:00 Nacl 0.9% IV HILDA PRN Hypotension Insulin Human Lispro 0 unit 06/28/22 07:30 06/30/22 18:05 Insulin Lispro 100 Unit/Ml SUB-Q Not Given ACHS [facility] Protocol Levetiracetam 500 mg 06/28/22 10:00 06/30/22 10:38 Levetiracetam 500 Mg Tab PO 500 mg BID MYRIAM Administration Magnesium Hydroxide 30 ml 06/28/22 02:56 Magnesium Hydroxide (Mom) Oral Liqd Udc PO Q4H PRN Constipation Metoclopramide HCl 10 mg 06/28/22 18:00 Metoclopramide 10 Mg/2 Ml Inj IV Q6H PRN Nausea And Vomiting Metoprolol Tartrate 100 mg 06/28/22 10:00 06/30/22 10:42 Metoprolol Tartrate 100 Mg Tab PO 100 mg BID MYRIAM Administration Morphine Sulfate 2 mg 06/28/22 02:56 06/28/22 15:13 Morphine 2 Mg/1 Ml Inj IV 2 mg Q4H PRN Administration Pain, Moderate (4-6) Morphine Sulfate 4 mg 06/28/22 02:56 Morphine 4 Mg/1 Ml Inj IV Q4H PRN Pain , Severe (7-10) Ondansetron HCl 4 mg 06/28/22 02:56 Ondansetron 4 Mg/2 Ml Inj IV Q8H PRN Nausea And Vomiting Sevelamer Carbonate 2,400 mg 06/28/22 07:30 06/30/22 18:05 Sevelamer Carbonate 800 Mg Tab PO 2,400 mg AC MYRIAM Administration Sodium Chloride 10 ml 06/28/22 10:00 06/30/22 10:39 Sodium Chloride 0.9% 10 Ml Flush Syringe IV Not Given BID MYRIAM Sodium Chloride 10 ml 06/28/22 02:56 Sodium Chloride 0.9% 10 Ml Flush Syringe IV PRN PRN LINE FLUSH Zolpidem Tartrate 5 mg 06/28/22 22:00 Zolpidem 5 Mg Tab PO QHS PRN Sleep
[2022-07-01] MEDS: INSULIN LISPRO 100 UNIT/ML SUB-Q SCH ×4 (08:00→22:25)
[2022-07-01] MEDS: levETIRAcetam 500 MG TAB PO SCH ×3 (08:46→22:41)
[2022-07-01] MEDS: SEVELAMER CARBONATE 800 MG TAB PO SCH ×3 (08:46→16:25)
[2022-07-01] MEDS: ASPIRIN EC 81 MG TAB PO SCH ×2 (08:46→10:00)
[2022-07-01] MEDS: METOPROLOL TARTRATE 100 MG TAB PO SCH ×2 (08:46→10:00)
--- NOTE | 2022-07-01 11:50 | Progress Note ---
Assessment and Plan 1. End-stage renal disease on dialysis 2. Noncompliance with dialysis 3. Hyperkalemia 4. Hypertension 5. Possible underlying dementia Plan: 1. Patient admitted and placed on telemetry. 2. We will monitor chemistry 3. Consult placed to nephrology for evaluation and ESRD. 4. We will resume routine medications. DVT Prophylaxis: Subcutaneous heparin CODE Status: requested DNR and SNF placement with hospice Pending placement Subjective Date of service: 07/01/22 Principal diagnosis: Encephalopathy Interval history: Patient seen and examined. Medical records and medication list reviewed. No acute event overnight noted by the RN. Patient denies any chest pain or difficulty breathing. Patient is tolerating diet. Discussed plan of care at bedside with patient. Objective - Exam Narrative Exam: GENERAL: AAM lying on bed appeared to be in no discomfort. HEENT: Normocephalic. Atraumatic. No conjunctival congestion or icterus. Patient has moist mucous membranes. NECK: Supple. Trachea midline. CHEST/LUNGS: Clear to auscultated bilaterally, breathing nonlabored. No wheezes crackles or rhonchi. HEART/CARDIOVASCULAR: Regular in rate and rhythm. S1 and S2 positive. ABDOMEN: Abdomen is soft, nontender. Patient has normal bowel sounds. SKIN: There is no rash. Warm and dry. NEURO: No focal motor deficit. Follows command. MUSCULOSKELETAL: No joint effusion or tenderness. EXTRIMITY: No edema, no cyanosis or clubbing. PSYCH: Cooperative. - Constitutional Vitals: Vital Signs - 12hr 07/01/22 07/01/22 07/01/22 00:05 03:51 06:00 Temperature 97.7 F 98.0 F Pulse Rate 77 88 Respiratory 18 17 Rate Respiratory 17 Rate [Penis] Respiratory 17 Rate [no pain] Blood Pressure 97/43 Blood Pressure 107/55 [Right] O2 Sat by Pulse 98 96 Oximetry - Labs CBC & Chem 7: 07/14/22 05:16 07/14/22 05:16 Labs: Abnormal lab results 06/30/22 06/30/22 Range/Units 16:55 21:48 POC Glucose 127 H 145 H (70-105) mg/dL
[2022-07-01 21:16] LABS: Basophils # (Auto) 0.1 K/mm3 (0.0-0.1); Basophils % (Auto) 0.7 % (0.0-1.8); Eosinophils # (Auto) 0.1 K/mm3 (0.0-0.4); Eosinophils % (Auto) 1.6 % (0.0-4.3); Hematocrit 23.3 % (35.5-45.6); Hemoglobin 7.9 gm/dl (11.8-15.2); Lymphocytes # (Auto) 1.4 K/mm3 (1.2-5.4); Mean Corpuscular HGB Conc 34 % (32-34); Mean Corpuscular Volume 93 fl (84-94); Monocytes # (Auto) 0.8 K/mm3 (0.0-0.8); Monocytes % (Auto) 10.7 % (0.0-7.3); Platelet Count 182 K/mm3 (140-440); Red Cell Distribution Width 15.6 % (13.2-15.2)
--- NOTE | 2022-07-01 21:36 | Progress Note ---
Assessment and Plan End-stage renal disease on hemodialysis Uremia, resolved with HD Hyperkalemia, controlled with HD Anemia of ESRD Hyperphosphatemia Hyperparathyroidism Patient's mental status improved following dialysis. Case was discussed in detail with him regarding continuation of dialysis. He said that he would like to continue chronic treatment with dialysis going forward. Continue HD MWF Continue binders Renally dose medications ESRD diet with 1.2-1. 4 g/kg/d protein intake Subjective Date of service: 07/01/22 Principal diagnosis: Encephalopathy Interval history: Resting in bed Vitals, labs and I/os reviewed Interdisciplinary notes and consults reviewed Objective - Exam Narrative Exam: Constitutional: no acute distress Head: NC/AT Neck: supple Lungs: clear to auscultation CV: RRR Abdomen: soft, non-tender, bowel sounds present Back: nontender Extremities: no edema, pulses WNL Skin: intact Neuro: Awake and alert - Vital Signs Vital signs: Vital Signs - 12hr 07/01/22 07/01/22 15:22 19:10 Temperature 97.8 F Pulse Rate 91 H Respiratory 18 Rate Blood Pressure 110/46 O2 Sat by Pulse 98 97 Oximetry - Lab 07/01/22 20:59 06/29/22 04:42 Most recent lab results Calcium 8.9 mg/dL (8.4-10.2) 06/29/22 04:42 Medications & Allergies - Medications Allergies/Adverse Reactions: Allergies No Known Allergies Allergy (Verified 06/29/22 09:46) Home Medications: Home Medications Medication Instructions Recorded Confirmed Last Taken Type Aspirin EC [Halfprin EC] 81 mg PO QDAY #30 tablet. 06/08/22 06/29/22 Unknown Rx Sevelamer Carbonate [Renvela] 2,400 mg PO AC #60 tablet 06/08/22 06/29/22 Unknown Rx Zolpidem [Ambien] 5 mg PO QHS PRN #7 tablet 06/08/22 06/29/22 Unknown Rx Metoprolol Tartrate [Lopressor] 100 mg PO BID 06/29/22 06/29/22 Unknown History levETIRAcetam [Keppra TAB] 500 mg PO BID 06/29/22 06/29/22 Unknown History Active Medications: Generic Name Dose Route Start Last Admin Trade Name Freq PRN Reason Stop Dose Admin Acetaminophen 650 mg 06/28/22 02:56 Acetaminophen 325 Mg Tab PO Q4H PRN Pain MILD(1-3)/Fever >100.5/MUNOZ Aspirin 81 mg 06/28/22 10:00 07/01/22 10:00 Aspirin Ec 81 Mg Tab PO Not Given QDAY MYRIAM Dextrose 50 ml 06/28/22 02:56 06/28/22 11:34 Dextrose 50% In Water (25gm) 50 Ml Syringe IV 50 ml Q30MIN PRN Administration Hypoglycemia Protocol Sodium Chloride 100 mls @ 999 mls/hr 06/28/22 08:00 Nacl 0.9% IV HILDA PRN Hypotension Insulin Human Lispro 0 unit 06/28/22 07:30 07/01/22 16:27 Insulin Lispro 100 Unit/Ml SUB-Q 2 unit ACHS MYRIAM Administration Protocol Levetiracetam 500 mg 06/28/22 10:00 07/01/22 10:00 Levetiracetam 500 Mg Tab PO Not Given BID MYRIAM Magnesium Hydroxide 30 ml 06/28/22 02:56 Magnesium Hydroxide (Mom) Oral Liqd Udc PO Q4H PRN Constipation Metoclopramide HCl 10 mg 06/28/22 18:00 Metoclopramide 10 Mg/2 Ml Inj IV Q6H PRN Nausea And Vomiting Metoprolol Tartrate 50 mg 07/01/22 22:00 Metoprolol Tartrate 50 Mg Tab PO BID MYRIAM Morphine Sulfate 2 mg 06/28/22 02:56 06/28/22 15:13 Morphine 2 Mg/1 Ml Inj IV 2 mg Q4H PRN Administration Pain, Moderate (4-6) Morphine Sulfate 4 mg 06/28/22 02:56 Morphine 4 Mg/1 Ml Inj IV Q4H PRN Pain , Severe (7-10) Ondansetron HCl 4 mg 06/28/22 02:56 Ondansetron 4 Mg/2 Ml Inj IV Q8H PRN Nausea And Vomiting Sevelamer Carbonate 2,400 mg 06/28/22 07:30 07/01/22 16:25 Sevelamer Carbonate 800 Mg Tab PO 2,400 mg AC MYRIAM Administration Sodium Chloride 10 ml 06/28/22 10:00 07/01/22 16:25 Sodium Chloride 0.9% 10 Ml Flush Syringe IV 10 ml BID MYRIAM Administration Sodium Chloride 10 ml 06/28/22 02:56 Sodium Chloride 0.9% 10 Ml Flush Syringe IV PRN PRN LINE FLUSH Zolpidem Tartrate 5 mg 06/28/22 22:00 Zolpidem 5 Mg Tab PO QHS PRN Sleep
[2022-07-01 21:45] LABS: Calcium 8.3 mg/dL (8.4-10.2)
[2022-07-01] MEDS: METOPROLOL TARTRATE 50 MG TAB PO SCH (22:20)
[2022-07-02] MEDS: SEVELAMER CARBONATE 800 MG TAB PO SCH ×3 (07:58→17:00)
[2022-07-02] MEDS: INSULIN LISPRO 100 UNIT/ML SUB-Q SCH ×4 (08:16→21:48)
[2022-07-02] MEDS ORDERED: SODIUM POLYSTYRENE 15 GM/60 ML ORAL LIQD PO ONE (10:00)
[2022-07-02] MEDS: ASPIRIN EC 81 MG TAB PO SCH (12:01)
[2022-07-02] MEDS: levETIRAcetam 500 MG TAB PO SCH ×2 (12:01→21:47)
[2022-07-02] MEDS: METOPROLOL TARTRATE 50 MG TAB PO SCH ×2 (12:01→21:47)
--- NOTE | 2022-07-02 12:45 | Progress Note ---
Assessment and Plan 1. End-stage renal disease on dialysis 2. Noncompliance with dialysis 3. Hyperkalemia 4. Hypertension 5. Possible underlying dementia Plan: 1. Patient admitted and placed on telemetry. 2. We will monitor chemistry 3. Consult placed to nephrology for evaluation. 4. We will resume routine medications. DVT Prophylaxis: Subcutaneous heparin CODE Status: requested DNR and SNF placement with hospice Subjective Date of service: 07/02/22 Principal diagnosis: Encephalopathy Interval history: Patient seen and examined. Medical records and medication list reviewed. No acute event overnight noted by the RN. Patient denies any chest pain or difficulty breathing. Patient is tolerating diet. Discussed plan of care at bedside with patient. Objective - Exam Narrative Exam: GENERAL: AAM lying on bed appeared to be in no discomfort. HEENT: Normocephalic. Atraumatic. No conjunctival congestion or icterus. Patient has moist mucous membranes. NECK: Supple. Trachea midline. CHEST/LUNGS: Clear to auscultated bilaterally, breathing nonlabored. No wheezes crackles or rhonchi. HEART/CARDIOVASCULAR: Regular in rate and rhythm. S1 and S2 positive. ABDOMEN: Abdomen is soft, nontender. Patient has normal bowel sounds. SKIN: There is no rash. Warm and dry. NEURO: No focal motor deficit. Follows command. MUSCULOSKELETAL: No joint effusion or tenderness. EXTRIMITY: No edema, no cyanosis or clubbing. PSYCH: Cooperative. - Constitutional Vitals: Vital Signs - 12hr 07/02/22 07/02/22 07/02/22 04:00 04:17 07:54 Temperature 98.2 F Pulse Rate 82 81 87 Respiratory 18 16 Rate Blood Pressure 121/68 Blood Pressure 126/54 [Right] O2 Sat by Pulse 92 96 Oximetry 07/02/22 07/02/22 09:50 11:19 Temperature 98.0 F Pulse Rate 84 Respiratory 16 Rate Blood Pressure 119/53 Blood Pressure [Right] O2 Sat by Pulse 98 96 Oximetry - Labs CBC & Chem 7: 07/14/22 05:16 07/14/22 05:16 Labs: Abnormal lab results 07/01/22 07/01/22 07/01/22 Range/Units 11:23 15:14 20:00 RBC (3.65-5.03) M/mm3 Hgb (11.8-15.2) gm/dl Hct (35.5-45.6) % RDW (13.2-15.2) % [place] % (Auto) (0.0-7.3) % Potassium (3.6-5.0) mmol/L Chloride (98-107) mmol/L Carbon Dioxide (22-30) mmol/L BUN (9-20) mg/dL Creatinine (0.8-1.3) mg/dL Glucose (75-100) mg/dL POC Glucose 145 H 193 H 107 H (70-105) mg/dL Calcium (8.4-10.2) mg/dL 07/01/22 07/01/22 Range/Units 20:59 20:59 RBC 2.50 L (3.65-5.03) M/mm3 Hgb 7.9 L (11.8-15.2) gm/dl Hct 23.3 L (35.5-45.6) % RDW 15.6 H (13.2-15.2) % [place] % (Auto) 10.7 H (0.0-7.3) % Potassium 5.5 H (3.6-5.0) mmol/L Chloride 91.0 L (98-107) mmol/L Carbon Dioxide 37 H (22-30) mmol/L BUN 64 H (9-20) mg/dL Creatinine 9.9 H (0.8-1.3) mg/dL Glucose 103 H (75-100) mg/dL POC Glucose (70-105) mg/dL Calcium 8.3 L (8.4-10.2) mg/dL
--- NOTE | 2022-07-02 18:23 | Progress Note ---
Assessment and Plan End-stage renal disease on hemodialysis Uremia, resolved with HD Hyperkalemia, controlled with HD Anemia of ESRD Hyperphosphatemia Hyperparathyroidism Patient's mental status improved following dialysis. Case was discussed in detail with him regarding continuation of dialysis. He said that he would like to continue chronic treatment with dialysis going forward. Continue HD MWF Continue binders Renally dose medications ESRD diet with 1.2-1. 4 g/kg/d protein intake Subjective Date of service: 07/02/22 Principal diagnosis: Encephalopathy Interval history: Resting in bed Vitals, labs and I/os reviewed Interdisciplinary notes and consults reviewed Objective - Exam Narrative Exam: Constitutional: no acute distress Head: NC/AT Neck: supple Lungs: clear to auscultation CV: RRR Abdomen: soft, non-tender, bowel sounds present Back: nontender Extremities: no edema, pulses WNL Skin: intact Neuro: Awake and alert - Vital Signs Vital signs: Vital Signs - 12hr 07/02/22 07/02/22 07/02/22 07:54 09:50 11:19 Temperature 98.2 F 98.0 F Pulse Rate 87 84 Respiratory 16 16 Rate Blood Pressure 121/68 119/53 O2 Sat by Pulse 96 98 96 Oximetry 07/02/22 15:32 Temperature 97.9 F Pulse Rate 81 Respiratory 16 Rate Blood Pressure 115/66 O2 Sat by Pulse 98 Oximetry - Lab 07/01/22 20:59 07/01/22 20:59 Most recent lab results Calcium 8.3 mg/dL (8.4-10.2) L 07/01/22 20:59 Medications & Allergies - Medications Allergies/Adverse Reactions: Allergies No Known Allergies Allergy (Verified 06/29/22 09:46) Home Medications: Home Medications Medication Instructions Recorded Confirmed Last Taken Type Aspirin EC [Halfprin EC] 81 mg PO QDAY #30 tablet. 06/08/22 06/29/22 Unknown Rx Sevelamer Carbonate [Renvela] 2,400 mg PO AC #60 tablet 06/08/22 06/29/22 Unknown Rx Zolpidem [Ambien] 5 mg PO QHS PRN #7 tablet 06/08/22 06/29/22 Unknown Rx Metoprolol Tartrate [Lopressor] 100 mg PO BID 06/29/22 06/29/22 Unknown History levETIRAcetam [Keppra TAB] 500 mg PO BID 06/29/22 06/29/22 Unknown History Active Medications: Generic Name Dose Route Start Last Admin Trade Name Freq PRN Reason Stop Dose Admin Acetaminophen 650 mg 06/28/22 02:56 Acetaminophen 325 Mg Tab PO Q4H PRN Pain MILD(1-3)/Fever >100.5/MUNOZ Aspirin 81 mg 06/28/22 10:00 07/02/22 12:01 Aspirin Ec 81 Mg Tab PO 81 mg QDAY MYRIAM Administration Dextrose 50 ml 06/28/22 02:56 06/28/22 11:34 Dextrose 50% In Water (25gm) 50 Ml Syringe IV 50 ml Q30MIN PRN Administration Hypoglycemia Protocol Sodium Chloride 100 mls @ 999 mls/hr 06/28/22 08:00 Nacl 0.9% IV HILDA PRN Hypotension Insulin Human Lispro 0 unit 06/28/22 07:30 07/02/22 17:12 Insulin Lispro 100 Unit/Ml SUB-Q Not Given ACHS MYRIAM Protocol Levetiracetam 500 mg 06/28/22 10:00 07/02/22 12:01 Levetiracetam 500 Mg Tab PO 500 mg BID MYRIAM Administration Metoclopramide HCl 10 mg 06/28/22 18:00 Metoclopramide 10 Mg/2 Ml Inj IV Q6H PRN Nausea And Vomiting Metoprolol Tartrate 50 mg 07/01/22 22:00 07/02/22 12:01 Metoprolol Tartrate 50 Mg Tab PO 50 mg BID MYRIAM Administration Morphine Sulfate 2 mg 06/28/22 02:56 06/28/22 15:13 Morphine 2 Mg/1 Ml Inj IV 2 mg Q4H PRN Administration Pain, Moderate (4-6) Morphine Sulfate 4 mg 06/28/22 02:56 Morphine 4 Mg/1 Ml Inj IV Q4H PRN Pain , Severe (7-10) Ondansetron HCl 4 mg 06/28/22 02:56 Ondansetron 4 Mg/2 Ml Inj IV Q8H PRN Nausea And Vomiting Sevelamer Carbonate 2,400 mg 06/28/22 07:30 07/02/22 12:01 Sevelamer Carbonate 800 Mg Tab PO 2,400 mg AC MYRIAM Administration Sodium Chloride 10 ml 06/28/22 10:00 07/02/22 12:02 Sodium Chloride 0.9% 10 Ml Flush Syringe IV Not Given BID MYRIAM Sodium Chloride 10 ml 06/28/22 02:56 Sodium Chloride 0.9% 10 Ml Flush Syringe IV PRN PRN LINE FLUSH Zolpidem Tartrate 5 mg 06/28/22 22:00 Zolpidem 5 Mg Tab PO QHS PRN Sleep
[2022-07-03] MEDS: SEVELAMER CARBONATE 800 MG TAB PO SCH ×2 (10:38→10:41)
[2022-07-03] MEDS: levETIRAcetam 500 MG TAB PO SCH ×2 (10:38→22:45)
[2022-07-03] MEDS: METOPROLOL TARTRATE 50 MG TAB PO SCH ×2 (10:38→22:45)
[2022-07-03] MEDS: ASPIRIN EC 81 MG TAB PO SCH (10:38)
[2022-07-03] MEDS: INSULIN LISPRO 100 UNIT/ML SUB-Q SCH ×2 (10:41→12:58)
--- NOTE | 2022-07-03 14:50 | Progress Note ---
Assessment and Plan 1. End-stage renal disease on dialysis 2. Noncompliance with dialysis 3. Hyperkalemia 4. Hypertension 5. Possible underlying dementia Plan: 1. Patient admitted and placed on telemetry. 2. We will monitor chemistry 3. Consult placed to nephrology for evaluation and ESRD. 4. We will resume routine medications. DVT Prophylaxis: Subcutaneous heparin CODE Status: requested DNR and SNF placement with hospice Pending placement Subjective Date of service: 07/03/22 Principal diagnosis: Encephalopathy Interval history: Patient seen and examined. Medical records and medication list reviewed. No acute event overnight noted by the RN. Patient denies any chest pain or difficulty breathing. Patient is tolerating diet. Discussed plan of care at bedside with patient. Objective - Constitutional Vitals: Vital Signs - 12hr 07/03/22 07/03/22 07/03/22 03:52 07:38 10:00 Temperature 97.7 F 98.3 F Pulse Rate 87 89 89 Respiratory 17 Rate Blood Pressure 144/79 135/69 O2 Sat by Pulse 99 100 98 Oximetry 07/03/22 11:57 Temperature 98.3 F Pulse Rate 78 Respiratory Rate Blood Pressure 134/65 O2 Sat by Pulse 99 Oximetry General appearance: Present: no acute distress, other (malnourished) - EENT Eyes: PERRL, EOM intact ENT: hearing intact, clear oral mucosa Ears: bilateral: normal - Neck Neck: supple, normal ROM - Respiratory Respiratory effort: normal Respiratory: bilateral: CTA - Breasts Breasts: normal - Cardiovascular Rhythm: regular Heart Sounds: Present: S1 & S2. Absent: gallop, rub Extremities: pulses intact, No edema, normal color, Full ROM - Gastrointestinal General gastrointestinal: Present: soft, non-tender, non-distended, normal bowel sounds - Integumentary Integumentary: clear, warm, dry - Musculoskeletal Musculoskeletal: 1, strength equal bilaterally - Neurologic Neurologic: moves all extremities - Psychiatric Psychiatric: no intact judgment & insight, no memory intact, cooperative - Labs CBC & Chem 7: 07/01/22 20:59 07/01/22 20:59 Labs: Abnormal lab results 07/02/22 07/02/22 Range/Units 15:28 20:36 POC Glucose 115 H 146 H (70-105) mg/dL
--- NOTE | 2022-07-03 18:53 | Progress Note ---
Assessment and Plan End-stage renal disease on hemodialysis Uremia, resolved with HD Hyperkalemia, controlled with HD Anemia of ESRD Hyperphosphatemia Hyperparathyroidism Patient's mental status improved following dialysis. Case has been discussed in detail with him regarding continuation of dialysis. He said that he would like to continue chronic treatment with dialysis going forward. Continue HD MWF or prn However patient refused HD today in afternoon, attempt again tomorrow Continue binders Renally dose medications ESRD diet with 1.2-1. 4 g/kg/d protein intake Subjective Date of service: 07/03/22 Principal diagnosis: Encephalopathy Interval history: Resting in bed, disheveled appearing Vitals, labs and I/os reviewed Interdisciplinary notes and consults reviewed Objective - Exam Narrative Exam: Constitutional: no acute distress Head: NC/AT Neck: supple Lungs: clear to auscultation CV: RRR Abdomen: soft, non-tender, bowel sounds present Back: nontender Extremities: no edema, pulses WNL Skin: intact Neuro: Awake and alert - Vital Signs Vital signs: Vital Signs - 12hr 07/03/22 07/03/22 07/03/22 07:38 10:00 11:57 Temperature 98.3 F 98.3 F Pulse Rate 89 89 78 Blood Pressure 135/69 134/65 O2 Sat by Pulse 100 98 99 Oximetry - Lab 07/01/22 20:59 07/01/22 20:59 Most recent lab results Calcium 8.3 mg/dL (8.4-10.2) L 07/01/22 20:59 Medications & Allergies - Medications Allergies/Adverse Reactions: Allergies No Known Allergies Allergy (Verified 06/29/22 09:46) Home Medications: Home Medications Medication Instructions Recorded Confirmed Last Taken Type Aspirin EC [Halfprin EC] 81 mg PO QDAY #30 tablet. 06/08/22 06/29/22 Unknown Rx Sevelamer Carbonate [Renvela] 2,400 mg PO AC #60 tablet 06/08/22 06/29/22 Unknown Rx Zolpidem [Ambien] 5 mg PO QHS PRN #7 tablet 06/08/22 06/29/22 Unknown Rx Metoprolol Tartrate [Lopressor] 100 mg PO BID 06/29/22 06/29/22 Unknown History levETIRAcetam [Keppra TAB] 500 mg PO BID 06/29/22 06/29/22 Unknown History Active Medications: Generic Name Dose Route Start Last Admin Trade Name Freq PRN Reason Stop Dose Admin Acetaminophen 650 mg 06/28/22 02:56 Acetaminophen 325 Mg Tab PO Q4H PRN Pain MILD(1-3)/Fever >100.5/MUNOZ Aspirin 81 mg 06/28/22 10:00 07/03/22 10:38 Aspirin Ec 81 Mg Tab PO 81 mg QDAY MYRIAM Administration Dextrose 50 ml 06/28/22 02:56 06/28/22 11:34 Dextrose 50% In Water (25gm) 50 Ml Syringe IV 50 ml Q30MIN PRN Administration Hypoglycemia Protocol Sodium Chloride 100 mls @ 999 mls/hr 06/28/22 08:00 Nacl 0.9% IV HILDA PRN Hypotension Insulin Human Lispro 0 unit 06/28/22 07:30 07/03/22 12:58 Insulin Lispro 100 Unit/Ml SUB-Q Not Given ACHS [facility] Protocol Levetiracetam 500 mg 06/28/22 10:00 07/03/22 10:38 Levetiracetam 500 Mg Tab PO 500 mg BID MYRIAM Administration Metoclopramide HCl 10 mg 06/28/22 18:00 Metoclopramide 10 Mg/2 Ml Inj IV Q6H PRN Nausea And Vomiting Metoprolol Tartrate 50 mg 07/01/22 22:00 07/03/22 10:38 Metoprolol Tartrate 50 Mg Tab PO 50 mg BID MYRIAM Administration Morphine Sulfate 2 mg 06/28/22 02:56 06/28/22 15:13 Morphine 2 Mg/1 Ml Inj IV 2 mg Q4H PRN Administration Pain, Moderate (4-6) Morphine Sulfate 4 mg 06/28/22 02:56 Morphine 4 Mg/1 Ml Inj IV Q4H PRN Pain , Severe (7-10) Ondansetron HCl 4 mg 06/28/22 02:56 Ondansetron 4 Mg/2 Ml Inj IV Q8H PRN Nausea And Vomiting Sevelamer Carbonate 2,400 mg 06/28/22 07:30 07/03/22 10:41 Sevelamer Carbonate 800 Mg Tab PO Not Given AC MYRIAM Sodium Chloride 10 ml 06/28/22 10:00 07/03/22 10:39 Sodium Chloride 0.9% 10 Ml Flush Syringe IV 10 ml BID MYRIAM Administration Sodium Chloride 10 ml 06/28/22 02:56 Sodium Chloride 0.9% 10 Ml Flush Syringe IV PRN PRN LINE FLUSH Zolpidem Tartrate 5 mg 06/28/22 22:00 Zolpidem 5 Mg Tab PO QHS PRN Sleep
[2022-07-04] MEDS: SEVELAMER CARBONATE 800 MG TAB PO SCH ×4 (06:57→19:30)
[2022-07-04] MEDS: INSULIN LISPRO 100 UNIT/ML SUB-Q SCH ×4 (06:57→22:34)
--- NOTE | 2022-07-04 09:04 | Progress Note ---
Assessment and Plan Assessment and plan: 1. End-stage renal disease on dialysis 2. Noncompliance with dialysis 3. Hyperkalemia 4. Hypertension 5. Possible underlying dementia Plan: 1. Patient admitted and placed on telemetry. 2. We will monitor chemistry 3. Consult placed to nephrology for evaluation and ESRD. 4. We will resume routine medications. DVT Prophylaxis: Subcutaneous heparin CODE Status: requested DNR and SNF placement with hospice Pending placement Closely monitor the patient and adjust the management as needed DC planning per case management SNF placement with hospice Pending authorization from insurance History Interval history: I have seen and examined the patient at the bedside No new complaints Patient is emaciated and cachectic Awaiting SNF placement with hospice Vital signs reviewed Hospitalist Physical - Constitutional Vitals: Temp Pulse Resp BP Pulse Ox 97.9 F 83 16 143/76 100 07/04/22 04:12 07/04/22 00:50 07/04/22 04:12 07/04/22 04:12 07/04/22 00:50 General appearance: Present: no acute distress, cachectic, disheveled, other (malnourished) - EENT Eyes: Present: PERRL, EOM intact - Neck Neck: Present: supple, normal ROM - Respiratory Respiratory effort: normal Respiratory: bilateral: diminished, negative: rales, rhonchi, wheezing - Cardiovascular Rhythm: regular Heart Sounds: Present: S1 & S2 - Extremities Extremities: no ischemia, No edema - Abdominal General gastrointestinal: soft, non-tender, non-distended, normal bowel sounds - Integumentary Integumentary: Present: clear, warm - Psychiatric Psychiatric: appropriate mood/affect, other (Confused at times) - Neurologic Neurologic: moves all extremities Results - Labs CBC & Chem 7: 07/01/22 20:59 07/01/22 20:59 Labs: Laboratory Last Values WBC 7.8 K/mm3 (4.5-11.0) 07/01/22 20:59 RBC 2.50 M/mm3 (3.65-5.03) L 07/01/22 20:59 Hgb 7.9 gm/dl (11.8-15.2) L 07/01/22 20:59 Hct 23.3 % (35.5-45.6) L 07/01/22 20:59 MCV 93 fl (84-94) 07/01/22 20:59 MCH 32 pg (28-32) 07/01/22 20:59 MCHC 34 % (32-34) 07/01/22 20:59 RDW 15.6 % (13.2-15.2) H 07/01/22 20:59 Plt Count 182 K/mm3 (140-440) 07/01/22 20:59 Lymph % (Auto) 18.0 % (13.4-35.0) 07/01/22 20:59 Brooke % (Auto) 10.7 % (0.0-7.3) H 07/01/22 20:59 Eos % (Auto) 1.6 % (0.0-4.3) 07/01/22 20:59 Baso % (Auto) 0.7 % (0.0-1.8) 07/01/22 20:59 Lymph # (Auto) 1.4 K/mm3 (1.2-5.4) 07/01/22 20:59 Brooke # (Auto) 0.8 K/mm3 (0.0-0.8) 07/01/22 20:59 Eos # (Auto) 0.1 K/mm3 (0.0-0.4) 07/01/22 20:59 Baso # (Auto) 0.1 K/mm3 (0.0-0.1) 07/01/22 20:59 Seg Neutrophils % 69.0 % (40.0-70.0) 07/01/22 20:59 Seg Neutrophils # 5.4 K/mm3 (1.8-7.7) 07/01/22 20:59 Sodium 140 mmol/L (137-145) 07/01/22 20:59 Potassium 5.5 mmol/L (3.6-5.0) H 07/01/22 20:59 Chloride 91.0 mmol/L (98-107) L 07/01/22 20:59 Carbon Dioxide 37 mmol/L (22-30) H 07/01/22 20:59 Anion Gap 18 mmol/L 07/01/22 20:59 BUN 64 mg/dL (9-20) H 07/01/22 20:59 Creatinine 9.9 mg/dL (0.8-1.3) H 07/01/22 20:59 Estimated GFR 7 ml/min 07/01/22 20:59 BUN/Creatinine Ratio 6 % 07/01/22 20:59 Glucose 103 mg/dL (75-100) H 07/01/22 20:59 POC Glucose 52 mg/dL (70-105) L 07/04/22 07:43 Calcium 8.3 mg/dL (8.4-10.2) L 07/01/22 20:59 Total Bilirubin 0.30 mg/dL (0.1-1.2) 06/27/22 22:48 AST 12 units/L (5-40) 06/27/22 22:48 ALT 26 units/L (7-56) 06/27/22 22:48 Alkaline Phosphatase 122 units/L (35-129) 06/27/22 22:48 Total Protein 6.9 g/dL (6.3-8.2) 06/27/22 22:48 Albumin 3.8 g/dL (3.9-5) L 06/27/22 22:48 Albumin/Globulin Ratio 1.2 % 06/27/22 22:48 Coronavirus (PCR) Negative (Negative) 06/30/22 10:00 SARS-CoV-2 (PCR) Negative (Negative) 06/28/22 13:11 Hepatitis A IgM Ab Non-reactive (NonReactive) 06/28/22 08:31 Hep Bs Antigen Non-reactive (Negative) 06/28/22 08:31 Hep B Core IgM Ab Non-reactive (NonReactive) 06/28/22 08:31 Hepatitis C Antibody Non-reactive (NonReactive) 06/28/22 08:31 Saez/IV: Voiding Method Toilet Active Medications - Current Medications Current Medications: Generic Name Dose Route Start Last Admin Trade Name Freq PRN Reason Stop Dose Admin Acetaminophen 650 mg 06/28/22 02:56 Acetaminophen 325 Mg Tab PO Q4H PRN Pain MILD(1-3)/Fever >100.5/MUNOZ Aspirin 81 mg 06/28/22 10:00 07/03/22 10:38 Aspirin Ec 81 Mg Tab PO 81 mg QDAY MYRIAM Administration Dextrose 50 ml 06/28/22 02:56 06/28/22 11:34 Dextrose 50% In Water (25gm) 50 Ml Syringe IV 50 ml Q30MIN PRN Administration Hypoglycemia Protocol Sodium Chloride 100 mls @ 999 mls/hr 06/28/22 08:00 Nacl 0.9% IV HILDA PRN Hypotension Insulin Human Lispro 0 unit 06/28/22 07:30 07/04/22 06:57 Insulin Lispro 100 Unit/Ml SUB-Q Not Given ACHS [facility] Protocol Levetiracetam 500 mg 06/28/22 10:00 07/03/22 22:45 Levetiracetam 500 Mg Tab PO 500 mg BID MYRIAM Administration Metoclopramide HCl 10 mg 06/28/22 18:00 Metoclopramide 10 Mg/2 Ml Inj IV Q6H PRN Nausea And Vomiting Metoprolol Tartrate 50 mg 07/01/22 22:00 07/03/22 22:45 Metoprolol Tartrate 50 Mg Tab PO 50 mg BID MYRIAM Administration Morphine Sulfate 2 mg 06/28/22 02:56 06/28/22 15:13 Morphine 2 Mg/1 Ml Inj IV 2 mg Q4H PRN Administration Pain, Moderate (4-6) Morphine Sulfate 4 mg 06/28/22 02:56 Morphine 4 Mg/1 Ml Inj IV Q4H PRN Pain , Severe (7-10) Ondansetron HCl 4 mg 06/28/22 02:56 Ondansetron 4 Mg/2 Ml Inj IV Q8H PRN Nausea And Vomiting Sevelamer Carbonate 2,400 mg 06/28/22 07:30 07/04/22 06:57 Sevelamer Carbonate 800 Mg Tab PO Not Given AC [facility] Sodium Chloride 10 ml 06/28/22 10:00 07/03/22 22:45 Sodium Chloride 0.9% 10 Ml Flush Syringe IV 10 ml BID MYRIAM Administration Sodium Chloride 10 ml 06/28/22 02:56 Sodium Chloride 0.9% 10 Ml Flush Syringe IV PRN PRN LINE FLUSH Zolpidem Tartrate 5 mg 06/28/22 22:00 Zolpidem 5 Mg Tab PO QHS PRN Sleep Nutrition/Malnutrition Assess - Dietary Evaluation Nutrition/Malnutrition Findings: Nutrition Notes Start: 06/29/22 10:48 Freq: Status: Active Protocol: Document 06/29/22 10:48 [place] (Rec: 06/29/22 11:16 [place] [email or web address]) Nutrition Notes Need for Assessment generated from: Low BMI Initial or Follow up Assessment Current Diagnosis CKD (stage V CKD),Diabetes, Hypertension Other Pertinent Diagnosis AMS, ESRD+HD, Hyperkalemia, Hyperphosphatemia, Uremia, Anemia, ... Current Diet Renal Diet (since B 06/28), D Suppl (from D 06/29). Labs/Tests 06/29: K 5.2, Cl 96.3, CO2 33, BUN 63, Crea 10.9. Pertinent Medications 06/29: Renvela. 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 Discrepancy on Ht noted, but body weight remains within same range. Weight Status Underweight Subjective/Other Information RD consult for Low BMI assessment. No reports available on Pt's PO intake of meals at the time , will assess at F/U. I will prescribe dietary supplements to compensate for poor or insufficient PO intake of meals during LOS. Pt is on Room Air, O2 saturation @ 96%, according to Physical Assessment History notes. Pt complains of having Nausea, according to Physical Assessment History notes. Pt has being non copliant and is refusing HD, restrained and sedated Pt to perform emergrncy HD on 06/28, according to Event notes. Pt's Low BMI seems to correspond to a natural body composition, and not related to a sudden loss of body weight nor chronic malnutrition, since no signs of concern were mentioned in the Physical Assessment History or the Progress notes. Percent of energy/protein needs met: Prescribed Renal Diet provides for energy/protein needs (2, 072 Kcal/77 g) during LOS; additionally, Dietary Supplements will compensate for possible poor or insufficient PO intake of meals with 850 Kcal and 38 g of protein. Burn Absent Trauma Absent GI Symptoms Nausea Food Allergy No Skin Integrity/Comment Assessment WNL. 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 As Evidenced by Signs and Symptoms No reports available on Pt's PO intake of meals at the time , will assess at F/U. Is patient on ventilator? No Is Patient Ambulatory and/or Out of Bed Yes REE-([facility]-ambulatory/OOB) [ [id number] [id number]] Calculation Used for Recommendations [place]- Will Additional Notes Protein: >1.2 g/Kg ABW; >64 g/ day. Fluids: 1 ml/Kcal, or as per MD. Nutrition Intervention Change Diet Order: Continue Renal Diet as tolerated. Add Supplement/Snack (indicate name/kcal Start 8 fl oz Nepro w/ /protein ) CARBSTEADY; BID. Provides kCal: 850 Provides Protein (gm) 38 Goal #1 Compensate, through dietary supplementation, for possible poor or insufficient PO intake of meals during LOS. Follow-Up By: 07/06/22 Additional Comments Continue monitoring food tolerance, %PO intake of meals , dietary supplements, and BM.
--- NOTE | 2022-07-04 10:32 | Progress Note ---
Assessment and Plan End-stage renal disease on hemodialysis Uremia, resolved with HD Hyperkalemia, controlled with HD Anemia of ESRD Hyperphosphatemia Hyperparathyroidism Patient's mental status improved following dialysis but remains altered today. Case has been discussed in detail with him regarding continuation of dialysis per report. He said that he would like to continue chronic treatment with dialysis going forward. However he is now refusing dialysis, refused yesterday, will offer again today. Do note plans for hospice care and agree with plan Continue binders Renally dose medications ESRD diet with 1.2-1. 4 g/kg/d protein intake Subjective Date of service: 07/04/22 Principal diagnosis: Encephalopathy Interval history: Resting in bed, disheveled appearing Vitals, labs and I/os reviewed Interdisciplinary notes and consults reviewed Objective - Exam Narrative Exam: Constitutional: no acute distress Head: NC/AT Neck: supple Lungs: clear to auscultation CV: RRR Abdomen: soft, non-tender, bowel sounds present Back: nontender Extremities: no edema, pulses WNL Skin: intact Neuro: Awake and alert - Vital Signs Vital signs: Vital Signs - 12hr 07/04/22 07/04/22 00:50 04:12 Temperature 97.9 F 97.9 F Pulse Rate 83 Respiratory 18 16 Rate Blood Pressure 112/59 143/76 O2 Sat by Pulse 100 Oximetry - Lab 07/01/22 20:59 07/01/22 20:59 Most recent lab results Calcium 8.3 mg/dL (8.4-10.2) L 07/01/22 20:59 Medications & Allergies - Medications Allergies/Adverse Reactions: Allergies No Known Allergies Allergy (Verified 06/29/22 09:46) Home Medications: Home Medications Medication Instructions Recorded Confirmed Last Taken Type Aspirin EC [Halfprin EC] 81 mg PO QDAY #30 tablet. 06/08/22 06/29/22 Unknown Rx Sevelamer Carbonate [Renvela] 2,400 mg PO AC #60 tablet 06/08/22 06/29/22 Unknown Rx Zolpidem [Ambien] 5 mg PO QHS PRN #7 tablet 06/08/22 06/29/22 Unknown Rx Metoprolol Tartrate [Lopressor] 100 mg PO BID 06/29/22 06/29/22 Unknown History levETIRAcetam [Keppra TAB] 500 mg PO BID 06/29/22 06/29/22 Unknown History Active Medications: Generic Name Dose Route Start Last Admin Trade Name Freq PRN Reason Stop Dose Admin Acetaminophen 650 mg 06/28/22 02:56 Acetaminophen 325 Mg Tab PO Q4H PRN Pain MILD(1-3)/Fever >100.5/MUNOZ Aspirin 81 mg 06/28/22 10:00 07/03/22 10:38 Aspirin Ec 81 Mg Tab PO 81 mg QDAY MYRIAM Administration Dextrose 50 ml 06/28/22 02:56 06/28/22 11:34 Dextrose 50% In Water (25gm) 50 Ml Syringe IV 50 ml Q30MIN PRN Administration Hypoglycemia Protocol Sodium Chloride 100 mls @ 999 mls/hr 06/28/22 08:00 Nacl 0.9% IV HILDA PRN Hypotension Insulin Human Lispro 0 unit 06/28/22 07:30 07/04/22 06:57 Insulin Lispro 100 Unit/Ml SUB-Q Not Given ACHS [facility] Protocol Levetiracetam 500 mg 06/28/22 10:00 07/03/22 22:45 Levetiracetam 500 Mg Tab PO 500 mg BID MYRIAM Administration Metoclopramide HCl 10 mg 06/28/22 18:00 Metoclopramide 10 Mg/2 Ml Inj IV Q6H PRN Nausea And Vomiting Metoprolol Tartrate 50 mg 07/01/22 22:00 07/03/22 22:45 Metoprolol Tartrate 50 Mg Tab PO 50 mg BID MYRIAM Administration Morphine Sulfate 2 mg 06/28/22 02:56 06/28/22 15:13 Morphine 2 Mg/1 Ml Inj IV 2 mg Q4H PRN Administration Pain, Moderate (4-6) Morphine Sulfate 4 mg 06/28/22 02:56 Morphine 4 Mg/1 Ml Inj IV Q4H PRN Pain , Severe (7-10) Ondansetron HCl 4 mg 06/28/22 02:56 Ondansetron 4 Mg/2 Ml Inj IV Q8H PRN Nausea And Vomiting Sevelamer Carbonate 2,400 mg 06/28/22 07:30 07/04/22 06:57 Sevelamer Carbonate 800 Mg Tab PO Not Given AC MYRIAM Sodium Chloride 10 ml 06/28/22 10:00 07/03/22 22:45 Sodium Chloride 0.9% 10 Ml Flush Syringe IV 10 ml BID MYRIAM Administration Sodium Chloride 10 ml 06/28/22 02:56 Sodium Chloride 0.9% 10 Ml Flush Syringe IV PRN PRN LINE FLUSH Zolpidem Tartrate 5 mg 06/28/22 22:00 Zolpidem 5 Mg Tab PO QHS PRN Sleep
[2022-07-04] MEDS: ASPIRIN EC 81 MG TAB PO SCH (11:30)
[2022-07-04] MEDS: levETIRAcetam 500 MG TAB PO SCH ×2 (11:30→22:32)
[2022-07-04] MEDS: METOPROLOL TARTRATE 50 MG TAB PO SCH ×2 (11:30→22:33)
[2022-07-05] MEDS: INSULIN LISPRO 100 UNIT/ML SUB-Q SCH ×4 (08:54→22:32)
[2022-07-05] MEDS: METOPROLOL TARTRATE 50 MG TAB PO SCH ×2 (13:48→22:31)
[2022-07-05] MEDS: levETIRAcetam 500 MG TAB PO SCH ×2 (13:48→22:28)
[2022-07-05] MEDS: ASPIRIN EC 81 MG TAB PO SCH (13:48)
[2022-07-05] MEDS: SEVELAMER CARBONATE 800 MG TAB PO SCH ×2 (15:55→18:49)
--- NOTE | 2022-07-05 19:55 | Progress Note ---
Assessment and Plan Assessment and plan: 1. End-stage renal disease on dialysis Nephrology following, hemodialysis per schedule Avoid nephrotoxin, renal dosing of medications 2. Noncompliance with dialysis Counseling done strongly advised to comply with medications diet Hemodialysis and follow-up doctors visits 3. Hyperkalemia; Improved, closely monitor electrolytes 4. Hypertension; moderate control Continue current antihypertensives and as needed medications 5. Possible underlying dementia Supportive care --Patient DNR and hospice Discharge planning; per case management Possible discharge to SNF with hospice Pending authorization Closely monitor the patient and adjust the management as needed Plan of care reviewed with the patient and his nurse I also discussed extensively with case management Pending authorization 07/05/22; Pending authorization for SNF placement DC planning per case management History Interval history: I have seen and examined the patient at the bedside No new complaints Patient is emaciated and cachectic Awaiting SNF placement with hospice Vital signs reviewed Hospitalist Physical - Constitutional Vitals: Temp Pulse Resp BP Pulse Ox 98.2 F 75 17 107/57 100 07/05/22 13:30 07/05/22 13:30 07/05/22 16:00 07/05/22 13:30 07/05/22 13:30 General appearance: Present: no acute distress, cachectic, disheveled, other (malnourished) - EENT Eyes: Present: PERRL, EOM intact - Neck Neck: Present: supple, normal ROM - Respiratory Respiratory effort: normal Respiratory: bilateral: diminished, negative: rales, rhonchi, wheezing - Cardiovascular Rhythm: regular Heart Sounds: Present: S1 & S2 - Extremities Extremities: no ischemia, pulses intact, No edema - Abdominal General gastrointestinal: soft, non-tender, non-distended, normal bowel sounds - Integumentary Integumentary: Present: clear, warm - Psychiatric Psychiatric: appropriate mood/affect, cooperative - Neurologic Neurologic: moves all extremities, other (Minimally communicative) Results - Labs CBC & Chem 7: 07/01/22 20:59 07/01/22 20:59 Labs: Laboratory Last Values WBC 7.8 K/mm3 (4.5-11.0) 07/01/22 20:59 RBC 2.50 M/mm3 (3.65-5.03) L 07/01/22 20:59 Hgb 7.9 gm/dl (11.8-15.2) L 07/01/22 20:59 Hct 23.3 % (35.5-45.6) L 07/01/22 20:59 MCV 93 fl (84-94) 07/01/22 20:59 MCH 32 pg (28-32) 07/01/22 20:59 MCHC 34 % (32-34) 07/01/22 20:59 RDW 15.6 % (13.2-15.2) H 07/01/22 20:59 Plt Count 182 K/mm3 (140-440) 07/01/22 20:59 Lymph % (Auto) 18.0 % (13.4-35.0) 07/01/22 20:59 Benson % (Auto) 10.7 % (0.0-7.3) H 07/01/22 20:59 Eos % (Auto) 1.6 % (0.0-4.3) 07/01/22 20:59 Baso % (Auto) 0.7 % (0.0-1.8) 07/01/22 20:59 Lymph # (Auto) 1.4 K/mm3 (1.2-5.4) 07/01/22 20:59 Benson # (Auto) 0.8 K/mm3 (0.0-0.8) 07/01/22 20:59 Eos # (Auto) 0.1 K/mm3 (0.0-0.4) 07/01/22 20:59 Baso # (Auto) 0.1 K/mm3 (0.0-0.1) 07/01/22 20:59 Seg Neutrophils % 69.0 % (40.0-70.0) 07/01/22 20:59 Seg Neutrophils # 5.4 K/mm3 (1.8-7.7) 07/01/22 20:59 Sodium 140 mmol/L (137-145) 07/01/22 20:59 Potassium 5.5 mmol/L (3.6-5.0) H 07/01/22 20:59 Chloride 91.0 mmol/L (98-107) L 07/01/22 20:59 Carbon Dioxide 37 mmol/L (22-30) H 07/01/22 20:59 Anion Gap 18 mmol/L 07/01/22 20:59 BUN 64 mg/dL (9-20) H 07/01/22 20:59 Creatinine 9.9 mg/dL (0.8-1.3) H 07/01/22 20:59 Estimated GFR 7 ml/min 07/01/22 20:59 BUN/Creatinine Ratio 6 % 07/01/22 20:59 Glucose 103 mg/dL (75-100) H 07/01/22 20:59 POC Glucose 175 mg/dL (70-105) H 07/05/22 15:46 Calcium 8.3 mg/dL (8.4-10.2) L 07/01/22 20:59 Total Bilirubin 0.30 mg/dL (0.1-1.2) 06/27/22 22:48 AST 12 units/L (5-40) 06/27/22 22:48 ALT 26 units/L (7-56) 06/27/22 22:48 Alkaline Phosphatase 122 units/L (35-129) 06/27/22 22:48 Total Protein 6.9 g/dL (6.3-8.2) 06/27/22 22:48 Albumin 3.8 g/dL (3.9-5) L 06/27/22 22:48 Albumin/Globulin Ratio 1.2 % 06/27/22 22:48 Coronavirus (PCR) Negative (Negative) 06/30/22 10:00 SARS-CoV-2 (PCR) Negative (Negative) 07/04/22 11:34 Hepatitis A IgM Ab Non-reactive (NonReactive) 06/28/22 08:31 Hep Bs Antigen Non-reactive (Negative) 06/28/22 08:31 Hep B Core IgM Ab Non-reactive (NonReactive) 06/28/22 08:31 Hepatitis C Antibody Non-reactive (NonReactive) 06/28/22 08:31 Saez/IV: Voiding Method Toilet Active Medications - Current Medications Current Medications: Generic Name Dose Route Start Last Admin Trade Name Freq PRN Reason Stop Dose Admin Acetaminophen 650 mg 06/28/22 02:56 Acetaminophen 325 Mg Tab PO Q4H PRN Pain MILD(1-3)/Fever >100.5/MUNOZ Aspirin 81 mg 06/28/22 10:00 07/05/22 13:48 Aspirin Ec 81 Mg Tab PO 81 mg QDAY MYRIAM Administration Dextrose 50 ml 06/28/22 02:56 06/28/22 11:34 Dextrose 50% In Water (25gm) 50 Ml Syringe IV 50 ml Q30MIN PRN Administration Hypoglycemia Protocol Sodium Chloride 100 mls @ 999 mls/hr 06/28/22 08:00 Nacl 0.9% IV HILDA PRN Hypotension Insulin Human Lispro 0 unit 06/28/22 07:30 07/05/22 18:49 Insulin Lispro 100 Unit/Ml SUB-Q Not Given ACHS MYRIAM Protocol Levetiracetam 500 mg 06/28/22 10:00 07/05/22 13:48 Levetiracetam 500 Mg Tab PO 500 mg BID MYRIAM Administration Metoclopramide HCl 10 mg 06/28/22 18:00 Metoclopramide 10 Mg/2 Ml Inj IV Q6H PRN Nausea And Vomiting Metoprolol Tartrate 50 mg 07/01/22 22:00 07/05/22 13:48 Metoprolol Tartrate 50 Mg Tab PO 50 mg BID MYRIAM Administration Morphine Sulfate 2 mg 06/28/22 02:56 06/28/22 15:13 Morphine 2 Mg/1 Ml Inj IV 2 mg Q4H PRN Administration Pain, Moderate (4-6) Morphine Sulfate 4 mg 06/28/22 02:56 Morphine 4 Mg/1 Ml Inj IV Q4H PRN Pain , Severe (7-10) Ondansetron HCl 4 mg 06/28/22 02:56 Ondansetron 4 Mg/2 Ml Inj IV Q8H PRN Nausea And Vomiting Sevelamer Carbonate 2,400 mg 06/28/22 07:30 07/05/22 18:49 Sevelamer Carbonate 800 Mg Tab PO Not Given AC MYRIAM Sodium Chloride 10 ml 06/28/22 10:00 07/05/22 13:49 Sodium Chloride 0.9% 10 Ml Flush Syringe IV 10 ml BID MYRIAM Administration Sodium Chloride 10 ml 06/28/22 02:56 Sodium Chloride 0.9% 10 Ml Flush Syringe IV PRN PRN LINE FLUSH Zolpidem Tartrate 5 mg 06/28/22 22:00 Zolpidem 5 Mg Tab PO QHS PRN Sleep Nutrition/Malnutrition Assess - Dietary Evaluation Nutrition/Malnutrition Findings: Nutrition Notes Start: 06/29/22 10:48 Freq: Status: Active Protocol: Document 06/29/22 10:48 [place] (Rec: 06/29/22 11:16 [place] [id number]) Nutrition Notes Need for Assessment generated from: Low BMI Initial or Follow up Assessment Current Diagnosis CKD (stage V CKD),Diabetes, Hypertension Other Pertinent Diagnosis AMS, ESRD+HD, Hyperkalemia, Hyperphosphatemia, Uremia, Anemia, ... Current Diet Renal Diet (since B 06/28), D Suppl (from D 06/29). Labs/Tests 06/29: K 5.2, Cl 96.3, CO2 33, BUN 63, Crea 10.9. Pertinent Medications 06/29: Renvela. Height 5 ft 7 in Weight 53 kg [place] Body Weight (kg) 67.27 BMI 18.3 Intake Prior to Admission Good Weight change and time frame Pt denies having loss body weight [employer] [employer]. Last visit (06/06/22) anthropometrics: Ht 5'9", Wt 54.43Kg, BMI: 17.7 Kg/m2. Discrepancy on Ht noted, but body weight remains within same range. Weight Status Underweight Subjective/Other Information RD consult for Low BMI assessment. No reports available on Pt's PO intake of meals at the time , will assess at F/U. I will prescribe dietary supplements to compensate for poor or insufficient PO intake of meals during LOS. Pt is on Room Air, O2 saturation @ 96%, according to Physical Assessment History notes. Pt complains of having Nausea, according to Physical Assessment History notes. Pt has being non copliant and is refusing HD, restrained and sedated Pt to perform emergrncy HD on 06/28, according to Event notes. Pt's Low BMI seems to correspond to a natural body composition, and not related to a sudden loss of body weight nor chronic malnutrition, since no signs of concern were mentioned in the Physical Assessment History or the Progress notes. Percent of energy/protein needs met: Prescribed Renal Diet provides for energy/protein needs (2, 072 Kcal/77 g) during LOS; additionally, Dietary Supplements will compensate for possible poor or insufficient PO intake of meals with 850 Kcal and 38 g of protein. Burn Absent Trauma Absent GI Symptoms Nausea Food Allergy No Skin Integrity/Comment Assessment WNL. Minimum of two criteria No Fluid Accumulation N/A Reduced Patient Carrier Strength N/A (non-severe) Protein-Calorie Malnutrition N\\A #1 Nutrition Diagnosis Predicted suboptimal energy intake Etiology AMS. As Evidenced by Signs and Symptoms No reports available on Pt's PO intake of meals at the time , will assess at F/U. Is patient on ventilator? No Is Patient Ambulatory and/or Out of Bed Yes REE-([facility]-ambulatory/OOB) [ 1753.219 [id number]] Calculation Used for Recommendations [facility] Additional Notes Protein: >1.2 g/Kg ABW; >64 g/ day. Fluids: 1 ml/Kcal, or as per MD. Nutrition Intervention Change Diet Order: Continue Renal Diet as tolerated. Add Supplement/Snack (indicate name/kcal Start 8 fl oz Nepro w/ /protein ) CARBSTEADY; BID. Provides kCal: 850 Provides Protein (gm) 38 Goal #1 Compensate, through dietary supplementation, for possible poor or insufficient PO intake of meals during LOS. Follow-Up By: 07/06/22 Additional Comments Continue monitoring food tolerance, %PO intake of meals , dietary supplements, and BM.
--- NOTE | 2022-07-05 20:35 | Progress Note ---
Assessment and Plan End-stage renal disease on hemodialysis Uremia, resolved with HD Hyperkalemia, controlled with HD Anemia of ESRD Hyperphosphatemia Hyperparathyroidism Patient's mental status improved following dialysis but remains altered today. Case has been discussed in detail with him regarding continuation of dialysis per report. He said that he would like to continue chronic treatment with dialysis per prior report. However he is now refusing dialysis. Do note plans for hospice care and agree with plan Continue binders Renally dose medications ESRD diet with 1.2-1. 4 g/kg/d protein intake Subjective Date of service: 07/05/22 Principal diagnosis: Encephalopathy Interval history: Resting in bed, disheveled appearing, refusing dialysis today Vitals, labs and I/os reviewed Interdisciplinary notes and consults reviewed Objective - Exam Narrative Exam: Constitutional: no acute distress Head: NC/AT Neck: supple Lungs: clear to auscultation CV: RRR Abdomen: soft, non-tender, bowel sounds present Back: nontender Extremities: no edema, pulses WNL Skin: intact Neuro: Awake and alert - Vital Signs Vital signs: Vital Signs - 12hr 07/05/22 07/05/22 07/05/22 10:00 10:40 11:00 Temperature 98.2 F Pulse Rate 79 79 Respiratory 18 Rate Respiratory Rate [no pain] Blood Pressure 118/67 119/67 Blood Pressure [Right] O2 Sat by Pulse 98 Oximetry O2 Sat by Pulse 100 Oximetry [ Anterior Bilateral Throughout] O2 Sat by Pulse 100 Oximetry [ Posterior Bilateral] 07/05/22 07/05/22 07/05/22 11:15 11:30 11:45 Temperature Pulse Rate 78 83 81 Respiratory Rate Respiratory Rate [no pain] Blood Pressure 120/69 114/63 104/58 Blood Pressure [Right] O2 Sat by Pulse Oximetry O2 Sat by Pulse Oximetry [ Anterior Bilateral Throughout] O2 Sat by Pulse Oximetry [ Posterior Bilateral] 07/05/22 07/05/22 07/05/22 12:00 12:15 13:30 Temperature 98.0 F 98.2 F Pulse Rate 78 77 75 Respiratory 18 20 Rate Respiratory Rate [no pain] Blood Pressure 103/55 104/57 107/57 Blood Pressure 115/73 [Right] O2 Sat by Pulse 89 Oximetry O2 Sat by Pulse 100 Oximetry [ Anterior Bilateral Throughout] O2 Sat by Pulse 100 Oximetry [ Posterior Bilateral] 07/05/22 16:00 Temperature Pulse Rate Respiratory Rate Respiratory 17 Rate [no pain] Blood Pressure Blood Pressure [Right] O2 Sat by Pulse Oximetry O2 Sat by Pulse Oximetry [ Anterior Bilateral Throughout] O2 Sat by Pulse Oximetry [ Posterior Bilateral] - Lab 07/01/22 20:59 07/01/22 20:59 Most recent lab results Calcium 8.3 mg/dL (8.4-10.2) L 07/01/22 20:59 Medications & Allergies - Medications Allergies/Adverse Reactions: Allergies No Known Allergies Allergy (Verified 06/29/22 09:46) Home Medications: Home Medications Medication Instructions Recorded Confirmed Last Taken Type Aspirin EC [Halfprin EC] 81 mg PO QDAY #30 tablet. 06/08/22 06/29/22 Unknown Rx Sevelamer Carbonate [Renvela] 2,400 mg PO AC #60 tablet 06/08/22 06/29/22 Unknown Rx Zolpidem [Ambien] 5 mg PO QHS PRN #7 tablet 06/08/22 06/29/22 Unknown Rx Metoprolol Tartrate [Lopressor] 100 mg PO BID 06/29/22 06/29/22 Unknown History levETIRAcetam [Keppra TAB] 500 mg PO BID 06/29/22 06/29/22 Unknown History Active Medications: Generic Name Dose Route Start Last Admin Trade Name Freq PRN Reason Stop Dose Admin Acetaminophen 650 mg 06/28/22 02:56 Acetaminophen 325 Mg Tab PO Q4H PRN Pain MILD(1-3)/Fever >100.5/MUNOZ Aspirin 81 mg 06/28/22 10:00 07/05/22 13:48 Aspirin Ec 81 Mg Tab PO 81 mg QDAY MYRIAM Administration Dextrose 50 ml 06/28/22 02:56 06/28/22 11:34 Dextrose 50% In Water (25gm) 50 Ml Syringe IV 50 ml Q30MIN PRN Administration Hypoglycemia Protocol Sodium Chloride 100 mls @ 999 mls/hr 06/28/22 08:00 Nacl 0.9% IV HILDA PRN Hypotension Insulin Human Lispro 0 unit 06/28/22 07:30 07/05/22 18:49 Insulin Lispro 100 Unit/Ml SUB-Q Not Given ACHS MYRIAM Protocol Levetiracetam 500 mg 06/28/22 10:00 07/05/22 13:48 Levetiracetam 500 Mg Tab PO 500 mg BID MYRIAM Administration Metoclopramide HCl 10 mg 06/28/22 18:00 Metoclopramide 10 Mg/2 Ml Inj IV Q6H PRN Nausea And Vomiting Metoprolol Tartrate 50 mg 07/01/22 22:00 07/05/22 13:48 Metoprolol Tartrate 50 Mg Tab PO 50 mg BID MYRIAM Administration Morphine Sulfate 2 mg 06/28/22 02:56 06/28/22 15:13 Morphine 2 Mg/1 Ml Inj IV 2 mg Q4H PRN Administration Pain, Moderate (4-6) Morphine Sulfate 4 mg 06/28/22 02:56 Morphine 4 Mg/1 Ml Inj IV Q4H PRN Pain , Severe (7-10) Ondansetron HCl 4 mg 06/28/22 02:56 Ondansetron 4 Mg/2 Ml Inj IV Q8H PRN Nausea And Vomiting Sevelamer Carbonate 2,400 mg 06/28/22 07:30 07/05/22 18:49 Sevelamer Carbonate 800 Mg Tab PO Not Given AC MYRIAM Sodium Chloride 10 ml 06/28/22 10:00 07/05/22 13:49 Sodium Chloride 0.9% 10 Ml Flush Syringe IV 10 ml BID MYRIAM Administration Sodium Chloride 10 ml 06/28/22 02:56 Sodium Chloride 0.9% 10 Ml Flush Syringe IV PRN PRN LINE FLUSH Zolpidem Tartrate 5 mg 06/28/22 22:00 Zolpidem 5 Mg Tab PO QHS PRN Sleep
[2022-07-06 06:03] LABS: Hematocrit 22.4 % (35.5-45.6); Hemoglobin 7.4 gm/dl (11.8-15.2)
[2022-07-06 06:19] LABS: Calcium 9.2 mg/dL (8.4-10.2)
[2022-07-06] MEDS ORDERED: SODIUM CHLORIDE 0.9% 100 ML IV PRN (09:00)
[2022-07-06] MEDS: INSULIN LISPRO 100 UNIT/ML SUB-Q SCH ×2 (09:06→18:14)
[2022-07-06] MEDS: SEVELAMER CARBONATE 800 MG TAB PO SCH ×3 (09:06→18:15)
[2022-07-06] MEDS: ASPIRIN EC 81 MG TAB PO SCH (10:13)
[2022-07-06] MEDS: levETIRAcetam 500 MG TAB PO SCH ×2 (10:13→21:01)
[2022-07-06] MEDS: METOPROLOL TARTRATE 50 MG TAB PO SCH ×2 (10:13→21:01)
--- NOTE | 2022-07-06 14:26 | Progress Note ---
Assessment and Plan End-stage renal disease on hemodialysis Uremia, resolved with HD Hyperkalemia, controlled with HD Anemia of ESRD Hyperphosphatemia Hyperparathyroidism Patient's mental status improved following dialysis but remains altered today. Case has been discussed in detail with him regarding continuation of dialysis per report. He said that he would like to continue chronic treatment with dialysis per prior report. However he is now refusing dialysis. Do note plans for hospice care and agree with plan, will continue to review dialysis needs with him while inpatient Note last labs- K 5.5, HCO3 36 Continue binders Renally dose medications ESRD diet with 1.2-1. 4 g/kg/d protein intake Subjective Date of service: 07/06/22 Principal diagnosis: Encephalopathy Interval history: Resting in bed, disheveled appearing, refusing dialysis again today Vitals, labs and I/os reviewed Interdisciplinary notes and consults reviewed Objective - Exam Narrative Exam: Constitutional: no acute distress Head: NC/AT Neck: supple Lungs: clear to auscultation CV: RRR Abdomen: soft, non-tender, bowel sounds present Back: nontender Extremities: no edema, pulses WNL Skin: intact Neuro: Awake and alert - Vital Signs Vital signs: Vital Signs - 12hr 07/06/22 07/06/22 07/06/22 03:20 08:08 10:00 Temperature 98.0 F 98.0 F Pulse Rate 83 81 Respiratory 16 18 Rate Blood Pressure 139/73 138/68 O2 Sat by Pulse 100 100 98 Oximetry 07/06/22 11:19 Temperature 98.0 F Pulse Rate 79 Respiratory 18 Rate Blood Pressure 131/69 O2 Sat by Pulse 100 Oximetry - Lab 07/06/22 05:13 07/06/22 04:00 Most recent lab results Calcium 9.2 mg/dL (8.4-10.2) 07/06/22 04:00 Magnesium 2.30 mg/dL (1.7-2.3) 07/06/22 04:00 Medications & Allergies - Medications Allergies/Adverse Reactions: Allergies No Known Allergies Allergy (Verified 06/29/22 09:46) Home Medications: Home Medications Medication Instructions Recorded Confirmed Last Taken Type Aspirin EC [Halfprin EC] 81 mg PO QDAY #30 tablet. 06/08/22 06/29/22 Unknown Rx Sevelamer Carbonate [Renvela] 2,400 mg PO AC #60 tablet 06/08/22 06/29/22 Unknown Rx Zolpidem [Ambien] 5 mg PO QHS PRN #7 tablet 06/08/22 06/29/22 Unknown Rx Metoprolol Tartrate [Lopressor] 100 mg PO BID 06/29/22 06/29/22 Unknown History levETIRAcetam [Keppra TAB] 500 mg PO BID 06/29/22 06/29/22 Unknown History Active Medications: Generic Name Dose Route Start Last Admin Trade Name Freq PRN Reason Stop Dose Admin Acetaminophen 650 mg 06/28/22 02:56 Acetaminophen 325 Mg Tab PO Q4H PRN Pain MILD(1-3)/Fever >100.5/MUNOZ Aspirin 81 mg 06/28/22 10:00 07/06/22 10:13 Aspirin Ec 81 Mg Tab PO 81 mg QDAY MYRIAM Administration Dextrose 50 ml 06/28/22 02:56 06/28/22 11:34 Dextrose 50% In Water (25gm) 50 Ml Syringe IV 50 ml Q30MIN PRN Administration Hypoglycemia Protocol Sodium Chloride 100 mls @ 999 mls/hr 07/06/22 09:00 Nacl 0.9% IV HILDA PRN Hypotension Insulin Human Lispro 0 unit 06/28/22 07:30 07/06/22 09:06 Insulin Lispro 100 Unit/Ml SUB-Q Not Given ACHS MYRIAM Protocol Levetiracetam 500 mg 06/28/22 10:00 07/06/22 10:13 Levetiracetam 500 Mg Tab PO 500 mg BID MYRIAM Administration Metoclopramide HCl 10 mg 06/28/22 18:00 Metoclopramide 10 Mg/2 Ml Inj IV Q6H PRN Nausea And Vomiting Metoprolol Tartrate 50 mg 07/01/22 22:00 07/06/22 10:13 Metoprolol Tartrate 50 Mg Tab PO 50 mg BID MYRIAM Administration Morphine Sulfate 2 mg 06/28/22 02:56 06/28/22 15:13 Morphine 2 Mg/1 Ml Inj IV 2 mg Q4H PRN Administration Pain, Moderate (4-6) Morphine Sulfate 4 mg 06/28/22 02:56 Morphine 4 Mg/1 Ml Inj IV Q4H PRN Pain , Severe (7-10) Ondansetron HCl 4 mg 06/28/22 02:56 Ondansetron 4 Mg/2 Ml Inj IV Q8H PRN Nausea And Vomiting Sevelamer Carbonate 2,400 mg 06/28/22 07:30 07/06/22 10:13 Sevelamer Carbonate 800 Mg Tab PO 2,400 mg AC MYRIAM Administration Sodium Chloride 10 ml 06/28/22 10:00 07/06/22 10:13 Sodium Chloride 0.9% 10 Ml Flush Syringe IV 10 ml BID MYRIAM Administration Sodium Chloride 10 ml 06/28/22 02:56 Sodium Chloride 0.9% 10 Ml Flush Syringe IV PRN PRN LINE FLUSH Zolpidem Tartrate 5 mg 06/28/22 22:00 Zolpidem 5 Mg Tab PO QHS PRN Sleep
--- NOTE | 2022-07-06 19:28 | Progress Note ---
Assessment and Plan Assessment and plan: 1. End-stage renal disease on dialysis Nephrology following, hemodialysis per schedule Avoid nephrotoxin, renal dosing of medications 2. Noncompliance with dialysis Counseling done strongly advised to comply with medications diet Hemodialysis and follow-up doctors visits Patient continues to refuse dialysis Nephrology aware 3. Hyperkalemia; Improved, closely monitor electrolytes 4. Hypertension; moderate control Continue current antihypertensives and as needed medications 5. Possible underlying dementia Supportive care 6--Patient DNR and hospice Discharge planning; per case management Possible discharge to SNF with hospice Pending authorization Closely monitor the patient and adjust the management as needed Plan of care reviewed with the patient and his nurse I also discussed extensively with case management Pending authorization 07/05/22; Pending authorization for SNF placement DC planning per case management 07/06 pending placement SNF with hospice Case management team processing Pending authorization History Interval history: Seen and examined the patient at the bedside Patient's chart and medications reviewed Patient is chronically ill looking emaciated and cachectic Not in acute distress Minimally communicative vital signs noted Patient refused again for dialysis today Hospitalist Physical - Constitutional Vitals: Temp Pulse Resp BP Pulse Ox 97.9 F 86 17 134/76 100 07/06/22 15:43 07/06/22 15:43 07/06/22 16:00 07/06/22 15:43 07/06/22 15:43 General appearance: Present: no acute distress, cachectic, disheveled, other (malnourished) - EENT Eyes: Present: PERRL, EOM intact - Neck Neck: Present: supple, normal ROM - Respiratory Respiratory effort: normal Respiratory: bilateral: diminished, negative: rales, rhonchi, wheezing - Cardiovascular Rhythm: regular Heart Sounds: Present: S1 & S2 - Extremities Extremities: no ischemia, No edema - Abdominal General gastrointestinal: soft, non-tender, non-distended, normal bowel sounds - Integumentary Integumentary: Present: clear, warm - Psychiatric Psychiatric: appropriate mood/affect, cooperative - Neurologic Neurologic: moves all extremities Results - Labs CBC & Chem 7: 07/06/22 05:13 07/06/22 04:00 Labs: Laboratory Last Values WBC 7.8 K/mm3 (4.5-11.0) 07/01/22 20:59 RBC 2.50 M/mm3 (3.65-5.03) L 07/01/22 20:59 Hgb 7.4 gm/dl (11.8-15.2) L 07/06/22 05:13 Hct 22.4 % (35.5-45.6) L 07/06/22 05:13 MCV 93 fl (84-94) 07/01/22 20:59 MCH 32 pg (28-32) 07/01/22 20:59 MCHC 34 % (32-34) 07/01/22 20:59 RDW 15.6 % (13.2-15.2) H 07/01/22 20:59 Plt Count 182 K/mm3 (140-440) 07/01/22 20:59 Lymph % (Auto) 18.0 % (13.4-35.0) 07/01/22 20:59 [place] % (Auto) 10.7 % (0.0-7.3) H 07/01/22 20:59 Eos % (Auto) 1.6 % (0.0-4.3) 07/01/22 20:59 Baso % (Auto) 0.7 % (0.0-1.8) 07/01/22 20:59 Lymph # (Auto) 1.4 K/mm3 (1.2-5.4) 07/01/22 20:59 [place] # (Auto) 0.8 K/mm3 (0.0-0.8) 07/01/22 20:59 Eos # (Auto) 0.1 K/mm3 (0.0-0.4) 07/01/22 20:59 Baso # (Auto) 0.1 K/mm3 (0.0-0.1) 07/01/22 20:59 Seg Neutrophils % 69.0 % (40.0-70.0) 07/01/22 20:59 Seg Neutrophils # 5.4 K/mm3 (1.8-7.7) 07/01/22 20:59 Sodium 142 mmol/L (137-145) 07/06/22 04:00 Potassium 5.5 mmol/L (3.6-5.0) H 07/06/22 04:00 Chloride 91.1 mmol/L (98-107) L 07/06/22 04:00 Carbon Dioxide 36 mmol/L (22-30) H 07/06/22 04:00 Anion Gap 20 mmol/L 07/06/22 04:00 BUN 83 mg/dL (9-20) H 07/06/22 04:00 Creatinine 11.7 mg/dL (0.8-1.3) H 07/06/22 04:00 Estimated GFR 6 ml/min 07/06/22 04:00 BUN/Creatinine Ratio 7 % 07/06/22 04:00 Glucose 59 mg/dL (75-100) L 07/06/22 04:00 POC Glucose 98 mg/dL (70-105) 07/06/22 15:44 Calcium 9.2 mg/dL (8.4-10.2) 07/06/22 04:00 Magnesium 2.30 mg/dL (1.7-2.3) 07/06/22 04:00 Total Bilirubin 0.30 mg/dL (0.1-1.2) 06/27/22 22:48 AST 12 units/L (5-40) 06/27/22 22:48 ALT 26 units/L (7-56) 06/27/22 22:48 Alkaline Phosphatase 122 units/L (35-129) 06/27/22 22:48 Total Protein 6.9 g/dL (6.3-8.2) 06/27/22 22:48 Albumin 3.8 g/dL (3.9-5) L 06/27/22 22:48 Albumin/Globulin Ratio 1.2 % 06/27/22 22:48 Coronavirus (PCR) Negative (Negative) 06/30/22 10:00 SARS-CoV-2 (PCR) Negative (Negative) 07/04/22 11:34 Hepatitis A IgM Ab Non-reactive (NonReactive) 06/28/22 08:31 Hep Bs Antigen Non-reactive (Negative) 06/28/22 08:31 Hep B Core IgM Ab Non-reactive (NonReactive) 06/28/22 08:31 Hepatitis C Antibody Non-reactive (NonReactive) 06/28/22 08:31 Saez/IV: Voiding Method Toilet Active Medications - Current Medications Current Medications: Generic Name Dose Route Start Last Admin Trade Name Freq PRN Reason Stop Dose Admin Acetaminophen 650 mg 06/28/22 02:56 Acetaminophen 325 Mg Tab PO Q4H PRN Pain MILD(1-3)/Fever >100.5/MUNOZ Aspirin 81 mg 06/28/22 10:00 07/06/22 10:13 Aspirin Ec 81 Mg Tab PO 81 mg QDAY MYRIAM Administration Dextrose 50 ml 06/28/22 02:56 06/28/22 11:34 Dextrose 50% In Water (25gm) 50 Ml Syringe IV 50 ml Q30MIN PRN Administration Hypoglycemia Protocol Sodium Chloride 100 mls @ 999 mls/hr 07/06/22 09:00 Nacl 0.9% IV HILDA PRN Hypotension Insulin Human Lispro 0 unit 06/28/22 07:30 07/06/22 18:14 Insulin Lispro 100 Unit/Ml SUB-Q Not Given ACHS MYRAIM Protocol Levetiracetam 500 mg 06/28/22 10:00 07/06/22 10:13 Levetiracetam 500 Mg Tab PO 500 mg BID MYRIAM Administration Metoclopramide HCl 10 mg 06/28/22 18:00 Metoclopramide 10 Mg/2 Ml Inj IV Q6H PRN Nausea And Vomiting Metoprolol Tartrate 50 mg 07/01/22 22:00 07/06/22 10:13 Metoprolol Tartrate 50 Mg Tab PO 50 mg BID MYRIAM Administration Morphine Sulfate 2 mg 06/28/22 02:56 06/28/22 15:13 Morphine 2 Mg/1 Ml Inj IV 2 mg Q4H PRN Administration Pain, Moderate (4-6) Morphine Sulfate 4 mg 06/28/22 02:56 Morphine 4 Mg/1 Ml Inj IV Q4H PRN Pain , Severe (7-10) Ondansetron HCl 4 mg 06/28/22 02:56 Ondansetron 4 Mg/2 Ml Inj IV Q8H PRN Nausea And Vomiting Sevelamer Carbonate 2,400 mg 06/28/22 07:30 07/06/22 18:15 Sevelamer Carbonate 800 Mg Tab PO Not Given AC MYRIAM Sodium Chloride 10 ml 06/28/22 10:00 07/06/22 10:13 Sodium Chloride 0.9% 10 Ml Flush Syringe IV 10 ml BID MYRIAM Administration Sodium Chloride 10 ml 06/28/22 02:56 Sodium Chloride 0.9% 10 Ml Flush Syringe IV PRN PRN LINE FLUSH Zolpidem Tartrate 5 mg 06/28/22 22:00 Zolpidem 5 Mg Tab PO QHS PRN Sleep Nutrition/Malnutrition Assess - Dietary Evaluation Nutrition/Malnutrition Findings: Nutrition Notes Start: 06/29/22 10:48 Freq: Status: Active Protocol: Document 07/06/22 14:25 [place] (Rec: 07/06/22 14:43 [place] [email or web address]) Nutrition Notes Initial or Follow up Assessment Current Diagnosis CKD (stage V CKD),Diabetes, Hypertension Other Pertinent Diagnosis AMS, r/o Dementia, ESRD+HD, Hyperkalemia, Hyperphosphatemia, Anemia, ... Current Diet Renal Diet (since B 06/28). Labs/Tests 07/06: K 5.5, Cl 91.1, CO2 36, BUN 83, Crea 11.7, Glu 59. Pertinent Medications 07/06: Renvela. Height 5 ft 7 in Weight 56.1 kg [place] Body Weight (kg) 67.27 BMI 19.3 Weight change and time frame 3 Kg body weight gain reported in 1 week. Weight Status Appropriate Subjective/Other Information RD consult for routine F/U on dietary advancement. Diet continues as prescribed, but Dietary Supplements were discontinued, No reports available on Pt's PO intake of meals at the time, will assess at F/U. Pt is on Room Air, O2 saturation @ 98%, according to Vital Signs notes. Pt is awaiting for SNF placement, according to Progress notes. Percent of energy/protein needs met: Prescribed Renal Diet provides for energy/protein needs (2, 072 Kcal/77 g) during LOS. Burn Absent Trauma Absent GI Symptoms None Food Allergy No Skin Integrity/Comment Assessment WNL. Minimum of two criteria No Fluid Accumulation N/A Reduced [employer] Strength N/A (non-severe) Protein-Calorie Malnutrition N\A #1 Nutrition Diagnosis Predicted suboptimal energy intake Comments: Diet continues as prescribed, but Dietary Supplements were discontinued, No reports available on Pt's PO intake of meals at the time, will assess at F/U. Diagnosis Progress(for reassessment Resolved documentation) Is patient on ventilator? No Is Patient Ambulatory and/or Out of Bed Yes REE-(Webster-St. Jeor-ambulatory/OOB) [ 1793.519 [id number]] Calculation Used for Recommendations Webster-St Jeor Additional Notes Protein: >1.2 g/Kg ABW; >64 g/ day. Fluids: 1 ml/Kcal, or as per MD. Nutrition Intervention Change Diet Order: Continue Renal Diet as tolerated. Add Supplement/Snack (indicate name/kcal Discontinued. /protein ) Goal #1 Adjust the dietary intervention to better serve Pt's energy/protein needs and clinical conditions during LOS . Follow-Up By: 07/13/22 Additional Comments Continue monitoring food tolerance, %PO intake of meals , and BM.
[2022-07-07] MEDS: INSULIN LISPRO 100 UNIT/ML SUB-Q SCH ×5 (08:00→22:46)
--- NOTE | 2022-07-07 09:22 | Progress Note ---
Assessment and Plan Assessment and plan: 1. End-stage renal disease on dialysis Nephrology following, hemodialysis per schedule Avoid nephrotoxin, renal dosing of medications 2. Noncompliance with dialysis Counseling done strongly advised to comply with medications diet Hemodialysis and follow-up doctors visits Patient continues to refuse dialysis Nephrology aware 3. Hyperkalemia; Improved, closely monitor electrolytes 4. Hypertension; moderate control Continue current antihypertensives and as needed medications 5. Possible underlying dementia Supportive care 6--Patient DNR and hospice Discharge planning; per case management Possible discharge to SNF with hospice Pending authorization Advance care planning; +30 minutes I discussed in detail with the patient his condition, discussed his diagnosis I discussed with him his prognosis, I discussed with him the treatment plan I also discussed with him the discharge planning, the plan soft placing in a correction with hospice He verbalized understanding and had some questions answered all of them Closely monitor the patient and adjust the management as needed Plan of care reviewed with the patient and his nurse I also discussed extensively with case management Pending authorization 07/05/22; Pending authorization for SNF placement DC planning per case management 07/06 pending placement SNF with hospice Case management team processing Pending authorization 07/07; pending SNF placement History Interval history: I have seen and examined the patient at the bedside Patient's chart and medications reviewed Patient continues to refuse hemodialysis Anxious to go home Vital signs noted Hospitalist Physical - Constitutional Vitals: Temp Pulse Resp BP Pulse Ox 98.0 F 82 18 131/68 100 07/07/22 07:41 07/07/22 07:41 07/07/22 07:41 07/07/22 07:41 07/07/22 07:41 General appearance: Present: no acute distress, cachectic, disheveled, other (malnourished) - EENT Eyes: Present: PERRL, EOM intact - Neck Neck: Present: supple, normal ROM - Respiratory Respiratory effort: normal Respiratory: bilateral: diminished, negative: rales, rhonchi, wheezing - Cardiovascular Rhythm: regular Heart Sounds: Present: S1 & S2 - Extremities Extremities: no ischemia, No edema - Abdominal General gastrointestinal: soft, non-tender, non-distended, normal bowel sounds - Integumentary Integumentary: Present: clear, warm - Psychiatric Psychiatric: appropriate mood/affect, cooperative - Neurologic Neurologic: CNII-XII intact, moves all extremities Results - Labs CBC & Chem 7: 07/06/22 05:13 07/06/22 04:00 Labs: Laboratory Last Values WBC 7.8 K/mm3 (4.5-11.0) 07/01/22 20:59 RBC 2.50 M/mm3 (3.65-5.03) L 07/01/22 20:59 Hgb 7.4 gm/dl (11.8-15.2) L 07/06/22 05:13 Hct 22.4 % (35.5-45.6) L 07/06/22 05:13 MCV 93 fl (84-94) 07/01/22 20:59 MCH 32 pg (28-32) 07/01/22 20:59 MCHC 34 % (32-34) 07/01/22 20:59 RDW 15.6 % (13.2-15.2) H 07/01/22 20:59 Plt Count 182 K/mm3 (140-440) 07/01/22 20:59 Lymph % (Auto) 18.0 % (13.4-35.0) 07/01/22 20:59 [place] % (Auto) 10.7 % (0.0-7.3) H 07/01/22 20:59 Eos % (Auto) 1.6 % (0.0-4.3) 07/01/22 20:59 Baso % (Auto) 0.7 % (0.0-1.8) 07/01/22 20:59 Lymph # (Auto) 1.4 K/mm3 (1.2-5.4) 07/01/22 20:59 [place] # (Auto) 0.8 K/mm3 (0.0-0.8) 07/01/22 20:59 Eos # (Auto) 0.1 K/mm3 (0.0-0.4) 07/01/22 20:59 Baso # (Auto) 0.1 K/mm3 (0.0-0.1) 07/01/22 20:59 Seg Neutrophils % 69.0 % (40.0-70.0) 07/01/22 20:59 Seg Neutrophils # 5.4 K/mm3 (1.8-7.7) 07/01/22 20:59 Sodium 142 mmol/L (137-145) 07/06/22 04:00 Potassium 5.5 mmol/L (3.6-5.0) H 07/06/22 04:00 Chloride 91.1 mmol/L (98-107) L 07/06/22 04:00 Carbon Dioxide 36 mmol/L (22-30) H 07/06/22 04:00 Anion Gap 20 mmol/L 07/06/22 04:00 BUN 83 mg/dL (9-20) H 07/06/22 04:00 Creatinine 11.7 mg/dL (0.8-1.3) H 07/06/22 04:00 Estimated GFR 6 ml/min 07/06/22 04:00 BUN/Creatinine Ratio 7 % 07/06/22 04:00 Glucose 59 mg/dL (75-100) L 07/06/22 04:00 POC Glucose 117 mg/dL (70-105) H 07/07/22 07:41 Calcium 9.2 mg/dL (8.4-10.2) 07/06/22 04:00 Magnesium 2.30 mg/dL (1.7-2.3) 07/06/22 04:00 Total Bilirubin 0.30 mg/dL (0.1-1.2) 06/27/22 22:48 AST 12 units/L (5-40) 06/27/22 22:48 ALT 26 units/L (7-56) 06/27/22 22:48 Alkaline Phosphatase 122 units/L (35-129) 06/27/22 22:48 Total Protein 6.9 g/dL (6.3-8.2) 06/27/22 22:48 Albumin 3.8 g/dL (3.9-5) L 06/27/22 22:48 Albumin/Globulin Ratio 1.2 % 06/27/22 22:48 Coronavirus (PCR) Negative (Negative) 06/30/22 10:00 SARS-CoV-2 (PCR) Negative (Negative) 07/04/22 11:34 Hepatitis A IgM Ab Non-reactive (NonReactive) 06/28/22 08:31 Hep Bs Antigen Non-reactive (Negative) 06/28/22 08:31 Hep B Core IgM Ab Non-reactive (NonReactive) 06/28/22 08:31 Hepatitis C Antibody Non-reactive (NonReactive) 06/28/22 08:31 Saez/IV: Voiding Method Toilet Active Medications - Current Medications Current Medications: Generic Name Dose Route Start Last Admin Trade Name Freq PRN Reason Stop Dose Admin Acetaminophen 650 mg 06/28/22 02:56 Acetaminophen 325 Mg Tab PO Q4H PRN Pain MILD(1-3)/Fever >100.5/MUNOZ Aspirin 81 mg 06/28/22 10:00 07/06/22 10:13 Aspirin Ec 81 Mg Tab PO 81 mg QDAY MYRIAM Administration Dextrose 50 ml 06/28/22 02:56 06/28/22 11:34 Dextrose 50% In Water (25gm) 50 Ml Syringe IV 50 ml Q30MIN PRN Administration Hypoglycemia Protocol Sodium Chloride 100 mls @ 999 mls/hr 07/06/22 09:00 Nacl 0.9% IV HILDA PRN Hypotension Insulin Human Lispro 0 unit 06/28/22 07:30 07/06/22 18:14 Insulin Lispro 100 Unit/Ml SUB-Q Not Given ACHS MYRIAM Protocol Levetiracetam 500 mg 06/28/22 10:00 07/06/22 21:01 Levetiracetam 500 Mg Tab PO 500 mg BID MYRIAM Administration Metoclopramide HCl 10 mg 06/28/22 18:00 Metoclopramide 10 Mg/2 Ml Inj IV Q6H PRN Nausea And Vomiting Metoprolol Tartrate 50 mg 07/01/22 22:00 07/06/22 21:01 Metoprolol Tartrate 50 Mg Tab PO 50 mg BID MYRIAM Administration Morphine Sulfate 2 mg 06/28/22 02:56 06/28/22 15:13 Morphine 2 Mg/1 Ml Inj IV 2 mg Q4H PRN Administration Pain, Moderate (4-6) Morphine Sulfate 4 mg 06/28/22 02:56 Morphine 4 Mg/1 Ml Inj IV Q4H PRN Pain , Severe (7-10) Ondansetron HCl 4 mg 06/28/22 02:56 Ondansetron 4 Mg/2 Ml Inj IV Q8H PRN Nausea And Vomiting Sevelamer Carbonate 2,400 mg 06/28/22 07:30 07/06/22 18:15 Sevelamer Carbonate 800 Mg Tab PO Not Given AC MYRIAM Sodium Chloride 10 ml 06/28/22 10:00 07/06/22 21:08 Sodium Chloride 0.9% 10 Ml Flush Syringe IV Not Given BID MYRIAM Sodium Chloride 10 ml 06/28/22 02:56 Sodium Chloride 0.9% 10 Ml Flush Syringe IV PRN PRN LINE FLUSH Zolpidem Tartrate 5 mg 06/28/22 22:00 Zolpidem 5 Mg Tab PO QHS PRN Sleep Nutrition/Malnutrition Assess - Dietary Evaluation Nutrition/Malnutrition Findings: Nutrition Notes Start: 06/29/22 10:48 Freq: Status: Active Protocol: Document 07/06/22 14:25 [place] (Rec: 07/06/22 14:43 [place] [email or web address]) Nutrition Notes Initial or Follow up Assessment Current Diagnosis CKD (stage V CKD),Diabetes, Hypertension Other Pertinent Diagnosis AMS, r/o Dementia, ESRD+HD, Hyperkalemia, Hyperphosphatemia, Anemia, ... Current Diet Renal Diet (since B 06/28). Labs/Tests 07/06: K 5.5, Cl 91.1, CO2 36, BUN 83, Crea 11.7, Glu 59. Pertinent Medications 07/06: Renvela. Height 5 ft 7 in Weight 56.1 kg [place] Body Weight (kg) 67.27 BMI 19.3 Weight change and time frame 3 Kg body weight gain reported in 1 week. Weight Status Appropriate Subjective/Other Information RD consult for routine F/U on dietary advancement. Diet continues as prescribed, but Dietary Supplements were discontinued, No reports available on Pt's PO intake of meals at the time, will assess at F/U. Pt is on Room Air, O2 saturation @ 98%, according to Vital Signs notes. Pt is awaiting for SNF placement, according to Progress notes. Percent of energy/protein needs met: Prescribed Renal Diet provides for energy/protein needs (2, 072 Kcal/77 g) during LOS. Burn Absent Trauma Absent GI Symptoms None Food Allergy No Skin Integrity/Comment Assessment WNL. Minimum of two criteria No Fluid Accumulation N/A Reduced [employer]ch [employer]utter Strength N/A (non-severe) Protein-Calorie Malnutrition N\A #1 Nutrition Diagnosis Predicted suboptimal energy intake Comments: Diet continues as prescribed, but Dietary Supplements were discontinued, No reports available on Pt's PO intake of meals at the time, will assess at F/U. Diagnosis Progress(for reassessment Resolved documentation) Is patient on ventilator? No Is Patient Ambulatory and/or Out of Bed Yes REE-([facility]. Jeor-ambulatory/OOB) [ 1793.519 NUTR.MSJOOB] Calculation Used for Recommendations [facility] Additional Notes Protein: >1.2 g/Kg ABW; >64 g/ day. Fluids: 1 ml/Kcal, or as per MD. Nutrition Intervention Change Diet Order: Continue Renal Diet as tolerated. Add Supplement/Snack (indicate name/kcal Discontinued. /protein ) Goal #1 Adjust the dietary intervention to better serve Pt's energy/protein needs and clinical conditions during LOS . Follow-Up By: 07/13/22 Additional Comments Continue monitoring food tolerance, %PO intake of meals , and BM.
[2022-07-07] MEDS: SEVELAMER CARBONATE 800 MG TAB PO SCH ×3 (10:05→17:47)
[2022-07-07] MEDS: ASPIRIN EC 81 MG TAB PO SCH (10:05)
[2022-07-07] MEDS: METOPROLOL TARTRATE 50 MG TAB PO SCH ×2 (10:05→21:48)
[2022-07-07] MEDS: levETIRAcetam 500 MG TAB PO SCH ×2 (10:05→21:48)
--- NOTE | 2022-07-07 14:25 | Progress Note ---
Assessment and Plan End-stage renal disease on hemodialysis Uremia, resolved with HD Hyperkalemia, controlled with HD Anemia of ESRD Hyperphosphatemia Hyperparathyroidism Patient's mental status improved following dialysis but remains altered now. Case has been discussed in detail with him regarding continuation of dialysis per report. He said that he would like to continue chronic treatment with dialysis per prior report. However he is now refusing dialysis. Do note plans for hospice care and agree with plan, will continue to review dialysis needs with him while inpatient Note last labs- K 5.5, HCO3 36- has HD orders if patient is amenable and can safely be dialyzed Continue binders Renally dose medications ESRD diet with 1.2-1. 4 g/kg/d protein intake Subjective Date of service: 07/07/22 Principal diagnosis: Encephalopathy Interval history: Resting in bed, disheveled appearing, continues to refuse dialysis regularly, not amenable to much discussion Vitals, labs and I/os reviewed Interdisciplinary notes and consults reviewed Objective - Exam Narrative Exam: Constitutional: no acute distress Head: NC/AT Neck: supple Lungs: clear to auscultation CV: RRR Abdomen: soft, non-tender, bowel sounds present Back: nontender Extremities: no edema, pulses WNL Skin: intact Neuro: Awake and alert - Vital Signs Vital signs: Vital Signs - 12hr 07/07/22 07/07/22 03:37 07:41 Temperature 97.6 F 98.0 F Pulse Rate 83 82 Respiratory 19 18 Rate Blood Pressure 144/74 131/68 O2 Sat by Pulse 96 100 Oximetry - Lab 07/06/22 05:13 07/06/22 04:00 Most recent lab results Calcium 9.2 mg/dL (8.4-10.2) 07/06/22 04:00 Magnesium 2.30 mg/dL (1.7-2.3) 07/06/22 04:00 Medications & Allergies - Medications Allergies/Adverse Reactions: Allergies No Known Allergies Allergy (Verified 06/29/22 09:46) Home Medications: Home Medications Medication Instructions Recorded Confirmed Last Taken Type Aspirin EC [Halfprin EC] 81 mg PO QDAY #30 tablet. 06/08/22 06/29/22 Unknown Rx Sevelamer Carbonate [Renvela] 2,400 mg PO AC #60 tablet 06/08/22 06/29/22 Unknown Rx Zolpidem [Ambien] 5 mg PO QHS PRN #7 tablet 06/08/22 06/29/22 Unknown Rx Metoprolol Tartrate [Lopressor] 100 mg PO BID 06/29/22 06/29/22 Unknown History levETIRAcetam [Keppra TAB] 500 mg PO BID 06/29/22 06/29/22 Unknown History Active Medications: Generic Name Dose Route Start Last Admin Trade Name Freq PRN Reason Stop Dose Admin Acetaminophen 650 mg 06/28/22 02:56 Acetaminophen 325 Mg Tab PO Q4H PRN Pain MILD(1-3)/Fever >100.5/MUNOZ Aspirin 81 mg 06/28/22 10:00 07/07/22 10:05 Aspirin Ec 81 Mg Tab PO 81 mg QDAY MYRIAM Administration Dextrose 50 ml 06/28/22 02:56 06/28/22 11:34 Dextrose 50% In Water (25gm) 50 Ml Syringe IV 50 ml Q30MIN PRN Administration Hypoglycemia Protocol Sodium Chloride 100 mls @ 999 mls/hr 07/06/22 09:00 Nacl 0.9% IV HILDA PRN Hypotension Insulin Human Lispro 0 unit 06/28/22 07:30 07/06/22 18:14 Insulin Lispro 100 Unit/Ml SUB-Q Not Given ACHS MYRIAM Protocol Levetiracetam 500 mg 06/28/22 10:00 07/07/22 10:05 Levetiracetam 500 Mg Tab PO 500 mg BID MYRIAM Administration Metoclopramide HCl 10 mg 06/28/22 18:00 Metoclopramide 10 Mg/2 Ml Inj IV Q6H PRN Nausea And Vomiting Metoprolol Tartrate 50 mg 07/01/22 22:00 07/07/22 10:05 Metoprolol Tartrate 50 Mg Tab PO 50 mg BID MYRIAM Administration Morphine Sulfate 2 mg 06/28/22 02:56 06/28/22 15:13 Morphine 2 Mg/1 Ml Inj IV 2 mg Q4H PRN Administration Pain, Moderate (4-6) Morphine Sulfate 4 mg 06/28/22 02:56 Morphine 4 Mg/1 Ml Inj IV Q4H PRN Pain , Severe (7-10) Ondansetron HCl 4 mg 06/28/22 02:56 Ondansetron 4 Mg/2 Ml Inj IV Q8H PRN Nausea And Vomiting Sevelamer Carbonate 2,400 mg 06/28/22 07:30 07/07/22 10:05 Sevelamer Carbonate 800 Mg Tab PO 2,400 mg AC MYRIAM Administration Sodium Chloride 10 ml 06/28/22 10:00 07/06/22 21:08 Sodium Chloride 0.9% 10 Ml Flush Syringe IV Not Given BID MYRIAM Sodium Chloride 10 ml 06/28/22 02:56 Sodium Chloride 0.9% 10 Ml Flush Syringe IV PRN PRN LINE FLUSH Zolpidem Tartrate 5 mg 06/28/22 22:00 Zolpidem 5 Mg Tab PO QHS PRN Sleep
[2022-07-08] MEDS: levETIRAcetam 500 MG TAB PO SCH ×2 (09:00→22:29)
[2022-07-08] MEDS: SEVELAMER CARBONATE 800 MG TAB PO SCH ×3 (09:00→16:25)
[2022-07-08] MEDS: METOPROLOL TARTRATE 50 MG TAB PO SCH ×2 (09:00→22:28)
[2022-07-08] MEDS: INSULIN LISPRO 100 UNIT/ML SUB-Q SCH ×4 (09:01→22:29)
[2022-07-08] MEDS: ASPIRIN EC 81 MG TAB PO SCH (09:01)
--- NOTE | 2022-07-08 15:44 | Progress Note ---
Assessment and Plan End-stage renal disease on hemodialysis Uremia, resolved with HD Hyperkalemia, controlled with HD Anemia of ESRD Hyperphosphatemia Hyperparathyroidism Patient's mental status improved following dialysis but remains altered now. Case has been discussed in detail with him regarding continuation of dialysis per report. He said that he would like to continue chronic treatment with dialysis per prior report. However he is now refusing dialysis. Do note plans for hospice care and agree with plan, will continue to review dialysis needs with him while inpatient Note last labs- K 5.5, HCO3 36- has HD orders if patient is amenable and can safely be dialyzed, will continue to offer as he personally has not admitted to wanting hospice care Continue binders Renally dose medications ESRD diet with 1.2-1. 4 g/kg/d protein intake Subjective Date of service: 07/08/22 Principal diagnosis: Encephalopathy Interval history: Resting in bed, disheveled appearing, continues to refuse dialysis regularly, not amenable to much discussion Vitals, labs and I/os reviewed Interdisciplinary notes and consults reviewed Objective - Exam Narrative Exam: Constitutional: no acute distress Head: NC/AT Neck: supple Lungs: clear to auscultation CV: RRR Abdomen: soft, non-tender, bowel sounds present Back: nontender Extremities: no edema, pulses WNL Skin: intact Neuro: Awake and alert - Vital Signs Vital signs: Vital Signs - 12hr 07/08/22 07/08/22 07/08/22 04:02 08:42 10:00 Temperature 97.9 F 98.2 F Pulse Rate 92 H 88 Pulse Rate [ 88 Right Radial] Respiratory 18 18 18 Rate Blood Pressure 162/81 125/58 O2 Sat by Pulse 99 100 100 Oximetry - Lab 07/06/22 05:13 07/06/22 04:00 Most recent lab results Calcium 9.2 mg/dL (8.4-10.2) 07/06/22 04:00 Magnesium 2.30 mg/dL (1.7-2.3) 07/06/22 04:00 Medications & Allergies - Medications Allergies/Adverse Reactions: Allergies No Known Allergies Allergy (Verified 06/29/22 09:46) Home Medications: Home Medications Medication Instructions Recorded Confirmed Last Taken Type Aspirin EC [Halfprin EC] 81 mg PO QDAY #30 tablet. 06/08/22 06/29/22 Unknown Rx Sevelamer Carbonate [Renvela] 2,400 mg PO AC #60 tablet 06/08/22 06/29/22 Unknown Rx Zolpidem [Ambien] 5 mg PO QHS PRN #7 tablet 06/08/22 06/29/22 Unknown Rx Metoprolol Tartrate [Lopressor] 100 mg PO BID 06/29/22 06/29/22 Unknown History levETIRAcetam [Keppra TAB] 500 mg PO BID 06/29/22 06/29/22 Unknown History Active Medications: Generic Name Dose Route Start Last Admin Trade Name Freq PRN Reason Stop Dose Admin Acetaminophen 650 mg 06/28/22 02:56 Acetaminophen 325 Mg Tab PO Q4H PRN Pain MILD(1-3)/Fever >100.5/MUNOZ Aspirin 81 mg 06/28/22 10:00 07/08/22 09:01 Aspirin Ec 81 Mg Tab PO 81 mg QDAY MYRIAM Administration Dextrose 50 ml 06/28/22 02:56 06/28/22 11:34 Dextrose 50% In Water (25gm) 50 Ml Syringe IV 50 ml Q30MIN PRN Administration Hypoglycemia Protocol Sodium Chloride 100 mls @ 999 mls/hr 07/06/22 09:00 Nacl 0.9% IV HILDA PRN Hypotension Insulin Human Lispro 0 unit 06/28/22 07:30 07/08/22 13:14 Insulin Lispro 100 Unit/Ml SUB-Q Not Given ACHS MYRIAM Protocol Levetiracetam 500 mg 06/28/22 10:00 07/08/22 09:00 Levetiracetam 500 Mg Tab PO 500 mg BID MYRIAM Administration Metoclopramide HCl 10 mg 06/28/22 18:00 Metoclopramide 10 Mg/2 Ml Inj IV Q6H PRN Nausea And Vomiting Metoprolol Tartrate 50 mg 07/01/22 22:00 07/08/22 09:00 Metoprolol Tartrate 50 Mg Tab PO 50 mg BID MYRIAM Administration Morphine Sulfate 2 mg 06/28/22 02:56 06/28/22 15:13 Morphine 2 Mg/1 Ml Inj IV 2 mg Q4H PRN Administration Pain, Moderate (4-6) Morphine Sulfate 4 mg 06/28/22 02:56 Morphine 4 Mg/1 Ml Inj IV Q4H PRN Pain , Severe (7-10) Ondansetron HCl 4 mg 06/28/22 02:56 Ondansetron 4 Mg/2 Ml Inj IV Q8H PRN Nausea And Vomiting Sevelamer Carbonate 2,400 mg 06/28/22 07:30 07/08/22 13:17 Sevelamer Carbonate 800 Mg Tab PO 2,400 mg AC MYRIAM Administration Sodium Chloride 10 ml 06/28/22 10:00 07/08/22 09:02 Sodium Chloride 0.9% 10 Ml Flush Syringe IV 10 ml BID MYRIAM Administration Sodium Chloride 10 ml 06/28/22 02:56 Sodium Chloride 0.9% 10 Ml Flush Syringe IV PRN PRN LINE FLUSH Zolpidem Tartrate 5 mg 06/28/22 22:00 Zolpidem 5 Mg Tab PO QHS PRN Sleep
--- NOTE | 2022-07-08 20:00 | Progress Note ---
Assessment and Plan Assessment and plan: 1. End-stage renal disease on dialysis Nephrology following, hemodialysis per schedule Avoid nephrotoxin, renal dosing of medications 2. Noncompliance with dialysis Counseling done strongly advised to comply with medications diet Hemodialysis and follow-up doctors visits Patient continues to refuse dialysis Nephrology aware 3. Hyperkalemia; Improved, closely monitor electrolytes 4. Hypertension; moderate control Continue current antihypertensives and as needed medications 5. Possible underlying dementia Supportive care 6--Patient DNR and hospice Discharge planning; per case management Possible discharge to SNF with hospice Pending authorization Advance care planning; +30 minutes I discussed in detail with the patient his condition, discussed his diagnosis I discussed with him his prognosis, I discussed with him the treatment plan I also discussed with him the discharge planning, the plan soft placing in a assisted with hospice He verbalized understanding and had some questions answered all of them Closely monitor the patient and adjust the management as needed Plan of care reviewed with the patient and his nurse I also discussed extensively with case management Pending authorization 07/05/22; Pending authorization for SNF placement DC planning per case management 07/06 pending placement SNF with hospice Case management team processing Pending authorization 07/07; pending SNF placement 07/08; patient is refusing dialysis Awaiting SNF/hospice placement History Interval history: Seen and examined the patient at the bedside Patient's chart and medications reviewed Patient feels slightly better Anxious to go home Vital signs noted Hospitalist Physical - Constitutional Vitals: Temp Pulse Resp BP Pulse Ox 98.0 F 85 18 112/53 98 07/08/22 16:39 07/08/22 16:39 07/08/22 16:39 07/08/22 16:39 07/08/22 16:39 General appearance: Present: no acute distress, cachectic, disheveled, other (malnourished) - EENT Eyes: Present: PERRL, EOM intact - Neck Neck: Present: supple, normal ROM - Respiratory Respiratory effort: normal Respiratory: bilateral: diminished, negative: rales, rhonchi, wheezing - Cardiovascular Rhythm: regular Heart Sounds: Present: S1 & S2 - Extremities Extremities: no ischemia, No edema - Abdominal General gastrointestinal: soft, non-tender, non-distended, normal bowel sounds - Integumentary Integumentary: Present: clear, warm - Psychiatric Psychiatric: appropriate mood/affect, cooperative - Neurologic Neurologic: CNII-XII intact, moves all extremities Results - Labs CBC & Chem 7: 07/06/22 05:13 07/06/22 04:00 Labs: Laboratory Last Values WBC 7.8 K/mm3 (4.5-11.0) 07/01/22 20:59 RBC 2.50 M/mm3 (3.65-5.03) L 07/01/22 20:59 Hgb 7.4 gm/dl (11.8-15.2) L 07/06/22 05:13 Hct 22.4 % (35.5-45.6) L 07/06/22 05:13 MCV 93 fl (84-94) 07/01/22 20:59 MCH 32 pg (28-32) 07/01/22 20:59 MCHC 34 % (32-34) 07/01/22 20:59 RDW 15.6 % (13.2-15.2) H 07/01/22 20:59 Plt Count 182 K/mm3 (140-440) 07/01/22 20:59 Lymph % (Auto) 18.0 % (13.4-35.0) 07/01/22 20:59 [place] % (Auto) 10.7 % (0.0-7.3) H 07/01/22 20:59 Eos % (Auto) 1.6 % (0.0-4.3) 07/01/22 20:59 Baso % (Auto) 0.7 % (0.0-1.8) 07/01/22 20:59 Lymph # (Auto) 1.4 K/mm3 (1.2-5.4) 07/01/22 20:59 [place] # (Auto) 0.8 K/mm3 (0.0-0.8) 07/01/22 20:59 Eos # (Auto) 0.1 K/mm3 (0.0-0.4) 07/01/22 20:59 Baso # (Auto) 0.1 K/mm3 (0.0-0.1) 07/01/22 20:59 Seg Neutrophils % 69.0 % (40.0-70.0) 07/01/22 20:59 Seg Neutrophils # 5.4 K/mm3 (1.8-7.7) 07/01/22 20:59 Sodium 142 mmol/L (137-145) 07/06/22 04:00 Potassium 5.5 mmol/L (3.6-5.0) H 07/06/22 04:00 Chloride 91.1 mmol/L (98-107) L 07/06/22 04:00 Carbon Dioxide 36 mmol/L (22-30) H 07/06/22 04:00 Anion Gap 20 mmol/L 07/06/22 04:00 BUN 83 mg/dL (9-20) H 07/06/22 04:00 Creatinine 11.7 mg/dL (0.8-1.3) H 07/06/22 04:00 Estimated GFR 6 ml/min 07/06/22 04:00 BUN/Creatinine Ratio 7 % 07/06/22 04:00 Glucose 59 mg/dL (75-100) L 07/06/22 04:00 POC Glucose 157 mg/dL (70-105) H 07/08/22 16:38 Calcium 9.2 mg/dL (8.4-10.2) 07/06/22 04:00 Magnesium 2.30 mg/dL (1.7-2.3) 07/06/22 04:00 Total Bilirubin 0.30 mg/dL (0.1-1.2) 06/27/22 22:48 AST 12 units/L (5-40) 06/27/22 22:48 ALT 26 units/L (7-56) 06/27/22 22:48 Alkaline Phosphatase 122 units/L (35-129) 06/27/22 22:48 Total Protein 6.9 g/dL (6.3-8.2) 06/27/22 22:48 Albumin 3.8 g/dL (3.9-5) L 06/27/22 22:48 Albumin/Globulin Ratio 1.2 % 06/27/22 22:48 Coronavirus (PCR) Negative (Negative) 06/30/22 10:00 SARS-CoV-2 (PCR) Negative (Negative) 07/04/22 11:34 Hepatitis A IgM Ab Non-reactive (NonReactive) 06/28/22 08:31 Hep Bs Antigen Non-reactive (Negative) 06/28/22 08:31 Hep B Core IgM Ab Non-reactive (NonReactive) 06/28/22 08:31 Hepatitis C Antibody Non-reactive (NonReactive) 06/28/22 08:31 Saez/IV: Voiding Method Toilet Active Medications - Current Medications Current Medications: Generic Name Dose Route Start Last Admin Trade Name Freq PRN Reason Stop Dose Admin Acetaminophen 650 mg 06/28/22 02:56 Acetaminophen 325 Mg Tab PO Q4H PRN Pain MILD(1-3)/Fever >100.5/MUNOZ Aspirin 81 mg 06/28/22 10:00 07/08/22 09:01 Aspirin Ec 81 Mg Tab PO 81 mg QDAY MYRIAM Administration Dextrose 50 ml 06/28/22 02:56 06/28/22 11:34 Dextrose 50% In Water (25gm) 50 Ml Syringe IV 50 ml Q30MIN PRN Administration Hypoglycemia Protocol Sodium Chloride 100 mls @ 999 mls/hr 07/06/22 09:00 Nacl 0.9% IV HILDA PRN Hypotension Insulin Human Lispro 0 unit 06/28/22 07:30 07/08/22 16:56 Insulin Lispro 100 Unit/Ml SUB-Q Not Given ACHS [facility] Protocol Levetiracetam 500 mg 06/28/22 10:00 07/08/22 09:00 Levetiracetam 500 Mg Tab PO 500 mg BID MYRIAM Administration Metoclopramide HCl 10 mg 06/28/22 18:00 Metoclopramide 10 Mg/2 Ml Inj IV Q6H PRN Nausea And Vomiting Metoprolol Tartrate 50 mg 07/01/22 22:00 07/08/22 09:00 Metoprolol Tartrate 50 Mg Tab PO 50 mg BID MYRIAM Administration Morphine Sulfate 2 mg 06/28/22 02:56 06/28/22 15:13 Morphine 2 Mg/1 Ml Inj IV 2 mg Q4H PRN Administration Pain, Moderate (4-6) Morphine Sulfate 4 mg 06/28/22 02:56 Morphine 4 Mg/1 Ml Inj IV Q4H PRN Pain , Severe (7-10) Ondansetron HCl 4 mg 06/28/22 02:56 Ondansetron 4 Mg/2 Ml Inj IV Q8H PRN Nausea And Vomiting Sevelamer Carbonate 2,400 mg 06/28/22 07:30 07/08/22 16:25 Sevelamer Carbonate 800 Mg Tab PO 2,400 mg AC MYRIAM Administration Sodium Chloride 10 ml 06/28/22 10:00 07/08/22 09:02 Sodium Chloride 0.9% 10 Ml Flush Syringe IV 10 ml BID MYRIAM Administration Sodium Chloride 10 ml 06/28/22 02:56 Sodium Chloride 0.9% 10 Ml Flush Syringe IV PRN PRN LINE FLUSH Zolpidem Tartrate 5 mg 06/28/22 22:00 Zolpidem 5 Mg Tab PO QHS PRN Sleep Nutrition/Malnutrition Assess - Dietary Evaluation Nutrition/Malnutrition Findings: Nutrition Notes Start: 06/29/22 10:48 Freq: Status: Active Protocol: Document 07/06/22 14:25 [place] (Rec: 07/06/22 14:43 [place] [id number]) Nutrition Notes Initial or Follow up Assessment Current Diagnosis CKD (stage V CKD),Diabetes, Hypertension Other Pertinent Diagnosis AMS, r/o Dementia, ESRD+HD, Hyperkalemia, Hyperphosphatemia, Anemia, ... Current Diet Renal Diet (since B 06/28). Labs/Tests 07/06: K 5.5, Cl 91.1, CO2 36, BUN 83, Crea 11.7, Glu 59. Pertinent Medications 07/06: Renvela. Height 5 ft 7 in Weight 56.1 kg [place] Body Weight (kg) 67.27 BMI 19.3 Weight change and time frame 3 Kg body weight gain reported in 1 week. Weight Status Appropriate Subjective/Other Information RD consult for routine F/U on dietary advancement. Diet continues as prescribed, but Dietary Supplements were discontinued, No reports available on Pt's PO intake of meals at the time, will assess at F/U. Pt is on Room Air, O2 saturation @ 98%, according to Vital Signs notes. Pt is awaiting for SNF placement, according to Progress notes. Percent of energy/protein needs met: Prescribed Renal Diet provides for energy/protein needs (2, 072 Kcal/77 g) during LOS. Burn Absent Trauma Absent GI Symptoms None Food Allergy No Skin Integrity/Comment Assessment WNL. 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 Diagnosis Progress(for reassessment Resolved documentation) Is patient on ventilator? No Is Patient Ambulatory and/or Out of Bed Yes [facility] [ 1793.519 [email or web address]] Calculation Used for Recommendations [facility] Additional Notes Protein: >1.2 g/Kg ABW; >64 g/ day. Fluids: 1 ml/Kcal, or as per MD. Nutrition Intervention Change Diet Order: Continue Renal Diet as tolerated. Add Supplement/Snack (indicate name/kcal Discontinued. /protein ) Goal #1 Adjust the dietary intervention to better serve Pt's energy/protein needs and clinical conditions during LOS . Follow-Up By: 07/13/22 Additional Comments Continue monitoring food tolerance, %PO intake of meals , and BM.
[2022-07-09] MEDS: SEVELAMER CARBONATE 800 MG TAB PO SCH ×3 (08:55→16:18)
[2022-07-09] MEDS: INSULIN LISPRO 100 UNIT/ML SUB-Q SCH ×4 (08:55→22:02)
[2022-07-09] MEDS: levETIRAcetam 500 MG TAB PO SCH ×2 (09:40→22:01)
[2022-07-09] MEDS: ASPIRIN EC 81 MG TAB PO SCH (09:40)
[2022-07-09] MEDS: METOPROLOL TARTRATE 50 MG TAB PO SCH ×2 (09:40→22:01)
--- NOTE | 2022-07-09 20:28 | Progress Note ---
Assessment and Plan Assessment and plan: 1. End-stage renal disease on dialysis Nephrology following, hemodialysis per schedule Avoid nephrotoxin, renal dosing of medications 2. Noncompliance with dialysis Counseling done strongly advised to comply with medications diet Hemodialysis and follow-up doctors visits Patient continues to refuse dialysis Nephrology aware 3. Hyperkalemia; Improved, closely monitor electrolytes 4. Hypertension; moderate control Continue current antihypertensives and as needed medications 5. Possible underlying dementia Supportive care 6--Patient DNR and hospice Discharge planning; per case management Possible discharge to SNF with hospice Pending authorization Advance care planning; +30 minutes I discussed in detail with the patient his condition, discussed his diagnosis I discussed with him his prognosis, I discussed with him the treatment plan I also discussed with him the discharge planning, the plan soft placing in a [facility] with hospice He verbalized understanding and had some questions answered all of them Closely monitor the patient and adjust the management as needed Plan of care reviewed with the patient and his nurse I also discussed extensively with case management Pending authorization 07/05/22; Pending authorization for SNF placement DC planning per case management 07/06 pending placement SNF with hospice Case management team processing Pending authorization 07/07; pending SNF placement 07/08; patient is refusing dialysis Awaiting SNF/hospice placement 07/09; patient continues to refuse dialysis Awaiting placement SNF/hospice History Interval history: I have seen and examined the patient this afternoon Patient's chart and medications reviewed Patient feels better no new complaints No new overnight events reported by the nursing Vital signs stable Hospitalist Physical - Constitutional Vitals: Temp Pulse Resp BP Pulse Ox 97.7 F 86 18 130/70 100 07/09/22 16:02 07/09/22 16:02 07/09/22 16:02 07/09/22 16:02 07/09/22 16:02 General appearance: Present: no acute distress, cachectic, disheveled, other (malnourished) - EENT Eyes: Present: PERRL, EOM intact - Neck Neck: Present: supple, normal ROM - Respiratory Respiratory effort: normal Respiratory: bilateral: diminished, negative: rales, rhonchi, wheezing - Cardiovascular Rhythm: regular Heart Sounds: Present: S1 & S2 - Extremities Extremities: no ischemia, pulses intact - Abdominal General gastrointestinal: soft, non-tender, non-distended, normal bowel sounds - Integumentary Integumentary: Present: clear, warm - Psychiatric Psychiatric: appropriate mood/affect, cooperative - Neurologic Neurologic: CNII-XII intact, moves all extremities Results - Labs CBC & Chem 7: 07/06/22 05:13 07/06/22 04:00 Labs: Laboratory Last Values WBC 7.8 K/mm3 (4.5-11.0) 07/01/22 20:59 RBC 2.50 M/mm3 (3.65-5.03) L 07/01/22 20:59 Hgb 7.4 gm/dl (11.8-15.2) L 07/06/22 05:13 Hct 22.4 % (35.5-45.6) L 07/06/22 05:13 MCV 93 fl (84-94) 07/01/22 20:59 MCH 32 pg (28-32) 07/01/22 20:59 MCHC 34 % (32-34) 07/01/22 20:59 RDW 15.6 % (13.2-15.2) H 07/01/22 20:59 Plt Count 182 K/mm3 (140-440) 07/01/22 20:59 Lymph % (Auto) 18.0 % (13.4-35.0) 07/01/22 20:59 [place] % (Auto) 10.7 % (0.0-7.3) H 07/01/22 20:59 Eos % (Auto) 1.6 % (0.0-4.3) 07/01/22 20:59 Baso % (Auto) 0.7 % (0.0-1.8) 07/01/22 20:59 Lymph # (Auto) 1.4 K/mm3 (1.2-5.4) 07/01/22 20:59 [place] # (Auto) 0.8 K/mm3 (0.0-0.8) 07/01/22 20:59 Eos # (Auto) 0.1 K/mm3 (0.0-0.4) 07/01/22 20:59 Baso # (Auto) 0.1 K/mm3 (0.0-0.1) 07/01/22 20:59 Seg Neutrophils % 69.0 % (40.0-70.0) 07/01/22 20:59 Seg Neutrophils # 5.4 K/mm3 (1.8-7.7) 07/01/22 20:59 Sodium 142 mmol/L (137-145) 07/06/22 04:00 Potassium 5.5 mmol/L (3.6-5.0) H 07/06/22 04:00 Chloride 91.1 mmol/L (98-107) L 07/06/22 04:00 Carbon Dioxide 36 mmol/L (22-30) H 07/06/22 04:00 Anion Gap 20 mmol/L 07/06/22 04:00 BUN 83 mg/dL (9-20) H 07/06/22 04:00 Creatinine 11.7 mg/dL (0.8-1.3) H 07/06/22 04:00 Estimated GFR 6 ml/min 07/06/22 04:00 BUN/Creatinine Ratio 7 % 07/06/22 04:00 Glucose 59 mg/dL (75-100) L 07/06/22 04:00 POC Glucose 111 mg/dL (70-105) H 07/09/22 16:01 Calcium 9.2 mg/dL (8.4-10.2) 07/06/22 04:00 Magnesium 2.30 mg/dL (1.7-2.3) 07/06/22 04:00 Total Bilirubin 0.30 mg/dL (0.1-1.2) 06/27/22 22:48 AST 12 units/L (5-40) 06/27/22 22:48 ALT 26 units/L (7-56) 06/27/22 22:48 Alkaline Phosphatase 122 units/L (35-129) 06/27/22 22:48 Total Protein 6.9 g/dL (6.3-8.2) 06/27/22 22:48 Albumin 3.8 g/dL (3.9-5) L 06/27/22 22:48 Albumin/Globulin Ratio 1.2 % 06/27/22 22:48 Coronavirus (PCR) Negative (Negative) 06/30/22 10:00 SARS-CoV-2 (PCR) Negative (Negative) 07/04/22 11:34 Hepatitis A IgM Ab Non-reactive (NonReactive) 06/28/22 08:31 Hep Bs Antigen Non-reactive (Negative) 09/14/22 08:31 Hep B Core IgM Ab Non-reactive (NonReactive) 06/28/22 08:31 Hepatitis C Antibody Non-reactive (NonReactive) 06/28/22 08:31 Saez/IV: Voiding Method Toilet Active Medications - Current Medications Current Medications: Generic Name Dose Route Start Last Admin Trade Name Freq PRN Reason Stop Dose Admin Acetaminophen 650 mg 06/28/22 02:56 Acetaminophen 325 Mg Tab PO Q4H PRN Pain MILD(1-3)/Fever >100.5/MUNOZ Aspirin 81 mg 06/28/22 10:00 07/09/22 09:40 Aspirin Ec 81 Mg Tab PO 81 mg QDAY MYRIAM Administration Dextrose 50 ml 06/28/22 02:56 06/28/22 11:34 Dextrose 50% In Water (25gm) 50 Ml Syringe IV 50 ml Q30MIN PRN Administration Hypoglycemia Protocol Sodium Chloride 100 mls @ 999 mls/hr 07/06/22 09:00 Nacl 0.9% IV HILDA PRN Hypotension Insulin Human Lispro 0 unit 06/28/22 07:30 07/09/22 16:18 Insulin Lispro 100 Unit/Ml SUB-Q Not Given ACHS [facility] Protocol Levetiracetam 500 mg 06/28/22 10:00 07/09/22 09:40 Levetiracetam 500 Mg Tab PO 500 mg BID MYRIAM Administration Metoclopramide HCl 10 mg 06/28/22 18:00 Metoclopramide 10 Mg/2 Ml Inj IV Q6H PRN Nausea And Vomiting Metoprolol Tartrate 50 mg 07/01/22 22:00 07/09/22 09:40 Metoprolol Tartrate 50 Mg Tab PO 50 mg BID MYRIAM Administration Morphine Sulfate 2 mg 06/28/22 02:56 06/28/22 15:13 Morphine 2 Mg/1 Ml Inj IV 2 mg Q4H PRN Administration Pain, Moderate (4-6) Morphine Sulfate 4 mg 06/28/22 02:56 Morphine 4 Mg/1 Ml Inj IV Q4H PRN Pain , Severe (7-10) Ondansetron HCl 4 mg 06/28/22 02:56 Ondansetron 4 Mg/2 Ml Inj IV Q8H PRN Nausea And Vomiting Sevelamer Carbonate 2,400 mg 06/28/22 07:30 07/09/22 16:18 Sevelamer Carbonate 800 Mg Tab PO Not Given AC MYRIAM Sodium Chloride 10 ml 06/28/22 10:00 07/09/22 09:42 Sodium Chloride 0.9% 10 Ml Flush Syringe IV Not Given BID MYRIAM Sodium Chloride 10 ml 06/28/22 02:56 Sodium Chloride 0.9% 10 Ml Flush Syringe IV PRN PRN LINE FLUSH Zolpidem Tartrate 5 mg 06/28/22 22:00 Zolpidem 5 Mg Tab PO QHS PRN Sleep Nutrition/Malnutrition Assess - Dietary Evaluation Nutrition/Malnutrition Findings: Nutrition Notes Start: 06/29/22 10:48 Freq: Status: Active Protocol: Document 07/06/22 14:25 [place] (Rec: 07/06/22 14:43 [place] [id number]) Nutrition Notes Initial or Follow up Assessment Current Diagnosis CKD (stage V CKD),Diabetes, Hypertension Other Pertinent Diagnosis AMS, r/o Dementia, ESRD+HD, Hyperkalemia, Hyperphosphatemia, Anemia, ... Current Diet Renal Diet (since B 06/28). Labs/Tests 07/06: K 5.5, Cl 91.1, CO2 36, BUN 83, Crea 11.7, Glu 59. Pertinent Medications 07/06: Renvela. Height 5 ft 7 in Weight 56.1 kg [place] Body Weight (kg) 67.27 BMI 19.3 Weight change and time frame 3 Kg body weight gain reported in 1 week. Weight Status Appropriate Subjective/Other Information RD consult for routine F/U on dietary advancement. Diet continues as prescribed, but Dietary Supplements were discontinued, No reports available on Pt's PO intake of meals at the time, will assess at F/U. Pt is on Room Air, O2 saturation @ 98%, according to Vital Signs notes. Pt is awaiting for SNF placement, according to Progress notes. Percent of energy/protein needs met: Prescribed Renal Diet provides for energy/protein needs (2, 072 Kcal/77 g) during LOS. Burn Absent Trauma Absent GI Symptoms None Food Allergy No Skin Integrity/Comment Assessment WNL. 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 Diagnosis Progress(for reassessment Resolved documentation) Is patient on ventilator? No Is Patient Ambulatory and/or Out of Bed Yes [facility] [ 1793.519 [email or web address]] Calculation Used for Recommendations [facility] Additional Notes Protein: >1.2 g/Kg ABW; >64 g/ day. Fluids: 1 ml/Kcal, or as per MD. Nutrition Intervention Change Diet Order: Continue Renal Diet as tolerated. Add Supplement/Snack (indicate name/kcal Discontinued. /protein ) Goal #1 Adjust the dietary intervention to better serve Pt's energy/protein needs and clinical conditions during LOS . Follow-Up By: 07/13/22 Additional Comments Continue monitoring food tolerance, %PO intake of meals , and BM.
--- NOTE | 2022-07-09 20:31 | Progress Note ---
Assessment and Plan Assessment and plan: 1. End-stage renal disease on dialysis Nephrology following, hemodialysis per schedule Avoid nephrotoxin, renal dosing of medications 2. Noncompliance with dialysis Counseling done strongly advised to comply with medications diet Hemodialysis and follow-up doctors visits Patient continues to refuse dialysis Nephrology aware 3. Hyperkalemia; Improved, closely monitor electrolytes 4. Hypertension; moderate control Continue current antihypertensives and as needed medications 5. Possible underlying dementia Supportive care 6--Patient DNR and hospice Discharge planning; per case management Possible discharge to SNF with hospice Pending authorization Advance care planning; +30 minutes I discussed in detail with the patient his condition, discussed his diagnosis I discussed with him his prognosis, I discussed with him the treatment plan I also discussed with him the discharge planning, the plan soft placing in a assisted with hospice He verbalized understanding and had some questions answered all of them Closely monitor the patient and adjust the management as needed Plan of care reviewed with the patient and his nurse I also discussed extensively with case management Pending authorization 07/05/22; Pending authorization for SNF placement DC planning per case management 07/06 pending placement SNF with hospice Case management team processing Pending authorization 07/07; pending SNF placement 07/08; patient is refusing dialysis Awaiting SNF/hospice placement 07/09, refused dialysis awaiting placement History Interval history: No new complaints No new events reported by the nursing Hospitalist Physical - Constitutional Vitals: Temp Pulse Resp BP Pulse Ox 97.7 F 86 18 130/70 100 07/09/22 16:02 07/09/22 16:02 07/09/22 16:02 07/09/22 16:02 07/09/22 16:02 General appearance: Present: no acute distress, cachectic, disheveled, other (malnourished) - EENT Eyes: Present: PERRL, EOM intact - Neck Neck: Present: supple, normal ROM - Respiratory Respiratory effort: normal Respiratory: bilateral: diminished, negative: rales, rhonchi, wheezing - Cardiovascular Rhythm: regular Heart Sounds: Present: S1 & S2 - Extremities Extremities: no ischemia, No edema - Abdominal General gastrointestinal: soft, non-tender, non-distended, normal bowel sounds - Integumentary Integumentary: Present: clear, warm - Psychiatric Psychiatric: appropriate mood/affect, cooperative - Neurologic Neurologic: CNII-XII intact, moves all extremities Results - Labs CBC & Chem 7: 07/06/22 05:13 07/06/22 04:00 Labs: Laboratory Last Values WBC 7.8 K/mm3 (4.5-11.0) 07/01/22 20:59 RBC 2.50 M/mm3 (3.65-5.03) L 07/01/22 20:59 Hgb 7.4 gm/dl (11.8-15.2) L 07/06/22 05:13 Hct 22.4 % (35.5-45.6) L 07/06/22 05:13 MCV 93 fl (84-94) 07/01/22 20:59 MCH 32 pg (28-32) 07/01/22 20:59 MCHC 34 % (32-34) 07/01/22 20:59 RDW 15.6 % (13.2-15.2) H 07/01/22 20:59 Plt Count 182 K/mm3 (140-440) 07/01/22 20:59 Lymph % (Auto) 18.0 % (13.4-35.0) 07/01/22 20:59 [place] % (Auto) 10.7 % (0.0-7.3) H 07/01/22 20:59 Eos % (Auto) 1.6 % (0.0-4.3) 07/01/22 20:59 Baso % (Auto) 0.7 % (0.0-1.8) 07/01/22 20:59 Lymph # (Auto) 1.4 K/mm3 (1.2-5.4) 07/01/22 20:59 [place] # (Auto) 0.8 K/mm3 (0.0-0.8) 07/01/22 20:59 Eos # (Auto) 0.1 K/mm3 (0.0-0.4) 07/01/22 20:59 Baso # (Auto) 0.1 K/mm3 (0.0-0.1) 07/01/22 20:59 Seg Neutrophils % 69.0 % (40.0-70.0) 07/01/22 20:59 Seg Neutrophils # 5.4 K/mm3 (1.8-7.7) 07/01/22 20:59 Sodium 142 mmol/L (137-145) 07/06/22 04:00 Potassium 5.5 mmol/L (3.6-5.0) H 07/06/22 04:00 Chloride 91.1 mmol/L (98-107) L 07/06/22 04:00 Carbon Dioxide 36 mmol/L (22-30) H 07/06/22 04:00 Anion Gap 20 mmol/L 07/06/22 04:00 BUN 83 mg/dL (9-20) H 07/06/22 04:00 Creatinine 11.7 mg/dL (0.8-1.3) H 07/06/22 04:00 Estimated GFR 6 ml/min 07/06/22 04:00 BUN/Creatinine Ratio 7 % 07/06/22 04:00 Glucose 59 mg/dL (75-100) L 07/06/22 04:00 POC Glucose 111 mg/dL (70-105) H 07/09/22 16:01 Calcium 9.2 mg/dL (8.4-10.2) 07/06/22 04:00 Magnesium 2.30 mg/dL (1.7-2.3) 07/06/22 04:00 Total Bilirubin 0.30 mg/dL (0.1-1.2) 06/27/22 22:48 AST 12 units/L (5-40) 06/27/22 22:48 ALT 26 units/L (7-56) 06/27/22 22:48 Alkaline Phosphatase 122 units/L (35-129) 06/27/22 22:48 Total Protein 6.9 g/dL (6.3-8.2) 06/27/22 22:48 Albumin 3.8 g/dL (3.9-5) L 06/27/22 22:48 Albumin/Globulin Ratio 1.2 % 06/27/22 22:48 Coronavirus (PCR) Negative (Negative) 06/30/22 10:00 SARS-CoV-2 (PCR) Negative (Negative) 07/04/22 11:34 Hepatitis A IgM Ab Non-reactive (NonReactive) 06/28/22 08:31 Hep Bs Antigen Non-reactive (Negative) 06/28/22 08:31 Hep B Core IgM Ab Non-reactive (NonReactive) 06/28/22 08:31 Hepatitis C Antibody Non-reactive (NonReactive) 06/28/22 08:31 Saez/IV: Voiding Method Toilet Active Medications - Current Medications Current Medications: Generic Name Dose Route Start Last Admin Trade Name Freq PRN Reason Stop Dose Admin Acetaminophen 650 mg 06/28/22 02:56 Acetaminophen 325 Mg Tab PO Q4H PRN Pain MILD(1-3)/Fever >100.5/MUNOZ Aspirin 81 mg 06/28/22 10:00 07/09/22 09:40 Aspirin Ec 81 Mg Tab PO 81 mg QDAY MYRIAM Administration Dextrose 50 ml 06/28/22 02:56 06/28/22 11:34 Dextrose 50% In Water (25gm) 50 Ml Syringe IV 50 ml Q30MIN PRN Administration Hypoglycemia Protocol Sodium Chloride 100 mls @ 999 mls/hr 07/06/22 09:00 Nacl 0.9% IV HILDA PRN Hypotension Insulin Human Lispro 0 unit 06/28/22 07:30 07/09/22 16:18 Insulin Lispro 100 Unit/Ml SUB-Q Not Given ACHS [facility] Protocol Levetiracetam 500 mg 06/28/22 10:00 07/09/22 09:40 Levetiracetam 500 Mg Tab PO 500 mg BID MYRIAM Administration Metoclopramide HCl 10 mg 06/28/22 18:00 Metoclopramide 10 Mg/2 Ml Inj IV Q6H PRN Nausea And Vomiting Metoprolol Tartrate 50 mg 07/01/22 22:00 07/09/22 09:40 Metoprolol Tartrate 50 Mg Tab PO 50 mg BID MYRIAM Administration Morphine Sulfate 2 mg 06/28/22 02:56 06/28/22 15:13 Morphine 2 Mg/1 Ml Inj IV 2 mg Q4H PRN Administration Pain, Moderate (4-6) Morphine Sulfate 4 mg 06/28/22 02:56 Morphine 4 Mg/1 Ml Inj IV Q4H PRN Pain , Severe (7-10) Ondansetron HCl 4 mg 06/28/22 02:56 Ondansetron 4 Mg/2 Ml Inj IV Q8H PRN Nausea And Vomiting Sevelamer Carbonate 2,400 mg 06/28/22 07:30 07/09/22 16:18 Sevelamer Carbonate 800 Mg Tab PO Not Given AC MYRIAM Sodium Chloride 10 ml 06/28/22 10:00 07/09/22 09:42 Sodium Chloride 0.9% 10 Ml Flush Syringe IV Not Given BID MYRIAM Sodium Chloride 10 ml 06/28/22 02:56 Sodium Chloride 0.9% 10 Ml Flush Syringe IV PRN PRN LINE FLUSH Zolpidem Tartrate 5 mg 06/28/22 22:00 Zolpidem 5 Mg Tab PO QHS PRN Sleep Nutrition/Malnutrition Assess - Dietary Evaluation Nutrition/Malnutrition Findings: Nutrition Notes Start: 06/29/22 10:48 Freq: Status: Active Protocol: Document 07/06/22 14:25 [place] (Rec: 07/06/22 14:43 [place] [id number]) Nutrition Notes Initial or Follow up Assessment Current Diagnosis CKD (stage V CKD),Diabetes, Hypertension Other Pertinent Diagnosis AMS, r/o Dementia, ESRD+HD, Hyperkalemia, Hyperphosphatemia, Anemia, ... Current Diet Renal Diet (since B 06/28). Labs/Tests 07/06: K 5.5, Cl 91.1, CO2 36, BUN 83, Crea 11.7, Glu 59. Pertinent Medications 07/06: Renvela. Height 5 ft 7 in Weight 56.1 kg [place] Body Weight (kg) 67.27 BMI 19.3 Weight change and time frame 3 Kg body weight gain reported in 1 week. Weight Status Appropriate Subjective/Other Information RD consult for routine F/U on dietary advancement. Diet continues as prescribed, but Dietary Supplements were discontinued, No reports available on Pt's PO intake of meals at the time, will assess at F/U. Pt is on Room Air, O2 saturation @ 98%, according to Vital Signs notes. Pt is awaiting for SNF placement, according to Progress notes. Percent of energy/protein needs met: Prescribed Renal Diet provides for energy/protein needs (2, 072 Kcal/77 g) during LOS. Burn Absent Trauma Absent GI Symptoms None Food Allergy No Skin Integrity/Comment Assessment WNL. 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 Diagnosis Progress(for reassessment Resolved documentation) Is patient on ventilator? No Is Patient Ambulatory and/or Out of Bed Yes REE-(Jay-St. Jeor-ambulatory/OOB) [ 1793.519 NUTR.[id number]] Calculation Used for Recommendations Jay-St Jeor Additional Notes Protein: >1.2 g/Kg ABW; >64 g/ day. Fluids: 1 ml/Kcal, or as per MD. Nutrition Intervention Change Diet Order: Continue Renal Diet as tolerated. Add Supplement/Snack (indicate name/kcal Discontinued. /protein ) Goal #1 Adjust the dietary intervention to better serve Pt's energy/protein needs and clinical conditions during LOS . Follow-Up By: 07/13/22 Additional Comments Continue monitoring food tolerance, %PO intake of meals , and BM.
--- NOTE | 2022-07-10 09:24 | Progress Note ---
Assessment and Plan Assessment and plan: 1. End-stage renal disease on dialysis Nephrology following, hemodialysis per schedule Avoid nephrotoxin, renal dosing of medications 2. Noncompliance with dialysis Counseling done strongly advised to comply with medications diet Hemodialysis and follow-up doctors visits Patient continues to refuse dialysis Nephrology aware 3. Hyperkalemia; Improved, closely monitor electrolytes 4. Hypertension; moderate control Continue current antihypertensives and as needed medications 5. Possible underlying dementia Supportive care 6--Patient DNR and hospice Discharge planning; per case management Possible discharge to SNF with hospice Pending authorization Advance care planning; +30 minutes I discussed in detail with the patient his condition, discussed his diagnosis I discussed with him his prognosis, I discussed with him the treatment plan I also discussed with him the discharge planning, the plan soft placing in a long-term with hospice He verbalized understanding and had some questions answered all of them Closely monitor the patient and adjust the management as needed Plan of care reviewed with the patient and his nurse I also discussed extensively with case management Pending authorization 07/05/22; Pending authorization for SNF placement DC planning per case management 07/06 pending placement SNF with hospice Case management team processing Pending authorization 07/07; pending SNF placement 07/08; patient is refusing dialysis Awaiting SNF/hospice placement 07/09, refused dialysis awaiting placement 07/10; patient DNR awaiting SNF/hospice placement disposition; DC planning per case management History Interval history: Seen and examined the patient at the bedside Patient's chart and medications reviewed No new events reported by the nursing Patient continues to refuse dialysis every time Vital signs reviewed Awaiting placement Hospitalist Physical - Constitutional Vitals: Temp Pulse Resp BP Pulse Ox 98.3 F 88 16 141/78 100 07/10/22 08:40 07/10/22 08:40 07/10/22 08:40 07/10/22 08:40 07/10/22 08:40 General appearance: Present: no acute distress, cachectic, disheveled, other (malnourished) - EENT Eyes: Present: PERRL, EOM intact - Neck Neck: Present: supple, normal ROM - Respiratory Respiratory effort: normal Respiratory: bilateral: diminished, negative: rales, rhonchi, wheezing - Cardiovascular Rhythm: regular Heart Sounds: Present: S1 & S2 - Extremities Extremities: no ischemia, No edema - Abdominal General gastrointestinal: soft, non-tender, non-distended, normal bowel sounds - Integumentary Integumentary: Present: clear, warm - Psychiatric Psychiatric: appropriate mood/affect, cooperative - Neurologic Neurologic: moves all extremities Results - Labs CBC & Chem 7: 07/06/22 05:13 07/06/22 04:00 Labs: Laboratory Last Values WBC 7.8 K/mm3 (4.5-11.0) 07/01/22 20:59 RBC 2.50 M/mm3 (3.65-5.03) L 07/01/22 20:59 Hgb 7.4 gm/dl (11.8-15.2) L 07/06/22 05:13 Hct 22.4 % (35.5-45.6) L 07/06/22 05:13 MCV 93 fl (84-94) 07/01/22 20:59 MCH 32 pg (28-32) 07/01/22 20:59 MCHC 34 % (32-34) 07/01/22 20:59 RDW 15.6 % (13.2-15.2) H 07/01/22 20:59 Plt Count 182 K/mm3 (140-440) 07/01/22 20:59 Lymph % (Auto) 18.0 % (13.4-35.0) 07/01/22 20:59 [place] % (Auto) 10.7 % (0.0-7.3) H 07/01/22 20:59 Eos % (Auto) 1.6 % (0.0-4.3) 07/01/22 20:59 Baso % (Auto) 0.7 % (0.0-1.8) 07/01/22 20:59 Lymph # (Auto) 1.4 K/mm3 (1.2-5.4) 07/01/22 20:59 [place] # (Auto) 0.8 K/mm3 (0.0-0.8) 07/01/22 20:59 Eos # (Auto) 0.1 K/mm3 (0.0-0.4) 07/01/22 20:59 Baso # (Auto) 0.1 K/mm3 (0.0-0.1) 07/01/22 20:59 Seg Neutrophils % 69.0 % (40.0-70.0) 07/01/22 20:59 Seg Neutrophils # 5.4 K/mm3 (1.8-7.7) 07/01/22 20:59 Sodium 142 mmol/L (137-145) 07/06/22 04:00 Potassium 5.5 mmol/L (3.6-5.0) H 07/06/22 04:00 Chloride 91.1 mmol/L (98-107) L 07/06/22 04:00 Carbon Dioxide 36 mmol/L (22-30) H 07/06/22 04:00 Anion Gap 20 mmol/L 07/06/22 04:00 BUN 83 mg/dL (9-20) H 07/06/22 04:00 Creatinine 11.7 mg/dL (0.8-1.3) H 07/06/22 04:00 Estimated GFR 6 ml/min 07/06/22 04:00 BUN/Creatinine Ratio 7 % 07/06/22 04:00 Glucose 59 mg/dL (75-100) L 07/06/22 04:00 POC Glucose 163 mg/dL (70-105) H 07/09/22 21:10 Calcium 9.2 mg/dL (8.4-10.2) 07/06/22 04:00 Magnesium 2.30 mg/dL (1.7-2.3) 07/06/22 04:00 Total Bilirubin 0.30 mg/dL (0.1-1.2) 06/27/22 22:48 AST 12 units/L (5-40) 06/27/22 22:48 ALT 26 units/L (7-56) 06/27/22 22:48 Alkaline Phosphatase 122 units/L (35-129) 06/27/22 22:48 Total Protein 6.9 g/dL (6.3-8.2) 06/27/22 22:48 Albumin 3.8 g/dL (3.9-5) L 06/27/22 22:48 Albumin/Globulin Ratio 1.2 % 06/27/22 22:48 Coronavirus (PCR) Negative (Negative) 06/30/22 10:00 SARS-CoV-2 (PCR) Negative (Negative) 07/04/22 11:34 Hepatitis A IgM Ab Non-reactive (NonReactive) 06/28/22 08:31 Hep Bs Antigen Non-reactive (Negative) 06/28/22 08:31 Hep B Core IgM Ab Non-reactive (NonReactive) 06/28/22 08:31 Hepatitis C Antibody Non-reactive (NonReactive) 06/28/22 08:31 Saez/IV: Voiding Method Toilet Active Medications - Current Medications Current Medications: Generic Name Dose Route Start Last Admin Trade Name Freq PRN Reason Stop Dose Admin Acetaminophen 650 mg 06/28/22 02:56 Acetaminophen 325 Mg Tab PO Q4H PRN Pain MILD(1-3)/Fever >100.5/MUNOZ Aspirin 81 mg 06/28/22 10:00 07/09/22 09:40 Aspirin Ec 81 Mg Tab PO 81 mg QDAY MYRIAM Administration Dextrose 50 ml 06/28/22 02:56 06/28/22 11:34 Dextrose 50% In Water (25gm) 50 Ml Syringe IV 50 ml Q30MIN PRN Administration Hypoglycemia Protocol Sodium Chloride 100 mls @ 999 mls/hr 07/06/22 09:00 Nacl 0.9% IV HILDA PRN Hypotension Insulin Human Lispro 0 unit 06/28/22 07:30 07/09/22 22:02 Insulin Lispro 100 Unit/Ml SUB-Q 2 unit ACHS MYRIAM Administration Protocol Levetiracetam 500 mg 06/28/22 10:00 07/09/22 22:01 Levetiracetam 500 Mg Tab PO 500 mg BID MYRIAM Administration Metoclopramide HCl 10 mg 06/28/22 18:00 Metoclopramide 10 Mg/2 Ml Inj IV Q6H PRN Nausea And Vomiting Metoprolol Tartrate 50 mg 07/01/22 22:00 07/09/22 22:01 Metoprolol Tartrate 50 Mg Tab PO 50 mg BID MYRIAM Administration Morphine Sulfate 2 mg 06/28/22 02:56 06/28/22 15:13 Morphine 2 Mg/1 Ml Inj IV 2 mg Q4H PRN Administration Pain, Moderate (4-6) Morphine Sulfate 4 mg 06/28/22 02:56 Morphine 4 Mg/1 Ml Inj IV Q4H PRN Pain , Severe (7-10) Ondansetron HCl 4 mg 06/28/22 02:56 Ondansetron 4 Mg/2 Ml Inj IV Q8H PRN Nausea And Vomiting Sevelamer Carbonate 2,400 mg 06/28/22 07:30 07/09/22 16:18 Sevelamer Carbonate 800 Mg Tab PO Not Given AC MYRIAM Sodium Chloride 10 ml 06/28/22 10:00 07/09/22 22:47 Sodium Chloride 0.9% 10 Ml Flush Syringe IV Not Given BID MYRIAM Sodium Chloride 10 ml 06/28/22 02:56 Sodium Chloride 0.9% 10 Ml Flush Syringe IV PRN PRN LINE FLUSH Zolpidem Tartrate 5 mg 06/28/22 22:00 Zolpidem 5 Mg Tab PO QHS PRN Sleep Nutrition/Malnutrition Assess - Dietary Evaluation Nutrition/Malnutrition Findings: Nutrition Notes Start: 06/29/22 10:48 Freq: Status: Active Protocol: Document 07/06/22 14:25 [place] (Rec: 07/06/22 14:43 [place] [id number]) Nutrition Notes Initial or Follow up Assessment Current Diagnosis CKD (stage V CKD),Diabetes, Hypertension Other Pertinent Diagnosis AMS, r/o Dementia, ESRD+HD, Hyperkalemia, Hyperphosphatemia, Anemia, ... Current Diet Renal Diet (since B 06/28). Labs/Tests 07/06: K 5.5, Cl 91.1, CO2 36, BUN 83, Crea 11.7, Glu 59. Pertinent Medications 07/06: Renvela. Height 5 ft 7 in Weight 56.1 kg [place] Body Weight (kg) 67.27 BMI 19.3 Weight change and time frame 3 Kg body weight gain reported in 1 week. Weight Status Appropriate Subjective/Other Information RD consult for routine F/U on dietary advancement. Diet continues as prescribed, but Dietary Supplements were discontinued, No reports available on Pt's PO intake of meals at the time, will assess at F/U. Pt is on Room Air, O2 saturation @ 98%, according to Vital Signs notes. Pt is awaiting for SNF placement, according to Progress notes. Percent of energy/protein needs met: Prescribed Renal Diet provides for energy/protein needs (2, 072 Kcal/77 g) during LOS. Burn Absent Trauma Absent GI Symptoms None Food Allergy No Skin Integrity/Comment Assessment WNL. Minimum of two criteria No Fluid Accumulation N/A Reduced Patcher Strength N/A (non-severe) Protein-Calorie Malnutrition N\A #1 Nutrition Diagnosis Predicted suboptimal energy intake Comments: Diet continues as prescribed, but Dietary Supplements were discontinued, No reports available on Pt's PO intake of meals at the time, will assess at F/U. Diagnosis Progress(for reassessment Resolved documentation) Is patient on ventilator? No Is Patient Ambulatory and/or Out of Bed Yes REE-([facility]-ambulatory/OOB) [ 1793.519 NUTR.[id number]] Calculation Used for Recommendations [facility] Additional Notes Protein: >1.2 g/Kg ABW; >64 g/ day. Fluids: 1 ml/Kcal, or as per MD. Nutrition Intervention Change Diet Order: Continue Renal Diet as tolerated. Add Supplement/Snack (indicate name/kcal Discontinued. /protein ) Goal #1 Adjust the dietary intervention to better serve Pt's energy/protein needs and clinical conditions during LOS . Follow-Up By: 07/13/22 Additional Comments Continue monitoring food tolerance, %PO intake of meals , and BM.
--- NOTE | 2022-07-10 10:14 | Progress Note ---
Assessment and Plan Impression * End-stage renal disease on hemodialysis * Uremia, resolved with HD * Hyperkalemia, controlled with HD * Anemia of ESRD * Secondary hyperparathyroidism Plan: * Continue HD TTS * UF as tolerated * Note discharge planning in progress: SNF vs home w/ hospice care * Dose medications for renal function * Renal/HD diet Subjective Date of service: 07/10/22 Principal diagnosis: Encephalopathy Interval history: Patient has no complaints today Objective - Vital Signs Vital signs: Vital Signs - 12hr 07/10/22 07/10/22 07/10/22 00:20 05:36 08:40 Temperature 98.3 F 98.2 F 98.3 F Pulse Rate 88 90 88 Respiratory 18 18 16 Rate Blood Pressure 128/62 141/78 Blood Pressure 126/61 [Right] O2 Sat by Pulse 96 97 100 Oximetry - General Appearance General appearance: well-developed, well-nourished EENT: ATNC Respiratory: Present: Clear to Ascultation Cardiology: regular, S1S2 Gastrointestinal: normal, no tenderness, no distended - Lab 07/06/22 05:13 07/06/22 04:00 Most recent lab results Calcium 9.2 mg/dL (8.4-10.2) 07/06/22 04:00 Magnesium 2.30 mg/dL (1.7-2.3) 07/06/22 04:00 Medications & Allergies - Medications Allergies/Adverse Reactions: Allergies No Known Allergies Allergy (Verified 06/29/22 09:46) Home Medications: Home Medications Medication Instructions Recorded Confirmed Last Taken Type Aspirin EC [Halfprin EC] 81 mg PO QDAY #30 tablet. 06/08/22 06/29/22 Unknown Rx Sevelamer Carbonate [Renvela] 2,400 mg PO AC #60 tablet 06/08/22 06/29/22 Unknown Rx Zolpidem [Ambien] 5 mg PO QHS PRN #7 tablet 06/08/22 06/29/22 Unknown Rx Metoprolol Tartrate [Lopressor] 100 mg PO BID 06/29/22 06/29/22 Unknown History levETIRAcetam [Keppra TAB] 500 mg PO BID 06/29/22 06/29/22 Unknown History Active Medications: Generic Name Dose Route Start Last Admin Trade Name Freq PRN Reason Stop Dose Admin Acetaminophen 650 mg 06/28/22 02:56 Acetaminophen 325 Mg Tab PO Q4H PRN Pain MILD(1-3)/Fever >100.5/MUNOZ Aspirin 81 mg 06/28/22 10:00 07/09/22 09:40 Aspirin Ec 81 Mg Tab PO 81 mg QDAY MYRIAM Administration Dextrose 50 ml 06/28/22 02:56 06/28/22 11:34 Dextrose 50% In Water (25gm) 50 Ml Syringe IV 50 ml Q30MIN PRN Administration Hypoglycemia Protocol Sodium Chloride 100 mls @ 999 mls/hr 07/06/22 09:00 Nacl 0.9% IV HILDA PRN Hypotension Insulin Human Lispro 0 unit 06/28/22 07:30 07/09/22 22:02 Insulin Lispro 100 Unit/Ml SUB-Q 2 unit ACHS MYRIAM Administration Protocol Levetiracetam 500 mg 06/28/22 10:00 07/09/22 22:01 Levetiracetam 500 Mg Tab PO 500 mg BID MYRIAM Administration Metoclopramide HCl 10 mg 06/28/22 18:00 Metoclopramide 10 Mg/2 Ml Inj IV Q6H PRN Nausea And Vomiting Metoprolol Tartrate 50 mg 07/01/22 22:00 07/09/22 22:01 Metoprolol Tartrate 50 Mg Tab PO 50 mg BID MYRIAM Administration Morphine Sulfate 2 mg 06/28/22 02:56 06/28/22 15:13 Morphine 2 Mg/1 Ml Inj IV 2 mg Q4H PRN Administration Pain, Moderate (4-6) Morphine Sulfate 4 mg 06/28/22 02:56 Morphine 4 Mg/1 Ml Inj IV Q4H PRN Pain , Severe (7-10) Ondansetron HCl 4 mg 06/28/22 02:56 Ondansetron 4 Mg/2 Ml Inj IV Q8H PRN Nausea And Vomiting Sevelamer Carbonate 2,400 mg 06/28/22 07:30 07/09/22 16:18 Sevelamer Carbonate 800 Mg Tab PO Not Given AC MYRIAM Sodium Chloride 10 ml 06/28/22 10:00 07/09/22 22:47 Sodium Chloride 0.9% 10 Ml Flush Syringe IV Not Given BID MYRIAM Sodium Chloride 10 ml 06/28/22 02:56 Sodium Chloride 0.9% 10 Ml Flush Syringe IV PRN PRN LINE FLUSH Zolpidem Tartrate 5 mg 06/28/22 22:00 Zolpidem 5 Mg Tab PO QHS PRN Sleep
[2022-07-10] MEDS: SEVELAMER CARBONATE 800 MG TAB PO SCH ×3 (10:33→18:56)
[2022-07-10] MEDS: INSULIN LISPRO 100 UNIT/ML SUB-Q SCH ×3 (10:33→23:45)
[2022-07-10] MEDS: ASPIRIN EC 81 MG TAB PO SCH (10:34)
[2022-07-10] MEDS: levETIRAcetam 500 MG TAB PO SCH ×2 (10:34→23:44)
[2022-07-10] MEDS: METOPROLOL TARTRATE 50 MG TAB PO SCH ×2 (10:34→23:44)
--- NOTE | 2022-07-11 08:57 | Progress Note ---
Assessment and Plan Impression * End-stage renal disease on hemodialysis * Uremia, resolved with HD * Hyperkalemia, controlled with HD * Anemia of ESRD * Secondary hyperparathyroidism Plan: * Patient is refusing dialysis today. He states that he does not like needles. Advised patient that without dialysis, he will . Patient voiced understanding * Continue HD TTS if patient agreeable * UF as tolerated * Note discharge planning in progress: SNF vs home w/ hospice care * Dose medications for renal function * Renal/HD diet Subjective Date of service: 07/11/22 Principal diagnosis: Encephalopathy Interval history: Patient has no compaints. He is refusing dialysis today. APS at bedside Objective - Vital Signs Vital signs: Vital Signs - 12hr 07/10/22 07/11/22 22:00 03:59 Temperature 98.2 F Pulse Rate 86 Respiratory 20 Rate Blood Pressure 137/76 O2 Sat by Pulse 96 100 Oximetry - General Appearance General appearance: well-developed, well-nourished EENT: ATNC Respiratory: Present: Clear to Ascultation Cardiology: regular, S1S2 Gastrointestinal: normal, no tenderness, no distended Integumentary: warm and dry - Lab 07/06/22 05:13 07/06/22 04:00 Most recent lab results Calcium 9.2 mg/dL (8.4-10.2) 07/06/22 04:00 Magnesium 2.30 mg/dL (1.7-2.3) 07/06/22 04:00 Medications & Allergies - Medications Allergies/Adverse Reactions: Allergies No Known Allergies Allergy (Verified 06/29/22 09:46) Home Medications: Home Medications Medication Instructions Recorded Confirmed Last Taken Type Aspirin EC [Halfprin EC] 81 mg PO QDAY #30 tablet. 06/08/22 06/29/22 Unknown Rx Sevelamer Carbonate [Renvela] 2,400 mg PO AC #60 tablet 06/08/22 06/29/22 Unknown Rx Zolpidem [Ambien] 5 mg PO QHS PRN #7 tablet 06/08/22 06/29/22 Unknown Rx Metoprolol Tartrate [Lopressor] 100 mg PO BID 06/29/22 06/29/22 Unknown History levETIRAcetam [Keppra TAB] 500 mg PO BID 06/29/22 06/29/22 Unknown History Active Medications: Generic Name Dose Route Start Last Admin Trade Name Freq PRN Reason Stop Dose Admin Acetaminophen 650 mg 06/28/22 02:56 Acetaminophen 325 Mg Tab PO Q4H PRN Pain MILD(1-3)/Fever >100.5/MUNOZ Aspirin 81 mg 06/28/22 10:00 07/10/22 10:34 Aspirin Ec 81 Mg Tab PO 81 mg QDAY MYRIAM Administration Dextrose 50 ml 06/28/22 02:56 06/28/22 11:34 Dextrose 50% In Water (25gm) 50 Ml Syringe IV 50 ml Q30MIN PRN Administration Hypoglycemia Protocol Sodium Chloride 100 mls @ 999 mls/hr 07/06/22 09:00 Nacl 0.9% IV HILDA PRN Hypotension Insulin Human Lispro 0 unit 06/28/22 07:30 07/10/22 23:45 Insulin Lispro 100 Unit/Ml SUB-Q Not Given ACHS [facility] Protocol Levetiracetam 500 mg 06/28/22 10:00 07/10/22 23:44 Levetiracetam 500 Mg Tab PO 500 mg BID MYRIAM Administration Metoclopramide HCl 10 mg 06/28/22 18:00 Metoclopramide 10 Mg/2 Ml Inj IV Q6H PRN Nausea And Vomiting Metoprolol Tartrate 50 mg 07/01/22 22:00 07/10/22 23:44 Metoprolol Tartrate 50 Mg Tab PO 50 mg BID MYRIAM Administration Morphine Sulfate 2 mg 06/28/22 02:56 06/28/22 15:13 Morphine 2 Mg/1 Ml Inj IV 2 mg Q4H PRN Administration Pain, Moderate (4-6) Morphine Sulfate 4 mg 06/28/22 02:56 Morphine 4 Mg/1 Ml Inj IV Q4H PRN Pain , Severe (7-10) Ondansetron HCl 4 mg 06/28/22 02:56 Ondansetron 4 Mg/2 Ml Inj IV Q8H PRN Nausea And Vomiting Sevelamer Carbonate 2,400 mg 06/28/22 07:30 07/10/22 18:56 Sevelamer Carbonate 800 Mg Tab PO Not Given AC MYRIAM Sodium Chloride 10 ml 06/28/22 10:00 07/10/22 23:45 Sodium Chloride 0.9% 10 Ml Flush Syringe IV Not Given BID MYRIAM Sodium Chloride 10 ml 06/28/22 02:56 Sodium Chloride 0.9% 10 Ml Flush Syringe IV PRN PRN LINE FLUSH Zolpidem Tartrate 5 mg 06/28/22 22:00 07/10/22 23:44 Zolpidem 5 Mg Tab PO 5 mg QHS PRN Administration Sleep
[2022-07-11] MEDS: levETIRAcetam 500 MG TAB PO SCH ×2 (09:36→22:28)
[2022-07-11] MEDS: SEVELAMER CARBONATE 800 MG TAB PO SCH ×3 (09:36→18:39)
[2022-07-11] MEDS: ASPIRIN EC 81 MG TAB PO SCH (09:36)
[2022-07-11] MEDS: METOPROLOL TARTRATE 50 MG TAB PO SCH ×2 (09:37→22:27)
--- NOTE | 2022-07-11 10:44 | Progress Note ---
Assessment and Plan Assessment and plan: End-stage renal disease on dialysis Nephrology following, hemodialysis per schedule Avoid nephrotoxin, renal dosing of medications Noncompliance with dialysis Counseling done strongly advised to comply with medications diet Hemodialysis and follow-up doctors visits Patient continues to refuse dialysis Nephrology aware Hyperkalemia; Improved, closely monitor electrolytes Hypertension; moderate control Continue current antihypertensives and as needed medications Possible underlying dementia Supportive care Patient DNR and hospice Hospital course: 07/05/22; Pending authorization for SNF placement DC planning per case management 07/06 pending placement SNF with hospice Case management team processing Pending authorization 07/07; pending SNF placement 07/08; patient is refusing dialysis Awaiting SNF/hospice placement 07/09, refused dialysis awaiting placement 07/10; patient DNR awaiting SNF/hospice placement 07/11: Discharge planning; per case management Possible discharge to SNF with hospice Pending authorization History Interval history: No new issues overnight Hospitalist Physical - Constitutional Vitals: Temp Pulse Resp BP Pulse Ox 98.2 F 86 20 137/76 100 07/11/22 03:59 07/11/22 03:59 07/11/22 03:59 07/11/22 03:59 07/11/22 03:59 General appearance: Present: no acute distress, cachectic, disheveled, other (malnourished) - EENT Eyes: Present: PERRL, EOM intact ENT: hearing intact, clear oral mucosa, dentition normal - Neck Neck: Present: supple, normal ROM - Respiratory Respiratory effort: normal Respiratory: bilateral: CTA - Cardiovascular Rhythm: regular Heart Sounds: Present: S1 & S2. Absent: gallop, rub - Extremities Extremities: no ischemia, No edema, Full ROM - Abdominal General gastrointestinal: soft, non-tender, non-distended, normal bowel sounds - Integumentary Integumentary: Present: clear, warm, dry - Neurologic Neurologic: CNII-XII intact, moves all extremities Results - Labs CBC & Chem 7: 07/06/22 05:13 07/06/22 04:00 Labs: Laboratory Last Values WBC 7.8 K/mm3 (4.5-11.0) 07/01/22 20:59 RBC 2.50 M/mm3 (3.65-5.03) L 07/01/22 20:59 Hgb 7.4 gm/dl (11.8-15.2) L 07/06/22 05:13 Hct 22.4 % (35.5-45.6) L 07/06/22 05:13 MCV 93 fl (84-94) 07/01/22 20:59 MCH 32 pg (28-32) 07/01/22 20:59 MCHC 34 % (32-34) 07/01/22 20:59 RDW 15.6 % (13.2-15.2) H 07/01/22 20:59 Plt Count 182 K/mm3 (140-440) 07/01/22 20:59 Lymph % (Auto) 18.0 % (13.4-35.0) 07/01/22 20:59 [place] % (Auto) 10.7 % (0.0-7.3) H 07/01/22 20:59 Eos % (Auto) 1.6 % (0.0-4.3) 07/01/22 20:59 Baso % (Auto) 0.7 % (0.0-1.8) 07/01/22 20:59 Lymph # (Auto) 1.4 K/mm3 (1.2-5.4) 07/01/22 20:59 [place] # (Auto) 0.8 K/mm3 (0.0-0.8) 07/01/22 20:59 Eos # (Auto) 0.1 K/mm3 (0.0-0.4) 07/01/22 20:59 Baso # (Auto) 0.1 K/mm3 (0.0-0.1) 07/01/22 20:59 Seg Neutrophils % 69.0 % (40.0-70.0) 07/01/22 20:59 Seg Neutrophils # 5.4 K/mm3 (1.8-7.7) 07/01/22 20:59 Sodium 142 mmol/L (137-145) 07/06/22 04:00 Potassium 5.5 mmol/L (3.6-5.0) H 07/06/22 04:00 Chloride 91.1 mmol/L (98-107) L 07/06/22 04:00 Carbon Dioxide 36 mmol/L (22-30) H 07/06/22 04:00 Anion Gap 20 mmol/L 07/06/22 04:00 BUN 83 mg/dL (9-20) H 07/06/22 04:00 Creatinine 11.7 mg/dL (0.8-1.3) H 07/06/22 04:00 Estimated GFR 6 ml/min 07/06/22 04:00 BUN/Creatinine Ratio 7 % 07/06/22 04:00 Glucose 59 mg/dL (75-100) L 07/06/22 04:00 POC Glucose 79 mg/dL (70-105) 07/10/22 23:42 Calcium 9.2 mg/dL (8.4-10.2) 07/06/22 04:00 Magnesium 2.30 mg/dL (1.7-2.3) 07/06/22 04:00 Total Bilirubin 0.30 mg/dL (0.1-1.2) 06/27/22 22:48 AST 12 units/L (5-40) 06/27/22 22:48 ALT 26 units/L (7-56) 06/27/22 22:48 Alkaline Phosphatase 122 units/L (35-129) 06/27/22 22:48 Total Protein 6.9 g/dL (6.3-8.2) 06/27/22 22:48 Albumin 3.8 g/dL (3.9-5) L 06/27/22 22:48 Albumin/Globulin Ratio 1.2 % 06/27/22 22:48 Coronavirus (PCR) Negative (Negative) 06/30/22 10:00 SARS-CoV-2 (PCR) Negative (Negative) 07/04/22 11:34 Hepatitis A IgM Ab Non-reactive (NonReactive) 06/28/22 08:31 Hep Bs Antigen Non-reactive (Negative) 06/28/22 08:31 Hep B Core IgM Ab Non-reactive (NonReactive) 06/28/22 08:31 Hepatitis C Antibody Non-reactive (NonReactive) 06/28/22 08:31 Saez/IV: Voiding Method Toilet Active Medications - Current Medications Current Medications: Generic Name Dose Route Start Last Admin Trade Name Freq PRN Reason Stop Dose Admin Acetaminophen 650 mg 06/28/22 02:56 Acetaminophen 325 Mg Tab PO Q4H PRN Pain MILD(1-3)/Fever >100.5/MUNOZ Aspirin 81 mg 06/28/22 10:00 07/11/22 09:36 Aspirin Ec 81 Mg Tab PO 81 mg QDAY MYRIAM Administration Dextrose 50 ml 06/28/22 02:56 06/28/22 11:34 Dextrose 50% In Water (25gm) 50 Ml Syringe IV 50 ml Q30MIN PRN Administration Hypoglycemia Protocol Sodium Chloride 100 mls @ 999 mls/hr 07/06/22 09:00 Nacl 0.9% IV HILDA PRN Hypotension Insulin Human Lispro 0 unit 06/28/22 07:30 07/10/22 23:45 Insulin Lispro 100 Unit/Ml SUB-Q Not Given ACHS MYRIAM Protocol Levetiracetam 500 mg 06/28/22 10:00 07/11/22 09:36 Levetiracetam 500 Mg Tab PO 500 mg BID MYRIAM Administration Metoclopramide HCl 10 mg 06/28/22 18:00 Metoclopramide 10 Mg/2 Ml Inj IV Q6H PRN Nausea And Vomiting Metoprolol Tartrate 50 mg 07/01/22 22:00 07/11/22 09:37 Metoprolol Tartrate 50 Mg Tab PO 50 mg BID MYRIAM Administration Morphine Sulfate 2 mg 06/28/22 02:56 06/28/22 15:13 Morphine 2 Mg/1 Ml Inj IV 2 mg Q4H PRN Administration Pain, Moderate (4-6) Morphine Sulfate 4 mg 06/28/22 02:56 Morphine 4 Mg/1 Ml Inj IV Q4H PRN Pain , Severe (7-10) Ondansetron HCl 4 mg 06/28/22 02:56 Ondansetron 4 Mg/2 Ml Inj IV Q8H PRN Nausea And Vomiting Sevelamer Carbonate 2,400 mg 06/28/22 07:30 07/11/22 09:36 Sevelamer Carbonate 800 Mg Tab PO 2,400 mg AC MYRIAM Administration Sodium Chloride 10 ml 06/28/22 10:00 07/10/22 23:45 Sodium Chloride 0.9% 10 Ml Flush Syringe IV Not Given BID MYRIAM Sodium Chloride 10 ml 06/28/22 02:56 Sodium Chloride 0.9% 10 Ml Flush Syringe IV PRN PRN LINE FLUSH Zolpidem Tartrate 5 mg 06/28/22 22:00 07/10/22 23:44 Zolpidem 5 Mg Tab PO 5 mg QHS PRN Administration Sleep Nutrition/Malnutrition Assess - Dietary Evaluation Nutrition/Malnutrition Findings: Nutrition Notes Start: 06/29/22 10:48 Freq: Status: Active Protocol: Document 07/06/22 14:25 [place] (Rec: 07/06/22 14:43 [place] [email or web address]) Nutrition Notes Initial or Follow up Assessment Current Diagnosis CKD (stage V CKD),Diabetes, Hypertension Other Pertinent Diagnosis AMS, r/o Dementia, ESRD+HD, Hyperkalemia, Hyperphosphatemia, Anemia, ... Current Diet Renal Diet (since B 06/28). Labs/Tests 07/06: K 5.5, Cl 91.1, CO2 36, BUN 83, Crea 11.7, Glu 59. Pertinent Medications 07/06: Renvela. Height 5 ft 7 in Weight 56.1 kg [place] Body Weight (kg) 67.27 BMI 19.3 Weight change and time frame 3 Kg body weight gain reported in 1 week. Weight Status Appropriate Subjective/Other Information RD consult for routine F/U on dietary advancement. Diet continues as prescribed, but Dietary Supplements were discontinued, No reports available on Pt's PO intake of meals at the time, will assess at F/U. Pt is on Room Air, O2 saturation @ 98%, according to Vital Signs notes. Pt is awaiting for SNF placement, according to Progress notes. Percent of energy/protein needs met: Prescribed Renal Diet provides for energy/protein needs (2, 072 Kcal/77 g) during LOS. Burn Absent Trauma Absent GI Symptoms None Food Allergy No Skin Integrity/Comment Assessment WNL. 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 Diagnosis Progress(for reassessment Resolved documentation) Is patient on ventilator? No Is Patient Ambulatory and/or Out of Bed Yes REE-([place]-St. Jeor-ambulatory/OOB) [ 1793.519 [id number]] Calculation Used for Recommendations [place]-St Jeor Additional Notes Protein: >1.2 g/Kg ABW; >64 g/ day. Fluids: 1 ml/Kcal, or as per MD. Nutrition Intervention Change Diet Order: Continue Renal Diet as tolerated. Add Supplement/Snack (indicate name/kcal Discontinued. /protein ) Goal #1 Adjust the dietary intervention to better serve Pt's energy/protein needs and clinical conditions during LOS . Follow-Up By: 07/13/22 Additional Comments Continue monitoring food tolerance, %PO intake of meals , and BM.
[2022-07-12] MEDS: INSULIN LISPRO 100 UNIT/ML SUB-Q SCH ×4 (08:00→21:53)
[2022-07-12] MEDS ORDERED: METOCLOPRAMIDE 10 MG/2 ML INJ IV PRN (08:00)
[2022-07-12] MEDS: METOPROLOL TARTRATE 50 MG TAB PO SCH ×2 (09:50→21:55)
[2022-07-12] MEDS: ASPIRIN EC 81 MG TAB PO SCH (09:50)
[2022-07-12] MEDS: levETIRAcetam 500 MG TAB PO SCH ×2 (09:50→21:54)
[2022-07-12] MEDS: SEVELAMER CARBONATE 800 MG TAB PO SCH ×3 (09:50→17:26)
--- NOTE | 2022-07-12 12:34 | Progress Note ---
Assessment and Plan Assessment and plan: End-stage renal disease on dialysis Nephrology following, hemodialysis per schedule Avoid nephrotoxin, renal dosing of medications Noncompliance with dialysis Counseling done strongly advised to comply with medications diet Hemodialysis and follow-up doctors visits Patient continues to refuse dialysis Nephrology aware Hyperkalemia; Improved, closely monitor electrolytes Hypertension; moderate control Continue current antihypertensives and as needed medications Possible underlying dementia Supportive care Patient DNR and hospice Hospital course: 07/05/22; Pending authorization for SNF placement DC planning per case management 07/06 pending placement SNF with hospice Case management team processing Pending authorization 07/07; pending SNF placement 07/08; patient is refusing dialysis Awaiting SNF/hospice placement 07/09, refused dialysis awaiting placement 07/10; patient DNR awaiting SNF/hospice placement 07/11: Discharge planning; per case management Possible discharge to SNF with hospice Pending authorization 07/12: Discharge planning; per case management Possible discharge to SNF with hospice Pending authorization History Interval history: No new issues overnight Hospitalist Physical - Constitutional Vitals: Temp Pulse Resp BP Pulse Ox 97.9 F 76 16 127/65 100 07/12/22 11:11 07/12/22 11:11 07/12/22 11:11 07/12/22 11:11 07/12/22 11:11 General appearance: Present: no acute distress, cachectic, disheveled, other ( malnourished) - EENT Eyes: Present: PERRL, EOM intact ENT: hearing intact, clear oral mucosa, dentition normal - Neck Neck: Present: supple, normal ROM - Respiratory Respiratory effort: normal Respiratory: bilateral: CTA - Cardiovascular Rhythm: regular Heart Sounds: Present: S1 & S2. Absent: gallop, rub - Extremities Extremities: no ischemia, No edema, Full ROM - Abdominal General gastrointestinal: soft, non-tender, non-distended, normal bowel sounds - Integumentary Integumentary: Present: clear, warm, dry - Neurologic Neurologic: CNII-XII intact, moves all extremities Results - Labs CBC & Chem 7: 07/06/22 05:13 07/06/22 04:00 Labs: Laboratory Last Values WBC 7.8 K/mm3 (4.5-11.0) 07/01/22 20:59 RBC 2.50 M/mm3 (3.65-5.03) L 07/01/22 20:59 Hgb 7.4 gm/dl (11.8-15.2) L 07/06/22 05:13 Hct 22.4 % (35.5-45.6) L 07/06/22 05:13 MCV 93 fl (84-94) 07/01/22 20:59 MCH 32 pg (28-32) 07/01/22 20:59 MCHC 34 % (32-34) 07/01/22 20:59 RDW 15.6 % (13.2-15.2) H 07/01/22 20:59 Plt Count 182 K/mm3 (140-440) 07/01/22 20:59 Lymph % (Auto) 18.0 % (13.4-35.0) 07/01/22 20:59 [place] % (Auto) 10.7 % (0.0-7.3) H 07/01/22 20:59 Eos % (Auto) 1.6 % (0.0-4.3) 07/01/22 20:59 Baso % (Auto) 0.7 % (0.0-1.8) 07/01/22 20:59 Lymph # (Auto) 1.4 K/mm3 (1.2-5.4) 07/01/22 20:59 [place] # (Auto) 0.8 K/mm3 (0.0-0.8) 07/01/22 20:59 Eos # (Auto) 0.1 K/mm3 (0.0-0.4) 07/01/22 20:59 Baso # (Auto) 0.1 K/mm3 (0.0-0.1) 07/01/22 20:59 Seg Neutrophils % 69.0 % (40.0-70.0) 07/01/22 20:59 Seg Neutrophils # 5.4 K/mm3 (1.8-7.7) 07/01/22 20:59 Sodium 142 mmol/L (137-145) 07/06/22 04:00 Potassium 5.5 mmol/L (3.6-5.0) H 07/06/22 04:00 Chloride 91.1 mmol/L (98-107) L 07/06/22 04:00 Carbon Dioxide 36 mmol/L (22-30) H 07/06/22 04:00 Anion Gap 20 mmol/L 07/06/22 04:00 BUN 83 mg/dL (9-20) H 07/06/22 04:00 Creatinine 11.7 mg/dL (0.8-1.3) H 07/06/22 04:00 Estimated GFR 6 ml/min 07/06/22 04:00 BUN/Creatinine Ratio 7 % 07/06/22 04:00 Glucose 59 mg/dL (75-100) L 07/06/22 04:00 POC Glucose 144 mg/dL (70-105) H 07/11/22 21:34 Calcium 9.2 mg/dL (8.4-10.2) 07/06/22 04:00 Magnesium 2.30 mg/dL (1.7-2.3) 07/06/22 04:00 Total Bilirubin 0.30 mg/dL (0.1-1.2) 06/27/22 22:48 AST 12 units/L (5-40) 06/27/22 22:48 ALT 26 units/L (7-56) 06/27/22 22:48 Alkaline Phosphatase 122 units/L (35-129) 06/27/22 22:48 Total Protein 6.9 g/dL (6.3-8.2) 06/27/22 22:48 Albumin 3.8 g/dL (3.9-5) L 06/27/22 22:48 Albumin/Globulin Ratio 1.2 % 06/27/22 22:48 Coronavirus (PCR) Negative (Negative) 06/30/22 10:00 SARS-CoV-2 (PCR) Negative (Negative) 07/04/22 11:34 Hepatitis A IgM Ab Non-reactive (NonReactive) 06/28/22 08:31 Hep Bs Antigen Non-reactive (Negative) 06/28/22 08:31 Hep B Core IgM Ab Non-reactive (NonReactive) 06/28/22 08:31 Hepatitis C Antibody Non-reactive (NonReactive) 06/28/22 08:31 Saez/IV: Voiding Method Toilet Active Medications - Current Medications Current Medications: Generic Name Dose Route Start Last Admin Trade Name Freq PRN Reason Stop Dose Admin Acetaminophen 650 mg 06/28/22 02:56 Acetaminophen 325 Mg Tab PO Q4H PRN Pain MILD(1-3)/Fever >100.5/MUNOZ Aspirin 81 mg 06/28/22 10:00 07/12/22 09:50 Aspirin Ec 81 Mg Tab PO 81 mg QDAY MYRIAM Administration Dextrose 50 ml 06/28/22 02:56 06/28/22 11:34 Dextrose 50% In Water (25gm) 50 Ml Syringe IV 50 ml Q30MIN PRN Administration Hypoglycemia Protocol Sodium Chloride 100 mls @ 999 mls/hr 07/06/22 09:00 Nacl 0.9% IV HILDA PRN Hypotension Insulin Human Lispro 0 unit 06/28/22 07:30 07/10/22 23:45 Insulin Lispro 100 Unit/Ml SUB-Q Not Given ACHS MYRIAM Protocol Levetiracetam 500 mg 06/28/22 10:00 07/12/22 09:50 Levetiracetam 500 Mg Tab PO 500 mg BID MYRIAM Administration Metoclopramide HCl 5 mg 07/12/22 08:00 Metoclopramide 10 Mg/2 Ml Inj IV Q6H PRN Nausea And Vomiting Metoprolol Tartrate 50 mg 07/01/22 22:00 07/12/22 09:50 Metoprolol Tartrate 50 Mg Tab PO 50 mg BID MYRIAM Administration Morphine Sulfate 2 mg 06/28/22 02:56 06/28/22 15:13 Morphine 2 Mg/1 Ml Inj IV 2 mg Q4H PRN Administration Pain, Moderate (4-6) Morphine Sulfate 4 mg 06/28/22 02:56 Morphine 4 Mg/1 Ml Inj IV Q4H PRN Pain , Severe (7-10) Ondansetron HCl 4 mg 06/28/22 02:56 Ondansetron 4 Mg/2 Ml Inj IV Q8H PRN Nausea And Vomiting Sevelamer Carbonate 2,400 mg 06/28/22 07:30 07/12/22 09:50 Sevelamer Carbonate 800 Mg Tab PO 2,400 mg AC MYRIAM Administration Sodium Chloride 10 ml 06/28/22 10:00 07/10/22 23:45 Sodium Chloride 0.9% 10 Ml Flush Syringe IV Not Given BID MYRIAM Sodium Chloride 10 ml 06/28/22 02:56 Sodium Chloride 0.9% 10 Ml Flush Syringe IV PRN PRN LINE FLUSH Zolpidem Tartrate 5 mg 06/28/22 22:00 07/10/22 23:44 Zolpidem 5 Mg Tab PO 5 mg QHS PRN Administration Sleep Nutrition/Malnutrition Assess - Dietary Evaluation Nutrition/Malnutrition Findings: Nutrition Notes Start: 06/29/22 10:48 Freq: Status: Active Protocol: Document 07/06/22 14:25 [place] (Rec: 07/06/22 14:43 [place] [email or web address]) Nutrition Notes Initial or Follow up Assessment Current Diagnosis CKD (stage V CKD),Diabetes, Hypertension Other Pertinent Diagnosis AMS, r/o Dementia, ESRD+HD, Hyperkalemia, Hyperphosphatemia, Anemia, ... Current Diet Renal Diet (since B 06/28). Labs/Tests 07/06: K 5.5, Cl 91.1, CO2 36, BUN 83, Crea 11.7, Glu 59. Pertinent Medications 07/06: Renvela. Height 5 ft 7 in Weight 56.1 kg [place] Body Weight (kg) 67.27 BMI 19.3 Weight change and time frame 3 Kg body weight gain reported in 1 week. Weight Status Appropriate Subjective/Other Information RD consult for routine F/U on dietary advancement. Diet continues as prescribed, but Dietary Supplements were discontinued, No reports available on Pt's PO intake of meals at the time, will assess at F/U. Pt is on Room Air, O2 saturation @ 98%, according to Vital Signs notes. Pt is awaiting for SNF placement, according to Progress notes. Percent of energy/protein needs met: Prescribed Renal Diet provides for energy/protein needs (2, 072 Kcal/77 g) during LOS. Burn Absent Trauma Absent GI Symptoms None Food Allergy No Skin Integrity/Comment Assessment WNL. 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 Diagnosis Progress(for reassessment Resolved documentation) Is patient on ventilator? No Is Patient Ambulatory and/or Out of Bed Yes REE-([place]-St. Jeor-ambulatory/OOB) [ 1793.519 [id number]] Calculation Used for Recommendations [place]-St Jeor Additional Notes Protein: >1.2 g/Kg ABW; >64 g/ day. Fluids: 1 ml/Kcal, or as per MD. Nutrition Intervention Change Diet Order: Continue Renal Diet as tolerated. Add Supplement/Snack (indicate name/kcal Discontinued. /protein ) Goal #1 Adjust the dietary intervention to better serve Pt's energy/protein needs and clinical conditions during LOS . Follow-Up By: 07/13/22 Additional Comments Continue monitoring food tolerance, %PO intake of meals , and BM.
--- NOTE | 2022-07-12 13:13 | Progress Note ---
Assessment and Plan Impression * End-stage renal disease on hemodialysis * Uremia, resolved with HD * Hyperkalemia, controlled with HD * Anemia of ESRD * Secondary hyperparathyroidism Plan: * Patient is refused dialysis yesterday. He has been advised that he will without dialysis. * Continue HD TTS if patient agreeable * UF as tolerated * Dose medications for renal function * Renal/HD diet * Note discharge planning in progress; patient does not have an outpatient dialysis clinic; HD clinic placement will be challenging due to noncompliance. He continues to refuse dialysis, hospice placement is appropriate Subjective Date of service: 07/12/22 Principal diagnosis: Encephalopathy Interval history: Patient has no complaints today Objective - Vital Signs Vital signs: Vital Signs - 12hr 07/12/22 07/12/22 07/12/22 04:10 08:21 09:50 Temperature 98.8 F 97.9 F Pulse Rate 90 109 H 109 H Respiratory 16 16 Rate Blood Pressure 141/69 Blood Pressure 140/76 [Right] O2 Sat by Pulse 98 95 Oximetry 07/12/22 11:11 Temperature 97.9 F Pulse Rate 76 Respiratory 16 Rate Blood Pressure 127/65 Blood Pressure [Right] O2 Sat by Pulse 100 Oximetry - General Appearance General appearance: well-developed, well-nourished EENT: ATNC Respiratory: Present: Clear to Ascultation Cardiology: regular, S1S2 Integumentary: warm and dry Musculoskeletal: other (no edema) - Lab 07/06/22 05:13 07/06/22 04:00 Most recent lab results Calcium 9.2 mg/dL (8.4-10.2) 07/06/22 04:00 Magnesium 2.30 mg/dL (1.7-2.3) 07/06/22 04:00 Medications & Allergies - Medications Allergies/Adverse Reactions: Allergies No Known Allergies Allergy (Verified 06/29/22 09:46) Home Medications: Home Medications Medication Instructions Recorded Confirmed Last Taken Type Aspirin EC [Halfprin EC] 81 mg PO QDAY #30 tablet. 06/08/22 06/29/22 Unknown Rx Sevelamer Carbonate [Renvela] 2,400 mg PO AC #60 tablet 06/08/22 06/29/22 Unknown Rx Zolpidem [Ambien] 5 mg PO QHS PRN #7 tablet 06/08/22 06/29/22 Unknown Rx Metoprolol Tartrate [Lopressor] 100 mg PO BID 06/29/22 06/29/22 Unknown History levETIRAcetam [Keppra TAB] 500 mg PO BID 06/29/22 06/29/22 Unknown History Active Medications: Generic Name Dose Route Start Last Admin Trade Name Freq PRN Reason Stop Dose Admin Acetaminophen 650 mg 06/28/22 02:56 Acetaminophen 325 Mg Tab PO Q4H PRN Pain MILD(1-3)/Fever >100.5/MUNOZ Aspirin 81 mg 06/28/22 10:00 07/12/22 09:50 Aspirin Ec 81 Mg Tab PO 81 mg QDAY MYRIAM Administration Dextrose 50 ml 06/28/22 02:56 06/28/22 11:34 Dextrose 50% In Water (25gm) 50 Ml Syringe IV 50 ml Q30MIN PRN Administration Hypoglycemia Protocol Sodium Chloride 100 mls @ 999 mls/hr 07/06/22 09:00 Nacl 0.9% IV HILDA PRN Hypotension Insulin Human Lispro 0 unit 06/28/22 07:30 07/10/22 23:45 Insulin Lispro 100 Unit/Ml SUB-Q Not Given ACHS MYRIAM Protocol Levetiracetam 500 mg 06/28/22 10:00 07/12/22 09:50 Levetiracetam 500 Mg Tab PO 500 mg BID MYRIAM Administration Metoclopramide HCl 5 mg 07/12/22 08:00 Metoclopramide 10 Mg/2 Ml Inj IV Q6H PRN Nausea And Vomiting Metoprolol Tartrate 50 mg 07/01/22 22:00 07/12/22 09:50 Metoprolol Tartrate 50 Mg Tab PO 50 mg BID MYRIAM Administration Morphine Sulfate 2 mg 06/28/22 02:56 06/28/22 15:13 Morphine 2 Mg/1 Ml Inj IV 2 mg Q4H PRN Administration Pain, Moderate (4-6) Morphine Sulfate 4 mg 06/28/22 02:56 Morphine 4 Mg/1 Ml Inj IV Q4H PRN Pain , Severe (7-10) Ondansetron HCl 4 mg 06/28/22 02:56 Ondansetron 4 Mg/2 Ml Inj IV Q8H PRN Nausea And Vomiting Sevelamer Carbonate 2,400 mg 06/28/22 07:30 07/12/22 09:50 Sevelamer Carbonate 800 Mg Tab PO 2,400 mg AC MYRIAM Administration Sodium Chloride 10 ml 06/28/22 10:00 07/10/22 23:45 Sodium Chloride 0.9% 10 Ml Flush Syringe IV Not Given BID MYRIAM Sodium Chloride 10 ml 06/28/22 02:56 Sodium Chloride 0.9% 10 Ml Flush Syringe IV PRN PRN LINE FLUSH Zolpidem Tartrate 5 mg 06/28/22 22:00 07/10/22 23:44 Zolpidem 5 Mg Tab PO 5 mg QHS PRN Administration Sleep
[2022-07-13] MEDS: INSULIN LISPRO 100 UNIT/ML SUB-Q SCH ×6 (08:18→21:33)
--- NOTE | 2022-07-13 09:11 | Progress Note ---
Assessment and Plan Assessment and plan: End-stage renal disease on dialysis Nephrology following, hemodialysis per schedule Avoid nephrotoxin, renal dosing of medications Noncompliance with dialysis Counseling done strongly advised to comply with medications diet Hemodialysis and follow-up doctors visits Patient continues to refuse dialysis Nephrology aware Hyperkalemia; Improved, closely monitor electrolytes Hypertension; moderate control Continue current antihypertensives and as needed medications Possible underlying dementia Supportive care Patient DNR and hospice Hospital course: 07/05/22; Pending authorization for SNF placement DC planning per case management 07/06 pending placement SNF with hospice Case management team processing Pending authorization 07/07; pending SNF placement 07/08; patient is refusing dialysis Awaiting SNF/hospice placement 07/09, refused dialysis awaiting placement 07/10; patient DNR awaiting SNF/hospice placement 07/11: Discharge planning; per case management Possible discharge to SNF with hospice Pending authorization 07/12: Discharge planning; per case management Possible discharge to SNF with hospice Pending authorization 07/13: Case management reports patient does not want to go to a residential. Patient reportedly to return back to his apartment if the medical office rep will accept the patient. Spouse reportedly is in agreement History Interval history: No new issues overnight Hospitalist Physical - Constitutional Vitals: Temp Pulse Resp BP Pulse Ox 98.0 F 90 18 144/74 100 07/13/22 03:31 07/13/22 03:31 07/13/22 03:31 07/13/22 03:31 07/13/22 03:31 General appearance: Present: no acute distress, cachectic, disheveled, other (malnourished) - EENT Eyes: Present: PERRL, EOM intact ENT: hearing intact, clear oral mucosa, dentition normal - Neck Neck: Present: supple, normal ROM - Respiratory Respiratory effort: normal Respiratory: bilateral: CTA - Cardiovascular Rhythm: regular Heart Sounds: Present: S1 & S2. Absent: gallop, rub - Extremities Extremities: no ischemia, No edema, Full ROM - Abdominal General gastrointestinal: soft, non-tender, non-distended, normal bowel sounds - Integumentary Integumentary: Present: clear, warm, dry - Neurologic Neurologic: CNII-XII intact, moves all extremities Results - Labs CBC & Chem 7: 07/06/22 05:13 07/06/22 04:00 Labs: Laboratory Last Values WBC 7.8 K/mm3 (4.5-11.0) 07/01/22 20:59 RBC 2.50 M/mm3 (3.65-5.03) L 07/01/22 20:59 Hgb 7.4 gm/dl (11.8-15.2) L 07/06/22 05:13 Hct 22.4 % (35.5-45.6) L 07/06/22 05:13 MCV 93 fl (84-94) 07/01/22 20:59 MCH 32 pg (28-32) 07/01/22 20:59 MCHC 34 % (32-34) 07/01/22 20:59 RDW 15.6 % (13.2-15.2) H 07/01/22 20:59 Plt Count 182 K/mm3 (140-440) 07/01/22 20:59 Lymph % (Auto) 18.0 % (13.4-35.0) 07/01/22 20:59 [place] % (Auto) 10.7 % (0.0-7.3) H 07/01/22 20:59 Eos % (Auto) 1.6 % (0.0-4.3) 07/01/22 20:59 Baso % (Auto) 0.7 % (0.0-1.8) 07/01/22 20:59 Lymph # (Auto) 1.4 K/mm3 (1.2-5.4) 07/01/22 20:59 [place] # (Auto) 0.8 K/mm3 (0.0-0.8) 07/01/22 20:59 Eos # (Auto) 0.1 K/mm3 (0.0-0.4) 07/01/22 20:59 Baso # (Auto) 0.1 K/mm3 (0.0-0.1) 07/01/22 20:59 Seg Neutrophils % 69.0 % (40.0-70.0) 07/01/22 20:59 Seg Neutrophils # 5.4 K/mm3 (1.8-7.7) 07/01/22 20:59 Sodium 142 mmol/L (137-145) 07/06/22 04:00 Potassium 5.5 mmol/L (3.6-5.0) H 07/06/22 04:00 Chloride 91.1 mmol/L (98-107) L 07/06/22 04:00 Carbon Dioxide 36 mmol/L (22-30) H 07/06/22 04:00 Anion Gap 20 mmol/L 07/06/22 04:00 BUN 83 mg/dL (9-20) H 07/06/22 04:00 Creatinine 11.7 mg/dL (0.8-1.3) H 07/06/22 04:00 Estimated GFR 6 ml/min 07/06/22 04:00 BUN/Creatinine Ratio 7 % 07/06/22 04:00 Glucose 59 mg/dL (75-100) L 07/06/22 04:00 POC Glucose 174 mg/dL (70-105) H 07/12/22 20:35 Calcium 9.2 mg/dL (8.4-10.2) 07/06/22 04:00 Magnesium 2.30 mg/dL (1.7-2.3) 07/06/22 04:00 Total Bilirubin 0.30 mg/dL (0.1-1.2) 06/27/22 22:48 AST 12 units/L (5-40) 06/27/22 22:48 ALT 26 units/L (7-56) 06/27/22 22:48 Alkaline Phosphatase 122 units/L (35-129) 06/27/22 22:48 Total Protein 6.9 g/dL (6.3-8.2) 06/27/22 22:48 Albumin 3.8 g/dL (3.9-5) L 06/27/22 22:48 Albumin/Globulin Ratio 1.2 % 06/27/22 22:48 Coronavirus (PCR) Negative (Negative) 06/30/22 10:00 SARS-CoV-2 (PCR) Negative (Negative) 07/04/22 11:34 Hepatitis A IgM Ab Non-reactive (NonReactive) 06/28/22 08:31 Hep Bs Antigen Non-reactive (Negative) 06/28/22 08:31 Hep B Core IgM Ab Non-reactive (NonReactive) 06/28/22 08:31 Hepatitis C Antibody Non-reactive (NonReactive) 06/28/22 08:31 Saez/IV: Voiding Method Toilet Active Medications - Current Medications Current Medications: Generic Name Dose Route Start Last Admin Trade Name Laura PRN Reason Stop Dose Admin Acetaminophen 650 mg 06/28/22 02:56 Acetaminophen 325 Mg Tab PO Q4H PRN Pain MILD(1-3)/Fever >100.5/MUNOZ Aspirin 81 mg 06/28/22 10:00 07/12/22 09:50 Aspirin Ec 81 Mg Tab PO 81 mg QDAY MYRIAM Administration Dextrose 50 ml 06/28/22 02:56 06/28/22 11:34 Dextrose 50% In Water (25gm) 50 Ml Syringe IV 50 ml Q30MIN PRN Administration Hypoglycemia Protocol Sodium Chloride 100 mls @ 999 mls/hr 07/06/22 09:00 Nacl 0.9% IV HILDA PRN Hypotension Insulin Human Lispro 0 unit 06/28/22 07:30 07/13/22 08:20 Insulin Lispro 100 Unit/Ml SUB-Q Not Given ACHS MYRIAM Protocol Levetiracetam 500 mg 06/28/22 10:00 07/12/22 21:54 Levetiracetam 500 Mg Tab PO 500 mg BID MYRIAM Administration Metoclopramide HCl 5 mg 07/12/22 08:00 Metoclopramide 10 Mg/2 Ml Inj IV Q6H PRN Nausea And Vomiting Metoprolol Tartrate 50 mg 07/01/22 22:00 07/12/22 21:55 Metoprolol Tartrate 50 Mg Tab PO 50 mg BID MYRIAM Administration Morphine Sulfate 2 mg 06/28/22 02:56 06/28/22 15:13 Morphine 2 Mg/1 Ml Inj IV 2 mg Q4H PRN Administration Pain, Moderate (4-6) Morphine Sulfate 4 mg 06/28/22 02:56 Morphine 4 Mg/1 Ml Inj IV Q4H PRN Pain , Severe (7-10) Ondansetron HCl 4 mg 06/28/22 02:56 Ondansetron 4 Mg/2 Ml Inj IV Q8H PRN Nausea And Vomiting Sevelamer Carbonate 2,400 mg 06/28/22 07:30 07/12/22 17:26 Sevelamer Carbonate 800 Mg Tab PO 2,400 mg AC MYRIAM Administration Sodium Chloride 10 ml 06/28/22 10:00 07/13/22 08:19 Sodium Chloride 0.9% 10 Ml Flush Syringe IV Not Given BID MYRIAM Sodium Chloride 10 ml 06/28/22 02:56 Sodium Chloride 0.9% 10 Ml Flush Syringe IV PRN PRN LINE FLUSH Zolpidem Tartrate 5 mg 06/28/22 22:00 07/10/22 23:44 Zolpidem 5 Mg Tab PO 5 mg QHS PRN Administration Sleep Nutrition/Malnutrition Assess - Dietary Evaluation Nutrition/Malnutrition Findings: Nutrition Notes Start: 06/29/22 10:48 Freq: Status: Active Protocol: Document 07/06/22 14:25 [place] (Rec: 07/06/22 14:43 [place] [id number]) Nutrition Notes Initial or Follow up Assessment Current Diagnosis CKD (stage V CKD),Diabetes, Hypertension Other Pertinent Diagnosis AMS, r/o Dementia, ESRD+HD, Hyperkalemia, Hyperphosphatemia, Anemia, ... Current Diet Renal Diet (since B 06/28). Labs/Tests 07/06: K 5.5, Cl 91.1, CO2 36, BUN 83, Crea 11.7, Glu 59. Pertinent Medications 07/06: Renvela. Height 5 ft 7 in Weight 56.1 kg [place] Body Weight (kg) 67.27 BMI 19.3 Weight change and time frame 3 Kg body weight gain reported in 1 week. Weight Status Appropriate Subjective/Other Information RD consult for routine F/U on dietary advancement. Diet continues as prescribed, but Dietary Supplements were discontinued, No reports available on Pt's PO intake of meals at the time, will assess at F/U. Pt is on Room Air, O2 saturation @ 98%, according to Vital Signs notes. Pt is awaiting for SNF placement, according to Progress notes. Percent of energy/protein needs met: Prescribed Renal Diet provides for energy/protein needs (2, 072 Kcal/77 g) during LOS. Burn Absent Trauma Absent GI Symptoms None Food Allergy No Skin Integrity/Comment Assessment WNL. Minimum of two criteria No Fluid Accumulation N/A Reduced [employer] Strength N/A (non-severe) Protein-Calorie Malnutrition N\A #1 Nutrition Diagnosis Predicted suboptimal energy intake Comments: Diet continues as prescribed, but Dietary Supplements were discontinued, No reports available on Pt's PO intake of meals at the time, will assess at F/U. Diagnosis Progress(for reassessment Resolved documentation) Is patient on ventilator? No Is Patient Ambulatory and/or Out of Bed Yes [facility] [ [id number]] Calculation Used for Recommendations Shane Will Additional Notes Protein: >1.2 g/Kg ABW; >64 g/ day. Fluids: 1 ml/Kcal, or as per MD. Nutrition Intervention Change Diet Order: Continue Renal Diet as tolerated. Add Supplement/Snack (indicate name/kcal Discontinued. /protein ) Goal #1 Adjust the dietary intervention to better serve Pt's energy/protein needs and clinical conditions during LOS . Follow-Up By: 07/13/22 Additional Comments Continue monitoring food tolerance, %PO intake of meals , and BM.
[2022-07-13] MEDS: levETIRAcetam 500 MG TAB PO SCH ×2 (09:59→21:40)
[2022-07-13] MEDS: SEVELAMER CARBONATE 800 MG TAB PO SCH ×2 (09:59→18:51)
[2022-07-13] MEDS: ASPIRIN EC 81 MG TAB PO SCH (09:59)
[2022-07-13] MEDS: METOPROLOL TARTRATE 50 MG TAB PO SCH ×2 (09:59→21:40)
--- NOTE | 2022-07-13 13:50 | Progress Note ---
Assessment and Plan Impression * End-stage renal disease on hemodialysis * Uremia, resolved with HD * Hyperkalemia, controlled with HD * Anemia of ESRD * Secondary hyperparathyroidism Plan: * Patient refused dialysis on Sunday. Today, patient initially states that he will not be going to dialysis today. Again, he was advised that he will without dialysis. * Continue HD TTS if patient agreeable * UF as tolerated * Dose medications for renal function * Renal/HD diet * Note discharge planning in progress; patient does not have an outpatient dialysis clinic; HD clinic placement will be challenging due to noncompliance. He continues to refuse dialysis, hospice placement is appropriate Subjective Date of service: 07/13/22 Principal diagnosis: Encephalopathy Interval history: Patient has no complaints Objective - Vital Signs Vital signs: Vital Signs - 12hr 07/13/22 07/13/22 07/13/22 03:31 07:35 11:44 Temperature 98.0 F 98.2 F 97.9 F Pulse Rate 90 83 73 Respiratory 18 16 18 Rate Blood Pressure 144/74 132/65 128/75 O2 Sat by Pulse 100 97 93 Oximetry - General Appearance General appearance: well-developed, well-nourished EENT: ATNC Respiratory: Present: Clear to Ascultation Cardiology: regular, S1S2 Gastrointestinal: normal, no tenderness, no distended Integumentary: warm and dry Neurologic: alert and oriented x3 - Lab 07/13/22 17:07 07/13/22 17:07 Most recent lab results Calcium 9.2 mg/dL (8.4-10.2) 07/06/22 04:00 Magnesium 2.30 mg/dL (1.7-2.3) 07/06/22 04:00 Medications & Allergies - Medications Allergies/Adverse Reactions: Allergies No Known Allergies Allergy (Verified 06/29/22 09:46) Home Medications: Home Medications Medication Instructions Recorded Confirmed Last Taken Type Aspirin EC [Halfprin EC] 81 mg PO QDAY #30 tablet. 06/08/22 06/29/22 Unknown Rx Sevelamer Carbonate [Renvela] 2,400 mg PO AC #60 tablet 06/08/22 06/29/22 Unknown Rx Zolpidem [Ambien] 5 mg PO QHS PRN #7 tablet 06/08/22 06/29/22 Unknown Rx Metoprolol Tartrate [Lopressor] 100 mg PO BID 06/29/22 06/29/22 Unknown History levETIRAcetam [Keppra TAB] 500 mg PO BID 06/29/22 06/29/22 Unknown History Active Medications: Generic Name Dose Route Start Last Admin Trade Name Freq PRN Reason Stop Dose Admin Acetaminophen 650 mg 06/28/22 02:56 Acetaminophen 325 Mg Tab PO Q4H PRN Pain MILD(1-3)/Fever >100.5/MUNOZ Aspirin 81 mg 06/28/22 10:00 07/13/22 09:59 Aspirin Ec 81 Mg Tab PO 81 mg QDAY MYRIAM Administration Dextrose 50 ml 06/28/22 02:56 06/28/22 11:34 Dextrose 50% In Water (25gm) 50 Ml Syringe IV 50 ml Q30MIN PRN Administration Hypoglycemia Protocol Sodium Chloride 100 mls @ 999 mls/hr 07/06/22 09:00 Nacl 0.9% IV HILDA PRN Hypotension Insulin Human Lispro 0 unit 06/28/22 07:30 07/13/22 09:55 Insulin Lispro 100 Unit/Ml SUB-Q Not Given ACHS MYRIAM Protocol Levetiracetam 500 mg 06/28/22 10:00 07/13/22 09:59 Levetiracetam 500 Mg Tab PO 500 mg BID MYRIAM Administration Metoclopramide HCl 5 mg 07/12/22 08:00 Metoclopramide 10 Mg/2 Ml Inj IV Q6H PRN Nausea And Vomiting Metoprolol Tartrate 50 mg 07/01/22 22:00 07/13/22 09:59 Metoprolol Tartrate 50 Mg Tab PO 50 mg BID MYRIAM Administration Morphine Sulfate 2 mg 06/28/22 02:56 06/28/22 15:13 Morphine 2 Mg/1 Ml Inj IV 2 mg Q4H PRN Administration Pain, Moderate (4-6) Morphine Sulfate 4 mg 06/28/22 02:56 Morphine 4 Mg/1 Ml Inj IV Q4H PRN Pain , Severe (7-10) Ondansetron HCl 4 mg 06/28/22 02:56 Ondansetron 4 Mg/2 Ml Inj IV Q8H PRN Nausea And Vomiting Sevelamer Carbonate 2,400 mg 06/28/22 07:30 07/13/22 09:59 Sevelamer Carbonate 800 Mg Tab PO 2,400 mg AC MYRIAM Administration Sodium Chloride 10 ml 06/28/22 10:00 07/13/22 09:59 Sodium Chloride 0.9% 10 Ml Flush Syringe IV Not Given BID MYRIAM Sodium Chloride 10 ml 06/28/22 02:56 Sodium Chloride 0.9% 10 Ml Flush Syringe IV PRN PRN LINE FLUSH Zolpidem Tartrate 5 mg 06/28/22 22:00 07/10/22 23:44 Zolpidem 5 Mg Tab PO 5 mg QHS PRN Administration Sleep
[2022-07-13 18:37] LABS: Calcium 9.3 mg/dL (8.4-10.2)
[2022-07-13 18:43] LABS: Basophils % (Auto) 0.7 % (0.0-1.8); Eosinophils # (Auto) 0.2 K/mm3 (0.0-0.4); Eosinophils % (Auto) 2.6 % (0.0-4.3); Hematocrit 24.4 % (35.5-45.6); Hemoglobin 8.1 gm/dl (11.8-15.2); Lymphocytes % (Auto) 14.7 % (13.4-35.0); Mean Corpuscular HGB Conc 33 % (32-34); Mean Corpuscular Volume 93 fl (84-94); Monocytes # (Auto) 0.5 K/mm3 (0.0-0.8); Monocytes % (Auto) 7.8 % (0.0-7.3); Platelet Count 300 K/mm3 (140-440); Red Blood Count 2.61 M/mm3 (3.65-5.03); Red Cell Distribution Width 15.3 % (13.2-15.2)
[2022-07-14 06:38] LABS: Hemoglobin 7.5 gm/dl (11.8-15.2); Mean Corpuscular HGB Conc 33 % (32-34); Mean Corpuscular Volume 94 fl (84-94); Red Blood Count 2.46 M/mm3 (3.65-5.03); Red Cell Distribution Width 14.9 % (13.2-15.2)
[2022-07-14 06:41] LABS: Platelet Count 244 K/mm3 (140-440)
[2022-07-14] MEDS: INSULIN LISPRO 100 UNIT/ML SUB-Q SCH ×2 (08:57→14:44)
[2022-07-14] MEDS: SODIUM POLYSTYRENE 15 GM/60 ML ORAL LIQD PO SCH ×2 (10:08→10:18)
[2022-07-14] MEDS: SEVELAMER CARBONATE 800 MG TAB PO SCH ×2 (10:08→14:44)
[2022-07-14] MEDS: ASPIRIN EC 81 MG TAB PO SCH (10:08)
[2022-07-14] MEDS: levETIRAcetam 500 MG TAB PO SCH (10:08)
[2022-07-14] MEDS: METOPROLOL TARTRATE 50 MG TAB PO SCH (10:08)
--- NOTE | 2022-07-14 10:47 | Progress Note ---
Assessment and Plan Assessment and plan: This is a 51-year-old man with end-stage renal disease on hemodialysis with history of noncompliance who presented to the emergency department with generalized weakness and nausea. End-stage renal disease on dialysis Nephrology following, hemodialysis per schedule Avoid nephrotoxin, renal dosing of medications Noncompliance with dialysis Counseling done strongly advised to comply with medications diet Hemodialysis and follow-up doctors visits Patient continues to refuse dialysis Nephrology aware Hyperkalemia; Improved, closely monitor electrolytes Hypertension; moderate control Continue current antihypertensives and as needed medications Possible underlying dementia Supportive care Patient DNR and hospice Hospital course: 07/05/22; Pending authorization for SNF placement DC planning per case management 07/06 pending placement SNF with hospice Case management team processing Pending authorization 07/07; pending SNF placement 07/08; patient is refusing dialysis Awaiting SNF/hospice placement 07/09, refused dialysis awaiting placement 07/10; patient DNR awaiting SNF/hospice placement 07/11: Discharge planning; per case management Possible discharge to SNF with hospice Pending authorization 07/12: Discharge planning; per case management Possible discharge to SNF with hospice Pending authorization 07/13: Case management reports patient does not want to go to a correction. Patient reportedly to return back to his apartment if the disabilities services officer will accept the patient. Spouse reportedly is in agreement 07/14: Patient with potassium of 7.7 this morning. Patient is refusing hemodialysis as well as hyperkalemic treatments insulin/glucose, Kayexalate and calcium gluconate. I explained to the patient that if he does not undergo hemodialysis and other treatments as described that he will have sudden cardiac arrest and . Patient stated that he wanted to "sleep on it". Nursing and myself placed emphasis again on the importance of treatment, patient voiced understanding and stated that it is "in God's hands". Nephrology also saw the patient today and reports he continues to refuse dialysis. I discussed case with Dr. Owen who had a discussion with the patient and and now arrangements are made for hospice. Nephrology reports since the patient continues to refuse dialysis, hospice placement is appropriate. Case management arranged for hospice. History Interval history: No new issues overnight Hospitalist Physical - Constitutional Vitals: Temp Pulse Resp BP Pulse Ox 98.0 F 90 19 137/77 100 07/14/22 07:32 07/14/22 07:32 07/14/22 07:32 07/14/22 07:32 07/14/22 07:32 General appearance: Present: no acute distress, cachectic, disheveled, other (malnourished) - EENT Eyes: Present: PERRL, EOM intact ENT: hearing intact, clear oral mucosa, dentition normal - Neck Neck: Present: supple, normal ROM - Respiratory Respiratory effort: normal Respiratory: bilateral: CTA - Cardiovascular Rhythm: regular Heart Sounds: Present: S1 & S2. Absent: gallop, rub - Extremities Extremities: no ischemia, No edema, Full ROM - Abdominal General gastrointestinal: soft, non-tender, non-distended, normal bowel sounds - Integumentary Integumentary: Present: clear, warm, dry - Neurologic Neurologic: CNII-XII intact, moves all extremities Results - Labs CBC & Chem 7: 07/14/22 05:16 07/14/22 05:16 Labs: Laboratory Last Values WBC 8.7 K/mm3 (4.5-11.0) 07/14/22 05:16 RBC 2.46 M/mm3 (3.65-5.03) L 07/14/22 05:16 Hgb 7.5 gm/dl (11.8-15.2) L 07/14/22 05:16 Hct 23.0 % (35.5-45.6) L 07/14/22 05:16 MCV 94 fl (84-94) 07/14/22 05:16 MCH 31 pg (28-32) 07/14/22 05:16 MCHC 33 % (32-34) 07/14/22 05:16 RDW 14.9 % (13.2-15.2) 07/14/22 05:16 Plt Count 244 K/mm3 (140-440) 07/14/22 05:16 Lymph % (Auto) Dip Stand Loader 07/14/22 05:16 [place] % (Auto) Dip Stand Loader 07/14/22 05:16 Eos % (Auto) Dip Stand Loader 07/14/22 05:16 Baso % (Auto) Dip Stand Loader 07/14/22 05:16 Lymph # (Auto) Dip Stand Loader 07/14/22 05:16 [place] # (Auto) Dip Stand Loader 07/14/22 05:16 Eos # (Auto) Dip Stand Loader 07/14/22 05:16 Baso # (Auto) Dip Stand Loader 07/14/22 05:16 Seg Neutrophils % Dip Stand Loader 07/14/22 05:16 Seg Neutrophils # Dip Stand Loader 07/14/22 05:16 Sodium 140 mmol/L (137-145) 07/14/22 05:16 Potassium 7.7 mmol/L (3.6-5.0) H* 07/14/22 05:16 Chloride 90.7 mmol/L (98-107) L 07/14/22 05:16 Carbon Dioxide 26 mmol/L (22-30) 07/14/22 05:16 Anion Gap 31 mmol/L 07/14/22 05:16 BUN 138 mg/dL (9-20) H 07/14/22 05:16 Creatinine 18.2 mg/dL (0.8-1.3) H 07/14/22 05:16 Estimated GFR 3 ml/min 07/14/22 05:16 BUN/Creatinine Ratio 8 % 07/14/22 05:16 Glucose 82 mg/dL (75-100) 07/14/22 05:16 POC Glucose 86 mg/dL (70-105) 07/14/22 07:31 Calcium 9.0 mg/dL (8.4-10.2) 07/14/22 05:16 Magnesium 2.30 mg/dL (1.7-2.3) 07/06/22 04:00 Total Bilirubin 0.30 mg/dL (0.1-1.2) 06/27/22 22:48 AST 12 units/L (5-40) 06/27/22 22:48 ALT 26 units/L (7-56) 06/27/22 22:48 Alkaline Phosphatase 122 units/L (35-129) 06/27/22 22:48 Total Protein 6.9 g/dL (6.3-8.2) 06/27/22 22:48 Albumin 3.8 g/dL (3.9-5) L 06/27/22 22:48 Albumin/Globulin Ratio 1.2 % 06/27/22 22:48 Coronavirus (PCR) Negative (Negative) 06/30/22 10:00 SARS-CoV-2 (PCR) Negative (Negative) 07/04/22 11:34 Hepatitis A IgM Ab Non-reactive (NonReactive) 06/28/22 08:31 Hep Bs Antigen Non-reactive (Negative) 06/28/22 08:31 Hep B Core IgM Ab Non-reactive (NonReactive) 06/28/22 08:31 Hepatitis C Antibody Non-reactive (NonReactive) 06/28/22 08:31 Saez/IV: Voiding Method Toilet Active Medications - Current Medications Current Medications: Generic Name Dose Route Start Last Admin Trade Name Freq PRN Reason Stop Dose Admin Acetaminophen 650 mg 06/28/22 02:56 Acetaminophen 325 Mg Tab PO Q4H PRN Pain MILD(1-3)/Fever >100.5/MUNOZ Aspirin 81 mg 06/28/22 10:00 07/14/22 10:08 Aspirin Ec 81 Mg Tab PO 81 mg QDAY MYRIAM Administration Dextrose 50 ml 06/28/22 02:56 06/28/22 11:34 Dextrose 50% In Water (25gm) 50 Ml Syringe IV 50 ml Q30MIN PRN Administration Hypoglycemia Protocol Sodium Chloride 100 mls @ 999 mls/hr 07/06/22 09:00 Nacl 0.9% IV HILDA PRN Hypotension Insulin Human Lispro 0 unit 06/28/22 07:30 07/14/22 08:57 Insulin Lispro 100 Unit/Ml SUB-Q Not Given ACHS MYRIAM Protocol Levetiracetam 500 mg 06/28/22 10:00 07/14/22 10:08 Levetiracetam 500 Mg Tab PO 500 mg BID MYRIAM Administration Metoclopramide HCl 5 mg 07/12/22 08:00 Metoclopramide 10 Mg/2 Ml Inj IV Q6H PRN Nausea And Vomiting Metoprolol Tartrate 50 mg 07/01/22 22:00 07/14/22 10:08 Metoprolol Tartrate 50 Mg Tab PO 50 mg BID MYRIAM Administration Morphine Sulfate 2 mg 06/28/22 02:56 06/28/22 15:13 Morphine 2 Mg/1 Ml Inj IV 2 mg Q4H PRN Administration Pain, Moderate (4-6) Morphine Sulfate 4 mg 06/28/22 02:56 Morphine 4 Mg/1 Ml Inj IV Q4H PRN Pain , Severe (7-10) Ondansetron HCl 4 mg 06/28/22 02:56 Ondansetron 4 Mg/2 Ml Inj IV Q8H PRN Nausea And Vomiting Sevelamer Carbonate 2,400 mg 06/28/22 07:30 07/14/22 10:08 Sevelamer Carbonate 800 Mg Tab PO 2,400 mg AC MYRIAM Administration Sodium Chloride 10 ml 06/28/22 10:00 07/14/22 10:08 Sodium Chloride 0.9% 10 Ml Flush Syringe IV 10 ml BID MYRIAM Administration Sodium Chloride 10 ml 06/28/22 02:56 Sodium Chloride 0.9% 10 Ml Flush Syringe IV PRN PRN LINE FLUSH Sodium Polystyrene Sulfonate 45 gm 07/14/22 09:00 07/14/22 10:18 Sodium Polystyrene 15 Gm/60 Ml Oral Liqd PO 07/14/22 12:00 Not Given ONCE@0900 MYRIAM Zolpidem Tartrate 5 mg 06/28/22 22:00 07/10/22 23:44 Zolpidem 5 Mg Tab PO 5 mg QHS PRN Administration Sleep Nutrition/Malnutrition Assess - Dietary Evaluation Nutrition/Malnutrition Findings: Nutrition Notes Start: 06/29/22 10:48 Freq: Status: Active Protocol: Document 07/13/22 17:40 CM (Rec: 07/13/22 17:51 CM [id number]) Co-Sign 07/13/22 17:40 WW Nutrition Notes Initial or Follow up Reassessment Current Diagnosis CKD (stage V CKD),Hypertension Current Diet Renal Diet Labs/Tests Reviewed Pertinent Medications Sevelamer Carbonate Height 5 ft 7 in Weight 56.6 kg [place] Body Weight (kg) 67.27 BMI 19.5 Weight change and time frame Pt reported 20lb wt loss over 1 year with a UBW of 200lb - 38% wt loss in one year. Subjective/Other Information RD follow-up per protocol. No %PO intake recorded in ADL notes. Physical assessment WNL. Pt reported consuming 50% of meals. Pt refused physical examination. Denied N/V, abdominal pain, or chewing/swallowing difficulty . Noted diarrhea this morning and BM once per day. Recommend nutrition supplementation. Wt loss indicative of mild malnutrition at this time - pt visually at nutrition risk. Percent of energy/protein needs met: Renal Diet provides 2072kcal/ 77g PRO q day (115%/100%) Burn Absent Trauma Absent GI Symptoms Diarrhea Food Allergy No Skin Integrity/Comment Dry skin at visit Current % PO Fair (50-74%) Minimum of two criteria No Interpretation of Weight Loss (severe) > 20% in 1 year Body Fat Depletion Moderate depletion (severe) Muscle Mass Moderate Depletion (severe) Fluid Accumulation N/A Reduced Technical Specialist Cytology Strength N/A (non-severe) Protein-Calorie Malnutrition N\\A #1 Nutrition Diagnosis Malnutrition Comments: Severe malnutrition in chronic setting Etiology ESRD on HD As Evidenced by Signs and Symptoms 38% wt loss over 1 year compared to pt UBW and visual severe muscle wasting / subcutaneous fat loss. Is patient on ventilator? No Is Patient Ambulatory and/or Out of Bed Yes REE-([facility]-ambulatory/OOB) [ 1800.019 [id number]] Calculation Used for Recommendations [facility] Additional Notes Protein: 1.2-1.5g/kg ABW; 68- 85g PRO q day Fluids: 1000mL + UOP Nutrition Intervention Change Diet Order: Continue renal diet Add Supplement/Snack (indicate name/kcal Nepro BID (Vanilla) /protein ) Provides kCal: 850 Provides Protein (gm) 38 Goal #1 Pt to consume >75% of estimated energy/protein needs through current diet order/ supplementation. Follow-Up By: 07/19/22 Additional Comments Monitor %PO intake and wt status
--- NOTE | 2022-07-14 11:15 | Progress Note ---
Subjective Date of service: 07/14/22 Principal diagnosis: Encephalopathy Interval history: Impression * End-stage renal disease on hemodialysis * Uremia * Hyperkalemia, * Anemia of ESRD * Secondary hyperparathyroidism Plan: * Patient continues to refuse dialysis Again, he was advised that he will without dialysis. * Dose medications for renal function * Renal/HD diet * rec daily kayexalate * He continues to refuse dialysis, hospice placement is appropriate, no further intervention from renal standpoint can be provided * rec palliative care and hospice, call renal if patient interested in dialysis, otherwise will sign off Subjective Principal diagnosis: Encephalopathy Interval history: labs, notes and chart reviewed today Objective General appearance: well-developed, well-nourished EENT: ATNC Respiratory: Present: Clear to Ascultation Cardiology: regular, S1S2 Gastrointestinal: normal, no tenderness, no distended Integumentary: warm and dry Neurologic: alert and oriented x3 Objective - Vital Signs Vital signs: Vital Signs - 12hr 07/14/22 07/14/22 03:38 07:32 Temperature 98.0 F 98.0 F Pulse Rate 86 90 Respiratory 18 19 Rate Blood Pressure 136/71 137/77 O2 Sat by Pulse 99 100 Oximetry - Lab 07/14/22 05:16 07/14/22 05:16 Most recent lab results Calcium 9.0 mg/dL (8.4-10.2) 07/14/22 05:16 Magnesium 2.30 mg/dL (1.7-2.3) 07/06/22 04:00 Medications & Allergies - Medications Allergies/Adverse Reactions: Allergies No Known Allergies Allergy (Verified 06/29/22 09:46) Home Medications: Home Medications Medication Instructions Recorded Confirmed Last Taken Type Aspirin EC [Halfprin EC] 81 mg PO QDAY #30 tablet. 06/08/22 06/29/22 Unknown Rx Sevelamer Carbonate [Renvela] 2,400 mg PO AC #60 tablet 06/08/22 06/29/22 Unknown Rx Zolpidem [Ambien] 5 mg PO QHS PRN #7 tablet 06/08/22 06/29/22 Unknown Rx Metoprolol Tartrate [Lopressor] 100 mg PO BID 06/29/22 06/29/22 Unknown History levETIRAcetam [Keppra TAB] 500 mg PO BID 06/29/22 06/29/22 Unknown History Active Medications: Generic Name Dose Route Start Last Admin Trade Name Herberthq PRN Reason Stop Dose Admin Acetaminophen 650 mg 06/28/22 02:56 Acetaminophen 325 Mg Tab PO Q4H PRN Pain MILD(1-3)/Fever >100.5/MUNOZ Aspirin 81 mg 06/28/22 10:00 07/14/22 10:08 Aspirin Ec 81 Mg Tab PO 81 mg QDAY MYRIAM Administration Dextrose 50 ml 06/28/22 02:56 06/28/22 11:34 Dextrose 50% In Water (25gm) 50 Ml Syringe IV 50 ml Q30MIN PRN Administration Hypoglycemia Protocol Sodium Chloride 100 mls @ 999 mls/hr 07/06/22 09:00 Nacl 0.9% IV HILDA PRN Hypotension Insulin Human Lispro 0 unit 06/28/22 07:30 07/14/22 08:57 Insulin Lispro 100 Unit/Ml SUB-Q Not Given ACHS MYRIAM Protocol Levetiracetam 500 mg 06/28/22 10:00 07/14/22 10:08 Levetiracetam 500 Mg Tab PO 500 mg BID MYRIAM Administration Metoclopramide HCl 5 mg 07/12/22 08:00 Metoclopramide 10 Mg/2 Ml Inj IV Q6H PRN Nausea And Vomiting Metoprolol Tartrate 50 mg 07/01/22 22:00 07/14/22 10:08 Metoprolol Tartrate 50 Mg Tab PO 50 mg BID MYRIAM Administration Morphine Sulfate 2 mg 06/28/22 02:56 06/28/22 15:13 Morphine 2 Mg/1 Ml Inj IV 2 mg Q4H PRN Administration Pain, Moderate (4-6) Morphine Sulfate 4 mg 06/28/22 02:56 Morphine 4 Mg/1 Ml Inj IV Q4H PRN Pain , Severe (7-10) Ondansetron HCl 4 mg 06/28/22 02:56 Ondansetron 4 Mg/2 Ml Inj IV Q8H PRN Nausea And Vomiting Sevelamer Carbonate 2,400 mg 06/28/22 07:30 07/14/22 10:08 Sevelamer Carbonate 800 Mg Tab PO 2,400 mg AC MYRIAM Administration Sodium Chloride 10 ml 06/28/22 10:00 07/14/22 10:08 Sodium Chloride 0.9% 10 Ml Flush Syringe IV 10 ml BID MYRIAM Administration Sodium Chloride 10 ml 06/28/22 02:56 Sodium Chloride 0.9% 10 Ml Flush Syringe IV PRN PRN LINE FLUSH Sodium Polystyrene Sulfonate 45 gm 07/14/22 09:00 07/14/22 10:18 Sodium Polystyrene 15 Gm/60 Ml Oral Liqd PO 07/14/22 12:00 Not Given ONCE@0900 MYIRAM Zolpidem Tartrate 5 mg 06/28/22 22:00 07/10/22 23:44 Zolpidem 5 Mg Tab PO 5 mg QHS PRN Administration Sleep
--- NOTE | 2022-07-14 12:25 | Discharge Summary ---
Providers - Providers Date of Admission: 06/28/22 02:57 Date of discharge: 07/14/22 Attending physician: JENNIFER LOFTON 06/28/22 01:55 Consult to Physician [CONS] Urgent Comment: Consulting Provider: ANGELITA SHAFER Physician Instructions: Reason For Exam: End-stage renal disease with 06/28/22 10:01 Consult to Case Management [CONS] Routine Services Needed at Discharge: Other Notified:: cm 06/28/22 15:43 Occupational Therapy Evaluate and Treat [CONS] Routine Comment: OT eval and treat. Reason For Exam: debility Physical Therapy Evaluation and Treat [CONS] Routine Comment: Pt eval and treat. Reason For Exam: debility 07/14/22 10:45 psychiatry consult [Consult to Mental Health] [CONS] Routine Reason For Exam: assess for mental capacity for decision making Primary care physician: ALDEN MARTINEZ Hospitalization Reason for admission: ESRd with missed HD Condition: Good Hospital course: 51-year-old male with known history of end-stage renal disease on dialysis who was has not been quite compliant with his dialysis presented to the emergency room today with complaints of nausea and generalized weakness. Last dialysis was on May 27, 2022 [facility]. He was encouraged by family members to report to the emergency room today for evaluation of possible dialysis. Work-up in the emergency room revealed, labs significant for potassium level of 6.8, BUN of 1.2 and creatinine of 20.2. EKG was unremarkable. Patient received insulin, glucose, Kayexalate, Toradol nebulizing treatments and calcium gluconate in the emergency room. Consult has been placed to the direct care counselor for evaluation. The patient was admitted with diagnosis of end-stage renal disease and missed hemodialysis, noncompliance with hemodialysis, hyperkalemia, hypertension Hospital course: 07/05/22; Pending authorization for SNF placement DC planning per case management 07/06 pending placement SNF with hospice Case management team processing Pending authorization 07/07; pending SNF placement 07/08; patient is refusing dialysis Awaiting SNF/hospice placement 07/09, refused dialysis awaiting placement 07/10; patient DNR awaiting SNF/hospice placement 07/11: Discharge planning; per case management Possible discharge to SNF with hospice Pending authorization 07/12: Discharge planning; per case management Possible discharge to SNF with hospice Pending authorization 07/13: Case management reports patient does not want to go to a group home. Patient reportedly to return back to his apartment if the compliance officer will accept the patient. Spouse reportedly is in agreement 07/14: Patient with potassium of 7.7 this morning. Patient is refusing hemodialysis as well as hyperkalemic treatments insulin/glucose, Kayexalate and calcium gluconate. I explained to the patient that if he does not undergo hemodialysis and other treatments as described that he will have sudden cardiac arrest and . Patient stated that he wanted to "sleep on it". Nursing and myself placed emphasis again on the importance of treatment, patient voiced understanding and stated that it is "in God's hands". Nephrology also saw the patient today and reports he continues to refuse dialysis. I discussed case with Dr. Owen who had a discussion with the patient and and now arrangements are made for hospice. Nephrology reports since the patient continues to refuse dialysis, hospice placement is appropriate. Case management arranged for hospice. Dedicated discharge time 35 minutes Disposition: 51 HOSPICE/MEDICAL FACILITY Final Discharge Diagnosis (Prints w/discharge instructions): ESRD, noncompliance with hemodialysis, hyperkalemia, hypertension, hospice placement Core Measure Documentation - Palliative Care Palliative Care/ Comfort Measures: Hospice Care - Core Measures Any of the following diagnoses?: none Exam - Constitutional Vitals: Temp Pulse Resp BP Pulse Ox 98.0 F 90 19 137/77 98 07/14/22 07:32 07/14/22 07:32 07/14/22 07:32 07/14/22 07:32 07/14/22 10:00 General appearance: Present: no acute distress, well-nourished - EENT Eyes: Present: PERRL ENT: hearing intact, clear oral mucosa - Neck Neck: Present: supple, normal ROM - Respiratory Respiratory effort: normal Respiratory: bilateral: CTA - Cardiovascular Heart Sounds: Present: S1 & S2. Absent: rub, click - Extremities Extremities: pulses symmetrical, No edema Peripheral Pulses: within normal limits - Abdominal General gastrointestinal: Present: soft, non-tender, non-distended, normal bowel sounds Male genitourinary: Present: normal - Integumentary Integumentary: Present: clear, warm, dry - Musculoskeletal Musculoskeletal: gait normal, strength equal bilaterally - Psychiatric Psychiatric: appropriate mood/affect, intact judgment & insight - Neurologic Neurologic: CNII-XII intact, moves all extremities Plan Activity: advance as tolerated Weight Bearing Status: Weight Bear as Tolerated Diet: renal Follow up with: ALDEN MARTINEZ MD [Primary Care Provider] - 7 Days
[2022-07-14 13:00] VITALS: BP 136/75
== END 2022-07-14 16:00 | disposition hospice, inpatient (51) | DRG 640 ==
LOC: ED 13:24 → 4A 06-28 02:57
PROVIDERS: ADMIT Internal Medicine Geriatric Medicine; ATTEND Hospitalist
PROC: 5A1D70Z Performance of Urinary Filtration, Intermittent, Less than 6 Hours Per Day (ICD-10-PCS; 2022-06-28)
PROC: 5A1D70Z Performance of Urinary Filtration, Intermittent, Less than 6 Hours Per Day (ICD-10-PCS; 2022-06-30)
PROC: 5A1D70Z Performance of Urinary Filtration, Intermittent, Less than 6 Hours Per Day (ICD-10-PCS; principal; 2022-07-05)
DX: E87.5 Hyperkalemia (principal); N18.6 End stage renal disease; I12.0 Hypertensive chronic kidney disease with stage 5 chronic kidney disease or end stage renal disease; D63.1 Anemia in chronic kidney disease; E11.22 Type 2 diabetes mellitus with diabetic chronic kidney disease; Z66 Do not resuscitate; Z20.822 Contact with and (suspected) exposure to COVID-19; E21.1 Secondary hyperparathyroidism, not elsewhere classified; Z99.2 Dependence on renal dialysis; Z91.15 Patient's noncompliance with renal dialysis; Z51.5 Encounter for palliative care
CPT/HCPCS: 36415; 71045; 80048; 80053; 80074; 82947; 82962; 83735; 85014; 85018; 85025; 93005; 96374; 96375; 99285; G0378; J3490; Q9967; J0610; J1815; J2270; J2405; U0003